=== PATIENT | male | born 1960 | race Caucasian/White ===

== ENCOUNTER 2017-04-17 12:01 | Inpatient (IN) | payer BC ==
[2017-04-17] MEDS ORDERED: RX INFO: IV CONTRAST WAS GIVEN 1 EACH MISC MISCELLANE PRN (12:26)
--- NOTE | 2017-04-17 12:30 | ED ---
General Adult HPI - General Chief complaint: Chest Pain Stated complaint: Chest Pain Time Seen by Provider: 04/17/17 12:14 Source: patient, RN notes reviewed, old records reviewed Mode of arrival: ambulatory Limitations: no limitations - History of Present Illness Initial comments: This is a 56-year-old male to the ER for evaluation. This patient presents for evaluation regards to shortness of breath chest pain left-sided chest pain heaviness radiating down left arm. Patient has no medical history and does not see Dr. has no surgical history, patient states he does have a history of smoking. No known family history. Patient states he was chopping some wood today about an hour and a half to 2 hours ago and became severely short of breath severe pain diaphoresis pain in his anterior chest rating to his left arm. Mild nausea no vomiting. Patient has no prior history of similar pain that is been this bad, patient has had pain before will doing physical activity just is anterior chest never rating on his arm - Related Data Previous Rx's Medication Instructions Recorded Aspirin 81 mg PO DAILY #100 chew 04/19/17 Atorvastatin [Lipitor] 80 mg PO DAILY #30 tab 04/19/17 Clopidogrel [Plavix] 75 mg PO DAILY #100 tab 04/19/17 Losartan [Cozaar] 50 mg PO DAILY 30 Days #30 tab 04/19/17 Metoprolol Tartrate [Lopressor] 50 mg PO Q24H #60 tab 04/19/17 Nitroglycerin Sl Tabs [Nitrostat] 0.4 mg SUBLINGUAL Q5M PRN #20 tab 04/19/17 Allergies Allergy/AdvReac Type Severity Reaction Status Date / Time No Known Allergies Allergy Verified 04/17/17 12:44 Review of Systems ROS Statement: Those systems with pertinent positive or pertinent negative responses have been documented in the HPI. ROS Other: All systems not noted in ROS Statement are negative. Past Medical History Past Medical History: No Reported History History of Any Multi-Drug Resistant Organisms: None Reported Additional Past Surgical History / Comment(s): RIGHT LEG SURGERY , Past Anesthesia/Blood Transfusion Reactions: No Reported Reaction Past Psychological History: No Psychological Hx Reported Smoking Status: Former smoker Past Alcohol Use History: Occasional Past Drug Use History: None Reported - Past Family History Mother Family Medical History: No Reported History General Exam Limitations: no limitations Course Vital Signs 04/17/17 04/17/17 04/17/17 12:02 12:15 14:20 Temperature 97.9 F Pulse Rate 113 H 117 H 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 ] Respiratory 20 18 Rate Blood Pressure 165/102 O2 Sat by Pulse 98 95 Oximetry 04/17/17 04/17/17 04/17/17 14:23 14:28 14:36 Temperature Pulse Rate 106 H 102 H Pulse Rate [ Derivatives Trader ] Respiratory 16 16 Rate Blood Pressure 169/98 160/90 155/90 O2 Sat by Pulse 96 97 Oximetry 04/17/17 04/17/17 04/17/17 14:40 14:46 14:50 Temperature Pulse Rate 100 97 Pulse Rate [ Derivatives Trader ] Respiratory 16 16 Rate Blood Pressure 153/85 146/92 138/95 O2 Sat by Pulse 96 97 Oximetry 04/17/17 04/17/17 14:59 16:11 Temperature 98.8 F 98.6 F Pulse Rate 100 100 Pulse Rate [ Derivatives Trader ] Respiratory 16 16 Rate Blood Pressure 140/94 123/90 O2 Sat by Pulse 97 96 Oximetry EKG Findings - EKG Comments: EKG Findings:: EKG shows sinus tachycardia rate 1:15, NV 154, QRS 98, QTC 484. EKG shows normal sinus rhythm rate of 100, NV 150, QRS 02, QTc 451 Medical Decision Making - Medical Decision Making 36 male the ER for severe chest pain severe chest pain and back running down her arm. Patient is CT chest with is negative. Patient will be admitted for cardiac observation and treatment, anticoagulation - Lab Data Result diagrams: 04/19/17 05:50 04/19/17 05:50 Lab Results 04/17/17 04/17/17 04/17/17 Range/Units 12:50 12:50 12:50 WBC 11.3 H (3.8-10.6) k/uL RBC 5.27 (4.30-5.90) m/uL Hgb 16.2 (13.0-17.5) gm/dL Hct 49.6 (39.0-53.0) % MCV 94.0 (80.0-100.0) fL MCH 30.7 (25.0-35.0) pg MCHC 32.6 (31.0-37.0) g/dL RDW 12.6 (11.5-15.5) % Plt Count 257 (150-450) k/uL Neutrophils % 69 % Lymphocytes % 18 % Monocytes % 8 % Eosinophils % 2 % Basophils % 1 % Neutrophils # 7.7 (1.3-7.7) k/uL Lymphocytes # 2.1 (1.0-4.8) k/uL Monocytes # 0.9 (0-1.0) k/uL Eosinophils # 0.2 (0-0.7) k/uL Basophils # 0.1 (0-0.2) k/uL PT (9.0-12.0) sec INR (<1.2) APTT (22.0-30.0) sec D-Dimer (<0.60) mg/L FEU Sodium 144 (137-145) mmol/L Potassium 4.2 (3.5-5.1) mmol/L Chloride 103 (98-107) mmol/L Carbon Dioxide 26 (22-30) mmol/L Anion Gap 15 mmol/L BUN 11 (9-20) mg/dL Creatinine 0.95 (0.66-1.25) mg/dL Est GFR (MDRD) Af Amer >60 (>60 ml/min/1.73 sqM) Est GFR (MDRD) Non-Af >60 (>60 ml/min/1.73 sqM) Glucose 118 H (74-99) mg/dL Calcium 9.9 (8.4-10.2) mg/dL Magnesium 1.6 (1.6-2.3) mg/dL Total Bilirubin 0.5 (0.2-1.3) mg/dL AST 24 (17-59) U/L ALT 37 (21-72) U/L Alkaline Phosphatase 82 (38-126) U/L Total Creatine Kinase 66 (55-170) U/L CK-MB (CK-2) 1.6 (0.0-2.4) ng/mL CK-MB (CK-2) Rel Index 2.4 Troponin I 0.090 H* (0.000-0.034) ng/mL Total Protein 7.4 (6.3-8.2) g/dL Albumin 4.4 (3.5-5.0) g/dL Lipase 46 (23-300) U/L 04/17/17 Range/Units 12:50 WBC (3.8-10.6) k/uL RBC (4.30-5.90) m/uL Hgb (13.0-17.5) gm/dL Hct (39.0-53.0) % MCV (80.0-100.0) fL MCH (25.0-35.0) pg MCHC (31.0-37.0) g/dL RDW (11.5-15.5) % Plt Count (150-450) k/uL Neutrophils % % Lymphocytes % % Monocytes % % Eosinophils % % Basophils % % Neutrophils # (1.3-7.7) k/uL Lymphocytes # (1.0-4.8) k/uL Monocytes # (0-1.0) k/uL Eosinophils # (0-0.7) k/uL Basophils # (0-0.2) k/uL PT 9.7 (9.0-12.0) sec INR 1.0 (<1.2) APTT 24.9 (22.0-30.0) sec D-Dimer 0.36 (<0.60) mg/L FEU Sodium (137-145) mmol/L Potassium (3.5-5.1) mmol/L Chloride (98-107) mmol/L Carbon Dioxide (22-30) mmol/L Anion Gap mmol/L BUN (9-20) mg/dL Creatinine (0.66-1.25) mg/dL Est GFR (MDRD) Af Amer (>60 ml/min/1.73 sqM) Est GFR (MDRD) Non-Af (>60 ml/min/1.73 sqM) Glucose (74-99) mg/dL Calcium (8.4-10.2) mg/dL Magnesium (1.6-2.3) mg/dL Total Bilirubin (0.2-1.3) mg/dL AST (17-59) U/L ALT (21-72) U/L Alkaline Phosphatase (38-126) U/L Total Creatine Kinase (55-170) U/L CK-MB (CK-2) (0.0-2.4) ng/mL CK-MB (CK-2) Rel Index Troponin I (0.000-0.034) ng/mL Total Protein (6.3-8.2) g/dL Albumin (3.5-5.0) g/dL Lipase (23-300) U/L - Radiology Data Radiology results: report reviewed (CTA chest negative for acute disease), image reviewed Critical Care Time Critical Care Time: Yes Total Critical Care Time: 31 Disposition Clinical Impression: Chest pain Disposition: ADMITTED IP TO THIS HOSP Condition: Undetermined
[2017-04-17 12:58] LABS: Basophils # (A) 0.1 k/uL (0-0.2); Basophils % (A) 1 %; Eosinophils # (A) 0.2 k/uL (0-0.7); Eosinophils % (A) 2 %; HCT 49.6 % (39.0-53.0); HGB 16.2 gm/dL (13.0-17.5); Lymphocytes # (A) 2.1 k/uL (1.0-4.8); Lymphocytes % (A) 18 %; MCH 30.7 pg (25.0-35.0); MCHC 32.6 g/dL (31.0-37.0); Mean Platelet Volume 8.3; Monocytes # (A) 0.9 k/uL (0-1.0); Monocytes % (A) 8 %; Neutrophils # (A) 7.7 k/uL (1.3-7.7); Neutrophils % (A) 69 %; Platelet Count 257 k/uL (150-450); RBC 5.27 m/uL (4.30-5.90); RDW 12.6 % (11.5-15.5); WBC 11.3 k/uL (3.8-10.6)
[2017-04-17 13:06] LABS: D-Dimer 0.36 mg/L FEU (<0.60)
[2017-04-17 13:10] LABS: Partial Thromboplastin Time 24.9 sec (22.0-30.0); Prothrombin Time 9.7 sec (9.0-12.0)
[2017-04-17 13:13] LABS: ALT 37 U/L (21-72); AST 24 U/L (17-59); Albumin 4.4 g/dL (3.5-5.0); Alkaline Phosphatase 82 U/L (38-126); Anion Gap 15 mmol/L; Blood Urea Nitrogen 11 mg/dL (9-20); Calcium 9.9 mg/dL (8.4-10.2); Carbon Dioxide 26 mmol/L (22-30); Chloride 103 mmol/L (98-107); Glucose 118 mg/dL (74-99); Lipase 46 U/L (23-300); Magnesium 1.6 mg/dL (1.6-2.3); Potassium 4.2 mmol/L (3.5-5.1); Sodium 144 mmol/L (137-145); Total Bilirubin 0.5 mg/dL (0.2-1.3); Total Protein 7.4 g/dL (6.3-8.2)
[2017-04-17] MEDS ORDERED: NITROGLYCERIN SL TABS 0.4 MG TAB SUBLINGUAL PRN (13:29)
[2017-04-17] MEDS ORDERED: MORPHINE SULFATE 4 MG/ML SYRINGE IV PRN (13:29)
[2017-04-17] MEDS ORDERED: ASPIRIN 81 MG PO STA (13:29)
[2017-04-17] MEDS ORDERED: HEPARIN SODIUM,PORCINE 5,000 UNIT/ML 1 ML VIAL IV PRN (13:29)
[2017-04-17] MEDS ORDERED: HEPARIN SODIUM,PORCINE 5,000 UNIT/ML 1 ML VIAL IV ONE (13:29)
[2017-04-17] MEDS ORDERED: HEPARIN SOD,PORK IN 0.45% NACL 25,000 UNIT in 0.45% NACL 1 500ML.BAG IV SCH (13:30)
[2017-04-17 13:40] LABS: Creatine Kinase MB 1.6 ng/mL (0.0-2.4)
[2017-04-17 13:48] LABS: Troponin I 0.09 ng/mL (0.000-0.034)
--- NOTE | 2017-04-17 13:52 | CT ---
EXAMINATION TYPE: CT angio chest DATE OF EXAM: 04/17/2017 1:19 PM COMPARISON: NONE HISTORY: Lt upper arm pain, Lt upper chest pain CT DLP: 575 mGycm Automated exposure control for dose reduction was used. CONTRAST: CTA scan of the thorax is performed with IV Contrast, patient injected with 100 mL of Omnipaque 350, pulmonary embolism protocol. . FINDINGS: There is a spiculated 2.1 x 1.9 cm opacity in the left lingula. Lungs otherwise clear. There is no significant axillary adenopathy. There is some shotty lymphadenopathy in the aortopulmona ry window and right hilum. There are no pathologically enlarged lymph nodes. There is no evidence of pulmonary embolus. The root of the aorta is dilated measuring 4.4 cm. The proximal arch is aneurysmal measuring 3.9 cm. The proximal descending aorta and the remainder of the visualized aorta is normal in caliber. There is no pleural or pericardial fluid. The heart is not enlarged. Visualized portions of the upper abdomen are unremarkable. There is minor hypertrophic spondylosis within the spine. IMPRESSION: 1. THIS EXAMINATION IS NEGATIVE FOR PULMONARY EMBOLUS. 2. NONSPECIFIC ADENOPATHY. 3. ASCENDING THORACIC AORTIC ANEURYSM. 4. SPICULATED DENSITY IN THE LEFT LINGULA MAY REFLECT AIRSPACE DISEASE. SHORT-TERM FOLLOW-UP WOULD BE RECOMMENDED TO EXCLUDE NEOPLASM. 5. MINIMAL DEGENERATIVE CHANGE WITHIN THE SPINE.
[2017-04-17] MEDS ORDERED: LABETALOL 5 MG/ML VIAL MDV IVP STA (13:59)
[2017-04-17] MEDS: METOPROLOL TARTRATE 5 MG/5 ML VIAL IVP SCH ×4 (14:19→14:46)
[2017-04-17] MEDS: SODIUM CHLORIDE 0.9% 1,000 ML IV SCH (14:37)
[2017-04-17 19:19] LABS: Creatine Kinase MB 25.9 ng/mL (0.0-2.4); Troponin I 10.2 ng/mL (0.000-0.034)
[2017-04-17] MEDS: METOPROLOL TARTRATE 25 MG TAB PO SCH (19:56)
[2017-04-18 01:13] LABS: Troponin I 9.46 ng/mL (0.000-0.034)
[2017-04-18 07:19] LABS: Mean Platelet Volume 7.9; Platelet Count 217 k/uL (150-450)
[2017-04-18 07:45] LABS: Cholesterol 244 mg/dL (<200); HDL Cholesterol 34 mg/dL (40-60); LDL Cholesterol,Calculated 178 mg/dL (0-99); Triglycerides 158 mg/dL (<150)
[2017-04-18] MEDS: SODIUM CHLORIDE 0.9% 1,000 ML IV SCH ×4 (07:49→20:30)
[2017-04-18] MEDS: METOPROLOL TARTRATE 25 MG TAB PO SCH ×2 (08:31→20:26)
[2017-04-18] MEDS: ATORVASTATIN 80 MG TAB PO SCH (08:31)
[2017-04-18] MEDS ORDERED: diphenhydrAMINE 50 MG/ML 1 ML VIAL ONE (08:37)
[2017-04-18] MEDS ORDERED: LIDOCAINE 2% INJ 20 MG/ML (20 ML MDV) ONE (08:37)
[2017-04-18] MEDS ORDERED: MIDAZOLAM 2 MG/2 ML VIAL ONE (08:37)
[2017-04-18] MEDS ORDERED: ALPRAZolam 0.25 MG TAB PO PRN (08:41)
[2017-04-18] MEDS ORDERED: ASPIRIN 325 MG TAB PO SCH (09:00)
[2017-04-18] MEDS ORDERED: IV FLUID CONTINUATION 100 ML IV ONE (09:08)
[2017-04-18] MEDS ORDERED: LIDOCAINE 2% INJ 20 MG/ML SQ ONE ×2 (09:14→09:15)
[2017-04-18] MEDS ORDERED: diphenhydrAMINE 50 MG/ML 1 ML VIAL IVP ONE (09:14)
[2017-04-18] MEDS ORDERED: MIDAZOLAM 2 MG/2 ML VIAL IVP ONE (09:14)
[2017-04-18] MEDS ORDERED: BIVALIRUDIN 250 MG in SODIUM CHLORIDE 0.9% 50 ML IV ONE (09:27)
[2017-04-18] MEDS ORDERED: BIVALIRUDIN BOLUS 250 MG/50 ML IV ONE (09:27)
[2017-04-18] MEDS ORDERED: PRASUGREL 10 MG TAB ONE (09:34)
[2017-04-18] MEDS ORDERED: niCARdipine 25 MG/10 ML VIAL ONE (09:35)
[2017-04-18] MEDS ORDERED: NITROGLYCERIN 1000MCG/10ML SYRINGE INTRACORON ONE (09:37)
[2017-04-18] MEDS ORDERED: niCARdipine Syringe (1,000 mcg/10 mL) INTRACORON ONE (09:37)
[2017-04-18] MEDS ORDERED: PRASUGREL 10 MG TAB PO ONE (09:39)
[2017-04-18] MEDS ORDERED: IOHEXOL 350 MG/ML (PER ML) 100ML BTL INJ ONE (09:42)
[2017-04-18] MEDS ORDERED: HYDROmorphone 2 MG/ML 1 ML SYRINGE ONE (09:43)
[2017-04-18] MEDS ORDERED: HYDROmorphone 2 MG/ML 1 ML SYRINGE IV ONE (09:44)
[2017-04-18] MEDS ORDERED: ZOLPIDEM 5 MG TAB PO PRN (09:56)
[2017-04-18] MEDS ORDERED: RX INFO: IV CONTRAST WAS GIVEN 1 EACH MISC MISCELLANE PRN (09:56)
[2017-04-18] MEDS ORDERED: MAG HYDROX/AL HYDROX/SIMETH 30 ML CUP PO PRN (09:56)
[2017-04-18] MEDS ORDERED: ATROPINE SULFATE 0.1 MG/ML 10ML SYRINGE IV PRN (09:56)
[2017-04-18] MEDS ORDERED: NITROGLYCERIN SL TABS 0.4 MG TAB SUBLINGUAL PRN (09:56)
--- NOTE | 2017-04-18 10:45 | ECHOF ---
Referral Reason:cp MEASUREMENTS -------- HEIGHT: 188.0 cm WEIGHT: 97.5 kg BP: RVIDd: 2.9 cm (< 3.3) IVSd: 1.3 cm (0.6 - 1.1) LVIDd: 4.9 cm (3.9 - 5.3) LVPWd: 1.2 cm (0.6 - 1.1) IVSs: 1.4 cm LVIDs: 3.4 cm LVPWs: 1.3 cm LAESV Index (A-L): 25.28 ml/m Ao Diam: 4.2 cm (2.0 - 3.7) AV Cusp: 2.8 cm (1.5 - 2.6) LA Diam: 3.2 cm (2.7 - 3.8) MV EXCURSION: 16.312 mm (> 18.000) MV EF SLOPE: 90 mm/s (70 - 150) EPSS: 0.6 cm MV E Chadwick: 0.54 m/s MV DecT: 236 ms MV A Chadwick: 0.69 m/s MV E/A Ratio: 0.79 RAP: 5.00 mmHg RVSP: 24.39 mmHg FINDINGS -------- Sinus rhythm. This was a technically good study. The left ventricular size is normal. There is mild concentric left ventricular hypertrophy. Overa ll left ventricular systolic function is moderate-severely impaired with, an EF between 30 - 35 %. Anterseptal Hypokinesis Lateral hypokinesis Inferior Hypokinesis Septal Hypokinesis [place] Hypo kinesis. The right ventricle is normal in size. Normal LA size by volume 22+/-6 ml/m2. The right atrial size is normal. The aortic valve is trileaflet, and appears structurally normal. No aortic stenosis or regurgitation. Mild mitral regurgitation is present. Mild tricuspid regurgitation present. There is no evidence of pulmonary hypertension. The right v entricular systolic pressure, as measured by Doppler, is 24.39mmHg. There is no pulmonic regurgitation present. Aortic Root is mildly dilated measures 4.2cm. There is no pericardial effusion. CONCLUSIONS -------- 1. The left ventricular size is normal. 2. There is mild concentric left ventricular hypertrophy. 3. Overall left ventricular systolic function is moderate-severely impaired with, an EF between 30 - 35 %. 4. Anterseptal Hypokinesis 5. Lateral hypokinesis 6. Inferior Hypokinesis 7. Septal Hypokinesis 8. [place] Hypokinesis. 9. Normal LA size by volume 22+/-6 ml/m2. 10. The aortic valve is trileaflet, and appears structurally normal. No aortic stenosis or regurgitat ion. 11. Mild mitral regurgitation is present. 12. Mild tricuspid regurgitation present. 13. There is no evidence of pulmonary hypertension. 14. The right ventricular systolic pressure, as measured by Doppler, is 24.39mmHg. 15. There is no pulmonic regurgitation present. 16. Aortic Root is mildly dilated measures 4.2cm. 17. There is no pericardial effusion. DOZER OPERATOR: Patricia Clemens RDCS
--- NOTE | 2017-04-18 10:50 | CC ---
CARDIAC CATHETERIZATION REPORT DATE OF SERVICE: 04/18/2017. PROCEDURE: 1. Left heart catheterization and coronary angiography. 2. PTCA and stenting of proximal LAD with a drug-eluting stent. Moderate conscious sedation time 40 minutes with a combination of Versed and Dilaudid. CLINICAL INFORMATION: Mr. Shahab Chairez is a 56-year-old gentleman who is a smoker and was trying to quit smoking 2 weeks ago. He does not have any other known risk factors, but probably has hyperlipidemia as well, untreated. He came into the emergency room yesterday after lifting some firewood after he cut some firewood. With this heavy work, he developed chest pressure suggestive, suggestive of angina. Pain was relieved with nitroglycerin. He was placed on a heparin drip and had serial troponins. Troponin elevation suggests a non-ST elevation [place] with anterior T-wave changes. He was advised coronary angiography. Risks, benefits, options, rationale were carefully explained to the patient. There was no other family members available. He understood all details and wished to proceed with the procedure. PROCEDURE NOTE: Under local anesthesia and strict aseptic precautions, a 6-[place] introducer was placed in the right femoral artery. Using standard Saqib catheters, I performed coronary angiography and a pigtail catheter was used to check LV pressures. LV gram was not performed. I then proceeded to perform PCI of LAD. A standard left Saqib type-guide catheter was used to cannulate the left coronary artery. A BMW wire was used to cross the lesion. Without predilatation, a 15 mm long 3.5 caliber Xience stent was deployed at 12 atmospheres. Patient did not have chest pain but had more prominent precordial T- wave inversions. Excellent angiographic result was achieved. He received Angiomax bolus and infusion as per protocol. He also received 60 mg of Effient. After the procedure was completed, he had a Perclose device to use to secure hemostasis and he was sent to the room in a stable condition. Results were discussed and films and pictures were reviewed with the patient. There were no family members available. CARDIAC CATHETERIZATION FINDINGS: The left ventricle end-diastolic pressure was 16 mmHg and there was no gradient across the aortic valve. CORONARY ANGIOGRAPHY FINDINGS: 1. RIGHT CORONARY ARTERY: Dominant vessel distally bifurcates into predominantly PDA. Has minor irregularities, no significant disease. This appears to be a codominant vessel. 2. LEFT MAIN CORONARY ARTERY: This is a short patent vessel, free of significant disease that trifurcates into LAD, circumflex and a small ramus intermedius. Left main is free of significant disease. 3. LEFT ANTERIOR DESCENDING CORONARY ARTERY: This is a good caliber vessel, very proximally after the origin of a very small septal and diagonal branch. There is an eccentric area of haziness and stenosis of 70%-80% with thrombus. This appears to be the culprit lesion. After this, the caliber of the vessel improves. Right after the area of thrombus and stenosis, a good-sized diagonal branch runs laterally supplying a sizable amount of myocardium, has only minor irregularities. The LAD after the above-mentioned stenosis improves in caliber, runs all the way to the apex. curves over the apex to supply the inferoapical portion of left ventricle. 4. RAMUS INTERMEDIUS: This is a single vessel that runs laterally, has about 40% ostial disease, has no significant disease. Distally, has minor irregularities. It is a small caliber, small distribution vessel. 5. LEFT POSTERIOR CIRCUMFLEX CORONARY ARTERY: Technically, a codominant vessel, gives off a small obtuse marginal and distally continues as a PLV branch. There are minor irregularities but the distal branches have diffuse disease. No significant disease in the codominant circumflex system. 6. PCI FINDINGS: Patient had a 70%-80% proximal/mid LAD lesion with thrombus. After stenting with a drug-eluting stent and giving some nicardipine and nitroglycerin, the flow was excellent. Excellent angiographic result was achieved without any complications. The flow in the diagonal branch was also excellent. Results were discussed with the patient. He had a Perclose device to secure hemostasis and was sent to the room in a stable condition. MMODL / IJN: [id number] /
--- NOTE | 2017-04-18 10:56 | CONS ---
CONSULTATION This is a 56-year-old gentleman who does not take any medications. He has a history of smoking which he is trying to quit. He has no family history of CAD, cholesterol status is unknown. He was working yesterday, cutting some firewood and lifting the wood. He developed pressure in the chest, radiation to upper extremities, very uncomfortable feeling, came into the emergency room, had nonspecific ST-T changes. Pain was relieved with nitroglycerin and controlling his blood pressure and heart rate. He developed a troponin elevation overnight. This morning is comfortable, resting denies chest pain. He has mild achy feeling, but none like yesterday when he was lifting heavy objects. He does not have that intense discomfort. He is comfortable at the time of my evaluation. PAST MEDICAL HISTORY: Remarkable for some surgery on his hand for injury and also on his leg. He has no hypertension, diabetes, myocardial infarction or CVA. He smokes at least about half to 1 pack a day and is trying to quit. MEDICATIONS: None. ALLERGIES: None. REVIEW OF SYSTEMS: Unremarkable, other than above-mentioned facts. While shoveling snow, he experienced some exertional chest discomfort a week or so ago. PHYSICAL EXAMINATION: Blood pressure is 136/80, pulse rate is about 86 per minute. HEENT unremarkable, fundus was fundus was not examined by me. Neck is supple. There is no JVD. There is evidence of a left carotid bruit. Heart exam reveals S1, S2 heard normally without a rub, murmur or gallop. There are no significant murmurs. Lungs revealed decent air entry. Abdomen is soft, nontender. Lower extremities reveal palpable pulses. No edema. Central nervous system is normal. EKG revealed sinus mechanism with a precordial T-wave inversion suggestive of a non-ST elevation [place] with a troponin elevation. Possibility of a lesion in the LAD is suspected. IMPRESSION: 1. Acute anterior non-ST elevation myocardial infarction with resolution of chest pain. There is elevation of troponin and EKG changes suggestive of a LAD distribution ischemia. 2. Smoking. 3. Probable hypercholesterolemia based on labs. RECOMMENDATION: I am recommending beta blockers. Continue IV heparin and also add a statin agent. I discussed with the patient risks, benefits, options related to coronary angiography and intervention. He understands all details and wished to proceed with the procedure which will be performed this morning. MMODL / IJN: [id number] /
[2017-04-18 12:15] LABS: Glucose,Whole Blood 99 mg/dL (75-99)
[2017-04-18] MEDS: LOSARTAN 50 MG TAB PO SCH (12:27)
--- NOTE | 2017-04-18 14:44 | HP ---
HISTORY AND PHYSICAL DATE OF ADMISSION: 04/17/17. CHIEF COMPLAINT: Chest pain. HISTORY OF PRESENT ILLNESS: This is the first known admission for this 56-year-old white male. He was out chopping wood with his son when he started to feel hot and has an aching in the left arm. He then developed chest pain which he described as being very intense. He is a little short of breath and became diaphoretic. He was not nauseated. He came to the emergency room. He was found to have elevated troponin, was diagnosed as a non-STEMI. He has been healthy otherwise as far as he knows. Does not go to any doctor. REVIEW OF SYSTEMS: He has had no headaches, neurologic problems, difficulty with vision and hearing, cough, hemoptysis, murmurs, rheumatic fever, hypertension, palpitations, orthopnea, PND, syncope, abdominal pain, food intolerance, indigestion, nausea, vomiting, diarrhea, melena, cirrhosis, hematuria, frequency, urgency, arthralgias, diabetes, etc. Past medical history, family history, personal and social histories reveal that surgically he has had a repair of a fracture of the right hand and of the right lower leg. He is not on any medicine. He is not allergic to any. Does not know anything about blood pressure, lipids, etc. He has a negative family history, but he smokes a pack of cigarettes a day. 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 PHYSICAL EXAMINATION: Blood pressure is 138/86 with a pulse of 83, respirations of 22. He is afebrile. GENERAL: He appeared to be well developed, well nourished, no acute distress. Skin color is normal. Skin is warm, dry. Lymph nodes not enlarged. Head, ears, eyes, nose, mouth, and throat were normal and neck veins were not distended. Thyroid is not enlarged. Chest is clear. The cardiac exam is normal. The abdomen is soft and nontender. Extremities are normal. IMPRESSION: 1. Acute myocardial infarction. 2. Nicotine abuse. PLAN: 1. Bed rest. 2. IV fluids. 3. Workup for PA. 4. Cardiology consult. MMODL / IJN: [id number] /
--- NOTE | 2017-04-18 14:59 | PN ---
PROGRESS NOTE DATE OF SERVICE: 04/18/17 CHIEF COMPLAINTS: Chest pain. HISTORY OF PRESENT ILLNESS: This gentleman is doing well. He is going for the cardiac cath today. PHYSICAL EXAM: CHEST: Clear. Cardiac exam is normal. Abdomen is soft, nontender and he is neurological intact. IMPRESSION: 1. Acute myocardial infarction. 2. Nicotine abuse. PLAN: Await results of cardiac cath. MMODL / IJN: [id number] /
[2017-04-18] MEDS ORDERED: MAGNESIUM SULFATE-D5W PMX 1 GM in DEXTROSE/WATER 1 100ML.BAG IVPB ONE (20:00)
[2017-04-19 06:16] LABS: Basophils % (A) 0 %; Eosinophils # (A) 0.1 k/uL (0-0.7); Eosinophils % (A) 2 %; HCT 47.4 % (39.0-53.0); HGB 14.7 gm/dL (13.0-17.5); Lymphocytes # (A) 1.6 k/uL (1.0-4.8); Lymphocytes % (A) 18 %; MCH 30.1 pg (25.0-35.0); MCHC 31.1 g/dL (31.0-37.0); MCV 96.9 fL (80.0-100.0); Mean Platelet Volume 7.9; Monocytes # (A) 0.9 k/uL (0-1.0); Monocytes % (A) 10 %; Neutrophils # (A) 5.7 k/uL (1.3-7.7); Neutrophils % (A) 67 %; Platelet Count 197 k/uL (150-450); RBC 4.89 m/uL (4.30-5.90); RDW 12.6 % (11.5-15.5); WBC 8.6 k/uL (3.8-10.6)
[2017-04-19 06:37] LABS: Anion Gap 10 mmol/L; Blood Urea Nitrogen 13 mg/dL (9-20); Calcium 9.1 mg/dL (8.4-10.2); Carbon Dioxide 27 mmol/L (22-30); Chloride 105 mmol/L (98-107); Glucose 108 mg/dL (74-99); Potassium 4.3 mmol/L (3.5-5.1); Sodium 142 mmol/L (137-145)
[2017-04-19] MEDS ORDERED: ASPIRIN 81 MG PO SCH (09:00)
[2017-04-19] MEDS ORDERED: CLOPIDOGREL 75 MG TAB PO SCH (09:00)
[2017-04-19] MEDS ORDERED: MAGNESIUM OXIDE 400 MG TAB PO SCH (09:00)
[2017-04-19 09:54] VITALS: TEMP 97.6
[2017-04-19] MEDS: ATORVASTATIN 80 MG TAB PO SCH (09:56)
--- NOTE | 2017-04-19 09:56 | US ---
EXAMINATION TYPE: US carotid duplex BILAT DATE OF EXAM: 04/19/2017 COMPARISON: NONE CLINICAL HISTORY: rule out stenosis. Left arm pain and numbness EXAM MEASUREMENTS: RIGHT: Peak Systolic Velocity (PSV) cm/sec ----- Right CCA: 86.4 ----- Right ICA: 67.0 ----- Right ECA: 79.5 ICA/CCA ratio: 0.8 RIGHT: End Diastole cm/sec ----- Right CCA: 23.7 ----- Right ICA: 26.1 ----- Right ECA: 19.5 LEFT: Peak Systolic Velocity (PSV) cm/sec ----- Left CCA: 66.0 ----- Left ICA: 78.8 ----- Left ECA: 140.6 ICA/CCA ratio: 1.2 LEFT: End Diastole cm/sec ----- Left CCA: 24.1 ----- Left ICA: 78.8 ----- Left ECA: 19.0 VERTEBRALS (direction of flow): Right Vertebral: Antegrade Left Vertebral: Antegrade Rhythm: Normal No significant velocity elevations, mild atherosclerotic changes. Grayscale, color Doppler, spectral Doppler imaging performed of the carotid arteries, mild atheromato us changes present in the carotid bulbs IMPRESSION: No hemodynamic significant stenosis of the proximal internal carotid arteries bilaterall y by Doppler criteria, an indirect measurement of carotid stenosis Criteria for Assigning % of Stenosis / Diameter reduction (Estimation based on the indirect measurements of the internal carotid artery velocities (ICA PSV). 1. Normal (no stenosis)=ICA PSV < 125 cm/s: ratio < 2.0: ICA EDV<40 cm/s. 2. Less than 50% stenosis=ICA PSV < 125 cm/s: ratio < 2.0: ICA EDV<40 cm/s. 3. 50 to 69% stenosis=ICA PSV of 125 to 230 cm/s: ration 2.0 ? 4.0: ICA EDV 40-100 cm/s. 4. Greater than 70% stenosis to near occlusion= ICA PSV > 230 cm/s: ratio > 4.0: ICA EDV > 100 cm/s. 5. Near occlusion= ICA PSV velocities may be low or undetectable: variable ratio and ICA EDV. 6. Total occlusion=unable to detect flow.
[2017-04-19] MEDS: LOSARTAN 50 MG TAB PO SCH (09:57)
--- NOTE | 2017-04-19 10:25 | ECHOF ---
Referral Reason:Ant NSTEMI, do Echo on Apr 19 MEASUREMENTS -------- HEIGHT: 182.9 cm WEIGHT: 97.5 kg BP: 125/74 MV E Chadwick: 0.34 m/s MV DecT: 248 ms MV A Chadwick: 0.67 m/s MV E/A Ratio: 0.50 FINDINGS -------- Sinus rhythm. Pt had complete echo 04/18/2017: Limited Study for LV function. Overall left ventricular systolic function is mild-moderately impaired with, an EF between 40 - 45 %. Apical anterior LV wall motion is hypokinetic. Apical septum LV wall motion is hypokinetic. [place] Hypokinesis. CONCLUSIONS -------- 1. Pt had complete echo 04/18/2017: Limited Study for LV function. 2. Overall left ventricular systolic function is mild-moderately impaired with, an EF between 40 - 45 %. 3. Apical anterior LV wall motion is hypokinetic. 4. Apical septum LV wall motion is hypokinetic. 5. [place] Hypokinesis. INDUSTRIAL GAS SERVICE HELPER: Patricia Clemens RDCS
[2017-04-19 10:29] VITALS: BMI 29.8
--- NOTE | 2017-04-19 11:57 | PN ---
PROGRESS NOTE Mr. Chairez is a 56-year-old gentleman who underwent stenting of his LAD that was performed on Tuesday. He had a lot of ventricular ectopy yesterday, but after giving magnesium his ectopy has resolved. He is doing well at this time. Denies chest pain or shortness of breath. His echo from today shows some modest improvement in LV function. Vital signs are stable. S1, S2 heard normally. Lungs are clear. Abdomen and lower extremity exam unchanged. Right groin is clean and dry. Plan is to discharge the patient today on his current medical regimen and I will see him in the office in 1 week. Importance of smoking cessation and risk factor modification issues were discussed. Discharge instructions regarding activity, diet and medications were also given. MMODL / IJN: [id number] /
[2017-04-19] MEDS ORDERED: METOPROLOL TARTRATE 50 MG TAB PO SCH (12:12)
[2017-04-19 12:35] VITALS: BP 121/68; PULSE 89; RESP 14
[2017-04-19] MEDS ORDERED: METOPROLOL TARTRATE 25 MG TAB PO SCH (18:00)
--- NOTE | 2017-04-19 21:48 | DS ---
DISCHARGE SUMMARY CHIEF COMPLAINT: Chest pain. HISTORY OF PRESENT ILLNESS AND PHYSICAL EXAMINATION: Details of this man's history and physical can be found in the initial workup. LABORATORY STUDIES: While he was in the hospital he had laboratory studies, details of which can be found in the laboratory section of his chart. COURSE IN THE HOSPITAL: After admission he was placed in bedrest and started on intravenous fluids. Cardiac enzymes were elevated. He was seen by Cardiology and taken to the laboratory director, where he was found to have a narrowing of the proximal LAD which was successfully stented. Postoperatively he was doing well and he had no problems except for occasional PVCs. He was doing well and it was felt that he could be discharged on 04/19. He will go home on light activity about the house and will follow up with Cardiology and our office in a few days. FINAL DIAGNOSES: 1. Acute lqe-RJ-hulxrhd-elevation myocardial infarction. 2. Nicotine abuse. OPERATIONS: Cardiac catheterization with stenting of the LAD. CONSULTATION: Cardiology. He is improved. MMODL / IJN: [id number] /
[2017-04-20] MEDS ORDERED: METOPROLOL TARTRATE 50 MG TAB PO SCH (08:00)
== END 2017-04-19 14:48 | disposition home or self-care (01) | DRG 247 ==
LOC: EC 12:01 → 6SEL 13:29
PROVIDERS: ADMIT Family Medicine; ATTEND Family Medicine
PROC: 027034Z Dilation of Coronary Artery, One Artery with Drug-eluting Intraluminal Device, Percutaneous Approach (ICD-10-PCS; principal; 2017-04-17)
PROC: 4A023N7 Measurement of Cardiac Sampling and Pressure, Left Heart, Percutaneous Approach (ICD-10-PCS; 2017-04-17)
PROC: B2111ZZ Fluoroscopy of Multiple Coronary Arteries using Low Osmolar Contrast (ICD-10-PCS; 2017-04-17)
DX: I21.4 Non-ST elevation (NSTEMI) myocardial infarction (principal); E78.00 Pure hypercholesterolemia, unspecified; Z87.891 Personal history of nicotine dependence
CPT/HCPCS: 36415; 71275; 80048; 80053; 80061; 82550; 82553; 83690; 83735; 84484; 85025; 85049; 85379; 85610; 85730; 93005; 93306; 93308; 93458; 93880; 96365; 96375; 96376; 99285

== ENCOUNTER 2017-05-29 04:49 | Observation (INO) | payer BC ==
[2017-05-29] MEDS ORDERED: ASPIRIN 81 MG PO STA (05:07)
--- NOTE | 2017-05-29 05:09 | ED ---
Chest Pain HPI - General Chief Complaint: Chest Pain Stated Complaint: Chest Pain Time Seen by Provider: 05/29/17 05:07 Source: patient Mode of arrival: ambulatory Limitations: no limitations - History of Present Illness Initial Comments: This patient is a 57-year-old man who presents to be evaluated for chest pain. He states pains are all across his chest, and it is tight sensation. The pains are intermittent lasting 5-10 seconds and then resolving. He has not had radiation of the pain. The pains began approximately 24 hours ago. He states that he had just returned from a vacation in [place]. He also has some shortness of breath when the pains come on. MD Complaint: chest pain Onset/Timin -: hour(s) Onset: during rest Pain Location: left chest, right chest Pain Radiation: none Severity: moderate Quality: tightness Consistency: intermittent Improves With: nothing Worsens With: nothing Context: recent travel [place] Symptoms: dyspnea Treatments Prior to Arrival: none - Related Data Home Medications Medication Instructions Recorded Confirmed Metoprolol Tartrate [Lopressor] 50 mg PO DAILY 05/29/17 05/29/17 Rosuvastatin Calcium [Crestor] 5 mg PO HS 05/29/17 05/29/17 Previous Rx's Medication Instructions Recorded Aspirin 81 mg PO DAILY #100 chew 04/19/17 Clopidogrel [Plavix] 75 mg PO DAILY #100 tab 04/19/17 Losartan [Cozaar] 50 mg PO DAILY 30 Days #30 tab 04/19/17 Nitroglycerin Sl Tabs [Nitrostat] 0.4 mg SUBLINGUAL Q5M PRN #20 tab 04/19/17 Allergies Allergy/AdvReac Type Severity Reaction Status Date / Time No Known Allergies Allergy Verified 05/29/17 07:35 Review of Systems ROS Statement: Those systems with pertinent positive or pertinent negative responses have been documented in the HPI. ROS Other: All systems not noted in ROS Statement are negative. Constitutional: Denies: fever, chills Respiratory: Reports: dyspnea. Denies: cough, hemoptysis Cardiovascular: Reports: chest pain. Denies: palpitations, edema, syncope Gastrointestinal: Denies: abdominal pain, nausea, vomiting Genitourinary: Denies: dysuria, hematuria Musculoskeletal: Denies: back pain Skin: Denies: rash Neurological: Denies: headache, weakness, numbness EKG Findings - EKG Results: EKG: interpreted by KAYLEE, sinus rhythm EKG shows: tachycardia (Rate approximately 118 bpm) - Blocks, [place], Hypertrophy, ST Abn: QRS axis and voltage: right axis deviation (+90 to +180) Repolarization changes or abnormalities: ST or T wave suggestive of ischemia ( Anterolateral T inversions, leads V2 to V6) Past Medical History Past Medical History: No Reported History, Myocardial Infarction ([place]) History of Any Multi-Drug Resistant Organisms: None Reported Past Surgical History: Heart Catheterization With Stent Additional Past Surgical History / Comment(s): RIGHT LEG SURGERY , Past Anesthesia/Blood Transfusion Reactions: No Reported Reaction Past Psychological History: No Psychological Hx Reported Smoking Status: Former smoker Past Alcohol Use History: Occasional Past Drug Use History: None Reported - Past Family History Mother Family Medical History: No Reported History General Exam Limitations: no limitations General appearance: alert, in no apparent distress Head exam: Present: atraumatic, normocephalic Eye exam: Present: normal appearance. Absent: scleral icterus, conjunctival injection ENT exam: Present: normal oropharynx Neck exam: Present: normal inspection Respiratory exam: Present: wheezes. Absent: respiratory distress, rales, rhonchi, stridor, chest wall tenderness, accessory muscle use, decreased breath sounds, prolonged expiratory Cardiovascular Exam: Present: normal rhythm, tachycardia (Rate approximately 116 bpm at my exam), normal heart sounds. Absent: systolic murmur, diastolic murmur, rubs, gallop GI/Abdominal exam: Present: soft. Absent: distended, tenderness, guarding, rebound, mass Extremities exam: Present: normal inspection, normal capillary refill. Absent: pedal edema, calf tenderness Back exam: Present: normal inspection. Absent: CVA tenderness (R), CVA tenderness (L) Neurological exam: Present: alert Skin exam: Present: warm, dry, intact, normal color. Absent: rash Course Vital Signs 05/29/17 05/29/17 04:54 07:13 Temperature 98.8 F Pulse Rate 116 H 101 H Respiratory 20 17 Rate Blood Pressure 166/98 124/78 O2 Sat by Pulse 96 95 Oximetry Disposition Clinical Impression: Chest pain, Acute coronary syndrome Disposition: ADMITTED IP TO THIS [facility] Condition: Serious Referrals: Nonstaff,Physician [REFERRING] - 1-2 days
[2017-05-29] MEDS ORDERED: METOPROLOL TARTRATE 25 MG TAB PO STA (05:15)
[2017-05-29] MEDS ORDERED: LORazepam 2 MG/ML INJ IV STA (05:15)
[2017-05-29 05:27] LABS: Basophils % (A) 0 %; Eosinophils # (A) 0.1 k/uL (0-0.7); Eosinophils % (A) 1 %; HCT 46.4 % (39.0-53.0); HGB 15.5 gm/dL (13.0-17.5); Lymphocytes % (A) 8 %; MCH 30.2 pg (25.0-35.0); MCHC 33.3 g/dL (31.0-37.0); Monocytes # (A) 0.9 k/uL (0-1.0); Monocytes % (A) 7 %; Neutrophils # (A) 10.8 k/uL (1.3-7.7); Neutrophils % (A) 83 %; Platelet Count 263 k/uL (150-450); RBC 5.12 m/uL (4.30-5.90); RDW 12.7 % (11.5-15.5); WBC 13.1 k/uL (3.8-10.6)
[2017-05-29 05:30] LABS: MCV 90.7 fL (80.0-100.0)
[2017-05-29 05:37] LABS: ALT 27 U/L (21-72); AST 21 U/L (17-59); Albumin 4.2 g/dL (3.5-5.0); Alkaline Phosphatase 87 U/L (38-126); Amylase 37 U/L (30-110); Anion Gap 14 mmol/L; Blood Urea Nitrogen 13 mg/dL (9-20); Calcium 9.6 mg/dL (8.4-10.2); Carbon Dioxide 25 mmol/L (22-30); Chloride 104 mmol/L (98-107); Glucose 124 mg/dL (74-99); Lipase 52 U/L (23-300); Magnesium 1.8 mg/dL (1.6-2.3); Potassium 4.2 mmol/L (3.5-5.1); Sodium 143 mmol/L (137-145); Total Bilirubin 0.4 mg/dL (0.2-1.3); Total Protein 7.1 g/dL (6.3-8.2)
[2017-05-29 05:40] LABS: D-Dimer 0.84 mg/L FEU (<0.60); Partial Thromboplastin Time 25.2 sec (22.0-30.0); Prothrombin Time 9.6 sec (9.0-12.0)
--- NOTE | 2017-05-29 06:37 | XR ---
EXAM: XR Chest, 1 View CLINICAL HISTORY: ITS.REASON XR Reason: chest pain TECHNIQUE: Frontal view of the chest. COMPARISON: CT chest dated 04/17/2017. FINDINGS: Lungs: Unremarkable. The lungs are clear. Pleural space: Unremarkable. No pneumothorax. Heart: Unremarkable. No cardiomegaly. Mediastinum: Unremarkable. Bones/joints: Unremarkable. IMPRESSION: Normal chest x-ray.
[2017-05-29] MEDS ORDERED: RX INFO: IV CONTRAST WAS GIVEN 1 EACH MISC MISCELLANE PRN (06:58)
--- NOTE | 2017-05-29 08:01 | CT ---
EXAMINATION TYPE: CT chest angio for PE DATE OF EXAM: 05/29/2017 COMPARISON: NONE HISTORY: Pain CT DLP: 378.6 mGycm Automated exposure control for dose reduction was used. CONTRAST: CT Chest for pulmonary embolism performed with with IV Contrast, patient injected with 73 mL of Isovu e 370. FINDINGS: There is some atelectatic change at the right lung base. Lungs otherwise clear. There is shotty axillary, mediastinal and hilar adenopathy. There are no pathologically enlarged lymp h nodes. There is no evidence of pulmonary embolus. The aortic root is prominent measuring 4 cm. The proximal arch measures 2.6 cm. The remainder the aorta is normal in caliber. There is no pleural or pericardia l fluid. The heart is not enlarged. There is a small hiatal hernia. Visualized portions of the upper abdomen are unremarkable. There is mild hypertrophic spondylosis within the spine. IMPRESSION: 1. This examination is negative for pulmonary embolus. 2. Mild aneurysmal dilatation of the proximal descending thoracic aorta. 3. Small hiatal hernia. 4. Degenerative change of the spine.
[2017-05-29] MEDS ORDERED: NITROGLYCERIN SL TABS 0.4 MG TAB SUBLINGUAL PRN (08:38)
[2017-05-29] MEDS ORDERED: HEPARIN SODIUM,PORCINE 5,000 UNIT/ML 1 ML VIAL IV ONE (08:38)
[2017-05-29] MEDS ORDERED: HEPARIN SOD,PORK IN 0.45% NACL 25,000 UNIT in 0.45% NACL 1 500ML.BAG IV SCH (08:45)
[2017-05-29 11:55] LABS: Creatine Kinase 56 U/L (55-170)
[2017-05-29 12:09] LABS: Creatine Kinase MB 1.1 ng/mL (0.0-2.4); Troponin I <0.012 ng/mL (0.000-0.034)
[2017-05-29] MEDS ORDERED: ONDANSETRON 4 MG/2 ML VIAL IVP PRN (12:48)
[2017-05-29] MEDS ORDERED: ACETAMINOPHEN TAB 325 MG TAB PO PRN (12:48)
--- NOTE | 2017-05-29 13:57 | P.HPIM ---
History of Present Illness H&P Date: 05/29/17 Chief Complaint: Chest pain This is a 57-year-old gentleman with past medical history noted below significant for coronary artery disease with recent stent placement to the LAD in March of this year presented to the emergency room with chest tightness and discomfort across his chest. Patient said that his symptoms are intermittent lasting 5-10 second each time. He described it as burning sensation 7 out of 10 in severity at worst. He said that he just returned from vacation why. Patient was concerned and presented to the emergency room. In the emergency room, 12-lead EKG showed no acute ischemic changes. Initial troponin was negative. Patient was admitted to f telemetry floor or cardiology evaluation. Review of Systems Review of system: 14 points review of systems were obtained and were negative except to what were mentioned in the HPI. Past Medical History Past Medical History: No Reported History, Myocardial Infarction ([place]) Last Myocardial Infarction Date:: 04/02/2017 History of Any Multi-Drug Resistant Organisms: None Reported Past Surgical History: Heart Catheterization With Stent Additional Past Surgical History / Comment(s): RIGHT LEG SURGERY , Past Anesthesia/Blood Transfusion Reactions: No Reported Reaction Date of Last Stent Placement:: 04/02/2017 Past Psychological History: No Psychological Hx Reported Smoking Status: Former smoker Past Alcohol Use History: Occasional Additional Past Alcohol Use History / Comment(s): STARTED SMOKING AT AGE 21 QUIT 2010 SMOKED 3/4PPD Past Drug Use History: None Reported - Past Family History Mother Family Medical History: No Reported History Medications and Allergies Home Medications Medication Instructions Recorded Confirmed Type Aspirin 81 mg PO DAILY #100 chew 04/19/17 05/29/17 Rx Clopidogrel [Plavix] 75 mg PO DAILY #100 tab 04/19/17 05/29/17 Rx Losartan [Cozaar] 50 mg PO DAILY 30 Days #30 tab 04/19/17 05/29/17 Rx Nitroglycerin Sl Tabs [Nitrostat] 0.4 mg SUBLINGUAL Q5M PRN #20 tab 04/19/1703/17 Rx Metoprolol Tartrate [Lopressor] 50 mg PO DAILY 05/29/17 05/29/17 History Rosuvastatin Calcium [Crestor] 5 mg PO HS 05/29/17 05/29/17 History Allergies Allergy/AdvReac Type Severity Reaction Status Date / Time No Known Allergies Allergy Verified 05/29/17 07:35 Physical Exam Vitals: Vital Signs Temp Pulse Pulse Resp BP BP Pulse Ox 05/29/17 11:04 97.8 F 89 16 114/71 97 05/29/17 09:31 97.4 F L 96 17 123/72 97 05/29/17 07:13 101 H 17 124/78 95 05/29/17 04:54 98.8 F 116 H 20 166/98 96 Intake and Output 05/28/17 05/29/17 05/29/17 22:59 06:59 14:59 Other: Weight 97.522 kg General: The patient is awake and alert, in no distress Eye: there is normal conjunctiva bilaterally. Neck: The neck is supple, there is no JVD. Cardiovascular: Normal S1-S2, no S3-S4, no murmurs. Respiratory: Lungs clear to auscultation bilaterally Gastrointestinal: Abdomen is soft, nontender Musculoskeletal: There is no pedal edema. Neurological:. Speech is normal. Skin: Skin is warm and dry Results CBC & Chem 7: 05/29/17 05:00 05/29/17 05:00 Labs: Abnormal Lab Results - Last 24 Hours (Table) 05/29/17 05/29/17 05/29/17 Range/Units 05:00 05:00 05:00 WBC 13.1 H (3.8-10.6) k/uL Neutrophils # 10.8 H (1.3-7.7) k/uL D-Dimer 0.84 H (<0.60) mg/L FEU Glucose 124 H (74-99) mg/dL Thrombosis Risk Factor Assmnt - Choose All That Apply Each Factor Represents 1 point: Age 41-60 years Thrombosis Risk Factor Assessment Total Risk Factor Score: 1 Thrombosis Risk Factor Assessment Level: Low Risk Assessment and Plan Assessment: 1. Chest pain, seems to be atypical in nature. 12-lead EKG showed no acute ischemic changes. Serial troponin were negative 2 sets. Patient had an elevated d-dimer but a CT angiogram showed no evidence of PE. Patient was started on IV heparin. We'll continue medical management. Awaiting cardiology evaluation. Continue telemetry monitoring. 2. Coronary artery disease with recent stent placement to the LAD in March 2017 3. Essential hypertension, blood pressure well-controlled 4. Hyperlipidemia
[2017-05-29] MEDS: CLOPIDOGREL 75 MG TAB PO SCH (14:38)
[2017-05-29] MEDS: LOSARTAN 50 MG TAB PO SCH (14:38)
[2017-05-29 16:29] LABS: Creatine Kinase 47 U/L (55-170)
[2017-05-29 16:43] LABS: Troponin I <0.012 ng/mL (0.000-0.034)
[2017-05-29] MEDS: FAMOTIDINE 20 MG/2 ML VIAL IV SCH (16:51)
[2017-05-29] MEDS: diphenhydrAMINE 50 MG/ML 1 ML VIAL IVP SCH ×2 (16:51→23:36)
[2017-05-29] MEDS ORDERED: ATORVASTATIN 10 MG TAB PO SCH (21:00)
[2017-05-29] MEDS ORDERED: HEPARIN SODIUM,PORCINE 5,000 UNIT/ML 1 ML VIAL SQ SCH (21:00)
[2017-05-30 01:15] VITALS: RESP 16
[2017-05-30 06:42] LABS: Basophils % (A) 0 %; Eosinophils % (A) 0 %; HCT 47.6 % (39.0-53.0); Lymphocytes # (A) 1.1 k/uL (1.0-4.8); Lymphocytes % (A) 8 %; MCH 30.6 pg (25.0-35.0); MCHC 33.6 g/dL (31.0-37.0); MCV 91.1 fL (80.0-100.0); Mean Platelet Volume 7.6; Monocytes # (A) 0.5 k/uL (0-1.0); Monocytes % (A) 4 %; Neutrophils # (A) 11.2 k/uL (1.3-7.7); Neutrophils % (A) 86 %; Platelet Count 278 k/uL (150-450); RBC 5.23 m/uL (4.30-5.90); RDW 12.5 % (11.5-15.5)
[2017-05-30 06:59] LABS: Anion Gap 13 mmol/L; Blood Urea Nitrogen 13 mg/dL (9-20); Calcium 9.3 mg/dL (8.4-10.2); Carbon Dioxide 25 mmol/L (22-30); Chloride 102 mmol/L (98-107); Cholesterol 157 mg/dL (<200); Glucose 117 mg/dL (74-99); HDL Cholesterol 38 mg/dL (40-60); LDL Cholesterol,Calculated 98 mg/dL (0-99); Potassium 4.3 mmol/L (3.5-5.1); Sodium 140 mmol/L (137-145); Triglycerides 104 mg/dL (<150)
[2017-05-30] MEDS: FAMOTIDINE 20 MG/2 ML VIAL IV SCH (08:01)
[2017-05-30] MEDS: diphenhydrAMINE 50 MG/ML 1 ML VIAL IVP SCH (08:01)
--- NOTE | 2017-05-30 08:10 | P.CRDCN ---
History of Present Illness Consult date: 05/30/17 Consult reason: chest pain Chief complaint: Chest pain History of present illness: This is a pleasant 57-year-old gentleman with history of hyperlipidemia, nicotine dependence, coronary artery disease, most recently he was in the hospital with a non-STEMI in March of this year at which time he underwent angioplasty and stenting of the LAD by Dr. Jennifer Dowling. Patient has just recently returned home from a vacation in [place], he states he's been feeling well overall, yesterday morning patient developed a chest discomfort across the chest, with intermittent midsternal burning in the chest. He states he was also mildly short of breath. He came to the emergency room for this reason. He states that shortly after arrival to the emergency room he became extremely itchy, developed a rash as well as hives, and significant swelling in his bilateral hands. He had been initiated on IV heparin which was discontinued. His EKG on arrival here showed a sinus tachycardia with T-wave inversion in the anterior lateral leads, improved from his prior EKG in March. White blood cell count 13.0, hemoglobin 16, platelet count 278. Sodium 140, potassium 4.3, BUN 13, creatinine 0.8. D-dimer 0.8, CT of the chest was performed which was negative for pulmonary embolism. Cholesterol 157 , LDL 90, HDL 38, triglycerides 104. At the time of my examination this morning , he is currently chest pain-free, he continues to have significant swelling in his bilateral hands with evidence of rash and hives. Past Medical History Past Medical History: No Reported History, Myocardial Infarction ([place]) Last Myocardial Infarction Date:: 04/02/2017 History of Any Multi-Drug Resistant Organisms: None Reported Past Surgical History: Heart Catheterization With Stent Additional Past Surgical History / Comment(s): RIGHT LEG SURGERY , Past Anesthesia/Blood Transfusion Reactions: No Reported Reaction Date of Last Stent Placement:: 04/02/2017 Past Psychological History: No Psychological Hx Reported Smoking Status: Former smoker Past Alcohol Use History: Occasional Additional Past Alcohol Use History / Comment(s): STARTED SMOKING AT AGE 21 QUIT 2010 SMOKED 3/4PPD Past Drug Use History: None Reported - Past Family History Mother Family Medical History: No Reported History Medications and Allergies Home Medications Medication Instructions Recorded Confirmed Type Aspirin 81 mg PO DAILY #100 chew 04/19/17 05/29/17 Rx Clopidogrel [Plavix] 75 mg PO DAILY #100 tab 04/19/17 05/29/17 Rx Losartan [Cozaar] 50 mg PO DAILY 30 Days #30 tab 04/19/17 05/29/17 Rx Nitroglycerin Sl Tabs [Nitrostat] 0.4 mg SUBLINGUAL Q5M PRN #20 tab 04/19/1703/17 Rx Metoprolol Tartrate [Lopressor] 50 mg PO DAILY 05/29/17 05/29/17 History Rosuvastatin Calcium [Crestor] 5 mg PO HS 05/29/17 05/29/17 History Allergies Allergy/AdvReac Type Severity Reaction Status Date / Time No Known Allergies Allergy Verified 05/29/17 07:35 Physical Exam Vitals: Vital Signs Temp Pulse Pulse Resp BP BP Pulse Ox 05/30/17 04:00 97.2 F L 108 H 16 120/70 95 05/30/17 00:00 118 H 16 130/79 95 05/29/17 20:07 99.1 F 117 H 18 123/68 95 05/29/17 16:00 97.7 F 104 H 16 124/68 94 L 05/29/17 11:04 97.8 F 89 16 114/71 97 05/29/17 09:31 97.4 F L 96 17 123/72 97 Intake and Output 05/29/17 05/30/17 05/30/17 22:59 06:59 14:59 Intake Total 240 Balance 240 Intake: Oral 240 Other: Voiding Method Toilet # Voids 3 Weight 93.6 kg PHYSICAL EXAMINATION: HEENT: Head is atraumatic, normocephalic. Pupils equal, round. Neck is supple. There is no elevated jugular venous pressure. HEART EXAMINATION: Heart S1, S2 normal. No murmur or gallop heard. CHEST EXAMINATION: Lungs are clear to auscultation and precussion. No chest wall tenderness is noted on palpation or with deep breathing. ABDOMEN: Soft, nontender. Bowel sounds are heard. No organomegaly noted. EXTREMITIES: 2+ peripheral pulses, significant swelling in bilateral arms and hands, with evidence of rash and hives enzymes and arms bilaterally. . NEUROLOGIC patient is awake, alert and oriented -3. . Results 05/30/17 05:52 05/30/17 05:52 Cardiac Enzymes 05/29/17 05/29/17 Range/Units 11:23 15:59 CK-MB (CK-2) 1.1 1.0 (0.0-2.4) ng/mL Troponin I <0.012 <0.012 (0.000-0.034) ng/mL Coagulation 05/29/17 Range/Units 15:59 APTT 28.5 (22.0-30.0) sec Lipids 05/30/17 Range/Units 05:52 Triglycerides 104 (<150) mg/dL Cholesterol 157 (<200) mg/dL HDL Cholesterol 38 L (40-60) mg/dL CBC 05/30/17 Range/Units 05:52 WBC 13.0 H (3.8-10.6) k/uL RBC 5.23 (4.30-5.90) m/uL Hgb 16.0 (13.0-17.5) gm/dL Hct 47.6 (39.0-53.0) % Plt Count 278 (150-450) k/uL Comprehensive Metabolic Panel 05/30/17 Range/Units 05:52 Sodium 140 (137-145) mmol/L Potassium 4.3 (3.5-5.1) mmol/L Chloride 102 (98-107) mmol/L Carbon Dioxide 25 (22-30) mmol/L BUN 13 (9-20) mg/dL Creatinine 0.88 (0.66-1.25) mg/dL Glucose 117 H (74-99) mg/dL Calcium 9.3 (8.4-10.2) mg/dL Current Medications Generic Name Dose Route Start Last Admin Trade Name Freq PRN Reason Stop Dose Admin Acetaminophen 650 mg 05/29/17 12:48 Tylenol Tab PO Q6HR PRN Fever and/ or Mild Pain Aspirin 81 mg 05/30/17 09:00 Aspirin PO DAILY [facility] Atorvastatin Calcium 10 mg 05/29/17 21:00 05/29/17 20:14 Lipitor PO Not Given HS [facility] Clopidogrel Bisulfate 75 mg 05/29/17 13:00 05/29/17 14:38 Plavix PO 75 mg DAILY JACINTA Administration Diphenhydramine HCl 25 mg 05/29/17 16:30 05/29/17 23:36 Benadryl IVP 25 mg Q8HR JACINTA Administration Famotidine 20 mg 05/29/17 21:00 05/29/17 16:51 Pepcid IV 20 mg Q12HR JACINTA Administration Losartan Potassium 50 mg 05/29/17 13:00 05/29/17 14:38 Cozaar PO 50 mg DAILY JACINTA Administration Miscellaneous Information 1 each 05/29/17 06:58 05/29/17 07:00 Rx Info: Iv Contrast Was Given MISCELLANE 05/31/17 06:58 1 each DAILY PRN Administration Per Protocol Nitroglycerin 0.4 mg 05/29/17 08:38 Nitrostat SUBLINGUAL Q5M PRN Chest Pain Ondansetron HCl 4 mg 05/29/17 12:48 Zofran IVP Q6HR PRN Nausea And Vomiting Intake and Output 05/29/17 05/30/17 05/30/17 22:59 06:59 14:59 Intake Total 240 Balance 240 Intake: Oral 240 Other: Voiding Method Toilet # Voids 3 Weight 93.6 kg 05/30/17 05:52 05/30/17 05:52 EKG Interpretations (text) EKG shows a sinus tachycardia with T-wave inversion in the anterior lateral leads, improved from his recent EKG in March Assessment and Plan Plan: Assessment and plan #1 chest discomfort in the form of chest tightness and burning with associated shortness of breath. Troponins negative 3. EKG shows sinus tachycardia with anterior lateral T-wave inversion, improved from EKG performed in March. No new changes noted. #2 history of non-Q-wave myocardial infarction with LAD stenting in March of this year #3 nicotine dependence #4 hyperlipidemia #5 bilateral hand and arm swelling with evidence of rash and hives suggesting ALLERGIC reaction. IV heparin was discontinued. Plan IV heparin has been discontinued. We will obtain an echocardiogram with Doppler study. Patient has also been advised to undergo stress Cardiolite study today. Further recommendations will be based on these findings patient's clinical course. DNP note has been reviewed, I agree with a documented findings and plan of care. Patient was seen and examined.
[2017-05-30 08:14] VITALS: PULSE 116; TEMP 97.7
[2017-05-30] MEDS ORDERED: ASPIRIN 81 MG PO SCH (09:00)
[2017-05-30] MEDS ORDERED: ASPIRIN 325 MG TAB PO SCH (09:00)
[2017-05-30] MEDS ORDERED: METOPROLOL TARTRATE 50 MG TAB PO SCH (11:15)
--- NOTE | 2017-05-30 11:15 | P.PN ---
Subjective Progress Note Date: 05/30/17 This is a 57-year-old gentleman with past medical history noted below significant for coronary artery disease with recent stent placement to the LAD in March of this year presented to the emergency room with chest tightness and discomfort across his chest. Patient said that his symptoms are intermittent lasting 5-10 second each time. He described it as burning sensation 7 out of 10 in severity at worst. He said that he just returned from vacation why. Patient was concerned and presented to the emergency room. In the emergency room, 12-lead EKG showed no acute ischemic changes. Initial troponin was negative. Patient was admitted to telemetry floor or cardiology evaluation. 05/30/2017 patient's chest pain resolved. Troponins are negative 3 sets. Patient scheduled for stress test today. Over the night patient developed significant swelling in his hands and rash along the arms and behind the knees. The rash is HE. He did receive a dose of IV Benadryl. Reports that made him go to sleep but really has not improved his symptoms. He's recently traveled to [place]. He purchased new clothes for the vacation that were not washed. However he has been wearing this close for the past 9 days with no problems. Denies any tongue swelling or shortness of breath. Denies any more chest pain. Denies any sick contacts. Denies any diarrhea or burning with urination. Patient is also been tachycardic. He did require dose of IV metoprolol in the emergency room. Further evaluation of home medications show that he does take metoprolol 50 mg daily. We will restart this medication. Patient reports no new medication and no recent illness Objective - Vital Signs Vital signs: Vital Signs Temp 97.7 F 05/30/17 08:08 Pulse 116 H 05/30/17 08:08 Resp 16 05/30/17 08:08 BP 132/83 05/30/17 08:08 Pulse Ox 100 05/30/17 08:08 Intake & Output 05/29/17 05/30/17 05/30/17 18:59 06:59 18:59 Intake Total 480 360 Balance 480 360 Weight 93.6 kg Intake: Oral 480 360 Other: Voiding Method Toilet Toilet # Voids 1 3 - Exam Head normocephalic Neck supple Lungs clear to auscultation bilaterally no wheezing or crackles Heart regular rate and rhythm S1-S2, no rub or gallop Abdomen is soft nontender nondistended positive bowel sounds no hepatosplenomegaly Extremities no edema Neuro alert and orientated to 3 Skin: Patient has a macular rash noted along the forearms of both arms. His palms have red blotches. The rash itself is red around the edges with a clear center. And significant swelling noted in the hands. There is a bruise along the right wrist from where the name and rubbed into the wrist. Patient has significant rash and swelling behind the knees. There is evidence of excoriation either going to the medial aspect of the knee. The rash is raised - Labs CBC & Chem 7: 05/30/17 05:52 05/30/17 05:52 Labs: Abnormal Lab Results - Last 24 Hours (Table) 05/29/17 05/30/17 05/30/17 Range/Units 15:59 05:52 05:52 WBC 13.0 H (3.8-10.6) k/uL Neutrophils # 11.2 H (1.3-7.7) k/uL Glucose 117 H (74-99) mg/dL Total Creatine Kinase 47 L (55-170) U/L HDL Cholesterol 38 L (40-60) mg/dL Assessment and Plan Assessment: 1. Chest pain, seems to be atypical in nature. 12-lead EKG showed no acute ischemic changes. Serial troponin were negative 3 sets. Patient had an elevated d-dimer but a CT angiogram showed no evidence of PE. Continue telemetry monitoring. Patient is scheduled for stress test today. IV heparin discontinued. Echo. 2. Coronary artery disease with recent stent placement to the LAD in March 2017 3. Essential hypertension, blood pressure well-controlled 4. Hyperlipidemia 5. Bilateral hand, arm and knee rash with significant swelling in the hands and arms. Only new medication was IV heparin which has been discontinued. Patient is currently on IV Benadryl 25 mg IV every 8 hours. Exact etiology unclear. Consult infectious disease. Also, patient did have leukocytosis and sinus tachycardia. We'll resume his metoprolol GI prophylaxis Pepcid I performed an examination of the patient and discussed their management with the physician Business Investor. I have reviewed the Physician Business Investor's notes and agree with the documented findings and plan of care
[2017-05-30] MEDS: LOSARTAN 50 MG TAB PO SCH (11:52)
[2017-05-30] MEDS: CLOPIDOGREL 75 MG TAB PO SCH (11:52)
--- NOTE | 2017-05-30 12:07 | ECHOF ---
Referral Reason:chest pain MEASUREMENTS -------- HEIGHT: 180.3 cm WEIGHT: 93.4 kg BP: IVSd: 1.4 cm (0.6 - 1.1) LVIDd: 3.4 cm (3.9 - 5.3) LVPWd: 1.6 cm (0.6 - 1.1) IVSs: 1.9 cm LVIDs: 2.4 cm LVPWs: 1.7 cm Ao Diam: 3.8 cm (2.0 - 3.7) AV Cusp: 1.8 cm (1.5 - 2.6) LA Diam: 2.4 cm (2.7 - 3.8) MV E Chadwick: 0.64 m/s MV DecT: 97 ms MV A Chadwick: 0.84 m/s MV E/A Ratio: 0.76 RAP: 5.00 mmHg RVSP: 16.07 mmHg FINDINGS -------- Resting tachycardia (HR>100bpm). This was a technically good study. The left ventricular size is normal. There is moderate concentric left ventricular hypertrophy. O verall left ventricular systolic function is low-normal with, an EF between 50 - 55 %. Basal anteri or LV wall motion is hypokinetic. Mid anterior LV wall motion is hypokinetic. The right ventricle is normal in size and function. The left atrium is normal in size. The right atrium is normal in size. Aortic valve is trileaflet and is mildly thickened. The mitral valve leaflets are mildly thickened. Mild mitral annular calcification present. There is trace mitral regurgitation. Trace tricuspid regurgitation present. The right ventricular systolic pressure, as measured by Dopp ler, is 16.07mmHg. Pulmonic valve appears structurally normal. The aortic root is mildy dilated. Normal inferior vena cava with normal inspiratory collapse consistent with estimated right atrial pre ssure of 5 mmHg. The pericardium is normal. CONCLUSIONS -------- 1. Resting tachycardia (HR>100bpm). 2. This was a technically good study. 3. The left ventricular size is normal. 4. There is moderate concentric left ventricular hypertrophy. 5. Overall left ventricular systolic function is low-normal with, an EF between 50 - 55 %. 6. Basal anterior LV wall motion is hypokinetic. 7. Mid anterior LV wall motion is hypokinetic. 8. The right ventricle is normal in size and function. 9. The left atrium is normal in size. 10. The right atrium is normal in size. 11. Aortic valve is trileaflet and is mildly thickened. 12. The mitral valve leaflets are mildly thickened. 13. Mild mitral annular calcification present. 14. There is trace mitral regurgitation. 15. Trace tricuspid regurgitation present. 16. The right ventricular systolic pressure, as measured by Doppler, is 16.07mmHg. 17. Pulmonic valve appears structurally normal. 18. The aortic root is mildy dilated. 19. Normal inferior vena cava with normal inspiratory collapse consistent with estimated right atrial pressure of 5 mmHg. 20. The pericardium is normal. MANAGER PROGRAM MANAGEMENT: Aylin Sutton RDCS
--- NOTE | 2017-05-30 12:34 | ECHOS ---
STRESS ECHOCARDIOGRAM DATE OF SERVICE: 05/30/2017 INDICATIONS: Chest pain. MEDICATIONS: BASELINE HEART RATE: 113 BASELINE BLOOD PRESSURE: 118/78 MAXIMUM HEART RATE: 151 MAXIMUM BLOOD PRESSURE: 187/62 85% MPHR: 139 100% MPHR: 163 METS: 7.1 MAXIMUM STAGE REACHED: II TOTAL EXERCISE TIME: 6 minutes CLINICAL INFORMATION: History of AR, status post stenting. Complaining of chest pain. Baseline heart rate 113 beats per minute. Baseline blood pressure 118/78 mmHg. Baseline 12-lead ECG shows sinus rhythm with 0.[address] depression with T-wave inversions inferolaterally. The patient exercised on a Kvng protocol for 6 minutes achieving a peak heart rate of 151 beats per minute. Normal blood pressure response to exercise. There was a [address] depression noted with normalization of T-waves at peak exercise. No arrhythmias noted and the T-wave inversions returned to the baseline at recovery. Baseline 2-D echo images showed overall normal LV size and systolic function with mild anterolateral hypokinesis. At peak exercise, there was augmentation of the anterolateral segment. No new wall motion abnormalities noted. Improvement in overall LV contractility was noted. At recovery, there was no new wall motion abnormalities noted. IMPRESSION: Average exercise capacity. No definite ECG evidence for ischemia. No exercise induced ischemia. MMODL / IJN: [id number] /
[2017-05-30] MEDS ORDERED: methylPREDNISolone SOD SUCCI 40 MG/ML 1 ML VIAL IV STA (12:47)
--- NOTE | 2017-05-30 15:25 | P.CONS ---
History of Present Illness - Reason for Consult Consult date: 05/30/17 Rash - History of Present Illness This is a 57-year-old male patient who was recently hospitalized and be wary for non-ST elevated myocardial infarctions underwent a stent in LAD. Patient was in [place] for 9 days and came back on Tuesday. He states he had sunburn which was gradually increasing over the time he was there and he used lotion on a sunburn areas. He also was swimming in the ocean and hiking. He developed itching starting on Tuesday which seemed to progressively worse until he had hives on his arms and swollen hands. He states he had a little bit of vomiting with acid reflux and has some sore throat but denies any throat swelling. He denies any new soaps or detergents. Patient was placed on the selective care unit where he underwent evaluation by cardiology including a stress test which came back negative and patient was prepared for discharge home. Patient has been afebrile with no elevated white count. Review of Systems All systems: negative Constitutional: Denies chills, Denies fever Eyes: denies blurred vision, denies pain Ears, nose, mouth and throat: Denies headache, Denies sore throat Cardiovascular: Reports chest pain, Denies shortness of breath Respiratory: Denies cough Gastrointestinal: Denies abdominal pain, Denies diarrhea, Denies nausea, Denies vomiting Musculoskeletal: Denies myalgias Integumentary: Reports color changes, Reports pruritus, Reports rash Neurological: Denies numbness, Denies weakness Psychiatric: Denies anxiety, Denies depression Endocrine: Denies fatigue, Denies weight change Past Medical History Past Medical History: No Reported History, Myocardial Infarction ([place]) Last Myocardial Infarction Date:: 04/02/2017 History of Any Multi-Drug Resistant Organisms: None Reported Past Surgical History: Heart Catheterization With Stent Additional Past Surgical History / Comment(s): RIGHT LEG ORIF, Past Anesthesia/Blood Transfusion Reactions: No Reported Reaction Date of Last Stent Placement:: 04/02/2017 Past Psychological History: No Psychological Hx Reported Smoking Status: Former smoker Past Alcohol Use History: Occasional Additional Past Alcohol Use History / Comment(s): STARTED SMOKING AT AGE 21 QUIT 2011 SMOKED 3/4PPD. Patient denies any marijuana, street drug or alcohol use. 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 Past Drug Use History: None Reported - Past Family History Mother Family Medical History: No Reported History Medications and Allergies Home Medications Medication Instructions Recorded Confirmed Type Aspirin 81 mg PO DAILY #100 chew 04/19/17 05/29/17 Rx Clopidogrel [Plavix] 75 mg PO DAILY #100 tab 04/19/17 05/29/17 Rx Losartan [Cozaar] 50 mg PO DAILY 30 Days #30 tab 04/19/17 05/29/17 Rx Nitroglycerin Sl Tabs [Nitrostat] 0.4 mg SUBLINGUAL Q5M PRN #20 tab 04/19/1703/17 Rx Metoprolol Tartrate [Lopressor] 50 mg PO DAILY 05/29/17 05/29/17 History Rosuvastatin Calcium [Crestor] 5 mg PO HS 05/29/17 05/29/17 History Allergies Allergy/AdvReac Type Severity Reaction Status Date / Time No Known Allergies Allergy Verified 05/29/17 07:35 Physical Exam Vitals: Vital Signs Temp Pulse Resp BP Pulse Ox 05/30/17 08:08 97.7 F 116 H 16 132/83 100 05/30/17 04:00 97.2 F L 108 H 16 120/70 95 05/30/17 00:00 118 H 16 130/79 95 05/29/17 20:07 99.1 F 117 H 18 123/68 95 05/29/17 16:00 97.7 F 104 H 16 124/68 94 L 05/29/17 11:04 97.8 F 89 16 114/71 97 Intake and Output 05/29/17 05/30/17 05/30/17 22:59 06:59 14:59 Intake Total 240 360 Balance 240 360 Intake: Oral 240 360 Other: Voiding Method Toilet Toilet # Voids 3 Weight 93.6 kg Gen: This is a 57-year-old male. He is sitting up in bed and appears to be in no acute distress. No respiratory distress is noted. HEENT: Head is atraumatic, normocephalic. Pupils equal, round. Sclerae is anicteric. Oral mucous membranes are moist. Oropharynx shows no signs of edema or erythema. NECK: Supple. No JVD. No lymphadenopathy. No thyromegaly. LUNGS: Clear to auscultation. No wheezes or rhonchi. No intercostal retractions. HEART: Regular rate and rhythm. No murmur. ABDOMEN: Soft. Bowel sounds are present. No masses. No tenderness. EXTREMITIES: No pedal edema. No calf tenderness. SKIN: Patient has generalized erythema to his torso and arms.-like lesions to the forearms particularly of the left with edema to the hands bilaterally and forearms. There is erythema to the bilateral medial knees. NEUROLOGICAL: Patient is awake, alert and oriented x3. Cranial nerves 2 through 12 are grossly intact. Results Results: Laboratory Results WBC 13.0 k/uL (3.8-10.6) H 05/30/17 05:52 RBC 5.23 m/uL (4.30-5.90) 05/30/17 05:52 Hgb 16.0 gm/dL (13.0-17.5) 05/30/17 05:52 Hct 47.6 % (39.0-53.0) 05/30/17 05:52 MCV 91.1 fL (80.0-100.0) 05/30/17 05:52 MCH 30.6 pg (25.0-35.0) 05/30/17 05:52 MCHC 33.6 g/dL (31.0-37.0) 05/30/17 05:52 RDW 12.5 % (11.5-15.5) 05/30/17 05:52 Plt Count 278 k/uL (150-450) 05/30/17 05:52 Neutrophils % 86 % 05/30/17 05:52 Lymphocytes % 8 % 05/30/17 05:52 Monocytes % 4 % 05/30/17 05:52 Eosinophils % 0 % 05/30/17 05:52 Basophils % 0 % 05/30/17 05:52 Neutrophils # 11.2 k/uL (1.3-7.7) H 05/30/17 05:52 Lymphocytes # 1.1 k/uL (1.0-4.8) 05/30/17 05:52 Monocytes # 0.5 k/uL (0-1.0) 05/30/17 05:52 Eosinophils # 0.0 k/uL (0-0.7) 05/30/17 05:52 Basophils # 0.0 k/uL (0-0.2) 05/30/17 05:52 PT 9.6 sec (9.0-12.0) 05/29/17 05:00 INR 1.0 (<1.2) 05/29/17 05:00 APTT 28.5 sec (22.0-30.0) 05/29/17 15:59 D-Dimer 0.84 mg/L FEU (<0.60) H 05/29/17 05:00 Sodium 140 mmol/L (137-145) 05/30/17 05:52 Potassium 4.3 mmol/L (3.5-5.1) 05/30/17 05:52 Chloride 102 mmol/L (98-107) 05/30/17 05:52 Carbon Dioxide 25 mmol/L (22-30) 05/30/17 05:52 Anion Gap 13 mmol/L 05/30/17 05:52 BUN 13 mg/dL (9-20) 05/30/17 05:52 Creatinine 0.88 mg/dL (0.66-1.25) 05/30/17 05:52 Est GFR (CKD-EPI)AfAm >90 (>60 ml/min/1.73 sqM) 05/30/17 05:52 Est GFR (CKD-EPI)NonAf >90 (>60 ml/min/1.73 sqM) 05/30/17 05:52 Glucose 117 mg/dL (74-99) H 05/30/17 05:52 Calcium 9.3 mg/dL (8.4-10.2) 05/30/17 05:52 Magnesium 1.8 mg/dL (1.6-2.3) 05/29/17 05:00 Total Bilirubin 0.4 mg/dL (0.2-1.3) 05/29/17 05:00 AST 21 U/L (17-59) 05/29/17 05:00 ALT 27 U/L (21-72) 05/29/17 05:00 Alkaline Phosphatase 87 U/L (38-126) 05/29/17 05:00 Total Creatine Kinase 47 U/L (55-170) L 05/29/17 15:59 CK-MB (CK-2) 1.0 ng/mL (0.0-2.4) 05/29/17 15:59 CK-MB (CK-2) Rel Index 2.1 05/29/17 15:59 Troponin I <0.012 ng/mL (0.000-0.034) 05/29/17 15:59 Total Protein 7.1 g/dL (6.3-8.2) 05/29/17 05:00 Albumin 4.2 g/dL (3.5-5.0) 05/29/17 05:00 Triglycerides 104 mg/dL (<150) 05/30/17 05:52 Cholesterol 157 mg/dL (<200) 05/30/17 05:52 LDL Cholesterol, Calc 98 mg/dL (0-99) 05/30/17 05:52 HDL Cholesterol 38 mg/dL (40-60) L 05/30/17 05:52 Amylase 37 U/L (30-110) 05/29/17 05:00 Lipase 52 U/L (23-300) 05/29/17 05:00 CBC & Chem 7: 05/30/17 05:52 04 05:52 Labs: Abnormal Lab Results - Last 24 Hours (Table) 05/29/17 05/30/17 05/30/17 Range/Units 15:59 05:52 05:52 WBC 13.0 H (3.8-10.6) k/uL Neutrophils # 11.2 H (1.3-7.7) k/uL Glucose 117 H (74-99) mg/dL Total Creatine Kinase 47 L (55-170) U/L HDL Cholesterol 38 L (40-60) mg/dL Assessment and Plan Plan: This is a 57-year-old male patient presents to hospital with chest pain underwent stress test which was negative. Patient also started having itching on Tuesday which further developed into hives most concentrated to the arms, forearms and hands with edema to the hands. Patient will be given a dose of Solu-Medrol 40 mg IV. He has already been on Benadryl and Pepcid. Continue supportive care. Further recommendations as patient progresses. The above dictated assessment and findings were discussed with Dr. Hickey. The impression and plan of care have been directed as dictated. Bridget Tavares nurse practitioner acting as scribe for Dr. Hickey.
[2017-05-30 15:41] VITALS: BP 113/67
--- NOTE | 2017-05-30 15:48 | P.DS ---
Providers Date of admission: 05/29/17 08:38 Expected date of discharge: 05/30/17 Attending physician: Lissette Newman Consults: 05/29/17 08:38 Consult Physician Urgent Consulting Provider: Christiano Beckford Consult Reason/Comments: Acute coronary syndrome Do you want consulting provider notified?: Yes 05/30/17 09:27 Consult Physician Routine Consulting Provider: Jasiel Hickey Consult Reason/Comments: rash and swelling of hands and legs Do you want consulting provider notified?: Yes Primary care physician: Radha White Hospital Course: Discharge diagnosis 1. Chest pain, seems to be atypical in nature. 12-lead EKG showed no acute ischemic changes. Serial troponin were negative 3 sets. Patient had an elevated d-dimer but a CT angiogram showed no evidence of PE. Continue telemetry monitoring. Stress echo negative for any exercise induced ischemia. Echo shows EF of 50-55%. Cardiology cleared patient for discharge 2. History of MD and Coronary artery disease with recent stent placement to the LAD in March 2017 3. Essential hypertension, blood pressure well-controlled 4. Hyperlipidemia 5. Drug-induced rash from Crestor. Rash noted on hands upper extremities and knees. See by infectious disease they're recommending Medrol Dosepak. Patient did receive Benadryl IV Solu-Medrol and Pepcid during his hospital. Infectious these has cleared patient for discharge Hospital course This is a 57-year-old gentleman with past medical history noted below significant for coronary artery disease with recent stent placement to the LAD in March of this year presented to the emergency room with chest tightness and discomfort across his chest. Patient said that his symptoms are intermittent lasting 5-10 second each time. He described it as burning sensation 7 out of 10 in severity at worst. He said that he just returned from vacation why. Patient was concerned and presented to the emergency room. In the emergency room, 12-lead EKG showed no acute ischemic changes. Initial troponin was negative. Patient was admitted to f telemetry floor or cardiology evaluation. 05/30/2017 patient's chest pain resolved. Troponins are negative 3 sets. Patient scheduled for stress test today. Over the night patient developed significant swelling in his hands and rash along the arms and behind the knees. The rash is HE. He did receive a dose of IV Benadryl. Reports that made him go to sleep but really has not improved his symptoms. He's recently traveled to [place]. He purchased new clothes for the vacation that were not washed. However he has been wearing this close for the past 9 days with no problems. Denies any tongue swelling or shortness of breath. Denies any more chest pain. Denies any sick contacts. Denies any diarrhea or burning with urination. Patient is also been tachycardic. He did require dose of IV metoprolol in the emergency room. Further evaluation of home medications show that he does take metoprolol 50 mg daily. We will restart this medication. Patient reports no new medication and no recent illness Patient underwent his stress echo which was negative for any exercise-induced ischemia. Cardiology has cleared patient for discharge. He has had no further episodes of chest pain. He did develop a rash on his hands and arms and knees which is likely drug-induced related to his Crestor per infectious. Crestor will be discontinued. Patient seen by infectious disease and they've cleared him for discharge. The recommending Medrol Dosepak at time of discharge. Patient is stable for discharge. He has been cleared by consulting physicians. He'll follow-up with cardiology in [address] White in 1 week I performed an examination of the patient and discussed their management with the physician Food Management Aide. I have reviewed the Physician Food Management Aide's notes and agree with the documented findings and plan of care Patient Condition at Discharge: Stable Plan - Discharge Summary New Discharge Prescriptions: New methylPREDNISolone Dose Pack [Medrol Dose Pack] 4 mg PO DIRECTED #21 package Continue Aspirin 81 mg PO DAILY #100 chew Clopidogrel [Plavix] 75 mg PO DAILY #100 tab Losartan [Cozaar] 50 mg PO DAILY 30 Days #30 tab Nitroglycerin Sl Tabs [Nitrostat] 0.4 mg SUBLINGUAL Q5M PRN #20 tab PRN Reason: Chest Pain Metoprolol Tartrate [Lopressor] 50 mg PO DAILY Discontinued Rosuvastatin Calcium [Crestor] 5 mg PO HS Discharge Medication List Aspirin 81 mg PO DAILY #100 chew 04/19/17 [Rx] Clopidogrel [Plavix] 75 mg PO DAILY #100 tab 04/19/17 [Rx] Losartan [Cozaar] 50 mg PO DAILY 30 Days #30 tab 04/19/17 [Rx] Nitroglycerin Sl Tabs [Nitrostat] 0.4 mg SUBLINGUAL Q5M PRN #20 tab 04/19/17 [Rx ] Metoprolol Tartrate [Lopressor] 50 mg PO DAILY 05/29/17 [History] methylPREDNISolone Dose Pack [Medrol Dose Pack] 4 mg PO DIRECTED #21 package 05/30/17 [Rx] Follow up Appointment(s)/Referral(s): Bud Dowling MD [STAFF PHYSICIAN] - 1 Week (Office will call with appointment time) Jasiel Hickey MD [STAFF PHYSICIAN] - As Needed (call as needed) Radha White DO [Primary Care Provider] - 06/06/17 1:00 pm (Tuesday [place] Office) Activity/Diet/Wound Care/Special Instructions: Diet: cardiac Activity: as tolerated Discharge Disposition: HOME SELF-CARE
[2017-05-30] MEDS ORDERED: FAMOTIDINE 20 MG TAB PO SCH (21:00)
--- NOTE | 2017-05-30 21:14 | P.CON ---
Consult Note - . Consult date: 05/30/17 Assessment/Plan:: This is a 57-year-old male patient who was recently hospitalized and be wary for non-ST elevated myocardial infarctions underwent a stent in LAD. Patient was in [place] for 9 days and came back on Tuesday. He states he had sunburn which was gradually increasing over the time he was there and he used lotion on a sunburn areas. He also was swimming in the ocean and hiking. He developed itching starting on Tuesday which seemed to progressively worse until he had hives on his arms and swollen hands. He states he had a little bit of vomiting with acid reflux and has some sore throat but denies any throat swelling. He denies any new soaps or detergents. Patient was placed on the selective care unit where he underwent evaluation by cardiology including a stress test which came back negative and patient was prepared for discharge home. Patient has been afebrile with no elevated white count. Please see the consult note as dictated by nurse practitioner Mrs. Bridget Tavares. The patient is undergone his stress test. It is noted to be negative. He'll be discharged home from cardiology. He does have evidence of some mild erythema to the bilateral hands with some swelling. He brings out his bag of medications and 2 are new since his recent cardiac hospitalization. He is on Crestor and Plavix because of the stent. The patient had significant sun exposure while he was in [place]. This could be part of the difficulties that he is having at this time. Also concerned to difficult the new medication. Since Plavix cannot be discontinued we discontinue Crestor for now. We'll give him a Medrol Dosepak and follow up with his data management analyst. Continue with some Benadryl for some itching. If the Crestor is a thinning agent he should start to improve quite rapidly. If it was a delayed reaction from diagnostic dye from his recent cardiac procedure and should also respond well to steroid therapy. The patient is insistent is discharged home and is being arranged with the primary care service. Medrol Dosepak is sent to his pharmacy. I agree with evaluation, assessment and plan is dictated by nurse practitioner Mrs. Bridget Tavares.
== END 2017-05-30 16:00 | disposition home or self-care (01) ==
LOC: EC 04:49 → 6SEL 08:38
PROVIDERS: ADMIT Internal Medicine; ATTEND Internal Medicine
DX: R07.89 Other chest pain (principal); R00.0 Tachycardia, unspecified; R79.89 Other specified abnormal findings of blood chemistry; L27.0 Generalized skin eruption due to drugs and medicaments taken internally; L50.0 Allergic urticaria; T46.6X5A Adverse effect of antihyperlipidemic and antiarteriosclerotic drugs, initial encounter; I25.10 Atherosclerotic heart disease of native coronary artery without angina pectoris; I10 Essential (primary) hypertension; E78.5 Hyperlipidemia, unspecified; K21.9 Gastro-esophageal reflux disease without esophagitis; J02.9 Acute pharyngitis, unspecified; Z95.5 Presence of coronary angioplasty implant and graft; I25.2 Old myocardial infarction; Z79.02 Long term (current) use of antithrombotics/antiplatelets; Z79.82 Long term (current) use of aspirin; Z79.899 Other long term (current) drug therapy; Z87.891 Personal history of nicotine dependence
CPT/HCPCS: 99285 ×2; 96365 ×2; 96375 ×4; 96376 ×4; 96366; 36415; 93005; 93017; 93306; 93350; 85379; 80061; 80053; 80048; 82150; 82550; 82553; 83690; 83735; 84484; 85025 ×2; 85610; 85730; 71045; 71275; G0378 ×2; J2060; J1200 ×2; J1644 ×2; J2920; Q9967

== ENCOUNTER 2019-02-20 01:48 | Inpatient (IN) | payer BC ==
--- NOTE | 2019-02-20 02:09 | ED ---
Abdominal Pain HPI - General Chief Complaint: Abdominal Pain Stated Complaint: abd pain Time Seen by Provider: 02/20/19 01:58 Source: patient Mode of arrival: ambulatory - History of Present Illness Initial Comments: 58-year-old male presenting today for chief complaint of sharp stabbing lower abdominal pain. Patient states it is stabbing lower abdominal pain he states has been ongoing for the past 2 days. Patient states he has not had vomiting nausea or diarrhea. Denies any fevers. Patient denies any known history of diverticulitis. Patient denies history of kidney stones or aneurysm. Patient states the pain radiates towards his back. Patient has a chest pain shortness of breath denies any pain in the extremities. Patient denies any other associated complaints upon arrival patient appears uncomfortable. - Related Data Home Medications Medication Instructions Recorded Confirmed Metoprolol Tartrate [Lopressor] 50 mg PO DAILY 05/29/17 05/29/17 Previous Rx's Medication Instructions Recorded Aspirin 81 mg PO DAILY #100 chew 04/19/17 Clopidogrel [Plavix] 75 mg PO DAILY #100 tab 04/19/17 Losartan [Cozaar] 50 mg PO DAILY 30 Days #30 tab 04/19/17 Nitroglycerin Sl Tabs [Nitrostat] 0.4 mg SUBLINGUAL Q5M PRN #20 tab 04/19/17 methylPREDNISolone Dose Pack 4 mg PO DIRECTED #21 package 05/30/17 [Medrol Dose Pack] Allergies Allergy/AdvReac Type Severity Reaction Status Date / Time No Known Allergies Allergy Verified 05/29/17 07:35 Review of Systems ROS Statement: Those systems with pertinent positive or pertinent negative responses have been documented in the HPI. ROS Other: All systems not noted in ROS Statement are negative. Past Medical History Past Medical History: No Reported History, Myocardial Infarction ([place]) Last Myocardial Infarction Date:: 04/02/2017 History of Any Multi-Drug Resistant Organisms: None Reported Past Surgical History: Heart Catheterization With Stent Additional Past Surgical History / Comment(s): RIGHT LEG ORIF, Past Anesthesia/Blood Transfusion Reactions: No Reported Reaction Date of Last Stent Placement:: 04/02/2017 Past Psychological History: No Psychological Hx Reported Smoking Status: Former smoker Past Alcohol Use History: Occasional Past Drug Use History: None Reported - Past Family History Mother Family Medical History: No Reported History General Exam - General Exam Comments Initial Comments: General: The patient is awake and alert Eye: +3 mm pupils are equal, round and reactive to light, extra-ocular movements are intact. No nystagmus. There is normal conjunctiva bilaterally. No signs of icterus. Ears, nose, mouth and throat: There are moist mucous membranes and no oral lesions. Neck: The neck is supple, there is no tenderness or JVD. Cardiovascular: There is a regular rate and rhythm. No murmur, rub or gallop is appreciated. Respiratory: Lungs are clear to auscultation, respirations are non-labored, breath sounds are equal. No wheezes, stridor, rales, or rhonchi. Gastrointestinal: Soft, non-distended, diffuse tenderness to palpation of the lower abdomen bilaterally the remaining abdomen is nontender and without masses or organomegaly noted. There is no rebound or guarding present. No CVA tenderness. Musculoskeletal: Normal ROM, no tenderness. Strength 5/5. Sensation intact. Radial pulses equal bilaterally 2+. Neurological: A&O x 3. CN II-XII intact grossly, There are no obvious motor or sensory deficits. Coordination appears grossly intact. Speech is normal. Skin: Skin is warm and dry and no rashes or lesions are noted. Psychiatric: Cooperative, appropriate mood & affect, normal judgment. Course Vital Signs 02/20/19 02/20/19 01:53 04:03 Temperature 97.8 F Pulse Rate 98 87 Respiratory 18 16 Rate Blood Pressure 176/93 163/100 O2 Sat by Pulse 96 Oximetry Medical Decision Making - Medical Decision Making 58-year-old male presenting today for chief complaint of lower abdominal pain. CT revealed findings consistent with diverticulosis as well as a mechanical small bowel obstruction of the distal aspect. Patient is placed on Zosyn nothing by mouth this evening a consultation who recommended medicine admission with GI consultation. Patient agreeable to admission patient given Dilaudid for pain management and emergency department. Patient transferred to the floor in stable condition appearing well case was discussed with the provider who spoke with admitting physicians. He was agreeable care plan as well as admission. - Lab Data Result diagrams: 02/20/19 02:30 02/20/19 02:30 Lab Results 02/20/19 02/20/19 02/20/19 Range/Units 02:15 02:30 02:30 WBC 13.6 H (3.8-10.6) k/uL RBC 5.11 (4.30-5.90) m/uL Hgb 15.8 (13.0-17.5) gm/dL Hct 47.0 (39.0-53.0) % MCV 91.9 (80.0-100.0) fL MCH 30.9 (25.0-35.0) pg MCHC 33.6 (31.0-37.0) g/dL RDW 12.1 (11.5-15.5) % Plt Count 249 (150-450) k/uL Neutrophils % 84 % Lymphocytes % 7 % Monocytes % 7 % Eosinophils % 1 % Basophils % 0 % Neutrophils # 11.4 H (1.3-7.7) k/uL Lymphocytes # 1.0 (1.0-4.8) k/uL Monocytes # 0.9 (0-1.0) k/uL Eosinophils # 0.1 (0-0.7) k/uL Basophils # 0.0 (0-0.2) k/uL Sodium 137 (137-145) mmol/L Potassium 4.1 (3.5-5.1) mmol/L Chloride 103 (98-107) mmol/L Carbon Dioxide 26 (22-30) mmol/L Anion Gap 8 mmol/L BUN 11 (9-20) mg/dL Creatinine 0.75 (0.66-1.25) mg/dL Est GFR (CKD-EPI)AfAm >90 (>60 ml/min/1.73 sqM) Est GFR (CKD-EPI)NonAf >90 (>60 ml/min/1.73 sqM) Glucose 156 H (74-99) mg/dL Plasma Lactic Acid Andrea (0.7-2.0) mmol/L Calcium 9.4 (8.4-10.2) mg/dL Total Bilirubin 0.7 (0.2-1.3) mg/dL AST 21 (17-59) U/L ALT 18 (4-49) U/L Alkaline Phosphatase 95 (38-126) U/L Total Protein 7.2 (6.3-8.2) g/dL Albumin 4.3 (3.5-5.0) g/dL Lipase 22 L (23-300) U/L Urine Color Yellow Urine Appearance Clear (Clear) Urine pH 6.5 (5.0-8.0) Ur Specific [place] 1.017 (1.001-1.035) Urine Protein Negative (Negative) Urine Glucose (UA) Negative (Negative) Urine Ketones 1+ H (Negative) Urine Blood Negative (Negative) Urine Nitrite Negative (Negative) Urine Bilirubin Negative (Negative) Urine Urobilinogen <2.0 (<2.0) mg/dL Ur Leukocyte Esterase Negative (Negative) 02/20/19 Range/Units 02:30 WBC (3.8-10.6) k/uL RBC (4.30-5.90) m/uL Hgb (13.0-17.5) gm/dL Hct (39.0-53.0) % MCV (80.0-100.0) fL MCH (25.0-35.0) pg MCHC (31.0-37.0) g/dL RDW (11.5-15.5) % Plt Count (150-450) k/uL Neutrophils % % Lymphocytes % % Monocytes % % Eosinophils % % Basophils % % Neutrophils # (1.3-7.7) k/uL Lymphocytes # (1.0-4.8) k/uL Monocytes # (0-1.0) k/uL Eosinophils # (0-0.7) k/uL Basophils # (0-0.2) k/uL Sodium (137-145) mmol/L Potassium (3.5-5.1) mmol/L Chloride (98-107) mmol/L Carbon Dioxide (22-30) mmol/L Anion Gap mmol/L BUN (9-20) mg/dL Creatinine (0.66-1.25) mg/dL Est GFR (CKD-EPI)AfAm (>60 ml/min/1.73 sqM) Est GFR (CKD-EPI)NonAf (>60 ml/min/1.73 sqM) Glucose (74-99) mg/dL Plasma Lactic Acid Andrea 1.0 (0.7-2.0) mmol/L Calcium (8.4-10.2) mg/dL Total Bilirubin (0.2-1.3) mg/dL AST (17-59) U/L ALT (4-49) U/L Alkaline Phosphatase (38-126) U/L Total Protein (6.3-8.2) g/dL Albumin (3.5-5.0) g/dL Lipase (23-300) U/L Urine Color Urine Appearance (Clear) Urine pH (5.0-8.0) Ur Specific [place] (1.001-1.035) Urine Protein (Negative) Urine Glucose (UA) (Negative) Urine Ketones (Negative) Urine Blood (Negative) Urine Nitrite (Negative) Urine Bilirubin (Negative) Urine Urobilinogen (<2.0) mg/dL Ur Leukocyte Esterase (Negative) Disposition Clinical Impression: SBO (small bowel obstruction), Abdominal pain Disposition: ADMITTED IP TO THIS [facility] Condition: Good Is patient prescribed a controlled substance at d/c from ED?: No Time of Disposition: 03:10 Decision to Admit Reason: Admit from EC Decision Date: 02/20/19 Decision Time: 03:10
[2019-02-20] MEDS ORDERED: HYDROmorphone 0.5 MG/0.5 ML SYRINGE IVP STA (02:12)
[2019-02-20 02:22] LABS: Appearance,Urine Clear (Clear); Bilirubin,Urine Negative (Negative); Blood,Urine Negative (Negative); Color,Urine Yellow; Glucose,Urine (UA) Negative (Negative); Ketones,Urine 1+ (Negative); Leukocyte Esterase,Urine Negative (Negative); Nitrite,Urine Negative (Negative); PH, Urine 6.5 (5.0-8.0); Protein,Urine Negative (Negative); Specific Gravity,Urine 1.017 (1.001-1.035); Urobilinogen,Urine <2.0 mg/dL (<2.0)
[2019-02-20 02:43] LABS: Basophils % (A) 0 %; Eosinophils # (A) 0.1 k/uL (0-0.7); Eosinophils % (A) 1 %; HGB 15.8 gm/dL (13.0-17.5); Lymphocytes % (A) 7 %; MCH 30.9 pg (25.0-35.0); MCHC 33.6 g/dL (31.0-37.0); MCV 91.9 fL (80.0-100.0); Mean Platelet Volume 8.5; Monocytes # (A) 0.9 k/uL (0-1.0); Monocytes % (A) 7 %; Neutrophils # (A) 11.4 k/uL (1.3-7.7); Neutrophils % (A) 84 %; Platelet Count 249 k/uL (150-450); RBC 5.11 m/uL (4.30-5.90); RDW 12.1 % (11.5-15.5); WBC 13.6 k/uL (3.8-10.6)
[2019-02-20 02:51] LABS: ALT 18 U/L (4-49); AST 21 U/L (17-59); African American GFR (CKD) >90 (>60 ml/min/1.73 sqM); Albumin 4.3 g/dL (3.5-5.0); Alkaline Phosphatase 95 U/L (38-126); Anion Gap 8 mmol/L; Blood Urea Nitrogen 11 mg/dL (9-20); Calcium 9.4 mg/dL (8.4-10.2); Carbon Dioxide 26 mmol/L (22-30); Chloride 103 mmol/L (98-107); Glucose 156 mg/dL (74-99); Non-African American GFR(CKD) >90 (>60 ml/min/1.73 sqM); Potassium 4.1 mmol/L (3.5-5.1); Sodium 137 mmol/L (137-145); Total Bilirubin 0.7 mg/dL (0.2-1.3); Total Protein 7.2 g/dL (6.3-8.2)
--- NOTE | 2019-02-20 03:03 | CT ---
EXAMINATION TYPE: CT abdomen pelvis w con DATE OF EXAM: 02/20/2019 COMPARISON: None HISTORY: Mid to lower abd pain, back pain CT DLP: 1078.90 mGycm Automated exposure control for dose reduction was used. CONTRAST: Performed with IV Contrast, patient injected with 100 mL of Isovue 300. Lung bases are clear. There is no pleural effusion. Heart size is normal. Liver spleen stomach pancreas gallbladder appear normal. Bile ducts are not dilated. There is no adrenal mass. Kidneys show satisfactory contrast opacification. There is no hydronephrosi s. There are small left renal cortical cysts. There is no retroperitoneal adenopathy. Abdominal aorta is atheromatous. Bladder distends smoothly. There is no inguinal hernia. There is no free fluid in t he pelvis. There is no mesenteric edema. There is numerous diverticula in the sigmoid colon. There is no free air. There is mildly dilated terminal ileum with fecal material. Cecum is not distended. There is mild wal l thickening of the terminal ileum. There is mild fat stranding at the terminal ileum. Appendix appea rs normal. Terminal ileum measures up to 3.3 cm. There are some spondylotic changes in the lumbar spi ne. There is no compression fracture. Bony pelvis is intact. IMPRESSION: Moderate sigmoid diverticulosis without sign of diverticulitis. There is some wall thickening at the terminal ileum at the ileocecal valve. There is mildly dilated d istal ileum with fecal material. There is evidence for partial mechanical small bowel distal obstruct ion. There is mild terminal ileum surrounding fat stranding. Appearance of the distal ileum and cecum could relate to localized Crohn's disease.
[2019-02-20] MEDS ORDERED: SODIUM CHLORIDE 0.9% 1,000 ML IV ONE (03:06)
[2019-02-20] MEDS ORDERED: PIPERACILLIN-TAZOBACTAM 3.375 GM in SODIUM CHLORIDE 0.9% 100 ML IVPB STA (03:06)
[2019-02-20] MEDS ORDERED: NALOXONE 0.4 MG/ML 1 ML VIAL IV PRN (03:10)
[2019-02-20] MEDS: HYDROmorphone 0.5 MG/0.5 ML SYRINGE IVP PRN ×3 (03:50→16:08)
[2019-02-20] MEDS: SODIUM CHLORIDE 0.9% 1,000 ML IV SCH ×3 (04:34→21:31)
[2019-02-20] MEDS: LEVOFLOXACIN 500MG-D5W PMX 500 MG in DEXTROSE/WATER 1 100ML.BAG IVPB SCH (10:57)
[2019-02-20] MEDS: CLOPIDOGREL 75 MG TAB PO SCH (10:57)
--- NOTE | 2019-02-20 11:38 | P.GSHP ---
History of Present Illness H&P Date: 02/20/19 Chief Complaint: abdominal pain CHIEF COMPLAINT: Abdominal pain HISTORY OF PRESENT ILLNESS: 58-year-old male who presents to emergency room with a chief complaint of abdominal pain. Patient reports he's been having generalized abdominal pain for the last 2-3 days. He denies nausea or vomiting. Denies diarrhea or constipation. Denies fever or chills. Denies previous history of GI conditions such as diverticulitis or Crohn's disease. PAST MEDICAL HISTORY: See list. PAST SURGICAL HISTORY: See list. SOCIAL HISTORY: No illicit drug use. REVIEW OF SYSTEMS: CONSTITUTIONAL: Denies fever or chills. HEENT: Denies blurred vision, vision changes, or eye pain. Denies hemoptysis CARDIOVASCULAR: Denies chest pain or pressure. RESPIRATORY: No shortness of breath. GASTROINTESTINAL: Refer to HPI for pertinent findings HEMATOLOGIC: Denies bleeding disorders. GENITOURINARY: Denies any blood in urine. SKIN: Denies pruitis. Denies rash. PHYSICAL EXAM: VITAL SIGNS: Reviewed. GENERAL: Well-developed in no acute distress. HEENT: No sclera icterus. Extraocular movements grossly intact. Moist buccal mucosa. Head is atraumatic, normocephalic. ABDOMEN: Soft. Nondistended. Mild tenderness upon palpation. No peritoneal signs. NEUROLOGIC: Alert and oriented. Cranial nerves II through XII grossly intact. LABORATORY DATA: WBC 13.6. Hemoglobin 15.8. Platelet count 249. IMAGING: CT abdomen and pelvis: Moderate sigmoid diverticulosis without signs of diverticulitis. There is some wall thickening of the terminal ileum at the ile ocecal valve. Mildly dilated distal ileum with fecal material. Evidence for mechanical small bowel obstruction. Mild terminal ileum surrounding fat stranding. Appearance of the distal ileum and cecum could relate to localized Crohn's disease. ASSESSMENT: 1. Abdominal pain 2. Small bowel obstruction, suspect secondary to Crohn's disease 3. Moderate sigmoid diverticulosis without signs of acute diverticulitis PLAN: -Continue NPO -Continue IV fluids -Continue antibiotics. Monitor WBC -GI on consult for suspected Crohns disease -No surgical intervention recommended at this time Nurse practitioner note has been reviewed by physician. Signing provider agrees with the documented findings, assessment, and plan of care. Past Medical History Past Medical History: No Reported History, Myocardial Infarction ([place]) Last Myocardial Infarction Date:: 04/02/2017 History of Any Multi-Drug Resistant Organisms: None Reported Past Surgical History: Heart Catheterization With Stent Additional Past Surgical History / Comment(s): RIGHT LEG ORIF, Past Anesthesia/Blood Transfusion Reactions: No Reported Reaction Date of Last Stent Placement:: 04/02/2017 Past Psychological History: No Psychological Hx Reported Smoking Status: Former smoker Past Alcohol Use History: Occasional Past Drug Use History: None Reported - Past Family History Mother Family Medical History: No Reported History Medications and Allergies Home Medications Medication Instructions Recorded Confirmed Type Aspirin 81 mg PO DAILY #100 chew 04/19/17 02/20/19 Rx Clopidogrel [Plavix] 75 mg PO DAILY #100 tab 04/19/17 02/20/19 Rx Nitroglycerin Sl Tabs [Nitrostat] 0.4 mg SUBLINGUAL Q5M PRN #20 tab 04/19/17 02/20/19 Rx Allergies Allergy/AdvReac Type Severity Reaction Status Date / Time No Known Allergies Allergy Verified 02/20/19 08:25 Surgical - Exam Vital Signs Temp Pulse Resp BP Pulse Ox 97.8 F 98 18 176/93 96 02/20/19 01:53 02/20/19 01:53 02/20/19 01:53 02/20/19 01:53 02/20/19 01:53 Results - Labs 02/20/19 02:30 02/20/19 02:30 Abnormal Lab Results - Last 24 Hours (Table) 02/20/19 02/20/19 02/20/19 Range/Units 02:15 02:30 02:30 WBC 13.6 H (3.8-10.6) k/uL Neutrophils # 11.4 H (1.3-7.7) k/uL Glucose 156 H (74-99) mg/dL Lipase 22 L (23-300) U/L Urine Ketones 1+ H (Negative) Diabetes panel 02/20/19 Range/Units 02:30 Sodium 137 (137-145) mmol/L Potassium 4.1 (3.5-5.1) mmol/L Chloride 103 (98-107) mmol/L Carbon Dioxide 26 (22-30) mmol/L BUN 11 (9-20) mg/dL Creatinine 0.75 (0.66-1.25) mg/dL Glucose 156 H (74-99) mg/dL Calcium 9.4 (8.4-10.2) mg/dL AST 21 (17-59) U/L ALT 18 (4-49) U/L Alkaline Phosphatase 95 (38-126) U/L Total Protein 7.2 (6.3-8.2) g/dL Albumin 4.3 (3.5-5.0) g/dL Calcium panel 02/20/19 Range/Units 02:30 Calcium 9.4 (8.4-10.2) mg/dL Albumin 4.3 (3.5-5.0) g/dL Pituitary panel 02/20/19 Range/Units 02:30 Sodium 137 (137-145) mmol/L Potassium 4.1 (3.5-5.1) mmol/L Chloride 103 (98-107) mmol/L Carbon Dioxide 26 (22-30) mmol/L BUN 11 (9-20) mg/dL Creatinine 0.75 (0.66-1.25) mg/dL Glucose 156 H (74-99) mg/dL Calcium 9.4 (8.4-10.2) mg/dL Adrenal panel 02/20/19 Range/Units 02:30 Sodium 137 (137-145) mmol/L Potassium 4.1 (3.5-5.1) mmol/L Chloride 103 (98-107) mmol/L Carbon Dioxide 26 (22-30) mmol/L BUN 11 (9-20) mg/dL Creatinine 0.75 (0.66-1.25) mg/dL Glucose 156 H (74-99) mg/dL Calcium 9.4 (8.4-10.2) mg/dL Total Bilirubin 0.7 (0.2-1.3) mg/dL AST 21 (17-59) U/L ALT 18 (4-49) U/L Alkaline Phosphatase 95 (38-126) U/L Total Protein 7.2 (6.3-8.2) g/dL Albumin 4.3 (3.5-5.0) g/dL
--- NOTE | 2019-02-20 11:43 | CONS ---
CONSULTATION DATE OF SERVICE: 02/20/2019 REASON FOR CONSULTATION: Abdominal pain. HISTORY OF PRESENT ILLNESS: The patient is a 58-year-old pleasant white male who came into the emergency room complaining of severe lower abdominal pain that started 2 days ago. Initially, the pain was mostly in the lower abdominal area with cramping associated with no nausea or vomiting. No significant change in his bowel habits. The pain continued to progressively get worse and hence came into the emergency room and subsequently was admitted to the hospital. He did have a CT of the abdomen and pelvis done in the emergency room that showed thickening of the terminal ileum as well as moderate sigmoid diverticulosis with no signs of diverticulitis. Also there was some mild dilated distal ileum with fecal material noted. Possibility of partial small-bowel obstruction was suggested by the radiologist. The patient this morning continues to have abdominal pain. He never had these symptoms in the past. Has normal bowel movements. No history of inflammatory bowel disease. No recent weight loss. No fever, chills, night sweats. PAST MEDICAL HISTORY: Significant for hypertension, coronary artery disease, status post IA. MEDICATIONS AT HOME: Nitrostat, Plavix, aspirin. ALLERGIES: No known drug allergies. SOCIAL HISTORY: No smoking. No alcohol use. FAMILY HISTORY: Unremarkable. REVIEW OF SYSTEMS: CARDIOPULMONARY: No chest pain, shortness of breath. GENITOURINARY: No dysuria or hematuria. MUSCULOSKELETAL: Unremarkable. SKIN: Unremarkable. ENDOCRINE: Unremarkable. PSYCHIATRIC: Unremarkable. ENT/VISION: Unremarkable. CONSTITUTIONAL: No recent weight loss. No fever, chills, night sweats. PAST SURGICAL HISTORY: Right leg ORIF. PHYSICAL EXAMINATION: On physical examination, he appears comfortable. No apparent distress. Vital signs are stable. Blood pressure is 181/91, pulse rate 87, temperature 98.7. HEENT examination unremarkable. Conjunctivae pink. Sclerae anicteric. Oral cavity no lesions. NECK: No JVD or lymph node enlargement. CHEST: Clear to auscultation. HEART: Regular rate and rhythm. ABDOMEN: Soft. Bowel sounds are positive. Mild tenderness in the right lower quadrant area as well as in the suprapubic area, but no rebound or rigidity. EXTREMITIES: No pedal edema. SKIN: No rashes. NEUROLOGIC: Alert and oriented x3. No focal deficits. LABS: Labs done today WBC 13.6, hemoglobin 15.8, platelets are normal. Basic metabolic panel is within normal limits. CT of the abdomen showed thickening of the terminal ileum with slightly dilated small bowel loops suspicious for partial small bowel obstruction and sigmoid diverticulosis. IMPRESSION: This is a patient who presents to the hospital with acute onset of lower abdominal pain that started 2 days ago. The pain continued to progressively get worse, but no significant nausea, vomiting, or change in bowel habits. CAT scan of abdomen showed thickening of the terminal ileum with slightly dilated small bowel loops suspicious for partial small bowel obstruction. There was also some thickening of the terminal ileum noted. With this acuity of the symptoms likely we are dealing with inflammatory bowel disease, possibly he has mild enteritis causing the clinical symptoms. No history of prior abdominal surgery . RECOMMENDATIONS: 1. We will start him on empiric antibiotics with Levaquin and Flagyl. 2. Start him on a clear liquid diet. 3. Await surgical consultation. 4. If his symptoms do not improve, we will consider colonoscopy with terminal ileum intubation in the next 2 to 3 days or on an outpatient basis based on his clinical course. The plan was discussed with the patient and he is agreeable to it. Thank you for this consultation. [email or web address] / WARNER: [id number] /
[2019-02-20] MEDS: metroNIDAZOLE-NS PMX 500 MG in SALINE 1 100ML.BAG IVPB SCH ×3 (12:30→23:15)
[2019-02-20] MEDS: HEPARIN SODIUM,PORCINE 5,000 UNIT/ML 1 ML VIAL SQ SCH ×2 (16:07→23:14)
[2019-02-21] MEDS: SODIUM CHLORIDE 0.9% 1,000 ML IV SCH ×3 (04:37→22:22)
[2019-02-21 07:26] LABS: Basophils # (A) 0.1 k/uL (0-0.2); Basophils % (A) 1 %; Eosinophils # (A) 0.1 k/uL (0-0.7); Eosinophils % (A) 1 %; HCT 46.3 % (39.0-53.0); HGB 14.5 gm/dL (13.0-17.5); Lymphocytes # (A) 1.4 k/uL (1.0-4.8); Lymphocytes % (A) 12 %; MCH 29.5 pg (25.0-35.0); MCHC 31.3 g/dL (31.0-37.0); Mean Platelet Volume 8.5; Monocytes # (A) 0.9 k/uL (0-1.0); Monocytes % (A) 8 %; Neutrophils # (A) 8.3 k/uL (1.3-7.7); Neutrophils % (A) 76 %; Platelet Count 218 k/uL (150-450); RBC 4.92 m/uL (4.30-5.90); RDW 12.1 % (11.5-15.5)
--- NOTE | 2019-02-21 09:55 | P.PN ---
Subjective Progress Note Date: 02/21/19 CHIEF COMPLAINT: Abdominal pain HISTORY OF PRESENT ILLNESS: Patient examined at the bedside this morning with Dr. Clark. Patient denies abdominal pain. He is passing flatus. No bowel movement. Patient is tolerating clear liquid diet. Denies nausea or vomiting. W BC 11.0 today. Vital signs are stable. He is afebrile. PHYSICAL EXAM: VITAL SIGNS: Reviewed. GENERAL: Well-developed in no acute distress. HEENT: No sclera icterus. Extraocular movements grossly intact. Moist buccal mucosa. Head is atraumatic, normocephalic. ABDOMEN: Soft. Nondistended. Nontender. No peritoneal signs. NEUROLOGIC: Alert and oriented. Cranial nerves II through XII grossly intact. ASSESSMENT: 1. Abdominal pain 2. Small bowel obstruction, possibly due to nonspecific enterocolitis 3. Moderate sigmoid diverticulosis without signs of acute diverticulitis PLAN: -Diet advance to regular diet per GI service -Continue IV fluids -Continue antibiotics. Monitor WBC -GI on consult -No surgical intervention recommended at this time Nurse practitioner note has been reviewed by physician. Signing provider agrees with the documented findings, assessment, and plan of care. Objective - Vital Signs Vital signs: Vital Signs Temp 97.9 F 02/21/19 04:54 Pulse 93 02/21/19 04:54 Resp 18 02/21/19 04:54 BP 144/85 02/21/19 04:54 Pulse Ox 92 L 02/21/19 04:54 Intake & Output 02/20/19 02/21/19 02/21/19 18:59 06:59 18:59 Intake Total 1500 1680 Balance 1500 1680 Intake: Intake, IV Titration 1300 820 Amount Sodium Chloride 0.9% 1, 1200 720 000 ml @ 120 mls/hr IV . Q8H20M JACINTA Rx#:[id number] metroNIDAZOLE-NS PMX 500 100 100 mg In Saline 1 100ml.bag @ 100 mls/hr IVPB Q8HR JACINTA Rx#:[id number] Oral 200 860 Other: # Voids 2 - Labs CBC & Chem 7: 02/21/19 06:23 02/20/19 02:30 Labs: Abnormal Lab Results - Last 24 Hours (Table) 02/21/19 Range/Units 06:23 WBC 11.0 H (3.8-10.6) k/uL Neutrophils # 8.3 H (1.3-7.7) k/uL
[2019-02-21] MEDS: metroNIDAZOLE-NS PMX 500 MG in SALINE 1 100ML.BAG IVPB SCH ×3 (09:59→23:52)
[2019-02-21] MEDS: CLOPIDOGREL 75 MG TAB PO SCH (10:00)
[2019-02-21] MEDS: PANTOPRAZOLE 40 MG/10 ML VIAL IVP SCH (10:00)
[2019-02-21] MEDS: HEPARIN SODIUM,PORCINE 5,000 UNIT/ML 1 ML VIAL SQ SCH ×3 (10:01→23:52)
[2019-02-21] MEDS: LEVOFLOXACIN 500MG-D5W PMX 500 MG in DEXTROSE/WATER 1 100ML.BAG IVPB SCH (10:48)
--- NOTE | 2019-02-21 13:29 | P.CONS ---
History of Present Illness - Reason for Consult Consult date: 02/20/19 abdominal pain Requesting physician: Brett Clark - Chief Complaint abdominal pain - History of Present Illness Shahab Chairez is a 58 yo M with PMH of ID who presented to the ED with a 3 day history of sharp lower abdominal pain. He denies any prior history of abdominal surgery or inflammatory bowel disease. He states that he had felt mildly nauseated for a few days and then two days ago ate at a buffet. Since that time he has experienced cramping lower abdominal pain, denies vomiting. He states his pain worsened to the point he wasn't able to sleep so he came in to the ED. On presentation his vitals were stable, WBC 13k, CT showed thickening of the ileum without evidence of diverticulitis. He denies hematochezia or melena or any previous history of similar complaints. Review of Systems All systems: negative Constitutional: Denies chills, Denies fever Eyes: denies blurred vision, denies pain Ears, nose, mouth and throat: Denies headache, Denies sore throat Cardiovascular: Denies chest pain, Denies shortness of breath Respiratory: Denies cough Gastrointestinal: Reports as per HPI, Reports abdominal pain, Reports loss of appetite, Reports nausea, Denies diarrhea, Denies hematochezia, Denies vomiting Musculoskeletal: Denies myalgias Integumentary: Denies pruritus, Denies rash Neurological: Denies numbness, Denies weakness Psychiatric: Denies anxiety, Denies depression Endocrine: Denies fatigue, Denies weight change Past Medical History Past Medical History: No Reported History, Myocardial Infarction (ID) Last Myocardial Infarction Date:: 04/02/2017 History of Any Multi-Drug Resistant Organisms: None Reported Past Surgical History: Heart Catheterization With Stent Additional Past Surgical History / Comment(s): RIGHT LEG ORIF, Past Anesthesia/Blood Transfusion Reactions: No Reported Reaction Date of Last Stent Placement:: 04/02/2017 Past Psychological History: No Psychological Hx Reported Smoking Status: Former smoker Past Alcohol Use History: Occasional Past Drug Use History: None Reported - Past Family History Mother Family Medical History: No Reported History Medications and Allergies Home Medications Medication Instructions Recorded Confirmed Type Aspirin 81 mg PO DAILY #100 chew 04/19/17 02/20/19 Rx Clopidogrel [Plavix] 75 mg PO DAILY #100 tab 04/19/17 02/20/19 Rx Nitroglycerin Sl Tabs [Nitrostat] 0.4 mg SUBLINGUAL Q5M PRN #20 tab 04/19/17 02/20/19 Rx Allergies Allergy/AdvReac Type Severity Reaction Status Date / Time No Known Allergies Allergy Verified 02/20/19 08:25 Physical Exam Vitals: Vital Signs Temp Pulse Resp BP BP Pulse Ox 02/20/19 05:15 98.7 F 16 181/91 93 L 02/20/19 04:03 87 16 163/100 02/20/19 01:53 97.8 F 98 18 176/93 96 Intake and Output 02/19/19 02/20/19 02/20/19 22:59 06:59 14:59 Intake Total 1239 Balance 1239 Intake: Intake, IV Titration 1239 Amount Sodium Chloride 0.9% 1, 240 000 ml @ 120 mls/hr IV . Q8H20M JACINTA Rx#:[id number] Sodium Chloride 0.9% 1, 999 000 ml @ 999 mls/hr IV . Q1H1M ONE Rx#:[id number] Other: # Voids 2 Weight 90.718 kg General: well nourished, well developed, NAD. Vitals reviewed Eyes: PERRL, EOMI, conjunctiva normal HENT: normocephalic, mucus membranes moist Neck: supple, no JVD Lungs: normal respiratory effort, no wheezes or rales CV: Regular rate and rhythm, no murmur. Peripheral pulses 2+ Abdomen: soft, nondistended. Tenderness lower quadrants. No organomegaly Lymph: no cervical or axillary LAD Skin: warm and dry. Neuro: A&Ox3, normal mood and affect Results CBC & Chem 7: 02/21/19 06:23 02/20/19 02:30 Labs: Abnormal Lab Results - Last 24 Hours (Table) 02/20/19 02/20/19 02/20/19 Range/Units 02:15 02:30 02:30 WBC 13.6 H (3.8-10.6) k/uL Neutrophils # 11.4 H (1.3-7.7) k/uL Glucose 156 H (74-99) mg/dL Lipase 22 L (23-300) U/L Urine Ketones 1+ H (Negative) Assessment and Plan (1) Abdominal pain Current Visit: Yes Status: Acute Code(s): R10.9 - UNSPECIFIED ABDOMINAL PAIN SNOMED Code(s): 44847930 (2) Regional ileitis of small intestine Current Visit: Yes Status: Acute Code(s): K50.00 - CROHN'S DISEASE OF SMALL INTESTINE WITHOUT COMPLICATIONS SNOMED Code(s): 68154719 Plan: 1. Abdominal pain. Ileitis. Suspect this represents gastroenteritis vs diverticulitis. Low suspicion of Crohns. Gastroenterology consulted for further recs. Continue IV abx. Clear liquid diet. 2. Hx ID. Continue plavix.
--- NOTE | 2019-02-21 13:32 | P.PN ---
Subjective Progress Note Date: 02/21/19 He tolerated clear liquid diet well and pain is improving. Denies nausea. WBC decreased today. He has not had a BM. Objective - Vital Signs Vital signs: Vital Signs Temp 98.4 F 02/21/19 11:07 Pulse 80 02/21/19 11:07 Resp 18 02/21/19 11:07 BP 108/75 02/21/19 11:07 Pulse Ox 95 02/21/19 11:07 Intake & Output 02/20/19 02/21/19 02/21/19 18:59 06:59 18:59 Intake Total 1500 1680 Balance 1500 1680 Intake: Intake, IV Titration 1300 820 Amount Sodium Chloride 0.9% 1, 1200 720 000 ml @ 120 mls/hr IV . Q8H20M JACINTA Rx#:[id number] metroNIDAZOLE-NS PMX 500 100 100 mg In Saline 1 100ml.bag @ 100 mls/hr IVPB Q8HR JACINTA Rx#:[id number] Oral 200 860 Other: # Voids 2 - Exam Gen: well developed, well nourished, NAD HEENT: mmm CV: RRR, no murmur Lungs: clear ivette Abd: soft, minimal tenderness lower quadrants - Labs CBC & Chem 7: 02/21/19 06:23 02/20/19 02:30 Labs: Abnormal Lab Results - Last 24 Hours (Table) 02/21/19 Range/Units 06:23 WBC 11.0 H (3.8-10.6) k/uL Neutrophils # 8.3 H (1.3-7.7) k/uL Assessment and Plan (1) Abdominal pain Current Visit: Yes Status: Acute Code(s): R10.9 - UNSPECIFIED ABDOMINAL PAIN SNOMED Code(s): 57950515 (2) Regional ileitis of small intestine Current Visit: Yes Status: Acute Code(s): K50.00 - CROHN'S DISEASE OF SMALL INTESTINE WITHOUT COMPLICATIONS SNOMED Code(s): 90705273 (3) SBO (small bowel obstruction) Current Visit: Yes Status: Acute Code(s): K56.609 - UNSP INTESTNL OBST, UNSP TO PARTIAL VERSUS COMPLETE OBST SNOMED Code(s): 676901985 Plan: 1. Abdominal pain. Ileitis. Suspect SBO secondary to gastroenteritis. Advance diet today per GI and continue abx 2. Hx MA. Continue plavix.
--- NOTE | 2019-02-21 13:54 | PN ---
PROGRESS NOTE DATE OF DICTATION: February 21, 2019 Patient is a 58-year-old pleasant white male admitted to the hospital with acute abdominal pain of [address] scan showed thickening of the terminal ileum. The patient was started on empiric antibiotics with Levaquin and Flagyl and this morning he states that the abdominal pain has completely resolved. He was on a clear liquid diet yesterday requesting to advance diet today. He reports no fever, chills, night sweats. Never had these symptoms in the past. PHYSICAL EXAMINATION: Appears comfortable. No apparent distress. Vital signs stable. Blood pressure 144/85, pulse rate 96, temperature 97. HEENT examination unremarkable. Conjunctivae pink. Sclerae anicteric. Oral cavity no lesions. NECK: No JVD or lymph node enlargement. CHEST: Clear to auscultation. HEART: Regular rate and rhythm. ABDOMEN: Soft. Nontender. Bowel sounds are positive. EXTREMITIES: No pedal edema. SKIN no rashes. NEUROLOGIC: Alert and oriented x3. No focal deficits. LABS: WBC 11, hemoglobin 14.5, platelets normal. Basic metabolic panel is within normal limits. IMPRESSION: Acute onset of lower abdominal pain of [address] scan showed thickening of the terminal ileum suggestive of acute enteritis most likely infectious in etiology. Doubt inflammatory bowel disease. Presently on broad-spectrum antibiotics. Symptoms have significantly improved and abdominal pain has resolved. RECOMMENDATIONS: 1. Advance diet as tolerated. 2. Continue with empiric antibiotics. 3. He can be discharged home today with an outpatient followup in 2 weeks. Based on his symptoms, we will consider an outpatient colonoscopy with terminal ileal intubation. 4. The plan was discussed with the patient as well as with Dr. Clark. Thank you for this consultation. MMODL / IJN: [id number] /
[2019-02-22] MEDS: SODIUM CHLORIDE 0.9% 1,000 ML IV SCH (05:57)
[2019-02-22 07:57] LABS: Basophils % (A) 0 %; Eosinophils # (A) 0.2 k/uL (0-0.7); Eosinophils % (A) 2 %; HGB 14.7 gm/dL (13.0-17.5); Lymphocytes # (A) 1.5 k/uL (1.0-4.8); Lymphocytes % (A) 18 %; MCH 31.6 pg (25.0-35.0); MCHC 33.5 g/dL (31.0-37.0); MCV 94.4 fL (80.0-100.0); Mean Platelet Volume 8.5; Monocytes # (A) 0.6 k/uL (0-1.0); Monocytes % (A) 7 %; Neutrophils # (A) 5.8 k/uL (1.3-7.7); Neutrophils % (A) 71 %; Platelet Count 228 k/uL (150-450); RBC 4.66 m/uL (4.30-5.90); RDW 11.9 % (11.5-15.5); WBC 8.3 k/uL (3.8-10.6)
[2019-02-22] MEDS: metroNIDAZOLE-NS PMX 500 MG in SALINE 1 100ML.BAG IVPB SCH (08:25)
[2019-02-22] MEDS: CLOPIDOGREL 75 MG TAB PO SCH (09:32)
[2019-02-22] MEDS: HEPARIN SODIUM,PORCINE 5,000 UNIT/ML 1 ML VIAL SQ SCH (09:32)
[2019-02-22] MEDS: PANTOPRAZOLE 40 MG/10 ML VIAL IVP SCH (09:33)
[2019-02-22] MEDS: LEVOFLOXACIN 500MG-D5W PMX 500 MG in DEXTROSE/WATER 1 100ML.BAG IVPB SCH (09:33)
--- NOTE | 2019-02-22 09:53 | P.DS ---
Providers Date of admission: 02/20/19 03:24 Expected date of discharge: 02/22/19 Attending physician: Brett Clark Consults: 02/20/19 03:17 Consult Physician Routine Consulting Provider: Yesy Beckford Consult Reason/Comments: SBO Do you want consulting provider notified?: Yes, Notify in am 02/20/19 09:55 Consult Physician Routine Consulting Provider: Rikki Alexander Consult Reason/Comments: medical management Do you want consulting provider notified?: Yes Primary care physician: Radha White [facility] Course: 58-year-old male who presents to emergency room with a chief complaint of abdominal pain. Patient reports he's been having generalized abdominal pain for the last 2-3 days. He denies nausea or vomiting. Denies diarrhea or constipation. Denies fever or chills. Denies previous history of GI conditions such as diverticulitis or Crohn's disease. CT abdomen and pelvis completed on admission revealed Moderate sigmoid diverticulosis without signs of diverticulitis. There is some wall thickening of the terminal ileum at the ileocecal valve. Mildly dilated distal ileum with fecal material. Evidence for mechanical small bowel obstruction. Mild terminal ileum surrounding fat stranding. Appearance of the distal ileum and cecum could relate to localized Crohn's disease. Patient was admitted to the hospital. He was evaluated by GI service who does not suspect patient to have Crohn's disease. Patient IV antibiotics.His abdominal pain has improved.He is tolerating diet without nausea or vomiting. He is stable for discharge home today on oral antibiotics. He is to follow up outpatient. He will require outpatient colonoscopy. Please see EMR for further hospital course details. DC DX: 1. Abdominal pain 2. Small bowel obstruction, possibly due to nonspecific enterocolitis 3. Moderate sigmoid diverticulosis without signs of acute diverticulitis Nurse practitioner note has been reviewed by physician. Signing provider agrees with the documented findings, assessment, and plan of care. Patient Condition at Discharge: Stable Plan - Discharge Summary Discharge Rx Participant: Yes New Discharge Prescriptions: New metroNIDAZOLE [Flagyl] 500 mg PO TID #21 tab Levofloxacin [Levaquin] 500 mg PO DAILY #7 tab No Action Aspirin 81 mg PO DAILY #100 chew Clopidogrel [Plavix] 75 mg PO DAILY #100 tab Nitroglycerin Sl Tabs [Nitrostat] 0.4 mg SUBLINGUAL Q5M PRN #20 tab PRN Reason: Chest Pain Discharge Medication List Aspirin 81 mg PO DAILY #100 chew 04/19/17 [Rx] Clopidogrel [Plavix] 75 mg PO DAILY #100 tab 04/19/17 [Rx] Nitroglycerin Sl Tabs [Nitrostat] 0.4 mg SUBLINGUAL Q5M PRN #20 tab 04/19/17 [Rx] Levofloxacin [Levaquin] 500 mg PO DAILY #7 tab 02/22/19 [Rx] metroNIDAZOLE [Flagyl] 500 mg PO TID #21 tab 02/22/19 [Rx] Follow up Appointment(s)/Referral(s): Yesy Beckford MD [STAFF PHYSICIAN] - 2 Weeks Radha White DO [Primary Care Provider] - 1-2 days Brett Clark MD [STAFF PHYSICIAN] - 1 Week
[2019-02-22 11:22] VITALS: BP 133/81; PULSE 83; RESP 16; TEMP 97.9
--- NOTE | 2019-02-22 12:01 | PN ---
PROGRESS NOTE DATE OF SERVICE: 02/22/2019 Patient is a 58-year-old pleasant white male admitted to the hospital with severe abdominal pain associated with some irregular bowel movements of 2 days duration. CAT scan showed terminal ileal thickening. He was treated with antibiotics for possible nonspecific gastroenteritis and his symptoms are significantly improved. This morning, the abdominal pain has completely resolved. No nausea, vomiting. On a regular diet tolerating well. PHYSICAL EXAMINATION: On physical examination, appears comfortable, no apparent distress. Vital signs are stable. Blood pressure 137/85, pulse 72, temperature 97.8 . HEENT examination unremarkable. Conjunctivae pink. Sclerae anicteric. Oral cavity no lesions. NECK: No JVD or lymph node enlargement. CHEST: Clear to auscultation. HEART: Regular rate and rhythm. ABDOMEN: Soft. Bowel sounds are positive. No organomegaly. EXTREMITIES: No pedal edema. SKIN: No rashes. NEUROLOGIC: Alert and oriented x3. No focal deficits. LABS: Labs from today, CBC is within normal limits. IMPRESSION: Acute onset of lower abdominal pain with CAT scan showing thickening of the terminal ileum suspicious for nonspecific enteritis on broad-spectrum antibiotics. Symptoms are significantly improved. In fact, no further abdominal pain. Doubt inflammatory bowel disease, most likely infectious enteritis. RECOMMENDATIONS: 1. Regular diet. 2. Discharge home today. 3. Follow up in the office in 2 weeks from now and based on his symptoms, we will consider an outpatient colonoscopy with terminal ileal evaluation. Thank you for this consultation. MMODL / IJN: [id number] /
--- NOTE | 2019-03-08 12:13 | CDI ---
Documentation Clarification Form Date: 02/26/2019 03:03:00 PM From: Bria Gardner Phone: If you have a question about this query, please contact Lissett Winters, Manager Floral at [phone] between 8am and 5pm. Admit Date: 02/20/2019 03:24:00 AM Patient Name: Shahab Chairez Visit Number: [id number] Discharge Date: 02/22/2019 11:59:00 AM ATTENTION: The Clinical Documentation Specialists (CDI) and [facility] Coding Staff appreciate your assistance in clarifying documentation. Please respond to the clarification below the line at the bottom and electronically sign. The CDI & [facility] Coding staff will review the response and follow-up if needed. Please note: Queries are made part of the Legal Health Record. If you have any questions, please contact the author of this message via ITS. Dr. Brett Clark Conflicting documentation has been found in the medical record: DCS documents appearance of distal ileum and cecum could related to localized crohn's disease. [employer] Intern[employer] documents regional ileitis, which codes to crohn's. DCS also documents non-specific enterocolitis which would not be crohn's. Please clarify if patient had non specific enterocolitis or did patient have regional ileitis. History/Risk Factors: bowel obstruction. dilated terminal ileum Clinical Indicators: abdominal pain Treatment: Levaquin and Flagyl In your opinion, what is the most clinically appropriate diagnosis for this patient? Regional ileitis non-specific enterocolitis Other explanation of clinical findings Unable to determine (no explanation for clinical findings) MTDD
--- NOTE | 2019-03-19 13:13 | CDI ---
Documentation Clarification Form Date: 02/26/2019 03:03:00 PM From: Bria Gardner Phone: If you have a question about this query, please contact Lissett Winters, Chief Nursing Officer at [phone] between 8am and 5pm. Admit Date: 02/20/2019 03:24:00 AM Patient Name: Shahab Chairez Visit Number: [id number] Discharge Date: 02/22/2019 11:59:00 AM ATTENTION: The Clinical Documentation Specialists (CDI) and [facility] Coding Staff appreciate your assistance in clarifying documentation. Please respond to the clarification below the line at the bottom and electronically sign. The CDI & [facility] Coding staff will review the response and follow-up if needed. Please note: Queries are made part of the Legal Health Record. If you have any questions, please contact the author of this message via ITS. Dr. Brett Clark Conflicting documentation has been found in the medical record: DCS documents appearance of distal ileum and cecum could related to localized crohn's disease. Car Sales Associate documents regional ileitis, which codes to crohn's. DCS also documentes non-specific enterocolitis which would not be crohn's. Please clarify if patient had non specific enterocolitis or did patient have regional ileitis. History/Risk Factors: bowel obstruction. dilated terminal ileum Clinical Indicators: abdominal pain Treatment: Levaquin and Flagyl In your opinion, what is the most clinically appropriate diagnosis for this patient? Regional ileitis non-specific enterocolitis Other explanation of clinical findings Unable to determine (no explanation for clinical findings) Nonspecific enterocolitis MTDD
== END 2019-02-22 11:59 | disposition home or self-care (01) | DRG 390 ==
LOC: EC 01:48 → 5NMEDONC 03:24
PROVIDERS: ADMIT Surgery; ATTEND Surgery
DX: K56.699 Other intestinal obstruction unspecified as to partial versus complete obstruction (principal); K52.89 Other specified noninfective gastroenteritis and colitis; I10 Essential (primary) hypertension; K57.30 Diverticulosis of large intestine without perforation or abscess without bleeding; Z79.02 Long term (current) use of antithrombotics/antiplatelets; Z79.82 Long term (current) use of aspirin; Z87.891 Personal history of nicotine dependence; I25.10 Atherosclerotic heart disease of native coronary artery without angina pectoris; I25.2 Old myocardial infarction; Z95.5 Presence of coronary angioplasty implant and graft
CPT/HCPCS: 36415; 74177; 80053; 81003; 83605; 83690; 85025; 96374; 96376; 99285

== ENCOUNTER 2019-03-20 07:14 | Day surgery (SDC) | payer BC ==
[2019-03-16 11:23] VITALS: BMI 27.8
[~2019-03-20 07:14] MED LIST: DEXAMETHASONE SOD PHOSPHATE 10 MG/ML 1 ML VIAL IV ONE; HEPARIN SODIUM,PORCINE 5,000 UNIT/ML 1 ML VIAL SQ ONE; LACTATED RINGERS 1,000 ML IV SCH; LIDOCAINE 1% 20 ML VIAL (10MG/ML) FOR IV START INTRADERMA PRN; MIDAZOLAM 2 MG/2 ML VIAL IV PRN; ONDANSETRON 4 MG/2 ML VIAL IVP ONE; SCOPOLAMINE 1.5MG/72HR PATCH TRANSDERM ONE
--- NOTE | 2019-03-20 08:42 | P.GSHP ---
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 Patient complaints of pain at his umbilicus. Past Medical History Past Medical History: Myocardial Infarction (IN) Additional Past Medical History / Comment(s): INPT 02/20/19-02/22/19 FOR SBO Last Myocardial Infarction Date:: 04/02/2017 History of Any Multi-Drug Resistant Organisms: None Reported Past Surgical History: Heart Catheterization With Stent, Orthopedic Surgery Additional Past Surgical History / Comment(s): RIGHT LEG ORIF,. COLONOSCOPY Past Anesthesia/Blood Transfusion Reactions: No Reported Reaction Date of Last Stent Placement:: 04/02/2017 Smoking Status: Former smoker - Past Family History Mother Family Medical History: No Reported History Medications and Allergies Home Medications Medication Instructions Recorded Confirmed Type Aspirin 81 mg PO DAILY #100 chew 04/19/17 03/20/19 Rx Clopidogrel [Plavix] 75 mg PO DAILY #100 tab 04/19/17 03/20/19 Rx Allergies Allergy/AdvReac Type Severity Reaction Status Date / Time No Known Allergies Allergy Verified 03/20/19 07:29 Surgical - Exam Vital Signs Temp Pulse Resp BP Pulse Ox 97.3 F L 88 16 134/86 99 03/20/19 07:45 03/20/19 07:45 03/20/19 07:45 03/20/19 07:45 03/20/19 07:45 - General well developed, well nourished, no distress - Eyes PERRL - ENT normal pinna - Neck no masses - Respiratory normal expansion - Cardiovascular Rhythm: regular - Abdomen Abdomen: soft, non tender Hernia: umbilical (3 cm) Assessment and Plan Assessment: Local hernia. We'll perform laparoscopic robotic-assisted repair.
[2019-03-20] MEDS ORDERED: MIDAZOLAM 2 MG/2 ML VIAL ONE (09:04)
[2019-03-20] MEDS ORDERED: NEOSTIGMINE 1 MG/ML 10 ML VIAL ONE (09:04)
[2019-03-20] MEDS ORDERED: LIDOCAINE 1% INJ 10MG/ML (20 ML MDV) ONE (09:04)
[2019-03-20] MEDS ORDERED: PROPOFOL 10 MG/ML 20 ML VIAL IV ONE (09:04)
[2019-03-20] MEDS ORDERED: GLYCOPYRROLATE 0.2 MG/ML 2 ML VIAL ONE (09:04)
[2019-03-20] MEDS ORDERED: ROPIVACAINE 5 MG/ML 30 ML VIAL ONE (09:04)
[2019-03-20] MEDS ORDERED: KETAMINE 10 MG/ML 20 ML VIAL ONE (09:04)
[2019-03-20] MEDS ORDERED: KETOROLAC 30 MG/ML 1 ML VIAL ONE (09:04)
[2019-03-20] MEDS ORDERED: ROCURONIUM BROMIDE 10 MG/ML 10 ML VIAL IV ONE (09:04)
[2019-03-20] MEDS ORDERED: DEXAMETHASONE SOD PHOSPHATE 4 MG/ML 1 ML VIAL ONE (09:04)
[2019-03-20] MEDS ORDERED: PHENYLEPHRINE-0.9% NACL SYG 1 MG/10 ML SYRINGE ONE (09:04)
[2019-03-20] MEDS ORDERED: SUCCINYLCHOLINE CHLORIDE 100 MG/5 ML SYR IV ONE (09:04)
[2019-03-20] MEDS ORDERED: BUPIVACAINE (PF) 0.25% 30 ML VIAL SQ ONE ×2 (09:27→09:31)
[2019-03-20] MEDS ORDERED: LACTATED RINGERS 1,000 ML IV ONE (09:51)
[2019-03-20 10:21] VITALS: TEMP 97.4
--- NOTE | 2019-03-20 10:22 | P.OP ---
Date of Procedure: 03/20/19 Preoperative Diagnosis: Incarcerated umbilical hernia Postoperative Diagnosis: Incarcerated umbilical hernia Procedure(s) Performed: Laparoscopic robotic system repair of incarcerated umbilical hernia Partial omentectomy Anesthesia: FANG Surgeon: Brett Clark Pathology: other (Omentum) Condition: stable Disposition: PACU Description of Procedure: The patient was placed on the operating table in the supine position. He received general anesthesia. His abdomen was prepped and draped usual fashion. Using a 5 mm optical trocar under direct visualization the peritoneal cavity was entered in the left upper quadrant. The abdomen was then insufflated. The laparoscope was placed back into the perineal cavity. Next a 8 mm robotic trocar was placed in the left lower quadrant and a 12 mm robotic trocar was placed in the left lateral position. The original 5 mm trocar was exchanged for a 8 mm robotic trocar. The patient's placed in the left side up position. And the patient was undocked the robot. The umbilical hernia was visualized. Using hook cautery the peritoneum over the umbilical hernia was excised. The incarcerated omentum fat was dissected free the hook cautery and sent to pathology. The fascial opening was repaired using 0V LOC suture. Next a piece of 11 cm round ventral light ST mesh was placed into the. Cavity and secured with 2 OV lock suture. The patient was undocked the robot. The needles were retrieved. The fascia of the 12 mm trocar site was closed with 0 Ethibond suture. Skin was closed interrupted 3-0 Monocryl suture. Dermabond dressings was applied. Patient top procedure well and was sent to recovery room stable condition.
[2019-03-20] MEDS: HYDROmorphone 0.5 MG/0.5 ML SYRINGE IVP PRN ×2 (10:55→11:04)
[2019-03-20] MEDS ORDERED: HYDROcodone/APAP 5-325MG 1 EACH TAB PO ONE (11:25)
[2019-03-20 13:00] VITALS: PULSE 78
[2019-03-20 13:01] VITALS: BP 161/91; RESP 18
--- NOTE | 2019-03-20 14:01 | P.ANPRN ---
Procedure Note - Anesthesia - Nerve Block Performed Bilateral Rectus Abdominis Single Time Out Performed: Yes Date of Procedure: 03/20/19 Procedure Start Time: : Procedure Stop Time: 08:09 Location of Patient: PreOp Indication: Acute Post-Operative Pain, Requested by Surgeon Sedation Type: Sedate with meaningful contact maintained Preparation: Sterile Prep Position: Supine Needle Types: Pajunk Needle Gauge: 21 Ultrasound used to visualize needle placement: Yes Ultrasound used to observe medication spread: Yes Blood Aspirated: No Pain Paresthesia on Injection Noted: No Resistance on Injection: Normal Image Stored and Saved: Yes Events: Uneventful and Well Tolerated (ropi .5% 20cc plus dexametasone 4 mg on each side)
== END 2019-03-20 12:46 | disposition home or self-care (01) ==
LOC: OR 07:14
PROVIDERS: ATTEND Surgery
DX: K42.0 Umbilical hernia with obstruction, without gangrene (principal); I25.2 Old myocardial infarction; I25.10 Atherosclerotic heart disease of native coronary artery without angina pectoris; Z95.5 Presence of coronary angioplasty implant and graft; Z79.02 Long term (current) use of antithrombotics/antiplatelets; Z79.82 Long term (current) use of aspirin; Z87.891 Personal history of nicotine dependence; Z98.890 Other specified postprocedural states
CPT/HCPCS: 49653; S2900; 64488; 88305; 93005

== ENCOUNTER 2019-07-23 05:17 | Inpatient (IN) | payer BC ==
[2019-07-23] MEDS ORDERED: PANTOPRAZOLE 40 MG/10 ML VIAL IVP STA (05:46)
[2019-07-23] MEDS ORDERED: SODIUM CHLORIDE 0.9% 1,000 ML IV STA (05:47)
[2019-07-23 05:54] LABS: Basophils # (A) 0.1 k/uL (0-0.2); Basophils % (A) 1 %; Eosinophils # (A) 0.2 k/uL (0-0.7); Eosinophils % (A) 1 %; HCT 41.5 % (39.0-53.0); Hypochromasia Slight; Lymphocytes # (A) 1.6 k/uL (1.0-4.8); Lymphocytes % (A) 13 %; MCH 29.9 pg (25.0-35.0); MCHC 31.3 g/dL (31.0-37.0); MCV 95.6 fL (80.0-100.0); Mean Platelet Volume 8.5; Monocytes # (A) 0.8 k/uL (0-1.0); Monocytes % (A) 7 %; Neutrophils # (A) 9.4 k/uL (1.3-7.7); Neutrophils % (A) 76 %; Platelet Count 326 k/uL (150-450); RBC 4.34 m/uL (4.30-5.90); RDW 13.4 % (11.5-15.5); WBC 12.4 k/uL (3.8-10.6)
--- NOTE | 2019-07-23 05:56 | ED ---
GI Bleed HPI - General Chief complaint: GI Bleed Stated complaint: Blood in stool Time Seen by Provider: 07/23/19 05:54 Source: patient, family, RN notes reviewed, old records reviewed Mode of arrival: wheelchair Limitations: no limitations - History of Present Illness Initial comments: This is a 59-year-old male DF for evaluation patient Dese for evaluation of blood in his stool bright red blood in stool. Patient is on Plavix underlying heart condition. Patient very feels very weak and lightheaded feels he could pass out, did have a significant bowel movement here in the ER significant amount of bright red blood and no stool noted in this bowel movement. Symptoms 4 hours MD complaint: blood on toilet paper, blood streaked stool -: hour(s) Severity scale (1-10): 4 Quality: painless Consistency: constant Improves with: none Worsens with: bowel movement Context: history of GI bleed Associated Symptoms: nausea Treatments Prior to Arrival: none - Related Data Home Medications Medication Instructions Recorded Confirmed Ascorbic Acid [Vitamin C] 1,000 mg PO DAILY 07/23/19 07/23/19 Atorvastatin Calcium [Lipitor] 10 mg PO DAILY 07/23/19 07/23/19 Levothyroxine Sodium [Synthroid] 25 mcg PO DAILY 07/23/19 07/23/19 Previous Rx's Medication Instructions Recorded Aspirin 81 mg PO DAILY #100 chew 04/19/17 Clopidogrel [Plavix] 75 mg PO DAILY #100 tab 04/19/17 Hydrocodone/Acetaminophen [[place] 1 tab PO Q6HR PRN #10 tab 07/27/19 5-325] Allergies Allergy/AdvReac Type Severity Reaction Status Date / Time No Known Allergies Allergy Verified 07/23/19 13:39 Review of Systems ROS Statement: Those systems with pertinent positive or pertinent negative responses have been documented in the HPI. ROS Other: All systems not noted in ROS Statement are negative. Past Medical History Past Medical History: Myocardial Infarction ([place]) Additional Past Medical History / Comment(s): INPT 02/20/19-02/22/19 FOR SBO Last Myocardial Infarction Date:: 04/02/2017 History of Any Multi-Drug Resistant Organisms: None Reported Past Surgical History: Heart Catheterization With Stent, Orthopedic Surgery Additional Past Surgical History / Comment(s): RIGHT LEG ORIF,. COLONOSCOPY Past Anesthesia/Blood Transfusion Reactions: No Reported Reaction Date of Last Stent Placement:: 04/02/2017 Past Psychological History: No Psychological Hx Reported Smoking Status: Current some day smoker Past Alcohol Use History: Occasional Past Drug Use History: None Reported - Past Family History Mother Family Medical History: No Reported History General Exam Limitations: no limitations General appearance: alert, in no apparent distress, anxious Head exam: Present: atraumatic, normocephalic, normal inspection Eye exam: Present: normal appearance, PERRL, EOMI. Absent: scleral icterus, conjunctival injection, periorbital swelling ENT exam: Present: normal exam, mucous membranes moist Neck exam: Present: normal inspection. Absent: tenderness, meningismus, lymphadenopathy Respiratory exam: Present: normal lung sounds bilaterally. Absent: respiratory distress, wheezes, rales, rhonchi, stridor Cardiovascular Exam: Present: normal rhythm, tachycardia, normal heart sounds. Absent: systolic murmur, diastolic murmur, rubs, gallop, clicks GI/Abdominal exam: Present: soft, normal bowel sounds. Absent: distended, tenderness, guarding, rebound, rigid Extremities exam: Present: normal inspection, full ROM, normal capillary refill. Absent: tenderness, pedal edema, joint swelling, calf tenderness Back exam: Present: normal inspection Neurological exam: Present: alert, oriented X3, CN II-XII intact Psychiatric exam: Present: normal affect, normal mood Skin exam: Present: warm, dry, intact, normal color. Absent: rash Course Vital Signs 07/23/19 07/23/19 07/23/19 05:22 05:37 05:51 Temperature 98.2 F Pulse Rate 104 H 98 89 Respiratory 18 16 18 Rate Blood Pressure 85/61 76/61 O2 Sat by Pulse 97 97 Oximetry 07/23/19 07/23/19 07/23/19 06:00 06:25 06:30 Temperature Pulse Rate 93 96 92 Respiratory 16 18 18 Rate Blood Pressure 76/61 97/67 97/67 O2 Sat by Pulse 99 98 99 Oximetry 07/23/19 07/23/19 07/23/19 06:40 06:50 07:00 Temperature 98.1 F 98.3 F Pulse Rate 93 89 93 Respiratory 18 16 18 Rate Blood Pressure 112/71 118/73 118/73 O2 Sat by Pulse 99 98 98 Oximetry 07/23/19 07/23/19 07/23/19 07:20 07:30 08:00 Temperature 98.4 F Pulse Rate 97 99 97 Respiratory 18 20 20 Rate Blood Pressure 98/73 98/73 99/76 O2 Sat by Pulse 99 98 98 Oximetry 07/23/19 07/23/19 07/23/19 08:20 08:30 09:00 Temperature 98.4 F Pulse Rate 93 99 98 Respiratory 16 16 16 Rate Blood Pressure 111/67 109/74 118/80 O2 Sat by Pulse 94 L 97 99 Oximetry 07/23/19 07/23/19 07/23/19 09:30 10:00 10:30 Temperature Pulse Rate 97 96 97 Respiratory 18 18 20 Rate Blood Pressure 98/71 101/78 111/78 O2 Sat by Pulse 98 99 95 Oximetry 07/23/19 07/23/19 11:00 11:30 Temperature Pulse Rate 98 98 Respiratory 18 18 Rate Blood Pressure 123/77 123/77 O2 Sat by Pulse 99 99 Oximetry - Reevaluation(s) Reevaluation #1: 07/23/19 06:18 Medical records reviewed Reevaluation #2: 07/23/19 06:18 Patient significant bright red blood here in the emergency room Reevaluation #3: 07/23/19 06:18 Patient did feel syncopal here in the emergency Decision made to transfuse patient based on symptoms and believed to be pending anemia - Consultations Consultation #1: Spoke with neonatal icu coordinator okay for admission Spoke with ICU will be agreeable for patient admission spoke w GI aware of patient Medical Decision Making - Medical Decision Making 59 male with significant GI bleed patient having significant amount of BRBPR blood rectally here in the emergency department very lightheaded and syncopal, patient is on Plavix. Will admit patient for monitoring of bleeding patient given transfusion due to symptoms - Lab Data Result diagrams: 08/03/19 06:02 08/03/19 06:02 Lab Results 07/23/19 07/23/19 07/23/19 Range/Units 05:38 05:38 05:38 WBC 12.4 H (3.8-10.6) k/uL RBC 4.34 (4.30-5.90) m/uL Hgb 13.0 (13.0-17.5) gm/dL Hct 41.5 (39.0-53.0) % MCV 95.6 (80.0-100.0) fL MCH 29.9 (25.0-35.0) pg MCHC 31.3 (31.0-37.0) g/dL RDW 13.4 (11.5-15.5) % Plt Count 326 (150-450) k/uL Neutrophils % 76 % Lymphocytes % 13 % Monocytes % 7 % Eosinophils % 1 % Basophils % 1 % Neutrophils # 9.4 H (1.3-7.7) k/uL Lymphocytes # 1.6 (1.0-4.8) k/uL Monocytes # 0.8 (0-1.0) k/uL Eosinophils # 0.2 (0-0.7) k/uL Basophils # 0.1 (0-0.2) k/uL Hypochromasia Slight PT (9.0-12.0) sec INR (<1.2) APTT 22.7 (22.0-30.0) sec Sodium 140 (137-145) mmol/L Potassium 4.6 (3.5-5.1) mmol/L Chloride 107 (98-107) mmol/L Carbon Dioxide 28 (22-30) mmol/L Anion Gap 5 mmol/L BUN 23 H (9-20) mg/dL Creatinine 0.96 (0.66-1.25) mg/dL Est GFR (CKD-EPI)AfAm >90 (>60 ml/min/1.73 sqM) Est GFR (CKD-EPI)NonAf 87 (>60 ml/min/1.73 sqM) Glucose 161 H (74-99) mg/dL Calcium 9.0 (8.4-10.2) mg/dL Phosphorus (2.5-4.5) mg/dL Magnesium (1.6-2.3) mg/dL Total Bilirubin 0.2 (0.2-1.3) mg/dL AST 18 (17-59) U/L ALT 16 (4-49) U/L Alkaline Phosphatase 78 (38-126) U/L Troponin I (0.000-0.034) ng/mL Total Protein 6.4 (6.3-8.2) g/dL Albumin 3.7 (3.5-5.0) g/dL Blood Type Blood Type Confirm Blood Type Recheck Bld Type Recheck Status Antibody Screen Crossmatch Spec Expiration Date 07/23/19 07/23/19 07/23/19 Range/Units 05:38 05:38 05:38 WBC (3.8-10.6) k/uL RBC (4.30-5.90) m/uL Hgb (13.0-17.5) gm/dL Hct (39.0-53.0) % MCV (80.0-100.0) fL MCH (25.0-35.0) pg MCHC (31.0-37.0) g/dL RDW (11.5-15.5) % Plt Count (150-450) k/uL Neutrophils % % Lymphocytes % % Monocytes % % Eosinophils % % Basophils % % Neutrophils # (1.3-7.7) k/uL Lymphocytes # (1.0-4.8) k/uL Monocytes # (0-1.0) k/uL Eosinophils # (0-0.7) k/uL Basophils # (0-0.2) k/uL Hypochromasia PT 9.9 (9.0-12.0) sec INR 0.9 (<1.2) APTT (22.0-30.0) sec Sodium (137-145) mmol/L Potassium (3.5-5.1) mmol/L Chloride (98-107) mmol/L Carbon Dioxide (22-30) mmol/L Anion Gap mmol/L BUN (9-20) mg/dL Creatinine (0.66-1.25) mg/dL Est GFR (CKD-EPI)AfAm (>60 ml/min/1.73 sqM) Est GFR (CKD-EPI)NonAf (>60 ml/min/1.73 sqM) Glucose (74-99) mg/dL Calcium (8.4-10.2) mg/dL Phosphorus (2.5-4.5) mg/dL Magnesium (1.6-2.3) mg/dL Total Bilirubin (0.2-1.3) mg/dL AST (17-59) U/L ALT (4-49) U/L Alkaline Phosphatase (38-126) U/L Troponin I <0.012 (0.000-0.034) ng/mL Total Protein (6.3-8.2) g/dL Albumin (3.5-5.0) g/dL Blood Type A Negative Blood Type Confirm Blood Type Recheck No Previous Record Bld Type Recheck Status CABO Indicated Antibody Screen NEGATIVE Crossmatch See Detail Spec Expiration Date 07/26/2019233707/23/19 07/23/19 Range/Units 05:38 05:52 WBC (3.8-10.6) k/uL RBC (4.30-5.90) m/uL Hgb (13.0-17.5) gm/dL Hct (39.0-53.0) % MCV (80.0-100.0) fL MCH (25.0-35.0) pg MCHC (31.0-37.0) g/dL RDW (11.5-15.5) % Plt Count (150-450) k/uL Neutrophils % % Lymphocytes % % Monocytes % % Eosinophils % % Basophils % % Neutrophils # (1.3-7.7) k/uL Lymphocytes # (1.0-4.8) k/uL Monocytes # (0-1.0) k/uL Eosinophils # (0-0.7) k/uL Basophils # (0-0.2) k/uL Hypochromasia PT (9.0-12.0) sec INR (<1.2) APTT (22.0-30.0) sec Sodium (137-145) mmol/L Potassium (3.5-5.1) mmol/L Chloride (98-107) mmol/L Carbon Dioxide (22-30) mmol/L Anion Gap mmol/L BUN (9-20) mg/dL Creatinine (0.66-1.25) mg/dL Est GFR (CKD-EPI)AfAm (>60 ml/min/1.73 sqM) Est GFR (CKD-EPI)NonAf (>60 ml/min/1.73 sqM) Glucose (74-99) mg/dL Calcium (8.4-10.2) mg/dL Phosphorus 4.4 (2.5-4.5) mg/dL Magnesium 2.0 (1.6-2.3) mg/dL Total Bilirubin (0.2-1.3) mg/dL AST (17-59) U/L ALT (4-49) U/L Alkaline Phosphatase (38-126) U/L Troponin I (0.000-0.034) ng/mL Total Protein (6.3-8.2) g/dL Albumin (3.5-5.0) g/dL Blood Type Blood Type Confirm A Negative Blood Type Recheck Bld Type Recheck Status Antibody Screen Crossmatch Spec Expiration Date - EKG Data -: EKG Interpreted by Me (EKG shows sinus rhythm of 98, NC 136 QRS 106 QTc 450) Critical Care Time Critical Care Time: Yes Total Critical Care Time: 31 Disposition Clinical Impression: Acute GI bleeding, Hypotension Disposition: ADMITTED IP TO THIS HOSP Condition: Serious Is patient prescribed a controlled substance at d/c from ED?: No
[2019-07-23 05:59] LABS: ALT 16 U/L (4-49); AST 18 U/L (17-59); African American GFR (CKD) >90 (>60 ml/min/1.73 sqM); Albumin 3.7 g/dL (3.5-5.0); Alkaline Phosphatase 78 U/L (38-126); Anion Gap 5 mmol/L; Blood Urea Nitrogen 23 mg/dL (9-20); Carbon Dioxide 28 mmol/L (22-30); Chloride 107 mmol/L (98-107); Glucose 161 mg/dL (74-99); Non-African American GFR(CKD) 87 (>60 ml/min/1.73 sqM); Potassium 4.6 mmol/L (3.5-5.1); Sodium 140 mmol/L (137-145); Total Bilirubin 0.2 mg/dL (0.2-1.3); Total Protein 6.4 g/dL (6.3-8.2)
[2019-07-23 06:05] LABS: INR 0.9 (<1.2); Prothrombin Time 9.9 sec (9.0-12.0)
[2019-07-23] MEDS ORDERED: TRANEXAMIC ACID 1,000 MG in SODIUM CHLORIDE 0.9% 100 ML IV STA (06:07)
[2019-07-23] MEDS ORDERED: DESMOPRESSIN ACETATE 1 MCG in SODIUM CHLORIDE 0.9% 50 ML IVPB ONE (06:10)
[2019-07-23 06:14] LABS: Phosphorus 4.4 mg/dL (2.5-4.5)
[2019-07-23] MEDS ORDERED: DESMOPRESSIN ACETATE 30 MCG in SODIUM CHLORIDE 0.9% 50 ML IVPB ONE (06:30)
[2019-07-23] MEDS: SODIUM CHLORIDE 0.9% 1,000 ML IV SCH ×3 (06:33→19:49)
[2019-07-23 10:07] LABS: HCT 35.9 % (39.0-53.0); HGB 11.5 gm/dL (13.0-17.5); MCH 29.8 pg (25.0-35.0); MCV 93.1 fL (80.0-100.0); Mean Platelet Volume 8.5; Platelet Count 269 k/uL (150-450); RBC 3.86 m/uL (4.30-5.90); RDW 14.5 % (11.5-15.5)
[2019-07-23 11:55] LABS: Glucose,Whole Blood 112 mg/dL (75-99)
--- NOTE | 2019-07-23 12:15 | CONS ---
CONSULTATION DATE OF SERVICE: July 23, 2019. REQUESTING PHYSICIAN: Dr. Radha White REASON FOR CONSULTATION: Acute GI bleed. HISTORY OF PRESENT ILLNESS: The patient is a 59-year-old pleasant white male came in the emergency room early this morning with acute GI bleed. The patient states that last night he had about 3 episodes of bright red blood per rectum and became somewhat lightheaded, came to the emergency room and subsequently was noted to be extremely hypertensive. He was given 1 unit of fluid and his blood pressure improved. He was also given 1 unit of PRBC transfusion. The patient states that his symptoms started late last night, early this morning. He had 3 episodes at home, which were all bright red blood per rectum. He had some cramping lower abdominal discomfort. Reports no nausea, vomiting. Never had these symptoms in the past. No fever, chills, or night sweats. No prior history of peptic ulcer disease or recent NSAID use. He had a colonoscopy done about 3 years ago and according to him it was within normal limits. Never had an upper endoscopy in the past. He is on aspirin and Plavix for coronary artery disease and had a stent placement about 5 years ago. In the ER, he received one unit of PRBC transfusion and repeat CBC was 11.3 g/dL. Since being in the ER, he had 2 episodes of moderate amount of bright red blood per rectum. PAST MEDICAL HISTORY: Significant for coronary artery disease status post LA 3 years ago. PAST SURGICAL HISTORY: Cardiac catheterization with stent placement, colonoscopy 3 years ago. MEDICATIONS: At home include aspirin, Plavix, Colace, and [place]. ALLERGIES: None. SOCIAL HISTORY: Chronic smoker. No alcohol. FAMILY HISTORY: Unremarkable. REVIEW OF SYSTEMS: CARDIOPULMONARY: No chest pain or shortness of breath. GENITOURINARY: No dysuria or hematuria. MUSCULOSKELETAL unremarkable. SKIN unremarkable. ENDOCRINE unremarkable. PSYCHIATRIC unremarkable. NEUROLOGY unremarkable. ENT/vision unremarkable. CONSTITUTIONAL: No recent weight loss. No fever, chills, night sweats. PHYSICAL EXAMINATION: Blood pressure was 98/73, pulse rate 97, temperature 98.4. HEENT examination unremarkable. Conjunctivae pink. Sclerae anicteric. Oral cavity no lesions. NECK: No JVD or lymph node enlargement. CHEST: Clear to auscultation. HEART: Regular rate and rhythm. ABDOMEN: Soft. Bowel sounds are positive. No organomegaly. Minimal tenderness in the left lower quadrant area. EXTREMITIES: No pedal edema. SKIN no rashes. NEUROLOGIC: Alert and oriented x3. No focal deficits. LABS: WBC 12.4, hemoglobin 13, platelets normal. Basic metabolic panel is within normal limits. BUN is 23, creatinine 0.93, PTT/INR is within normal limits. Repeat hemoglobin after one unit of blood transfusion was 11.5 g/dL. IMPRESSION: 1. Acute gastrointestinal bleed. The patient started having bright red blood per rectum late last night/early this morning and had about 3 episodes at home and 2 episodes in the ER with moderate amount of blood. He was initially hypertensive and subsequently was resuscitated with fluids and one unit of PRBC transfusion. Repeat CBC is 11.5 g/dL. The patient on aspirin and Plavix for underlying coronary artery disease and stent placement 3 years ago. Most likely dealing with an acute lower GI bleed possibly diverticular in nature, but the possibility of upper GI source of bleeding cannot be entirely excluded. 2. History of coronary artery disease, status post angioplasty with stent placement 3 years ago on aspirin and Plavix currently on hold. RECOMMENDATIONS: 1. Hold aspirin and Plavix. 2. Agree with one unit of PRBC transfusion and we will follow CBC every 6 hours and transfuse as needed. 3. Continue with IV fluids. 4. Protonix 40 mg q.12 hours. 5. We will plan on an upper endoscopy as well as colonoscopy tomorrow. I discussed with the patient risks, benefits and complications and he is agreeable to it. However, if he continues to have worsening bleeding, we will plan on endoscopy intervention today. Thank you for this consultation. We will follow with you closely. [email or web address] / IJN: [id number] /
[2019-07-23 14:40] LABS: Basophils # (A) 0.1 k/uL (0-0.2); Basophils % (A) 1 %; Eosinophils # (A) 0.1 k/uL (0-0.7); Eosinophils % (A) 1 %; HCT 33.9 % (39.0-53.0); Hypochromasia Slight; Lymphocytes # (A) 1.6 k/uL (1.0-4.8); Lymphocytes % (A) 17 %; MCH 30.9 pg (25.0-35.0); MCHC 32.6 g/dL (31.0-37.0); MCV 94.8 fL (80.0-100.0); Mean Platelet Volume 8.2; Monocytes # (A) 0.7 k/uL (0-1.0); Monocytes % (A) 8 %; Neutrophils # (A) 7.1 k/uL (1.3-7.7); Neutrophils % (A) 73 %; Platelet Count 266 k/uL (150-450); RBC 3.57 m/uL (4.30-5.90); RDW 14.7 % (11.5-15.5); WBC 9.7 k/uL (3.8-10.6)
--- NOTE | 2019-07-23 15:05 | P.CNPUL ---
History of Present Illness Consult date: 07/23/19 Requesting physician: Bernabe Perales Reason for consult: other (Critical care management) Chief complaint: Bright red blood per rectum History of present illness: This is a very pleasant 59-year-old gentleman who follows with Dr. White as his primary care provider. He has a history of coronary artery disease with previous stent placement, hyperlipidemia, hypothyroidism. He has a history of incarcerated umbilical hernia status post repair in February 2019. Earlier this morning the patient noted blood on the toilet paper and blood streaked stools 2. He presented here to the emergency room for the same. He had 3 more bright red bowel movements. He did have a drop in hemoglobin from 13.0-11.5. He was admitted to the intensive care unit for the same. He is seen today in consultation. Currently sitting up in bed. Awake and alert in no acute distress. Maintaining O2 saturations in the high 90s on 2 L/m per nasal cannula. His been afebrile. Hemodynamically stable. Denies any dizziness or lightheadedness. No chest pain. White count 9.7. Current hemoglobin 11.0. Platelets 266. Sodium 140. Potassium 4.6. Creatinine 0.96. Troponin negative 1. INR 0.9. He did receive desmopressin times one. He is currently on Protonix 40 mg IV every 12 hours. 0.9 normal saline at 100. He received 1 L fluid bolus. GI consult pending. Review of Systems REVIEW OF SYSTEMS: CONSTITUTIONAL: Denies any recent significant weight loss or weight gain. EYES: Denies change in vision. EARS, NOSE, MOUTH, THROAT: Denies headaches, denies sore throat. CARDIOVASCULAR: Denies chest pain, palpitations or syncopal episodes. RESPIRATORY: Denies shortness of breath, cough, congestion or hemoptysis. GASTROINTESTINAL: Right red blood per rectum GENITOURINARY: Denies hematuria, denies infections. MUSKULOSKELETAL: Denies pain, denies swelling. INTEGUMENTARY: Denies rash, denies eczema. NEUROLOGICAL: Denies recent memory loss, no recent seizure activity. PSYCHIATRIC: Denies anxiety, denies depression. HEMATOLOGIC/LYMPHATIC: Denies anemia, denies enlarged lymph nodes. Past Medical History Past Medical History: Myocardial Infarction ([place]) Additional Past Medical History / Comment(s): INPT 02/20/19-02/22/19 FOR SBO Last Myocardial Infarction Date:: 04/02/2017 History of Any Multi-Drug Resistant Organisms: None Reported Past Surgical History: Heart Catheterization With Stent, Orthopedic Surgery Additional Past Surgical History / Comment(s): RIGHT LEG ORIF,. COLONOSCOPY Past Anesthesia/Blood Transfusion Reactions: No Reported Reaction Date of Last Stent Placement:: 04/02/2017 Past Psychological History: No Psychological Hx Reported Smoking Status: Current some day smoker Past Alcohol Use History: Occasional Past Drug Use History: None Reported - Past Family History Mother Family Medical History: No Reported History Medications and Allergies Home Medications Medication Instructions Recorded Confirmed Type Aspirin 81 mg PO DAILY #100 chew 04/19/17 07/23/19 Rx Clopidogrel [Plavix] 75 mg PO DAILY #100 tab 04/19/17 07/23/19 Rx Ascorbic Acid [Vitamin C] 1,000 mg PO DAILY 07/23/19 07/23/19 History Atorvastatin Calcium [Lipitor] 10 mg PO DAILY 07/23/19 07/23/19 History Levothyroxine Sodium [Synthroid] 25 mcg PO DAILY 07/23/19 07/23/19 History Allergies Allergy/AdvReac Type Severity Reaction Status Date / Time No Known Allergies Allergy Verified 07/23/19 13:39 Physical Exam Vitals: Vital Signs Temp Pulse Resp BP Pulse Ox 07/23/19 11:30 98 18 123/77 99 07/23/19 11:00 98 18 123/77 99 07/23/19 10:30 97 20 111/78 95 07/23/19 10:00 96 18 101/78 99 07/23/19 09:30 97 18 98/71 98 07/23/19 09:00 98 16 118/80 99 07/23/19 08:30 99 16 109/74 97 07/23/19 08:20 98 F 96 18 118/80 99 07/23/19 08:00 97 20 99/76 98 07/23/19 07:30 99 20 98/73 98 07/23/19 07:20 98.4 F 97 18 98/73 99 07/23/19 07:00 93 18 118/73 98 07/23/19 06:50 98.3 F 89 16 118/73 98 07/23/19 06:40 98.1 F 93 18 112/71 99 07/23/19 06:30 92 18 97/67 99 07/23/19 06:25 96 18 97/67 98 07/23/19 06:00 93 16 76/61 99 07/23/19 05:51 89 18 76/61 97 07/23/19 05:37 98 16 07/23/19 05:22 98.2 F 104 H 18 85/61 97 Intake and Output 07/22/19 07/23/19 07/23/19 22:59 06:59 14:59 Intake Total 0 410 Balance 0 410 Intake: IV 100 Sodium Chloride 0.9% 1, 100 000 ml @ 100 mls/hr IV . Q10H JACINTA Rx#:[id number] Blood Product 0 310 Rc As-1 Unit 0 310 [id number] Other: # Voids 0 Weight 92.986 kg GENERAL EXAM: Alert, active, pleasant 59-year-old gentleman, on 2 L nasal cannula, comfortable in no apparent distress. HEAD: Normocephalic. EYES: Normal reaction of pupils, equal size. NOSE: Clear with pink turbinates. THROAT: No erythema or exudates. NECK: No masses, no JVD. CHEST: No chest wall deformity. LUNGS: Equal air entry with no crackles, wheeze, rhonchi or dullness. CVS: S1 and S2 normal with no audible murmur, regular rhythm. ABDOMEN: No hepatosplenomegaly, normal bowel sounds, no guarding or rigidity. SPINE: No scoliosis or deformity SKIN: No rashes CENTRAL NERVOUS SYSTEM: No focal deficits, tone is normal in all 4 extremities. EXTREMITIES: There is no peripheral edema. No clubbing, no cyanosis. Peripheral pulses are intact. Results - Laboratory Findings CBC and BMP: 07/23/19 14:05 07/23/19 05:38 PT/INR, D-dimer PT 9.9 sec (9.0-12.0) 07/23/19 05:38 INR 0.9 (<1.2) 07/23/19 05:38 Abnormal lab findings: Abnormal Labs 07/23/19 07/23/19 07/23/19 05:38 05:38 05:38 WBC 12.4 H RBC Hgb Hct Neutrophils # 9.4 H BUN 23 H Glucose 161 H POC Glucose (mg/dL) Crossmatch See Detail 07/23/19 07/23/19 07/23/19 09:59 11:54 14:05 WBC RBC 3.86 L 3.57 L Hgb 11.5 L 11.0 L Hct 35.9 L 33.9 L Neutrophils # BUN Glucose POC Glucose (mg/dL) 112 H Crossmatch Assessment and Plan Assessment: 1 Acute gastrointestinal bleeding with bright red blood per rectum with drop in hemoglobin from 13.0 to 11.0 2 History of nonspecific enteritis in 2018, last colonoscopy in 2015 for screening, found to have rectal polyp and mild diverticular changes 3 Recent incarcerated umbilical hernia status post repair in February 2019 4 Chronic and ongoing tobacco dependence 5 Coronary artery disease with previous stent placement and currently on aspirin and Plavix 6 Hyperlipidemia 7 Hypothyroidism Plan: The patient was seen and evaluated by Dr. Giles Currently stable from the critical care standpoint Continue to monitor hemoglobin GI consult pending Continue 0.9 normal saline at 100 ML's per hour Continue Protonix We will continue to follow and make further recommendations based on his clinical status I, the cosigning physician, performed a history & physical examination of the patient. Lungs sounds are clear. Maintaining good O2 saturations in the 90s on 2 L/m per nasal cannula. I discussed the assessment and plan of care with my nurse practitioner, Leticia Grimes. I attest to the above note as dictated by her. Time with Patient: Greater than 30
[2019-07-23] MEDS ORDERED: PEG 3350-NA SULF,BICARB,CL/KCL 4,000 ML BOTTLE PO ONE (18:00)
[2019-07-23 18:55] LABS: Basophils # (A) 0.1 k/uL (0-0.2); Basophils % (A) 1 %; Eosinophils # (A) 0.1 k/uL (0-0.7); Eosinophils % (A) 2 %; HCT 32.5 % (39.0-53.0); HGB 10.4 gm/dL (13.0-17.5); Hypochromasia Slight; Lymphocytes # (A) 2.1 k/uL (1.0-4.8); Lymphocytes % (A) 24 %; MCH 30.5 pg (25.0-35.0); MCV 95.3 fL (80.0-100.0); Mean Platelet Volume 8.2; Monocytes # (A) 0.6 k/uL (0-1.0); Monocytes % (A) 8 %; Neutrophils # (A) 5.4 k/uL (1.3-7.7); Neutrophils % (A) 63 %; Platelet Count 253 k/uL (150-450); RBC 3.41 m/uL (4.30-5.90); RDW 14.7 % (11.5-15.5); WBC 8.5 k/uL (3.8-10.6)
[2019-07-23] MEDS: PANTOPRAZOLE 40 MG/10 ML VIAL IV SCH (19:50)
[2019-07-24 01:03] LABS: Basophils # (A) 0.1 k/uL (0-0.2); Basophils % (A) 1 %; Eosinophils # (A) 0.2 k/uL (0-0.7); Eosinophils % (A) 2 %; HCT 28.7 % (39.0-53.0); Hypochromasia Slight; Lymphocytes # (A) 2.2 k/uL (1.0-4.8); Lymphocytes % (A) 23 %; MCH 29.5 pg (25.0-35.0); MCHC 31.5 g/dL (31.0-37.0); MCV 93.7 fL (80.0-100.0); Mean Platelet Volume 8.3; Monocytes # (A) 0.7 k/uL (0-1.0); Monocytes % (A) 8 %; Neutrophils # (A) 6.1 k/uL (1.3-7.7); Neutrophils % (A) 64 %; Platelet Count 213 k/uL (150-450); RBC 3.06 m/uL (4.30-5.90); RDW 14.6 % (11.5-15.5); WBC 9.6 k/uL (3.8-10.6)
[2019-07-24 05:57] LABS: Basophils % (A) 1 %; Eosinophils # (A) 0.2 k/uL (0-0.7); Eosinophils % (A) 3 %; HCT 26.9 % (39.0-53.0); HGB 8.8 gm/dL (13.0-17.5); Hypochromasia Slight; Lymphocytes # (A) 1.8 k/uL (1.0-4.8); Lymphocytes % (A) 22 %; MCH 30.9 pg (25.0-35.0); MCHC 32.7 g/dL (31.0-37.0); MCV 94.5 fL (80.0-100.0); Mean Platelet Volume 9.9; Monocytes # (A) 0.6 k/uL (0-1.0); Monocytes % (A) 7 %; Neutrophils # (A) 5.1 k/uL (1.3-7.7); Neutrophils % (A) 65 %; Platelet Count 196 k/uL (150-450); RBC 2.84 m/uL (4.30-5.90); RDW 14.4 % (11.5-15.5)
[2019-07-24 06:15] LABS: African American GFR (CKD) >90 (>60 ml/min/1.73 sqM); Anion Gap 3 mmol/L; Blood Urea Nitrogen 17 mg/dL (9-20); Calcium 7.5 mg/dL (8.4-10.2); Carbon Dioxide 27 mmol/L (22-30); Chloride 107 mmol/L (98-107); Glucose 93 mg/dL (74-99); Non-African American GFR(CKD) >90 (>60 ml/min/1.73 sqM); Potassium 3.9 mmol/L (3.5-5.1); Sodium 137 mmol/L (137-145)
[2019-07-24] MEDS ORDERED: Potassium Replacement Protocol 1 EACH MISC MISCELLANE PRN (06:19)
[2019-07-24] MEDS: POTASSIUM CHLORIDE 10 MEQ in WATER FOR INJECTION 1 100ML.BAG IVPB SCH ×2 (06:45→08:54)
[2019-07-24] MEDS: SODIUM CHLORIDE 0.9% 1,000 ML IV SCH ×2 (06:48→18:04)
--- NOTE | 2019-07-24 07:41 | P.PN ---
Subjective Progress Note Date: 07/24/19 Principal diagnosis: GI Bleed This is a very pleasant 59-year-old gentleman who follows with Dr. White as his primary care provider. He has a history of coronary artery disease with previous stent placement, hyperlipidemia, hypothyroidism. He has a history of incarcerated umbilical hernia status post repair in February 2019. Earlier this morning the patient noted blood on the toilet paper and blood streaked stools 2. He presented here to the emergency room for the same. He had 3 more bright red bowel movements. He did have a drop in hemoglobin from 13.0-11.5. He was admitted to the intensive care unit for the same. He is seen today in consultation. Currently sitting up in bed. Awake and alert in no acute distress. Maintaining O2 saturations in the high 90s on 2 L/m per nasal cannula. His been afebrile. Hemodynamically stable. Denies any dizziness or lightheadedness. No chest pain. White count 9.7. Current hemoglobin 11.0. Platelets 266. Sodium 140. Potassium 4.6. Creatinine 0.96. Troponin negative 1. INR 0.9. He did receive desmopressin times one. He is currently on Protonix 40 mg IV every 12 hours. 0.9 normal saline at 100. He received 1 L fluid bolus. GI consult pending. The patient is seen today in 07/24/1999 follow-up in intensive care unit. He remains awake and alert in no acute distress. He is maintaining O2 saturations in the 90s on 2 L/m per nasal cannula. Continues on 0.9 normal saline at 100 ML's per hour. He is status post 1 unit of packed red blood cells. His hemoglobin has gone from 13 down to 9.0. The plan is for EGD/colonoscopy this morning. There was some blood noted during his bowel prep. White count 8.0. Hemoglobin currently 8.8. Sodium 137. Potassium 3.9. Creatinine 0.68. He remains on Protonix IV 40 mg twice daily Objective - Vital Signs Vital signs: Vital Signs Temp 97.8 F 07/24/19 04:00 Pulse 74 07/24/19 07:00 Resp 14 07/24/19 07:00 BP 108/76 07/24/19 07:00 Pulse Ox 96 07/24/19 07:00 Intake & Output 07/23/19 07/24/1907/23/20 18:59 06:59 18:59 Intake Total 910 1320 100 Output Total 0 0 Balance 910 1320 100 Weight 92.986 kg 93.3 kg Intake: IV 600 1200 100 Sodium Chloride 0.9% 1, 600 1200 100 000 ml @ 100 mls/hr IV . Q10H JACINTA Rx#:[id number] Oral 120 Blood Product 310 Rc As-1 Unit 310 [id number] Output: Urine 0 0 Other: # Voids 0 1 # Bowel Movements 1 1 - Exam GENERAL EXAM: Alert, pleasant 59-year-old gentleman, on 2 L nasal cannula comfortable in no apparent distress. HEAD: Normocephalic. EYES: Normal reaction of pupils, equal size. NOSE: Clear with pink turbinates. THROAT: No erythema or exudates. NECK: No masses, no JVD. CHEST: No chest wall deformity. LUNGS: Equal air entry with faint end expiratory wheeze. CVS: S1 and S2 normal with no audible murmur, regular rhythm. ABDOMEN: No hepatosplenomegaly, normal bowel sounds, no guarding or rigidity. SPINE: No scoliosis or deformity SKIN: No rashes CENTRAL NERVOUS SYSTEM: No focal deficits, tone is normal in all 4 extremities. EXTREMITIES: There is no peripheral edema. No clubbing, no cyanosis. Peripheral pulses are intact. - Labs CBC & Chem 7: 07/24/19 05:45 07/24/19 05:45 Labs: Abnormal Lab Results - Last 24 Hours (Table) 07/23/19 07/23/19 07/23/19 Range/Units 05:38 09:59 11:54 RBC 3.86 L (4.30-5.90) m/uL Hgb 11.5 L (13.0-17.5) gm/dL Hct 35.9 L (39.0-53.0) % POC Glucose (mg/dL) 112 H (75-99) mg/dL Calcium (8.4-10.2) mg/dL Crossmatch See Detail 07/23/19 07/23/19 07/24/19 Range/Units 14:05 17:54 00:37 RBC 3.57 L 3.41 L 3.06 L (4.30-5.90) m/uL Hgb 11.0 L 10.4 L 9.0 L (13.0-17.5) gm/dL Hct 33.9 L 32.5 L 28.7 L (39.0-53.0) % POC Glucose (mg/dL) (75-99) mg/dL Calcium (8.4-10.2) mg/dL Crossmatch 07/24/19 07/24/19 Range/Units 05:45 05:45 RBC 2.84 L (4.30-5.90) m/uL Hgb 8.8 L (13.0-17.5) gm/dL Hct 26.9 L (39.0-53.0) % POC Glucose (mg/dL) (75-99) mg/dL Calcium 7.5 L (8.4-10.2) mg/dL Crossmatch Assessment and Plan Assessment: 1 Acute gastrointestinal bleeding with bright red blood per rectum with drop in hemoglobin from 13.0 to 9.0. He is status post 1 unit of packed red blood cells so far this admission. His current hemoglobin is 8.8. There was some blood noted during his bowel prep. He is going for an EGD/colonoscopy today 2 History of nonspecific enteritis in 2019, last colonoscopy in 2015 for screening, found to have rectal polyp and mild diverticular changes 3 Recent incarcerated umbilical hernia status post repair in February 2019 4 Chronic and ongoing tobacco dependence 5 Coronary artery disease with previous stent placement and currently on aspirin and Plavix 6 Hyperlipidemia 7 Hypothyroidism Plan: The patient was seen and evaluated by Dr. Smith He did receive 1 unit of packed red blood cells this admission. Current hemoglobin 8.8 The plan is for EGD/colonoscopy today Continue to monitor hemoglobin Continue 0.9 normal saline at 100 ML's per hour Continue Protonix Upon discharge he would benefit from a pulmonary workup including full PFTs for suspected COPD He is educated regarding the importance of complete smoking cessation We will continue to follow and make further recommendations based on his clinical status I, the cosigning physician, performed a history & physical examination of the patient. Lungs sounds are clear. Maintaining good O2 saturations in the 90s on 2 L/m per nasal cannula. I discussed the assessment and plan of care with my nurse practitioner, Leticia Grimes. I attest to the above note as dictated by her.
[2019-07-24] MEDS: PANTOPRAZOLE 40 MG/10 ML VIAL IV SCH ×2 (08:54→21:06)
[2019-07-24] MEDS ORDERED: PROPOFOL 10 MG/ML 20 ML VIAL IV ONE (10:28)
[2019-07-24] MEDS ORDERED: LIDOCAINE 1% INJ 10MG/ML (20 ML MDV) ONE (10:28)
[2019-07-24] MEDS ORDERED: ePHEDrine SULFATE/0.9% NACL/PF 50 MG/5 ML SYRINGE IV ONE (10:28)
[2019-07-24] MEDS ORDERED: MIDAZOLAM 2 MG/2 ML VIAL ONE (10:28)
[2019-07-24] MEDS ORDERED: SODIUM CHLORIDE 0.9% 500 ML 500 ML IV ONE ×2 (10:31)
[2019-07-24] MEDS ORDERED: EPINEPHrine 10 ML SYRINGE (0.1 MG/ML) MISCELLANE ONE (10:57)
--- NOTE | 2019-07-24 11:23 | P.PCN ---
Date of Procedure: 07/24/19 Procedure(s) Performed: Brief history: Patient is a pleasant 59-year-old white male admitted to hospital with acute GI bleed. He had multiple episodes of bright red blood per rectum that started yesterday morning and came into the emergency room and subsequently was very hypotensive. His initial hemoglobin was 12.3 g/dL. He received total of 3 units of PRBC transition because of severe hypertension and today hemoglobin is 8.8 g/dL. He scheduled scheduled for an upper endoscopy as well as colonoscopy as a part of evaluation of evaluation of acute GI bleed. Procedure performed: Esophagogastroduodenoscopy with biopsy Colonoscopy with biopsy, injection epinephrine, Endo Clip placement Preoperative diagnosis: Acute GI bleed Anesthesia: MAC Procedure: After informed consent was obtained from the patient was brought into the endoscopy unit and IV sedation was administered by anesthesia under continuous monitoring. Initially upper endoscopy was done. The Olympus GF 160 video endoscope was inserted inserted into the mouth and esophagus intubated without any difficulty and was gradually advanced into the stomach and duodenum and carefully examined. The bulb and second part of the duodenum appeared normal. The scope was then withdrawn into the stomach adequately insufflated with air a nd upon careful examination there was no active bleeding identified. In the antrum had scattered erosive gastritis and biopsies were done from this area. The body, cardia and fundus appeared normal. The scope was then withdrawn into the esophagus. The GE junction was located at 40 cm to the incisors. It appeared regular with no erythema erosions or ulcerations. Rest of the esophagus appeared normal. Patient tolerated the procedure well. At this time the patient continued to remain sedation. Initial digital rectal examination was normal. Olympus CF 160 video colonoscope was then inserted into the rectum and gradually advanced to the cecum without any difficulty. Careful examination was performed as the scope was gradually being withdrawn. there was fresh blood noted throughout the entire colon. Thorough irrigation was performed. Multiple clots were removed. On the ileocecal valve there was a 3 cm deep ulceration identified with an adherent clot and active bleeding. Using suction I removed the clot. One in 10,000 epinephrine was injected in the base of the ulcer and hemostasis was achieved. At this time 2 endoclips were placed on the base of the ulcer and no further bleeding was identified. The margin of the ulcer had friable mucosa and biopsies were done from this area. The cecum, ascending colon, transverse colon, descending colon, sigmoid colon and rectum appeared normal. there were large clots noted throughout the entire colon which was suctioned and probably related. Retroflexion was performed in the rectum and no lesions were noted. Patient tolerated the procedure well. Impression: 1. Upper endoscopy revealed mild gastritis 2. Colonoscopy revealed a deep 3 cm ulceration on the ileocecal valve with active bleeding and adherent clot. Status post injection epinephrine followed by Endo Clip placement and biopsies done from the margin of the ulcer Recommendations: Findings of this examination were discussed with the patient . was consulted during the procedure to discuss need for surgical intervention. Since adequate hemostasis was achieved with endoscopic intervention, at this time we will observe him closely. Obtain CT of the abdomen and pelvis. Monitor CBC every 6 hours. Await biopsy results.
[2019-07-24 11:58] LABS: Basophils % (A) 0 %; Eosinophils # (A) 0.2 k/uL (0-0.7); Eosinophils % (A) 2 %; HCT 26.5 % (39.0-53.0); HGB 8.4 gm/dL (13.0-17.5); Hypochromasia Slight; Lymphocytes # (A) 1.8 k/uL (1.0-4.8); Lymphocytes % (A) 24 %; MCH 29.7 pg (25.0-35.0); MCHC 31.5 g/dL (31.0-37.0); MCV 94.4 fL (80.0-100.0); Monocytes # (A) 0.6 k/uL (0-1.0); Monocytes % (A) 8 %; Neutrophils # (A) 4.8 k/uL (1.3-7.7); Neutrophils % (A) 64 %; Platelet Count 217 k/uL (150-450); RBC 2.81 m/uL (4.30-5.90); RDW 14.4 % (11.5-15.5); WBC 7.6 k/uL (3.8-10.6)
[2019-07-24] MEDS: IOPAMIDOL CONTRAST (ORAL USE) VIAL PO PRN ×2 (12:32→13:39)
[2019-07-24] MEDS ORDERED: HYDROmorphone 0.5 MG/0.5 ML SYRINGE IVP STA (13:30)
--- NOTE | 2019-07-24 13:34 | P.GSCN ---
History of Present Illness Consult date: 07/24/19 Reason for Consult: Cecal mass, GI bleed History of present illness: CHIEF COMPLAINT: Cecal mass, GI bleed HISTORY OF PRESENT ILLNESS: 59-year-old male who underwent EGD and colonoscopy today with Dr. Beckford revealing mild gastritis and a deep 3 cm ulceration on the ileocecal valve with active bleeding and adherent clot. General surgery was consulted for further evaluation. PAST MEDICAL HISTORY: See list. PAST SURGICAL HISTORY: See list. SOCIAL HISTORY: No illicit drug use. REVIEW OF SYSTEMS: CONSTITUTIONAL: Denies fever or chills. HEENT: Denies blurred vision, vision changes, or eye pain. Denies hemoptysis CARDIOVASCULAR: Denies chest pain or pressure. RESPIRATORY: No shortness of breath. GASTROINTESTINAL: Refer to HPI for pertinent findings HEMATOLOGIC: Denies bleeding disorders. GENITOURINARY: Denies any blood in urine. SKIN: Denies pruitis. Denies rash. PHYSICAL EXAM: VITAL SIGNS: Reviewed. GENERAL: Well-developed in no acute distress. HEENT: No sclera icterus. Extraocular movements grossly intact. Moist buccal mucosa. Head is atraumatic, normocephalic. ABDOMEN: Soft. Nondistended. Nontender. NEUROLOGIC: Alert and oriented. Cranial nerves II through XII grossly intact. LABORATORY DATA: WAC 7.6. Hemoglobin 8.4. Platelet count 217. ASSESSMENT: 1. GI bleed 2. 3cm ulceration on the ileocecal valve PLAN: -Clear liquid diet today. Nothing by mouth at midnight -Patient to undergo right colectomy tomorrow with Dr. Clark Nurse practitioner note has been reviewed by physician. Signing provider agrees with the documented findings, assessment, and plan of care. Past Medical History Past Medical History: Myocardial Infarction ([place]) Additional Past Medical History / Comment(s): INPT 02/20/19-02/22/19 FOR SBO Last Myocardial Infarction Date:: 04/02/2017 History of Any Multi-Drug Resistant Organisms: None Reported Past Surgical History: Heart Catheterization With Stent, Orthopedic Surgery Additional Past Surgical History / Comment(s): RIGHT LEG ORIF,. COLONOSCOPY Past Anesthesia/Blood Transfusion Reactions: No Reported Reaction Date of Last Stent Placement:: 04/02/2017 Past Psychological History: No Psychological Hx Reported Smoking Status: Current some day smoker Past Alcohol Use History: Occasional Past Drug Use History: None Reported - Past Family History Mother Family Medical History: No Reported History Medications and Allergies Home Medications Medication Instructions Recorded Confirmed Type Aspirin 81 mg PO DAILY #100 chew 04/19/17 07/23/19 Rx Clopidogrel [Plavix] 75 mg PO DAILY #100 tab 04/19/17 07/23/19 Rx Ascorbic Acid [Vitamin C] 1,000 mg PO DAILY 07/23/19 07/23/19 History Atorvastatin Calcium [Lipitor] 10 mg PO DAILY 07/23/19 07/23/19 History Levothyroxine Sodium [Synthroid] 25 mcg PO DAILY 07/23/19 07/23/19 History Allergies Allergy/AdvReac Type Severity Reaction Status Date / Time No Known Allergies Allergy Verified 07/23/19 13:39 Surgical - Exam Vital Signs Temp Pulse Resp BP Pulse Ox 98.2 F 104 H 18 85/61 97 07/23/19 05:22 07/23/19 05:22 07/23/19 05:22 07/23/19 05:22 07/23/19 05:22 Results - Labs 07/24/19 11:35 07/24/19 11:35 Abnormal Lab Results - Last 24 Hours (Table) 07/23/19 07/23/19 07/24/19 Range/Units 14:05 17:54 00:37 RBC 3.57 L 3.41 L 3.06 L (4.30-5.90) m/uL Hgb 11.0 L 10.4 L 9.0 L (13.0-17.5) gm/dL Hct 33.9 L 32.5 L 28.7 L (39.0-53.0) % Calcium (8.4-10.2) mg/dL 07/24/19 07/24/19 07/24/19 Range/Units 05:45 05:45 11:35 RBC 2.84 L 2.81 L (4.30-5.90) m/uL Hgb 8.8 L 8.4 L (13.0-17.5) gm/dL Hct 26.9 L 26.5 L (39.0-53.0) % Calcium 7.5 L (8.4-10.2) mg/dL Diabetes panel 07/24/19 07/24/19 Range/Units 05:45 11:35 Sodium 137 (137-145) mmol/L Potassium 3.9 4.0 (3.5-5.1) mmol/L Chloride 107 (98-107) mmol/L Carbon Dioxide 27 (22-30) mmol/L BUN 17 (9-20) mg/dL Creatinine 0.68 (0.66-1.25) mg/dL Glucose 93 (74-99) mg/dL Calcium 7.5 L (8.4-10.2) mg/dL Calcium panel 07/24/19 Range/Units 05:45 Calcium 7.5 L (8.4-10.2) mg/dL Pituitary panel 07/24/19 07/24/19 Range/Units 05:45 11:35 Sodium 137 (137-145) mmol/L Potassium 3.9 4.0 (3.5-5.1) mmol/L Chloride 107 (98-107) mmol/L Carbon Dioxide 27 (22-30) mmol/L BUN 17 (9-20) mg/dL Creatinine 0.68 (0.66-1.25) mg/dL Glucose 93 (74-99) mg/dL Calcium 7.5 L (8.4-10.2) mg/dL Adrenal panel 07/24/19 07/24/19 Range/Units 05:45 11:35 Sodium 137 (137-145) mmol/L Potassium 3.9 4.0 (3.5-5.1) mmol/L Chloride 107 (98-107) mmol/L Carbon Dioxide 27 (22-30) mmol/L BUN 17 (9-20) mg/dL Creatinine 0.68 (0.66-1.25) mg/dL Glucose 93 (74-99) mg/dL Calcium 7.5 L (8.4-10.2) mg/dL
[2019-07-24] MEDS ORDERED: HYDROmorphone 1 MG/ML 1 ML SYRINGE IVP STA (15:15)
[2019-07-24] MEDS: ACETAMINOPHEN TAB 500 MG TAB PO PRN (15:33)
--- NOTE | 2019-07-24 15:44 | CT ---
EXAMINATION TYPE: CT abdomen pelvis w con DATE OF EXAM: 07/24/2019 COMPARISON: 02/20/2019 HISTORY: abdominal pain CT DLP: 1288 mGycm Automated exposure control for dose reduction was used. TECHNIQUE: Helical acquisition of images was performed from the lung bases through the pelvis. CONTRAST: Performed with Oral Contrast and with IV Contrast, patient injected with 100 mL of Isovue 370. FINDINGS: LUNG BASES: Peripheral reticular opacities in the left lung appearing as pleural parenchymal scarring . LIVER/GB: No significant abnormality is appreciated. PANCREAS: No significant abnormality is seen. SPLEEN: No significant abnormality is seen. ADRENALS: No significant abnormality is seen. KIDNEYS: Newly fluid attenuated 1.1 cm left upper pole renal lesion likely represents a cyst with sig nal enhancement. Too small to accurately characterize smaller left lower pole hypoattenuated renal le jimmy on image 42. No hydronephrosis of either kidney. Kidneys enhance symmetrically and delayed imagi ng FREE AIR: No free air is visualized. ADENOPATHY: Prominent lymph nodes around the cecum and terminal ileum. OSSEOUS STRUCTURES: Mild multilevel degenerative change of the spine. BOWEL: There is gaseous distention of the large bowel measuring up to 5.8 cm. Sigmoid colon demonstr ates diffuse mild colonic wall thickening without significant pericolonic fat stranding. No dilated s mall bowel seen. Inflammatory fat stranding of the cecum and surrounding terminal ileum with a small amount of free fl uid is seen. Prominent lymph nodes are present adjacent to the cecum. Eccentric wall thickening of th e cecum is also noted. This measures up to 9 mm. Surgical clips are seen near the ileocecal valve. OTHER: There is diffuse omental caking seen ventral to the redundant transverse colon and small bowel such as on axial image 51 and 52. Extensive mixed atherosclerosis of the abdominal aorta and its bra nches. 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 Sigmoid colonic wall thickening is seen within the proximal gaseous dilatation of the remainder the colon. Sigmoid colonic neoplasm or cecal colonic neoplasm are primary consideration at this time. Small amount of fluid seen surrounding the cecum and prominent inflammatory fat stranding of the ter teo ileum in this patient with ulceration of the ileocecal valve. Active hemorrhage should be consi dered.
[2019-07-24] MEDS: ONDANSETRON 4 MG/2 ML VIAL IVP PRN (15:50)
[2019-07-24] MEDS ORDERED: SODIUM CHLORIDE 0.9% 1,000 ML IV ONE (15:56)
[2019-07-24] MEDS: HYDROmorphone 1 MG/ML 1 ML SYRINGE IVP PRN ×2 (18:03→23:00)
[2019-07-24 19:35] LABS: Basophils % (A) 0 %; Eosinophils # (A) 0.1 k/uL (0-0.7); Eosinophils % (A) 1 %; HCT 25.5 % (39.0-53.0); HGB 7.9 gm/dL (13.0-17.5); Hypochromasia Slight; Lymphocytes # (A) 1.4 k/uL (1.0-4.8); Lymphocytes % (A) 13 %; MCH 29.4 pg (25.0-35.0); MCHC 31.1 g/dL (31.0-37.0); MCV 94.5 fL (80.0-100.0); Mean Platelet Volume 8.2; Monocytes # (A) 0.7 k/uL (0-1.0); Monocytes % (A) 6 %; Neutrophils # (A) 8.2 k/uL (1.3-7.7); Neutrophils % (A) 77 %; Platelet Count 229 k/uL (150-450); RDW 14.3 % (11.5-15.5); WBC 10.5 k/uL (3.8-10.6)
--- NOTE | 2019-07-24 21:04 | P.HPIM ---
History of Present Illness H&P Date: 07/24/19 Chief Complaint: GI bleed Shahab Chairez is a 59 yo M with PMH of CAD, HLD, incarcerated umbilical hernia with recent repair February 2019 who presented to the ED after noticing rectal bleeding. He states that the day of admission he noted blood on the toilet paper and blood streaked stools 2. He presented to the ED and had 3 more bright red bowel movements. He was initially hypotensive and tachycardic and hemoglobin did drop from 13 to 11 over the course of approx 6 hours. He denies any recent steroid or NSAID use, denies frequent alcohol use and denies previous history of GI bleed. INR 0.9, COVID negative, remainder of bloodwork unremarkable. Today, he is s/p 1 U PRBC and his hemoglobin has continued to drop throughout the day. He went for EGD and colonoscopy with GI today which showed a 3 cm deep ulceration at the ileocecal valve. Review of Systems All systems: negative Constitutional: Reports malaise, Reports weakness, Denies chills, Denies fever Eyes: denies blurred vision, denies pain Ears, nose, mouth and throat: Denies headache, Denies sore throat Cardiovascular: Denies chest pain, Denies shortness of breath Respiratory: Denies cough Gastrointestinal: Reports abdominal pain, Reports hematochezia, Reports melena, Denies diarrhea, Denies nausea, Denies vomiting Musculoskeletal: Denies myalgias Integumentary: Denies pruritus, Denies rash Neurological: Denies numbness, Denies weakness Psychiatric: Denies anxiety, Denies depression Endocrine: Denies fatigue, Denies weight change Past Medical History Past Medical History: Myocardial Infarction ([place]) Additional Past Medical History / Comment(s): INPT 02/20/19-02/22/19 FOR SBO Last Myocardial Infarction Date:: 04/02/2017 History of Any Multi-Drug Resistant Organisms: None Reported Past Surgical History: Heart Catheterization With Stent, Orthopedic Surgery Additional Past Surgical History / Comment(s): RIGHT LEG ORIF,. COLONOSCOPY Past Anesthesia/Blood Transfusion Reactions: No Reported Reaction Date of Last Stent Placement:: 04/02/2017 Past Psychological History: No Psychological Hx Reported Smoking Status: Current some day smoker Past Alcohol Use History: Occasional Past Drug Use History: None Reported - Past Family History Mother Family Medical History: No Reported History Medications and Allergies Home Medications Medication Instructions Recorded Confirmed Type Aspirin 81 mg PO DAILY #100 chew 04/19/17 07/23/19 Rx Clopidogrel [Plavix] 75 mg PO DAILY #100 tab 04/19/17 07/23/19 Rx Ascorbic Acid [Vitamin C] 1,000 mg PO DAILY 07/23/19 07/23/19 History Atorvastatin Calcium [Lipitor] 10 mg PO DAILY 07/23/19 07/23/19 History Levothyroxine Sodium [Synthroid] 25 mcg PO DAILY 07/23/19 07/23/19 History Allergies Allergy/AdvReac Type Severity Reaction Status Date / Time No Known Allergies Allergy Verified 07/23/19 13:39 Physical Exam Vitals: Vital Signs Temp Pulse Resp BP Pulse Ox 07/24/19 19:00 101 H 11 L 158/87 97 07/24/19 18:00 103 H 24 134/89 90 L 07/24/19 17:00 104 H 93 H 131/93 92 L 07/24/19 16:00 98.7 F 106 H 20 173/98 94 L 07/24/19 15:00 88 29 H 149/82 93 L 07/24/19 14:00 80 8 L 123/81 98 07/24/19 13:00 85 16 145/117 96 07/24/19 12:00 98.4 F 73 16 157/98 96 07/24/19 10:00 79 16 115/75 97 07/24/19 09:00 86 16 116/71 96 07/24/19 08:00 98.4 F 75 18 108/76 97 07/24/19 07:00 74 14 108/76 96 07/24/19 06:00 71 18 111/57 95 07/24/19 05:00 81 16 109/71 96 07/24/19 04:00 97.8 F 77 16 109/73 96 07/24/19 03:00 98 15 121/70 97 07/24/19 02:00 85 14 93/65 94 L 07/24/19 01:00 80 16 114/67 96 07/24/19 00:00 98 F 84 19 107/72 96 07/23/19 23:00 87 12 132/68 96 07/23/19 22:00 99 20 113/64 86 L 07/23/19 21:00 95 12 109/97 99 Intake and Output 05/26/20 05/26/20 05/26/20 06:59 14:59 22:59 Intake Total 800 1300 500 Output Total 0 0 0 Balance 800 1300 500 Intake: IV 800 1300 500 Potassium Chloride 10 meq 100 In Water For Injection 1 100ml.bag @ 100 mls/hr IVPB Q1H [facility]TA Rx#: [id number] Sodium Chloride 0.9% 1, 800 700 500 000 ml @ 100 mls/hr IV . Q10H [facility]TA Rx#:[id number] Output: Urine 0 0 0 Other: Voiding Method Toilet Toilet # Voids 1 1 1 # Bowel Movements 1 1 1 Weight 93.3 kg General: well nourished, well developed, NAD. Vitals reviewed Eyes: PERRL, EOMI, conjunctiva normal HENT: normocephalic, mucus membranes moist Neck: supple, no JVD Lungs: normal respiratory effort, no wheezes or rales CV: Regular rate and rhythm, no murmur. Peripheral pulses 2+ Abdomen: Generalized tenderness, hyperactive bowel sounds Lymph: no cervical or axillary LAD Skin: warm and dry. Neuro: A&Ox3, normal mood and affect Results CBC & Chem 7: 07/24/19 18:22 07/24/19 11:35 Labs: Abnormal Lab Results - Last 24 Hours (Table) 07/24/19 07/24/19 07/24/19 Range/Units 00:37 05:45 05:45 RBC 3.06 L 2.84 L (4.30-5.90) m/uL Hgb 9.0 L 8.8 L (13.0-17.5) gm/dL Hct 28.7 L 26.9 L (39.0-53.0) % Neutrophils # (1.3-7.7) k/uL Calcium 7.5 L (8.4-10.2) mg/dL Carcinoembryonic Ag (0.0-4.9) ng/mL 07/24/19 07/24/19 07/24/19 Range/Units 11:35 11:35 18:22 RBC 2.81 L 2.70 L (4.30-5.90) m/uL Hgb 8.4 L 7.9 L (13.0-17.5) gm/dL Hct 26.5 L 25.5 L (39.0-53.0) % Neutrophils # 8.2 H (1.3-7.7) k/uL Calcium (8.4-10.2) mg/dL Carcinoembryonic Ag 24.4 H (0.0-4.9) ng/mL Thrombosis Risk Factor Assmnt - Choose All That Apply Any of the Below Risk Factors Present?: Yes Each Factor Represents 1 point: Age 41-60 years, Medical pt on bed rest Other Risk Factors: No Other congenital or acquired thrombophilia - If yes, enter type in comment: No Thrombosis Risk Factor Assessment Total Risk Factor Score: 2 Thrombosis Risk Factor Assessment Level: Low Risk Assessment and Plan (1) Acute blood loss anemia Current Visit: Yes Status: Acute Code(s): D62 - ACUTE POSTHEMORRHAGIC ANEMIA SNOMED Code(s): 547812605 (2) Hemorrhage of cecum Current Visit: Yes Status: Acute Code(s): K92.2 - GASTROINTESTINAL HEMORRHAGE, UNSPECIFIED SNOMED Code(s): 510805338 (3) Acute GI bleeding Current Visit: Yes Status: Acute Code(s): K92.2 - GASTROINTESTINAL HEMORRHAGE, UNSPECIFIED SNOMED Code(s): 89537451 (4) Hypotension Current Visit: Yes Status: Acute Code(s): I95.9 - HYPOTENSION, UNSPECIFIED SNOMED Code(s): 40483837 (5) Carcinomatosis Current Visit: Yes Status: Acute Code(s): C80.0 - DISSEMINATED MALIGNANT NEOPLASM, UNSPECIFIED SNOMED Code(s): 910112553 Plan: 1. GI bleed. GI consulted and colonoscopy completed which revealed cecal ulceration. CT abdomen pelvis showing carcinomatosis and suspected cecal mass. Surgery consult, plan for R hemicolectomy. Continue IV protonix 2. Acute blood loss anemia. Transfuse to maintain Hgb above 8.0. Trend hemoglobin 3. HLD 4. Hypothyroidism
[2019-07-25 00:23] LABS: Basophils % (A) 0 %; Eosinophils # (A) 0.1 k/uL (0-0.7); Eosinophils % (A) 1 %; HGB 7.9 gm/dL (13.0-17.5); Hypochromasia Slight; Lymphocytes # (A) 0.9 k/uL (1.0-4.8); Lymphocytes % (A) 7 %; MCH 29.8 pg (25.0-35.0); MCHC 31.8 g/dL (31.0-37.0); MCV 93.8 fL (80.0-100.0); Mean Platelet Volume 8.2; Monocytes # (A) 0.7 k/uL (0-1.0); Monocytes % (A) 6 %; Neutrophils % (A) 84 %; Platelet Count 219 k/uL (150-450); RBC 2.67 m/uL (4.30-5.90); RDW 14.2 % (11.5-15.5); WBC 11.8 k/uL (3.8-10.6)
[2019-07-25] MEDS: SODIUM CHLORIDE 0.9% 1,000 ML IV SCH ×3 (01:25→17:11)
[2019-07-25 05:53] LABS: African American GFR (CKD) >90 (>60 ml/min/1.73 sqM); Anion Gap 3 mmol/L; Blood Urea Nitrogen 7 mg/dL (9-20); Carbon Dioxide 28 mmol/L (22-30); Chloride 104 mmol/L (98-107); Glucose 104 mg/dL (74-99); Non-African American GFR(CKD) >90 (>60 ml/min/1.73 sqM); Sodium 135 mmol/L (137-145)
[2019-07-25 07:45] LABS: Basophils % (A) 0 %; Eosinophils % (A) 0 %; HCT 25.6 % (39.0-53.0); HGB 8.1 gm/dL (13.0-17.5); Hypochromasia Slight; Lymphocytes # (A) 1.1 k/uL (1.0-4.8); Lymphocytes % (A) 9 %; MCH 30.1 pg (25.0-35.0); MCHC 31.9 g/dL (31.0-37.0); MCV 94.4 fL (80.0-100.0); Mean Platelet Volume 8.8; Monocytes # (A) 0.8 k/uL (0-1.0); Monocytes % (A) 7 %; Neutrophils # (A) 9.4 k/uL (1.3-7.7); Neutrophils % (A) 81 %; Platelet Count 223 k/uL (150-450); RBC 2.71 m/uL (4.30-5.90); RDW 14.3 % (11.5-15.5); WBC 11.5 k/uL (3.8-10.6)
[2019-07-25] MEDS: PANTOPRAZOLE 40 MG/10 ML VIAL IV SCH ×2 (08:18→20:08)
--- NOTE | 2019-07-25 10:46 | P.PN ---
Subjective Progress Note Date: 07/25/19 Principal diagnosis: acute GI bleeding This is a very pleasant 59-year-old gentleman who follows with Dr. White as his primary care provider. He has a history of coronary artery disease with previous stent placement, hyperlipidemia, hypothyroidism. He has a history of incarcerated umbilical hernia status post repair in February 2019. Earlier this morning the patient noted blood on the toilet paper and blood streaked stools 2. He presented here to the emergency room for the same. He had 3 more bright red bowel movements. He did have a drop in hemoglobin from 13.0-11.5. He was admitted to the intensive care unit for the same. He is seen today in consultation. Currently sitting up in bed. Awake and alert in no acute distress. Maintaining O2 saturations in the high 90s on 2 L/m per nasal cannula. His been afebrile. Hemodynamically stable. Denies any dizziness or lightheadedness. No chest pain. White count 9.7. Current hemoglobin 11.0. Platelets 266. Sodium 140. Potassium 4.6. Creatinine 0.96. Troponin negative 1. INR 0.9. He did receive desmopressin times one. He is currently on Protonix 40 mg IV every 12 hours. 0.9 normal saline at 100. He received 1 L fluid bolus. GI consult pending. The patient is seen today in 07/24/1999 follow-up in intensive care unit. He remains awake and alert in no acute distress. He is maintaining O2 saturations in the 90s on 2 L/m per nasal cannula. Continues on 0.9 normal saline at 100 ML's per hour. He is status post 1 unit of packed red blood cells. His hemoglobin has gone from 13 down to 9.0. The plan is for EGD/colonoscopy this morning. There was some blood noted during his bowel prep. White count 8.0. Hemoglobin currently 8.8. Sodium 137. Potassium 3.9. Creatinine 0.68. He r emains on Protonix IV 40 mg twice daily On 07/25/2019 patient seen in follow-up in intensive care unit. He is awake and alert, oriented 3, appears to be in no acute distress. Patient underwent EGD and colonoscopy yesterday on 07/24/2019. Upper endoscopy revealed mild gastritis, and colonoscopy revealed a deep 3 cm ulceration in the ileocecal valve with active bleeding and adherent clot. Status post injection of epinephrine followed by Endo Clip placement and biopsies were taken from the ma rgin of the ulcer. No surgery has been consulted to discuss the need for surgical intervention. 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 Sigmoid colonic neoplasm or cecal colonic neoplasm a primary consideration at this time, small amount of fluid seen surrounding the cecum and prominent inflammatory fat stranding off the terminal ileum with suspicion of active hemorrhage.today's labs showed hemoglobin of 8.1, he received 1 unit of packed red blood cells on 07/23/2019. Remains hemodynamically stable. vital tachycardic, in sinus mechanism with a rate of 101 BPM, IV fluids 0.9 normal saline at a rate of 100 ML per hour, patient is on 2 L of oxygen with a pulse ox of 100%. Denies any chest pain, denies any shortness of breath. Patient is scheduled for right hemicolectomy by Dr. Clark today. His been nothing by mouth since midnight Objective - Vital Signs Vital signs: Vital Signs Temp 98.2 F 07/25/19 08:00 Pulse 87 07/25/19 10:00 Resp 69 H 07/25/19 10:00 BP 128/80 07/25/19 10:00 Pulse Ox 96 07/25/19 10:00 Intake & Output 07/24/19 07/25/19 07/25/19 18:59 06:59 18:59 Intake Total 1700 1550 400 Output Total 0 360 Balance 1700 1190 400 Weight 95.2 kg Intake: IV 1700 1200 400 Potassium Chloride 10 meq 100 In Water For Injection 1 100ml.bag @ 100 mls/hr IVPB Q1H JACINTA Rx#: [id number] Sodium Chloride 0.9% 1, 1100 1200 400 000 ml @ 100 mls/hr IV . Q10H JACINTA Rx#:[id number] Oral 350 Output: Urine 0 360 Other: Voiding Method Toilet Toilet Toilet # Voids 1 1 1 # Bowel Movements 1 1 1 - Exam GENERAL EXAM: Alert, very pleasant, 59-year-old white male, on 2 L of oxygen with pulse ox of 98-100% comfortable in no apparent distress. HEAD: Normocephalic/atraumatic. EYES: Normal reaction of pupils, equal size. Conjunctiva pink, sclera white. NOSE: Clear with pink turbinates. THROAT: No erythema or exudates. NECK: No masses, no JVD, no thyroid enlargement, no adenopathy. CHEST: No chest wall deformity. Symmetrical expansion. LUNGS: Equal air entry with no crackles, wheeze, rhonchi or dullness. CVS: Regular rate and rhythm, normal S1 and S2, no gallops, no murmurs, no rubs ABDOMEN: Soft, nontender. No hepatosplenomegaly, normal bowel sounds, no guarding or rigidity. EXTREMITIES: No clubbing, no edema, no cyanosis, 2+ pulses and upper and lower extremities. MUSCULOSKELETAL: Muscle strength and tone normal. SPINE: No scoliosis or deformity SKIN: No rashes CENTRAL NERVOUS SYSTEM: Alert and oriented -3. No focal deficits, tone is normal in all 4 extremities. PSYCHIATRIC: Alert and oriented -3. Appropriate affect. Intact judgment and insight. - Labs CBC & Chem 7: 07/25/19 04:13 07/25/19 04:13 Labs: Abnormal Lab Results - Last 24 Hours (Table) 07/23/19 07/24/19 07/24/19 Range/Units 05:38 11:35 11:35 WBC (3.8-10.6) k/uL RBC 2.81 L (4.30-5.90) m/uL Hgb 8.4 L (13.0-17.5) gm/dL Hct 26.5 L (39.0-53.0) % Neutrophils # (1.3-7.7) k/uL Lymphocytes # (1.0-4.8) k/uL Sodium (137-145) mmol/L BUN (9-20) mg/dL Glucose (74-99) mg/dL Calcium (8.4-10.2) mg/dL Carcinoembryonic Ag 24.4 H (0.0-4.9) ng/mL Crossmatch See Detail 07/24/19 07/25/19 07/25/19 Range/Units 18:22 00:03 04:13 WBC 11.8 H (3.8-10.6) k/uL RBC 2.70 L 2.67 L (4.30-5.90) m/uL Hgb 7.9 L 7.9 L (13.0-17.5) gm/dL Hct 25.5 L 25.0 L (39.0-53.0) % Neutrophils # 8.2 H 10.0 H (1.3-7.7) k/uL Lymphocytes # 0.9 L (1.0-4.8) k/uL Sodium 135 L (137-145) mmol/L BUN 7 L (9-20) mg/dL Glucose 104 H (74-99) mg/dL Calcium 8.0 L (8.4-10.2) mg/dL Carcinoembryonic Ag (0.0-4.9) ng/mL Crossmatch 07/25/19 Range/Units 04:13 WBC 11.5 H (3.8-10.6) k/uL RBC 2.71 L (4.30-5.90) m/uL Hgb 8.1 L (13.0-17.5) gm/dL Hct 25.6 L (39.0-53.0) % Neutrophils # 9.4 H (1.3-7.7) k/uL Lymphocytes # (1.0-4.8) k/uL Sodium (137-145) mmol/L BUN (9-20) mg/dL Glucose (74-99) mg/dL Calcium (8.4-10.2) mg/dL Carcinoembryonic Ag (0.0-4.9) ng/mL Crossmatch Assessment and Plan Plan: Assessment: 1 Acute gastrointestinal bleeding with bright red blood per rectum with drop in hemoglobin from 13.0 to 9.0. He is status post 1 unit of packed red blood cells so far this admission. His current hemoglobin is 8.8. There was some blood noted during his bowel prep. He is going for an EGD/colonoscopy today 2 colonic mass, and CT of the abdomen and pelvis showed sigmoid colonic neoplasm or cecal colonic neoplasm, patient is scheduled for right hemicolectomy today on 07/25/2019 3 History of nonspecific enteritis in 2018, last colonoscopy in 2016 for screening, found to have rectal polyp and mild diverticular changes 4 Recent incarcerated umbilical hernia status post repair in February 2019 5 Chronic and ongoing tobacco dependence 6 Coronary artery disease with previous stent placement and currently on aspirin and Plavix 7 Hyperlipidemia 8 Hypothyroidism Plan: Continue current medical treatment, continue close hemodynamic monitoring, PPI therapy, IV fluids. EGD, colonoscopy results have been noted, results of the abdomen and pelvis have been noted, patient is scheduled for right hemicolectomy today by Dr. Clark. Will return to the intensive care unit following his surgery. we'll see the patient in the postoperative. I performed a history & physical examination of the patient and discussed their management with my nurse practitioner, Angeles Luna. I reviewed the nurse practitioner's note and agree with the documented findings and plan of care. Lung sounds are positive for clear breath sounds. The findings and the impression was discussed with the patient. I attest to the documentation by the nurse practitioner. Time with Patient: Less than 30
[2019-07-25 12:03] LABS: Glucose,Whole Blood 98 mg/dL (75-99)
[2019-07-25] MEDS ORDERED: ceFAZolin 1,000 MG VIAL ONE (13:40)
[2019-07-25] MEDS ORDERED: LIDOCAINE 1% INJ 10MG/ML (20 ML MDV) ONE (13:40)
[2019-07-25] MEDS ORDERED: fentaNYL (PF) 50 MCG/ML 2 ML AMP ONE (13:40)
[2019-07-25] MEDS ORDERED: NEOSTIGMINE 1 MG/ML 10 ML VIAL ONE (13:40)
[2019-07-25] MEDS ORDERED: HYDROmorphone (PF) 1 MG/ML ONE (13:40)
[2019-07-25] MEDS ORDERED: GLYCOPYRROLATE 0.2 MG/ML 2 ML VIAL ONE (13:40)
[2019-07-25] MEDS ORDERED: ROCURONIUM BROMIDE 10 MG/ML 5 ML VIAL IV ONE (13:40)
[2019-07-25] MEDS ORDERED: KETAMINE 10 MG/ML 20 ML VIAL ONE (13:40)
[2019-07-25] MEDS ORDERED: MIDAZOLAM 2 MG/2 ML VIAL ONE (13:40)
[2019-07-25] MEDS ORDERED: PHENYLEPHRINE-0.9% NACL SYG 1 MG/10 ML SYRINGE ONE (13:40)
[2019-07-25] MEDS ORDERED: PROPOFOL 10 MG/ML 20 ML VIAL IV ONE (13:40)
[2019-07-25] MEDS ORDERED: SUCCINYLCHOLINE CHLORIDE 100 MG/5 ML SYR IV ONE (13:40)
[2019-07-25] MEDS ORDERED: SODIUM CHLORIDE 0.9% 1,000 ML IV ONE (14:19)
[2019-07-25] MEDS ORDERED: BENZOCAINE/MENTHOL LOZENG 1 EACH LOZENGE MUCOUS MEM PRN (15:01)
[2019-07-25] MEDS ORDERED: METOCLOPRAMIDE 5 MG/ML 2 ML VIAL IVP PRN (15:01)
[2019-07-25] MEDS ORDERED: HYDROmorphone 1 MG/ML 1 ML SYRINGE IVP ONE (15:15)
[2019-07-25] MEDS: HYDROmorphone 1 MG/ML 1 ML SYRINGE IVP ONE ×4 (15:17→16:04)
[2019-07-25] MEDS ORDERED: diphenhydrAMINE 50 MG/ML 1 ML VIAL IVP ONE (15:21)
--- NOTE | 2019-07-25 15:30 | P.OP ---
Date of Procedure: 07/25/19 Preoperative Diagnosis: Right colon cancer Postoperative Diagnosis: Right colon cancer with metastatic spread, mesenteric and omental involvement Procedure(s) Performed: Right colectomy Partial omentectomy Anesthesia: FANG Surgeon: Brett Clark Estimated Blood Loss (ml): 50 Pathology: other (Right colon, omentum) Condition: stable Disposition: PACU Description of Procedure: The patient's placed on the operating table in supine position. He received general anesthesia. His abdomen was prepped and draped usual fashion. The abdomen was entered through midline incision. The omentum was adhered to the anterior abdominal wall. This was lysed using sharp dissection. There appeared to be evidence of omental involvement of a cancer. A partial omentectomy performed. Using the Enseal device omentum was divided This point the cecum was examined. There. A mass in the cecum. The right colon was mobilized by dividing the white line of Toldt's. The liver was palpated and there appeared to be no evidence of liver metastases. However in the small bowel mesentery the appeared to be significant lymphadenopathy. At this point the terminal ileum was transected and then the proximal transverse colon was transected with a GI stapler. The mesentery the bowel was divided using the Enseal device. The specimens of pathology. The anastomosis created using a [id number] functional end-to-end staple anastomosis between the terminal ileum and proximal transverse colon. The STEVIE and TA stapler use. 3-0 GI silk suture was used as a crotch stitch. This point the abdomen was irrigated there is no bleeding seen. The fascia was closed with looped #1 PDS suture. Skin was closed with adryan. Patient top she will was sent to recovery room stable condition.
[2019-07-25] MEDS ORDERED: LABETALOL SYRINGE 5 MG/ML IVP ONE (15:52)
[2019-07-25 16:24] LABS: Basophils % (A) 0 %; Eosinophils # (A) 0.1 k/uL (0-0.7); Eosinophils % (A) 1 %; HCT 26.3 % (39.0-53.0); HGB 8.6 gm/dL (13.0-17.5); Hypochromasia Slight; Lymphocytes # (A) 1.1 k/uL (1.0-4.8); Lymphocytes % (A) 8 %; MCH 31.3 pg (25.0-35.0); MCHC 32.6 g/dL (31.0-37.0); MCV 95.9 fL (80.0-100.0); Mean Platelet Volume 8.1; Monocytes # (A) 1.1 k/uL (0-1.0); Monocytes % (A) 7 %; Neutrophils # (A) 12.4 k/uL (1.3-7.7); Neutrophils % (A) 83 %; Platelet Count 290 k/uL (150-450); RBC 2.74 m/uL (4.30-5.90); WBC 14.9 k/uL (3.8-10.6)
[2019-07-25 16:37] LABS: African American GFR (CKD) >90 (>60 ml/min/1.73 sqM); Anion Gap 6 mmol/L; Blood Urea Nitrogen 6 mg/dL (9-20); Calcium 7.9 mg/dL (8.4-10.2); Carbon Dioxide 26 mmol/L (22-30); Chloride 106 mmol/L (98-107); Glucose 131 mg/dL (74-99); Non-African American GFR(CKD) >90 (>60 ml/min/1.73 sqM); Potassium 4.1 mmol/L (3.5-5.1); Sodium 138 mmol/L (137-145)
--- NOTE | 2019-07-25 16:38 | P.PN ---
Subjective Progress Note Date: 07/25/19 Shahab Chairez is a 59 yo M with PMH of CAD, HLD, incarcerated umbilical hernia with recent repair February 2019 who presented to the ED after noticing rectal bleeding. He states that the day of admission he noted blood on the toilet paper and blood streaked stools 2. He presented to the ED and had 3 more bright red bowel movements. He was initially hypotensive and tachycardic and hemoglobin did drop from 13 to 11 over the course of approx 6 hours. He denies any recent steroid or NSAID use, denies frequent alcohol use and denies previous history of GI bleed. INR 0.9, COVID negative, remainder of bloodwork unremarkable. Today, he is s/p 1 U PRBC and his hemoglobin has continued to drop throughout the day. He went for EGD and colonoscopy with GI today which showed a 3 cm deep ulceration at the ileocecal valve. 07/25/2019 yesterday underwent EGD and colonoscopy reporting mild gastritis, deep 3 cm ulceration on the ileocecal valve with active bleeding and adherent clot, status post epinephrine injection followed by Endo Clip placement with biopsies. 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 Sigmoid colonic neoplasm or cecal colonic neoplasm or primary consideration at this time. Evaluated by surgery and patient is scheduled for right hemicolectomy today. Hemoglobin 8.1. Vital signs stable, maintaining O2 sats in the high 90s on 2 L nasal cannula. Objective - Vital Signs Vital signs: Vital Signs Temp 98.0 F 07/25/19 15:05 Pulse 92 07/25/19 16:01 Resp 16 07/25/19 16:01 BP 172/79 07/25/19 16:01 Pulse Ox 93 L 07/25/19 16:01 Intake & Output 07/24/19 07/25/19 07/25/19 18:59 06:59 18:59 Intake Total 1700 1550 1600 Output Total 0 360 650 Balance 1700 1190 950 Weight 95.2 kg Intake: IV 1700 1200 1600 Potassium Chloride 10 meq 100 In Water For Injection 1 100ml.bag @ 100 mls/hr IVPB Q1H [facility] Rx#: [id number] Sodium Chloride 0.9% 1, 1100 1200 700 000 ml @ 100 mls/hr IV . Q10H [facility]TA Rx#:[id number] Oral 350 Output: Urine 0 360 550 Estimated Blood Loss 100 Other: Voiding Method Toilet Toilet Toilet # Voids 1 1 1 # Bowel Movements 1 1 1 - Exam General: well nourished, well developed, NAD. Vitals reviewed Eyes: PERRL, EOMI, conjunctiva normal HENT: normocephalic, mucus membranes moist Neck: supple, no JVD Lungs: normal respiratory effort, no wheezes or rales CV: Regular rate and rhythm, no murmur. Peripheral pulses 2+ Abdomen: Generalized tenderness, hyperactive bowel sounds Lymph: no cervical or axillary LAD Skin: warm and dry. Neuro: A&Ox3, normal mood and affect - Labs CBC & Chem 7: 07/25/19 15:56 07/25/19 04:13 Labs: Abnormal Lab Results - Last 24 Hours (Table) 07/23/19 07/24/19 07/24/19 Range/Units 05:38 11:35 18:22 WBC (3.8-10.6) k/uL RBC 2.70 L (4.30-5.90) m/uL Hgb 7.9 L (13.0-17.5) gm/dL Hct 25.5 L (39.0-53.0) % Neutrophils # 8.2 H (1.3-7.7) k/uL Lymphocytes # (1.0-4.8) k/uL Monocytes # (0-1.0) k/uL Sodium (137-145) mmol/L BUN (9-20) mg/dL Glucose (74-99) mg/dL Calcium (8.4-10.2) mg/dL Carcinoembryonic Ag 24.4 H (0.0-4.9) ng/mL Crossmatch See Detail 07/25/19 07/25/19 07/25/19 Range/Units 00:03 04:13 04:13 WBC 11.8 H 11.5 H (3.8-10.6) k/uL RBC 2.67 L 2.71 L (4.30-5.90) m/uL Hgb 7.9 L 8.1 L (13.0-17.5) gm/dL Hct 25.0 L 25.6 L (39.0-53.0) % Neutrophils # 10.0 H 9.4 H (1.3-7.7) k/uL Lymphocytes # 0.9 L (1.0-4.8) k/uL Monocytes # (0-1.0) k/uL Sodium 135 L (137-145) mmol/L BUN 7 L (9-20) mg/dL Glucose 104 H (74-99) mg/dL Calcium 8.0 L (8.4-10.2) mg/dL Carcinoembryonic Ag (0.0-4.9) ng/mL Crossmatch 07/25/19 Range/Units 15:56 WBC 14.9 H (3.8-10.6) k/uL RBC 2.74 L (4.30-5.90) m/uL Hgb 8.6 L (13.0-17.5) gm/dL Hct 26.3 L (39.0-53.0) % Neutrophils # 12.4 H (1.3-7.7) k/uL Lymphocytes # (1.0-4.8) k/uL Monocytes # 1.1 H (0-1.0) k/uL Sodium (137-145) mmol/L BUN (9-20) mg/dL Glucose (74-99) mg/dL Calcium (8.4-10.2) mg/dL Carcinoembryonic Ag (0.0-4.9) ng/mL Crossmatch Assessment and Plan Assessment: (1) Acute blood loss anemia Current Visit: Yes Status: Acute Code(s): D62 - ACUTE POSTHEMORRHAGIC ANEMIA SNOMED Code(s): 229666224 (2) Hemorrhage of cecum Current Visit: Yes Status: Acute Code(s): K92.2 - GASTROINTESTINAL HEMORRHAGE, UNSPECIFIED SNOMED Code(s): 330664587 (3) Acute GI bleeding, status post colonoscopy reporting cecal ulceration Current Visit: Yes Status: Acute Code(s): K92.2 - GASTROINTESTINAL HEMORRHAGE, UNSPECIFIED SNOMED Code(s): 49820696 (4) Hypotension Current Visit: Yes Status: Acute Code(s): I95.9 - HYPOTENSION, UNSPECIFIED SNOMED Code(s): 73286692 (5) Carcinomatosis with suspected cecal mass per CT of abdomen and pelvis Current Visit: Yes Status: Acute Code(s): C80.0 - DISSEMINATED MALIGNANT NEOPLASM, UNSPECIFIED SNOMED Code(s): 725768613 Plan: Continue on current medication regime , PPI, monitoring and symptomatic treatment. Scheduled for debulking/right hemicolectomy today. Maintain IV fluid hydration. Pain management as per surgery. Aggressive pulmonary toileting. Prognosis guarded given multiple complex medical issues. The impression and plan of care has been dictated as directed. : I performed a history and examination of this patient, discussed the same with the dictator. I agree with the dictator's note ,documented as a scribe. Any additional findings or plans will be noted.
[2019-07-25 18:12] LABS: Glucose,Whole Blood 139 mg/dL (75-99)
[2019-07-25] MEDS: FAMOTIDINE 20 MG/2 ML VIAL IV SCH (20:08)
[2019-07-25] MEDS: HYDROmorphone 1 MG/ML 1 ML SYRINGE IVP PRN (20:09)
--- NOTE | 2019-07-26 00:34 | PN ---
PROGRESS NOTE DATE OF DICTATION: 07/25/2019 Patient is a 59-year-old pleasant white male admitted to hospital with acute GI bleed. He underwent an upper endoscopy as well as colonoscopy yesterday. Upper endoscopy was normal, however, colonoscopy revealed deep 3 cm ulceration on the ileocecal valve with active bleeding, status post injection epinephrine followed by Endoclip placement and biopsies. In the meantime, he was scheduled for a CT of the abdomen and pelvis done that showed inflammatory fat stranding of the cecum with surrounding terminal ileum, small amount of free fluid is seen, prominent lymph nodes adjacent to the cecum with eccentric wall thickening of the cecum measuring 9 mm. Also there were surgical clips noted on the ileocecal valve. Also thickening of the sigmoid colon identified. Possibility of mucinous carcinoma was suggested by the radiologist. In the meantime, the patient continues to have some bleeding. He had about 2 bowel movements yesterday and one bowel movement with small clots this morning. He denies any abdominal pain. No nausea, vomiting. PHYSICAL EXAMINATION: On physical examination, appears comfortable, no apparent distress. Vital signs are stable. Blood pressure is 127/82, pulse rate 105, and afebrile. HEENT: Examination unremarkable. Conjunctivae pink. Sclerae anicteric. Oral cavity, no lesions. NECK: No JVD or lymph node enlargement. CHEST: Clear to auscultation. HEART: Regular rate and rhythm. ABDOMEN: Soft. Bowel sounds are positive. No organomegaly. EXTREMITIES: No pedal edema. NEUROLOGIC: Alert and oriented x3. No focal deficits. LABS: Labs done this morning: WBC 11.8, hemoglobin 7.9, platelets normal. Basic metabolic panel is within normal limits. IMPRESSION: 1. Acute lower gastrointestinal bleed, status post colonoscopy yesterday that revealed a 3 cm raised ulcerated area with active bleeding on the ileocecal valve, status post injection epinephrine with Endoclip placement and biopsy and good hemostasis achieved. Subsequent CT of the abdomen showed cecal thickening with infiltration and enlargement of local lymph nodes suspicious for neoplasm. The patient is scheduled for right hemicolectomy by Dr. Clark today. 2. Coronary artery disease on aspirin and Plavix, which is currently on hold. RECOMMENDATION: Monitor CBC daily. Transfuse if the hemoglobin is 7 g/dL. We will await surgical intervention. In the meantime, continue with symptomatic and supportive care. We will follow with you closely. Thank you for this consultation. MMODL / IJN: [id number] /
[2019-07-26] MEDS: HYDROmorphone 1 MG/ML 1 ML SYRINGE IVP PRN ×5 (01:06→23:19)
[2019-07-26] MEDS: SODIUM CHLORIDE 0.9% 1,000 ML IV SCH ×4 (02:03→21:00)
[2019-07-26 06:13] LABS: Basophils % (A) 0 %; Eosinophils % (A) 0 %; HCT 27.2 % (39.0-53.0); HGB 8.9 gm/dL (13.0-17.5); Hypochromasia Slight; Lymphocytes # (A) 0.9 k/uL (1.0-4.8); Lymphocytes % (A) 6 %; MCHC 32.9 g/dL (31.0-37.0); MCV 94.3 fL (80.0-100.0); Mean Platelet Volume 8.7; Monocytes # (A) 1.5 k/uL (0-1.0); Monocytes % (A) 10 %; Neutrophils # (A) 12.2 k/uL (1.3-7.7); Neutrophils % (A) 82 %; Platelet Count 299 k/uL (150-450); RBC 2.88 m/uL (4.30-5.90); RDW 14.4 % (11.5-15.5); WBC 14.9 k/uL (3.8-10.6)
[2019-07-26 06:30] LABS: African American GFR (CKD) >90 (>60 ml/min/1.73 sqM); Anion Gap 7 mmol/L; Blood Urea Nitrogen 12 mg/dL (9-20); Carbon Dioxide 26 mmol/L (22-30); Chloride 105 mmol/L (98-107); Glucose 142 mg/dL (74-99); Non-African American GFR(CKD) >90 (>60 ml/min/1.73 sqM); Potassium 4.3 mmol/L (3.5-5.1); Sodium 138 mmol/L (137-145)
[2019-07-26] MEDS: ACETAMINOPHEN TAB 500 MG TAB PO PRN ×3 (07:44→19:54)
[2019-07-26] MEDS: PANTOPRAZOLE 40 MG/10 ML VIAL IV SCH ×2 (07:45→20:06)
[2019-07-26] MEDS: FAMOTIDINE 20 MG/2 ML VIAL IV SCH ×2 (07:45→20:06)
[2019-07-26] MEDS: ALVIMOPAN 12 MG CAPSULE PO SCH ×2 (07:45→20:06)
--- NOTE | 2019-07-26 10:15 | P.PN ---
Subjective Progress Note Date: 07/26/19 Principal diagnosis: acute GI bleeding This is a very pleasant 59-year-old gentleman who follows with Dr. White as his primary care provider. He has a history of coronary artery disease with previous stent placement, hyperlipidemia, hypothyroidism. He has a history of incarcerated umbilical hernia status post repair in February 2019. Earlier this morning the patient noted blood on the toilet paper and blood streaked stools 2. He presented here to the emergency room for the same. He had 3 more bright red bowel movements. He did have a drop in hemoglobin from 13.0-11.5. He was admitted to the intensive care unit for the same. He is seen today in consultation. Currently sitting up in bed. Awake and alert in no acute distress. Maintaining O2 saturations in the high 90s on 2 L/m per nasal cannula. His been afebrile. Hemodynamically stable. Denies any dizziness or lightheadedness. No chest pain. White count 9.7. Current hemoglobin 11.0. Platelets 266. Sodium 140. Potassium 4.6. Creatinine 0.96. Troponin negative 1. INR 0.9. He did receive desmopressin times one. He is currently on Protonix 40 mg IV every 12 hours. 0.9 normal saline at 100. He received 1 L fluid bolus. GI consult pending. The patient is seen today in 07/24/1999 follow-up in intensive care unit. He remains awake and alert in no acute distress. He is maintaining O2 saturations in the 90s on 2 L/m per nasal cannula. Continues on 0.9 normal saline at 100 ML's per hour. He is status post 1 unit of packed red blood cells. His hemoglobin has gone from 13 down to 9.0. The plan is for EGD/colonoscopy this morning. There was some blood noted during his bowel prep. White count 8.0. Hemoglobin currently 8.8. Sodium 137. Potassium 3.9. Creatinine 0.68. He r emains on Protonix IV 40 mg twice daily On 07/25/2019 patient seen in follow-up in intensive care unit. He is awake and alert, oriented 3, appears to be in no acute distress. Patient underwent EGD and colonoscopy yesterday on 07/24/2019. Upper endoscopy revealed mild gastritis, and colonoscopy revealed a deep 3 cm ulceration in the ileocecal valve with active bleeding and adherent clot. Status post injection of epinephrine followed by Endo Clip placement and biopsies were taken from the ma rgin of the ulcer. No surgery has been consulted to discuss the need for surgical intervention. 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 Sigmoid colonic neoplasm or cecal colonic neoplasm a primary consideration at this time, small amount of fluid seen surrounding the cecum and prominent inflammatory fat stranding off the terminal ileum with suspicion of active hemorrhage.today's labs showed hemoglobin of 8.1, he received 1 unit of packed red blood cells on 07/23/2019. Remains hemodynamically stable. vital tachycardic, in sinus mechanism with a rate of 101 BPM, IV fluids 0.9 normal saline at a rate of 100 ML per hour, patient is on 2 L of oxygen with a pulse ox of 100%. Denies any chest pain, denies any shortness of breath. Patient is scheduled for right hemicolectomy by Dr. Clark today. His been nothing by mouth since midnight On 07/26/2019 patient seen in follow-up in the intensive care unit. he is awake and alert, in no acute distress, sitting up in the recliner, having mild incisional discomfort from his mid abdominal surgical incision, today is po stoperative day 1, status post right colectomy, and partial omentectomy and end to end staple anastomosis between the terminal ileum and proximal transverse colon. is currently on 2 L of oxygen, his pulse ox is 93%, hemodynamically patient is stable, afebrile, he is on a clear liquid diet, no nausea or vomiting. 0.9 normal saline infusing at her -100 ML per hour. Lung sounds are clear, his incentive spirometer effort is 500-750 ML. Sinus mechanism on a monitor of the tachycardia, with a rate of 111-118 BPM. no acute events overnight. Objective - Vital Signs Vital signs: Vital Signs Temp 98.3 F 07/26/19 04:00 Pulse 111 H 07/26/19 07:00 Resp 18 07/26/19 07:00 BP 137/87 07/26/19 07:00 Pulse Ox 93 L 07/26/19 07:00 Intake & Output 07/25/19 07/26/1907/25/20 18:59 06:59 18:59 Intake Total 1800 1200 100 Output Total 740 530 40 Balance 1060 670 60 Weight 91.6 kg Intake: IV 1800 1200 100 Sodium Chloride 0.9% 1, 900 1200 100 000 ml @ 100 mls/hr IV . Q10H [facility] Rx#:[id number] Output: Urine 640 530 40 Estimated Blood Loss 100 Other: Voiding Method Indwelling Catheter Indwelling Catheter # Voids 1 # Bowel Movements 1 - Exam GENERAL EXAM: Alert, very pleasant, 59-year-old white male, on 2 L of oxygen with pulse ox of 93% comfortable in no apparent distress. HEAD: Normocephalic/atraumatic. EYES: Normal reaction of pupils, equal size. Conjunctiva pink, sclera white. NOSE: Clear with pink turbinates. THROAT: No erythema or exudates. NECK: No masses, no JVD, no thyroid enlargement, no adenopathy. CHEST: No chest wall deformity. Symmetrical expansion. LUNGS: Equal air entry with no crackles, wheeze, rhonchi or dullness. CVS: Regular rate and rhythm, normal S1 and S2, no gallops, no murmurs, no rubs ABDOMEN: Soft, nontender. No hepatosplenomegaly, normal bowel sounds, no gua rding or rigidity. EXTREMITIES: No clubbing, no edema, no cyanosis, 2+ pulses and upper and lower extremities. MUSCULOSKELETAL: Muscle strength and tone normal. SPINE: No scoliosis or deformity SKIN: No rashes CENTRAL NERVOUS SYSTEM: Alert and oriented -3. No focal deficits, tone is normal in all 4 extremities. PSYCHIATRIC: Alert and oriented -3. Appropriate affect. Intact judgment and insight. - Labs CBC & Chem 7: 07/26/19 05:46 07/26/19 05:46 Labs: Abnormal Lab Results - Last 24 Hours (Table) 07/25/19 07/25/19 07/25/19 Range/Units 15:56 15:56 18:11 WBC 14.9 H (3.8-10.6) k/uL RBC 2.74 L (4.30-5.90) m/uL Hgb 8.6 L (13.0-17.5) gm/dL Hct 26.3 L (39.0-53.0) % Neutrophils # 12.4 H (1.3-7.7) k/uL Lymphocytes # (1.0-4.8) k/uL Monocytes # 1.1 H (0-1.0) k/uL BUN 6 L (9-20) mg/dL Glucose 131 H (74-99) mg/dL POC Glucose (mg/dL) 139 H (75-99) mg/dL Calcium 7.9 L (8.4-10.2) mg/dL 07/26/19 07/26/19 Range/Units 05:46 05:46 WBC 14.9 H (3.8-10.6) k/uL RBC 2.88 L (4.30-5.90) m/uL Hgb 8.9 L (13.0-17.5) gm/dL Hct 27.2 L (39.0-53.0) % Neutrophils # 12.2 H (1.3-7.7) k/uL Lymphocytes # 0.9 L (1.0-4.8) k/uL Monocytes # 1.5 H (0-1.0) k/uL BUN (9-20) mg/dL Glucose 142 H (74-99) mg/dL POC Glucose (mg/dL) (75-99) mg/dL Calcium 8.0 L (8.4-10.2) mg/dL Assessment and Plan Plan: Assessment: 1 Acute gastrointestinal bleeding with bright red blood per rectum with drop in hemoglobin from 13.0 to 9.0. He is status post 1 unit of packed red blood cells so far this admission. His current hemoglobin is 8.8. There was some blood noted during his bowel prep. EGD and colonoscopy completed on 07/24/2019 showing sigmoid colonic mass, and patient underwent right hemicolectomy and partial omentectomy on 07/25/2019 2 colonic mass, and CT of the abdomen and pelvis showed sigmoid colonic neoplasm or cecal colonic neoplasm, status post right hemicolectomy and partial omentectomy on 07/25/2019, postoperative day one 3 History of nonspecific enteritis in 2019, last colonoscopy in 2016 for screening, found to have rectal polyp and mild diverticular changes 4 Recent incarcerated umbilical hernia status post repair in February 2019 5 Chronic and ongoing tobacco dependence 6 Coronary artery disease with previous stent placement and currently on aspirin and Plavix 7 Hyperlipidemia 8 Hypothyroidism Plan: Continue encouraging deep breathing and coughing, maintain pain control, he is doing quite well on postoperative day 1, maintaining stable oxygenation, no rhonchi no wheezing, service of breath, hemoglobin is stable, 8.9 and today's labs. Patient is tolerating clear liquid diet. No active critical care issues at this time, patient could be considered for transfer out to the floor if cleared by surgery. I performed a history & physical examination of the patient and discussed their management with my nurse practitioner, Angeles Luna. I reviewed the nurse practitioner's note and agree with the documented findings and plan of care. Lung sounds are positive for clear breath sounds. The findings and the impression was discussed with the patient. I attest to the documentation by the nurse practitioner. Time with Patient: Less than 30
[2019-07-26] MEDS ORDERED: LACTATED RINGERS 1,000 ML IV ONE (11:30)
--- NOTE | 2019-07-26 12:11 | P.PN ---
Subjective Progress Note Date: 07/26/19 CHIEF COMPLAINT: Cecal mass, GI bleed HISTORY OF PRESENT ILLNESS: Patient is status post right colectomy with Dr. Clark. Postop day #1. Patient examined at the bedside. He states his pain is tolerable. He is tolerating clear liquid diet. Denies nausea or vomiting. Denies passing flatus. Heart rate 110-120s. PHYSICAL EXAM: VITAL SIGNS: Reviewed. GENERAL: Well-developed in no acute distress. HEENT: No sclera icterus. Extraocular movements grossly intact. Moist buccal mucosa. Head is atraumatic, normocephalic. ABDOMEN: Soft. Nondistended. Appropriate surgical tenderness. Dressing clean and intact. NEUROLOGIC: Alert and oriented. Cranial nerves II through XII grossly intact. ASSESSMENT: 1. GI bleed 2. 3cm ulceration on the ileocecal valve 3. Right colon cancer with metastatic spread, mesenteric and omental involvement PLAN: -Continue clear liquid diet. Await bowel function -Continue IV fluids at 125cc/hr. -1L LR fluid bolus -Pain control -Incentive spirometer -Activity as tolerated -Await pathology report Nurse practitioner note has been reviewed by physician. Signing provider agrees with the documented findings, assessment, and plan of care. Objective - Vital Signs Vital signs: Vital Signs Temp 98.8 F 07/26/19 08:00 Pulse 128 H 07/26/19 11:00 Resp 22 07/26/19 11:00 BP 122/72 07/26/19 10:30 Pulse Ox 89 L 07/26/19 11:00 Intake & Output 07/25/19 07/26/19 07/26/19 18:59 06:59 18:59 Intake Total 1800 1200 400 Output Total 740 530 100 Balance 1060 670 300 Weight 91.6 kg Intake: IV 1800 1200 400 Sodium Chloride 0.9% 1, 900 1200 400 000 ml @ 100 mls/hr IV . Q10H [facility] Rx#:[id number] Output: Urine 640 530 100 Estimated Blood Loss 100 Other: Voiding Method Indwelling Catheter Indwelling Catheter Indwelling Catheter # Voids 1 # Bowel Movements 1 - Labs CBC & Chem 7: 07/26/19 05:46 07/26/19 05:46 Labs: Abnormal Lab Results - Last 24 Hours (Table) 07/25/19 07/25/19 07/25/19 Range/Units 15:56 15:56 18:11 WBC 14.9 H (3.8-10.6) k/uL RBC 2.74 L (4.30-5.90) m/uL Hgb 8.6 L (13.0-17.5) gm/dL Hct 26.3 L (39.0-53.0) % Neutrophils # 12.4 H (1.3-7.7) k/uL Lymphocytes # (1.0-4.8) k/uL Monocytes # 1.1 H (0-1.0) k/uL BUN 6 L (9-20) mg/dL Glucose 131 H (74-99) mg/dL POC Glucose (mg/dL) 139 H (75-99) mg/dL Calcium 7.9 L (8.4-10.2) mg/dL 07/26/19 07/26/19 Range/Units 05:46 05:46 WBC 14.9 H (3.8-10.6) k/uL RBC 2.88 L (4.30-5.90) m/uL Hgb 8.9 L (13.0-17.5) gm/dL Hct 27.2 L (39.0-53.0) % Neutrophils # 12.2 H (1.3-7.7) k/uL Lymphocytes # 0.9 L (1.0-4.8) k/uL Monocytes # 1.5 H (0-1.0) k/uL BUN (9-20) mg/dL Glucose 142 H (74-99) mg/dL POC Glucose (mg/dL) (75-99) mg/dL Calcium 8.0 L (8.4-10.2) mg/dL
--- NOTE | 2019-07-26 13:39 | P.PN ---
Subjective Progress Note Date: 07/26/19 Shahab Chairez is a 59 yo M with PMH of CAD, HLD, incarcerated umbilical hernia with recent repair February 2019 who presented to the ED after noticing rectal bleeding. He states that the day of admission he noted blood on the toilet paper and blood streaked stools 2. He presented to the ED and had 3 more bright red bowel movements. He was initially hypotensive and tachycardic and hemoglobin did drop from 13 to 11 over the course of approx 6 hours. He denies any recent steroid or NSAID use, denies frequent alcohol use and denies previous history of GI bleed. INR 0.9, COVID negative, remainder of bloodwork unremarkable. Today, he is s/p 1 U PRBC and his hemoglobin has continued to drop throughout the day. He went for EGD and colonoscopy with GI today which showed a 3 cm deep ulceration at the ileocecal valve. 07/25/2019 yesterday underwent EGD and colonoscopy reporting mild gastritis, deep 3 cm ulceration on the ileocecal valve with active bleeding and adherent clot, status post epinephrine injection followed by Endo Clip placement with biopsies. 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 Sigmoid colonic neoplasm or cecal colonic neoplasm or primary consideration at this time. Evaluated by surgery and patient is scheduled for right hemicolectomy today. Hemoglobin 8.1. Vital signs stable, maintaining O2 sats in the high 90s on 2 L nasal cannula. 07/26/2019 status post right colectomy, partial omentectomy secondary to right colon CA with metastatic spread, mesenteric and omental involvement, postop day #1. Hemoglobin stable, 8.9. Sitting up in chair, complains of abdominal pain, Dilaudid frequency recently increased. Maintained on IV fluid hydration. Mildly Tachycardic. Tolerating clear liquids with no nausea or vomiting. Incentive spirometer up to 1500. Objective - Vital Signs Vital signs: Vital Signs Temp 98.8 F 07/26/19 08:00 Pulse 128 H 07/26/19 11:00 Resp 22 07/26/19 11:00 BP 122/72 07/26/19 10:30 Pulse Ox 89 L 07/26/19 11:00 Intake & Output 07/25/19 07/26/19 07/26/19 18:59 06:59 18:59 Intake Total 1800 1200 400 Output Total 740 530 100 Balance 1060 670 300 Weight 91.6 kg Intake: IV 1800 1200 400 Sodium Chloride 0.9% 1, 900 1200 400 000 ml @ 100 mls/hr IV . Q10H [facility] Rx#:[id number] Output: Urine 640 530 100 Estimated Blood Loss 100 Other: Voiding Method Indwelling Catheter Indwelling Catheter Indwelling Catheter # Voids 1 # Bowel Movements 1 - Exam General: Sitting up in chair, no acute distress NAD. Vitals reviewed Eyes: PERRL, EOMI, conjunctiva normal HENT: normocephalic, mucus membranes moist Neck: supple, no JVD Lungs: normal respiratory effort, fine basilar crackles, no wheezes CV: Regular rate and rhythm, no murmur. Peripheral pulses 2+ Abdomen: Status post surgery, binder present ,no bowel sounds Skin: warm and dry. Neuro: A&Ox3, normal mood and affect - Labs CBC & Chem 7: 07/26/19 05:46 07/26/19 05:46 Labs: Abnormal Lab Results - Last 24 Hours (Table) 07/25/19 07/25/19 07/25/19 Range/Units 15:56 15:56 18:11 WBC 14.9 H (3.8-10.6) k/uL RBC 2.74 L (4.30-5.90) m/uL Hgb 8.6 L (13.0-17.5) gm/dL Hct 26.3 L (39.0-53.0) % Neutrophils # 12.4 H (1.3-7.7) k/uL Lymphocytes # (1.0-4.8) k/uL Monocytes # 1.1 H (0-1.0) k/uL BUN 6 L (9-20) mg/dL Glucose 131 H (74-99) mg/dL POC Glucose (mg/dL) 139 H (75-99) mg/dL Calcium 7.9 L (8.4-10.2) mg/dL 07/26/19 07/26/19 Range/Units 05:46 05:46 WBC 14.9 H (3.8-10.6) k/uL RBC 2.88 L (4.30-5.90) m/uL Hgb 8.9 L (13.0-17.5) gm/dL Hct 27.2 L (39.0-53.0) % Neutrophils # 12.2 H (1.3-7.7) k/uL Lymphocytes # 0.9 L (1.0-4.8) k/uL Monocytes # 1.5 H (0-1.0) k/uL BUN (9-20) mg/dL Glucose 142 H (74-99) mg/dL POC Glucose (mg/dL) (75-99) mg/dL Calcium 8.0 L (8.4-10.2) mg/dL Assessment and Plan Assessment: (1) Acute blood loss anemia Current Visit: Yes Status: Acute Code(s): D62 - ACUTE POSTHEMORRHAGIC ANEMIA SNOMED Code(s): 548119400 (2) Hemorrhage of cecum Current Visit: Yes Status: Acute Code(s): K92.2 - GASTROINTESTINAL HEMORRHAGE, UNSPECIFIED SNOMED Code(s): 691210969 (3) Acute GI bleeding, status post colonoscopy reporting cecal ulceration Current Visit: Yes Status: Acute Code(s): K92.2 - GASTROINTESTINAL HEMORRHAGE, UNSPECIFIED SNOMED Code(s): 63656327 (4) Hypotension Current Visit: Yes Status: Acute Code(s): I95.9 - HYPOTENSION, UNSPECIFIED SNOMED Code(s): 88585185 (5) Carcinomatosis with suspected cecal mass per CT of abdomen and pelvis, status post right colectomy, partial omentectomy. Current Visit: Yes Status: Acute Code(s): C80.0 - DISSEMINATED MALIGNANT NEOPLASM, UNSPECIFIED SNOMED Code(s): 432753492 Plan: Continue on current medication regime , PPI, monitoring and symptomatic treatment. Pain management as per surgery. Aggressive pulmonary toileting with incentive spirometer reinforced. Maintain IV fluid hydration. Increase ambulation as tolerated. Cleared for transfer out of ICU to [facility] [place]. pending surgery's clearance. Prognosis guarded given multiple complex medical issues. The impression and plan of care has been dictated as directed. : I performed a history and examination of this patient, discussed the same with the dictator. I agree with the dictator's note ,documented as a scribe. Any additional findings or plans will be noted.
--- NOTE | 2019-07-26 17:22 | PN ---
PROGRESS NOTE DATE OF SERVICE: 07/26/2019 Patient is a 59-year-old pleasant white male who was admitted to the hospital with severe acute lower GI bleed. Colonoscopy done 2 days ago showed a large ileocecal valve ulcer and biopsies revealed adenocarcinoma. He underwent right hemicolectomy yesterday by Dr. Clark. He is doing well. He is up in the chair on liquid diet, tolerating well. He had small amount of old blood with clots this morning. PHYSICAL EXAMINATION: Appears comfortable, in no apparent distress. VITAL SIGNS: Stable. Blood pressure 143/84, pulse rate 112, temperature 98. HEENT: Examination unremarkable. Conjunctivae are pink. Sclerae nonicteric. Oral cavity no lesions. NECK: No JVD or lymph node enlargement. CHEST: Clear to auscultation. HEART: Regular rate and rhythm. ABDOMEN: Slightly tender in the right lower quadrant area at the site of surgery. EXTREMITIES: No pedal edema. SKIN: No rashes. NEUROLOGIC: Alert and oriented x3. No focal deficits. LABS: WBC 14.9, hemoglobin 8.9, platelets normal. Basic metabolic panel is within normal limits. IMPRESSION: 1. Colon cancer involving the ileoceal valve with acute GI bleed, status post right hemicolectomy yesterday. The patient on postoperative day #1, doing well. 2. Acute lower gastrointestinal bleed secondary to active bleeding from the ileocecal valve ulcer. Status post one unit of blood transfusion. Currently, hemoglobin 8.9 g/dL and stable. 3. History of coronary artery disease on aspirin and Plavix, currently on hold. RECOMMENDATION: 1. Continue with a clear liquid diet. 2. Management as per the ICU team and surgical team. 3. Will sign off at this time. Please call us if needed. Thank you for this consultation. MMODL / IJN: [id number] /
[2019-07-27 05:42] LABS: Basophils % (A) 0 %; Eosinophils % (A) 0 %; HCT 22.3 % (39.0-53.0); Hypochromasia Slight; Lymphocytes # (A) 0.7 k/uL (1.0-4.8); Lymphocytes % (A) 5 %; MCH 29.8 pg (25.0-35.0); MCHC 31.7 g/dL (31.0-37.0); Mean Platelet Volume 8.7; Monocytes # (A) 1.1 k/uL (0-1.0); Monocytes % (A) 8 %; Neutrophils # (A) 11.5 k/uL (1.3-7.7); Neutrophils % (A) 84 %; Platelet Count 246 k/uL (150-450); RBC 2.38 m/uL (4.30-5.90); RDW 14.6 % (11.5-15.5); WBC 13.6 k/uL (3.8-10.6)
[2019-07-27 05:58] LABS: HGB 7.1 gm/dL (13.0-17.5)
[2019-07-27 06:03] LABS: African American GFR (CKD) >90 (>60 ml/min/1.73 sqM); Anion Gap 3 mmol/L; Blood Urea Nitrogen 11 mg/dL (9-20); Calcium 7.9 mg/dL (8.4-10.2); Carbon Dioxide 29 mmol/L (22-30); Chloride 101 mmol/L (98-107); Glucose 110 mg/dL (74-99); Non-African American GFR(CKD) >90 (>60 ml/min/1.73 sqM); Potassium 3.6 mmol/L (3.5-5.1); Sodium 133 mmol/L (137-145)
[2019-07-27] MEDS: POTASSIUM CHLORIDE 10 MEQ in WATER FOR INJECTION 1 100ML.BAG IVPB SCH ×2 (06:38→07:49)
[2019-07-27] MEDS: SODIUM CHLORIDE 0.9% 1,000 ML IV SCH ×3 (06:39→20:43)
[2019-07-27] MEDS: ALVIMOPAN 12 MG CAPSULE PO SCH ×2 (07:48→20:35)
[2019-07-27] MEDS: PANTOPRAZOLE 40 MG/10 ML VIAL IV SCH ×2 (07:48→20:35)
[2019-07-27] MEDS: ONDANSETRON 4 MG/2 ML VIAL IVP PRN (07:48)
[2019-07-27] MEDS: FAMOTIDINE 20 MG/2 ML VIAL IV SCH ×2 (07:48→20:35)
[2019-07-27] MEDS: HYDROmorphone 1 MG/ML 1 ML SYRINGE IVP PRN ×6 (07:49→23:56)
[2019-07-27] MEDS: ACETAMINOPHEN TAB 500 MG TAB PO PRN ×2 (07:51→20:43)
--- NOTE | 2019-07-27 11:08 | PN ---
PROGRESS NOTE PULMONARY/CRITICAL CARE PROGRESS NOTE: DATE OF SERVICE: 07/27/2019 This is a patient who was again seen on July 26. He is postop day #2, status post colectomy with partial omentectomy. He was thought to have significant cancer within the bowel as well as peritoneal carcinomatosis. Pathology is currently pending. The surgery was done on 07/24. Currently, he is on 2 L nasal cannula and saline at 125 mL an hour. Getting about a 1000 on his incentive spirometer. In addition, he has a history of hypothyroidism, hyperlipidemia, CAD with previous stent placement, chronic ongoing tobacco use and history of recent incarcerated umbilical hernia, status post repair in February 2019. Current vital signs are reviewed. Temperature is 98.1, heart rate 111, respiratory rate 16, blood pressure 133/70 mean 91, 2 L saturation 95%. He appears in no acute distress. HEENT: Examination is grossly unremarkable. Nasal O2 noted. NECK: Supple, full range of motion. No adenopathy. Neck veins are flat. CARDIOVASCULAR: Examination reveals mild tachycardia. Heart rate about 105. It is regular. He appears to have sinus tachycardia. S1, S2 normal. LUNGS: Reveal clear breath sounds. A few scattered mild rhonchi only noted on forced maneuver. No crackles or wheezes. ABDOMEN: Mildly distended. No bowel sounds are noted. His belly is wrapped with a binder. EXTREMITIES: Intact. No cyanosis, clubbing, or edema. SKIN: Without rash. NEUROLOGIC: Examination is brief but nonfocal. White count 13.6, hemoglobin 7.1, hematocrit 22.3, platelet count normal at 246,000. Sodium 133, potassium 3.6, chloride 101, CO2 is 29, anion gap is 3. BUN and creatinine were 11 and 0.74. Microbiology is negative or pending. No recent chest x-ray to report. Medications are reviewed. He is currently on Tylenol, Cepacol lozenges, famotidine, Dilaudid, Reglan, Zofran, Protonix, potassium protocol, and saline at 125 mL an hour. ASSESSMENT: 1. Postoperative day #2 status post exploratory laparotomy with right hemicolectomy and partial omentectomy on July 24. 2. Colonic mass with possible peritoneal metastasis, but pathology is currently pending. Very suspicious for malignancy. 3. Acute gastrointestinal bleed with bright red bleeding per rectum and a drop in hemoglobin of 4 g, status post transfusion of 1 unit of PRBCs. 4. History of nonspecific enteritis in 2019. 5. Recent incarcerated umbilical hernia, status post repair, February 2019. 6. Chronic and ongoing tobacco dependence, rule out chronic obstructive pulmonary disease. 7. Coronary artery disease, with previous stent placement. 8. Hyperlipidemia. 9. Hypothyroidism. PLAN: The patient is encouraged to continue using hourly incentive spirometry. We also recommend him doing deep breathing, coughing and clearing of secretions. He seems to be doing relatively well otherwise. Will continue to follow. Hemoglobin 7.1. No need for transfusion at this time. He denies any chest pain or chest pressure. No shortness of breath. Pathology is not pending. The patient had biopsies of his ileocecal valve ulcers which show infiltrating, moderately differentiated adenocarcinoma consistent with colon cancer. This will be passed along to the patient and the patient's family. Additional recommendations and suggestions are forthcoming. The pathology from the colon resection done on July 24 is still pending. MMODL / IJN: [id number] / RENU
--- NOTE | 2019-07-27 12:51 | P.PN ---
Subjective Progress Note Date: 07/27/19 Shahab Chairez is a 59 yo M with PMH of CAD, HLD, incarcerated umbilical hernia with recent repair February 2019 who presented to the ED after noticing rectal bleeding. He states that the day of admission he noted blood on the toilet paper and blood streaked stools 2. He presented to the ED and had 3 more bright red bowel movements. He was initially hypotensive and tachycardic and hemoglobin did drop from 13 to 11 over the course of approx 6 hours. He denies any recent steroid or NSAID use, denies frequent alcohol use and denies previous history of GI bleed. INR 0.9, COVID negative, remainder of bloodwork unremarkable. Today, he is s/p 1 U PRBC and his hemoglobin has continued to drop throughout the day. He went for EGD and colonoscopy with GI today which showed a 3 cm deep ulceration at the ileocecal valve. 07/25/2019 yesterday underwent EGD and colonoscopy reporting mild gastritis, deep 3 cm ulceration on the ileocecal valve with active bleeding and adherent clot, status post epinephrine injection followed by Endo Clip placement with biopsies. 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 Sigmoid colonic neoplasm or cecal colonic neoplasm or primary consideration at this time. Evaluated by surgery and patient is scheduled for right hemicolectomy today. Hemoglobin 8.1. Vital signs stable, maintaining O2 sats in the high 90s on 2 L nasal cannula. 07/26/2019 status post right colectomy, partial omentectomy secondary to right colon CA with metastatic spread, mesenteric and omental involvement, postop day #1. Hemoglobin stable, 8.9. Sitting up in chair, complains of abdominal pain, Dilaudid frequency recently increased. Maintained on IV fluid hydration. Mildly Tachycardic. Tolerating clear liquids with no nausea or vomiting. Incentive spirometer up to 1500. 07/27/19 ileocecal valve ulcer biopsies pathology reporting infiltrating, mo derately differentiated adenocarcinoma consistent with colon CA. colon resection pathology pending .postop day #2, complaining of uncontrolled pain, current pain management not lasting. Tachycardic, maintained on IV fluid hydration. No flatus, no bowel movement. Reports productive cough of mucousy phlegm. Incentive spirometer decreased to 1000. Maintaining O2 sats in the low 90s on 2 L nasal cannula O2 Afebrile, WBC trending down ,13.6, hemoglobin decreased to 7.1, platelets 246,CO2 29. Tolerating clear liquid diet with no nausea or vomiting. Blood sugars controlled. Objective - Vital Signs Vital signs: Vital Signs Temp 98 F 07/27/19 12:00 Pulse 116 H 07/27/19 12:00 Resp 21 07/27/19 12:00 BP 121/78 07/27/19 12:00 Pulse Ox 93 L 07/27/19 12:00 Intake & Output 07/26/19 07/27/19 07/27/19 18:59 06:59 18:59 Intake Total 2150 1500 1250 Output Total 300 700 Balance 8333 809 7721 Weight 98.2 kg 98.2 kg Intake: IV 2150 1500 850 Lactated Ringers 1,000 ml 1000 @ 999 mls/hr IV .Q1H1M [facility] Rx#:[id number] Potassium Chloride 10 meq 100 In Water For Injection 1 100ml.bag @ 100 mls/hr IVPB Q1H [facility] Rx#: [id number] Sodium Chloride 0.9% 1, 400 000 ml @ 100 mls/hr IV . Q10H [facility] Rx#:[id number] Sodium Chloride 0.9% 1, 750 1500 750 000 ml @ 125 mls/hr IV . Q8H [facility] Rx#:[id number] Oral 400 Output: Urine 300 700 Other: Voiding Method Indwelling Catheter Toilet Toilet # Voids 1 - Exam General: Sitting up in chair, no acute distress NAD. Vitals reviewed Eyes: PERRL, EOMI, conjunctiva normal. HENT: normocephalic, mucus membranes moist Neck: supple, no JVD Lungs: normal respiratory effort, essentially clear with occasional scattered rhonchi CV: Regular rate and rhythm, no murmur. Tachycardic ,Peripheral pulses 2+ Abdomen: Status post surgery, soft, distended, binder present ,no bowel sounds Skin: warm and dry. Neuro: A&Ox3, normal mood and affect - Labs CBC & Chem 7: 07/27/19 05:12 07/27/19 05:12 Labs: Abnormal Lab Results - Last 24 Hours (Table) 07/27/19 07/27/19 Range/Units 05:12 05:12 WBC 13.6 H (3.8-10.6) k/uL RBC 2.38 L (4.30-5.90) m/uL Hgb 7.1 L D (13.0-17.5) gm/dL Hct 22.3 L (39.0-53.0) % Neutrophils # 11.5 H (1.3-7.7) k/uL Lymphocytes # 0.7 L (1.0-4.8) k/uL Monocytes # 1.1 H (0-1.0) k/uL Sodium 133 L (137-145) mmol/L Glucose 110 H (74-99) mg/dL Calcium 7.9 L (8.4-10.2) mg/dL Assessment and Plan Assessment: (1) Acute blood loss anemia Current Visit: Yes Status: Acute Code(s): D62 - ACUTE POSTHEMORRHAGIC ANEMIA SNOMED Code(s): 002168152 (2) Hemorrhage of cecum Current Visit: Yes Status: Acute Code(s): K92.2 - GASTROINTESTINAL HEMORRHAGE, UNSPECIFIED SNOMED Code(s): 183707811 (3) Acute GI bleeding, status post colonoscopy reporting cecal ulceration Current Visit: Yes Status: Acute Code(s): K92.2 - GASTROINTESTINAL HEMORRHAGE, UNSPECIFIED SNOMED Code(s): 39781976 (4) Hypotension Current Visit: Yes Status: Acute Code(s): I95.9 - HYPOTENSION, UNSPECIFIED SNOMED Code(s): 30052019 (5) Carcinomatosis with suspected cecal mass per CT of abdomen and pelvis, status post right colectomy, partial omentectomy.ileocecal valve ulcer biopsies pathology reporting infiltrating, moderately differentiated adenocarcinoma consistent with colon CA. Current Visit: Yes Status: Acute Code(s): C80.0 - DISSEMINATED MALIGNANT N EOPLASM, UNSPECIFIED SNOMED Code(s): 227868472 Plan: Continue on current medication regime , PPI, monitoring and symptomatic treatment. Colon resection pathology pending. F/U Chest x-ray ordered for a.m.- Pain management, Percocet added to med regimen. Aggressive pulmonary toileting with incentive spirometer reinforced. Hemoglobin down to 7.1, no transfusion at this time ,close monitoring of hemoglobin/coags, electrolytes, renal function with repeat labs ordered for a.m. Maintain IV fluid hydration. Increase ambulation as tolerated. Prognosis guarded given multiple complex medical issues. The impression and plan of care has been dictated as directed. : I performed a history and examination of this patient, discussed the same with the dictator. I agree with the dictator's note ,documented as a scribe. Any additional findings or plans will be noted.
--- NOTE | 2019-07-27 13:50 | P.PN ---
Subjective Progress Note Date: 07/27/19 CHIEF COMPLAINT: Cecal mass, GI bleed HISTORY OF PRESENT ILLNESS: Patient is status post right colectomy with Dr. Clark. Postop day #2. Patient examined at the bedside. He states his pain is tolerable. He is tolerating clear liquid diet. Denies nausea or vomiting. Patient denies passing flatus. Heart rate 110s. PHYSICAL EXAM: VITAL SIGNS: Reviewed. GENERAL: Well-developed in no acute distress. HEENT: No sclera icterus. Extraocular movements grossly intact. Moist buccal mucosa. Head is atraumatic, normocephalic. ABDOMEN: Soft. Nondistended. Appropriate surgical tenderness. NEUROLOGIC: Alert and oriented. Cranial nerves II through XII grossly intact. ASSESSMENT: 1. GI bleed 2. 3cm ulceration on the ileocecal valve 3. Right colon cancer with metastatic spread, mesenteric and omental invo lvement PLAN: -Continue clear liquid diet. Await bowel function -Pain control -Incentive spirometer -Activity as tolerated -Await pathology report -Change abdominal dressing -Continue to monitor the patient in the ICU for today. Possible transfer to general surgical floor tomorrow Nurse practitioner note has been reviewed by physician. Signing provider agrees with the documented findings, assessment, and plan of care. Objective - Vital Signs Vital signs: Vital Signs Temp 98 F 07/27/19 12:00 Pulse 116 H 07/27/19 12:00 Resp 21 07/27/19 12:00 BP 121/78 07/27/19 12:00 Pulse Ox 93 L 07/27/19 12:00 Intake & Output 07/26/19 07/27/19 07/27/19 18:59 06:59 18:59 Intake Total 2150 1500 1250 Output Total 300 700 Balance 8661 633 9131 Weight 98.2 kg 98.2 kg Intake: IV 2150 1500 850 Lactated Ringers 1,000 ml 1000 @ 999 mls/hr IV .Q1H1M [facility] Rx#:[id number] Potassium Chloride 10 meq 100 In Water For Injection 1 100ml.bag @ 100 mls/hr IVPB Q1H [facility] Rx#: [id number] Sodium Chloride 0.9% 1, 400 000 ml @ 100 mls/hr IV . Q10H [facility] Rx#:[id number] Sodium Chloride 0.9% 1, 750 1500 750 000 ml @ 125 mls/hr IV . Q8H [facility] Rx#:[id number] Oral 400 Output: Urine 300 700 Other: Voiding Method Indwelling Catheter Toilet Toilet # Voids 1 - Labs CBC & Chem 7: 07/27/19 05:12 07/27/19 05:12 Labs: Abnormal Lab Results - Last 24 Hours (Table) 07/27/19 07/27/19 Range/Units 05:12 05:12 WBC 13.6 H (3.8-10.6) k/uL RBC 2.38 L (4.30-5.90) m/uL Hgb 7.1 L D (13.0-17.5) gm/dL Hct 22.3 L (39.0-53.0) % Neutrophils # 11.5 H (1.3-7.7) k/uL Lymphocytes # 0.7 L (1.0-4.8) k/uL Monocytes # 1.1 H (0-1.0) k/uL Sodium 133 L (137-145) mmol/L Glucose 110 H (74-99) mg/dL Calcium 7.9 L (8.4-10.2) mg/dL
[2019-07-28] MEDS: HYDROmorphone 1 MG/ML 1 ML SYRINGE IVP PRN (05:28)
[2019-07-28] MEDS: SODIUM CHLORIDE 0.9% 1,000 ML IV SCH ×3 (05:29→23:42)
[2019-07-28 05:40] LABS: Basophils % (A) 0 %; Eosinophils % (A) 0 %; HCT 23.4 % (39.0-53.0); HGB 7.4 gm/dL (13.0-17.5); Hypochromasia Slight; Lymphocytes # (A) 0.6 k/uL (1.0-4.8); Lymphocytes % (A) 3 %; MCH 30.1 pg (25.0-35.0); MCHC 31.4 g/dL (31.0-37.0); MCV 95.8 fL (80.0-100.0); Mean Platelet Volume 8.5; Monocytes # (A) 1.1 k/uL (0-1.0); Monocytes % (A) 7 %; Neutrophils # (A) 14.2 k/uL (1.3-7.7); Neutrophils % (A) 88 %; Platelet Count 343 k/uL (150-450); RBC 2.44 m/uL (4.30-5.90); RDW 14.2 % (11.5-15.5); WBC 16.1 k/uL (3.8-10.6)
[2019-07-28 06:24] LABS: African American GFR (CKD) >90 (>60 ml/min/1.73 sqM); Anion Gap 8 mmol/L; Blood Urea Nitrogen 12 mg/dL (9-20); Calcium 7.9 mg/dL (8.4-10.2); Carbon Dioxide 25 mmol/L (22-30); Chloride 103 mmol/L (98-107); Glucose 146 mg/dL (74-99); Non-African American GFR(CKD) >90 (>60 ml/min/1.73 sqM); Potassium 3.5 mmol/L (3.5-5.1); Sodium 136 mmol/L (137-145)
--- NOTE | 2019-07-28 06:29 | XR ---
EXAMINATION TYPE: XR chest 2V DATE OF EXAM: 07/28/2019 COMPARISON: Chest x-ray and CTA chest May 29, 2017. HISTORY: Cough. TECHNIQUE: Frontal and lateral views of the chest are obtained. FINDINGS: Background mild underlying emphysematous change with bibasilar linear scarring and/or atel ectasis. Redemonstration of slightly elevated left hemidiaphragm. Suspicious new patchy right lower l obe opacity confirmed on 2 views. New small to tiny bilateral pleural effusions. Osseous structures a re somewhat demineralized. Overlying EKG leads redemonstrated. Cardiac silhouette size is stable and upper limits of normal. IMPRESSION: Mild underlying emphysematous change with new suspicious patchy right lower lobe acute infiltrate and new small to tiny bilateral pleural effusions.
[2019-07-28] MEDS: POTASSIUM CHLORIDE ER 20 MEQ TAB.ER PO SCH ×4 (06:58→23:42)
[2019-07-28] MEDS: ALVIMOPAN 12 MG CAPSULE PO SCH ×2 (08:16→22:53)
[2019-07-28] MEDS: PANTOPRAZOLE 40 MG/10 ML VIAL IV SCH ×2 (08:16→22:54)
[2019-07-28] MEDS: FAMOTIDINE 20 MG/2 ML VIAL IV SCH ×2 (08:18→22:53)
[2019-07-28] MEDS: ACETAMINOPHEN TAB 500 MG TAB PO PRN (08:20)
--- NOTE | 2019-07-28 10:37 | P.PN ---
Subjective Progress Note Date: 07/28/19 Principal diagnosis: Right colon tumor Patient sitting up in a chair. Remains in the ICU. Patient started having fevers overnight. T-max 102. Heart rate increased in the 120s. White blood cell count 16.1. Actually denies any significant abdominal discomfort. Doing fairly well with his incentive spirometer. Blood cultures were obtained. Lactic acid was also obtained which was normal. Chest x-ray showed possible new right lower lobe infiltrate. Hemoglobin 7.4 stable from yesterday. No flatus or bowel movement. Objective - Vital Signs Vital signs: Vital Signs Temp 101 F H 07/28/19 10:00 Pulse 116 H 07/28/19 10:00 Resp 21 07/28/19 10:00 BP 114/65 07/28/19 10:00 Pulse Ox 94 L 07/28/19 10:00 Intake & Output 07/27/19 07/28/19 07/28/19 18:59 06:59 18:59 Intake Total 2450 1500 980 Output Total 0 Balance 2450 1500 980 Weight 98.2 kg 97.9 kg Intake: IV 1600 1500 500 Potassium Chloride 10 meq 100 In Water For Injection 1 100ml.bag @ 100 mls/hr IVPB Q1H [facility] Rx#: [id number] Sodium Chloride 0.9% 1, 1500 1500 500 000 ml @ 125 mls/hr IV . Q8H [facility] Rx#:[id number] Oral 650 480 Tube Feeding 200 Output: Urine 0 Other: Voiding Method Toilet Toilet # Voids 1 2 - Exam Abdomen: Soft, mild distention, mild tenderness along incision, incision clean and dry - Labs CBC & Chem 7: 07/28/19 05:11 07/28/19 05:11 Labs: Abnormal Lab Results - Last 24 Hours (Table) 07/28/19 07/28/19 Range/Units 05:11 05:11 WBC 16.1 H (3.8-10.6) k/uL RBC 2.44 L (4.30-5.90) m/uL Hgb 7.4 L (13.0-17.5) gm/dL Hct 23.4 L (39.0-53.0) % Neutrophils # 14.2 H (1.3-7.7) k/uL Lymphocytes # 0.6 L (1.0-4.8) k/uL Monocytes # 1.1 H (0-1.0) k/uL Sodium 136 L (137-145) mmol/L Glucose 146 H (74-99) mg/dL Calcium 7.9 L (8.4-10.2) mg/dL Assessment and Plan (1) Carcinomatosis Narrative/Plan: 59-year-old male post right colectomy for tumor that was actively bleeding. New-onset fevers overnight. Possible pulmonary source. Will add Rocephin and Flagyl. Keep on clears only for now. Repeat chest x-ray tomorrow. Continue IC observation. Current Visit: Yes Status: Acute Code(s): C80.0 - DISSEMINATED MALIGNANT NEOPLASM, UNSPECIFIED SNOMED Code(s): 115305061
[2019-07-28] MEDS ORDERED: metroNIDAZOLE-NS PMX 500 MG in SALINE 1 100ML.BAG IVPB SCH (10:45)
[2019-07-28] MEDS: PIPERACILLIN-TAZOBACTAM 3.375 GM in SODIUM CHLORIDE 0.9% 100 ML IVPB SCH ×2 (11:38→17:18)
[2019-07-28] MEDS: oxyCODONE-APAP 5-325MG 1 EACH TAB PO PRN (11:39)
--- NOTE | 2019-07-28 14:28 | PN ---
PROGRESS NOTE PULMONARY/CRITICAL CARE PROGRESS NOTE: DATE OF SERVICE: 07/28/2019 This is a patient who is again seen on July 27. He is postop day #3, status post colectomy with partial omentectomy. The patient does have a history of what appears to be bowel cancer with peritoneal carcinomatosis. Previous biopsies of the ileocecal valve revealed evidence of infiltrating moderately differentiated adenocarcinoma consistent with colon cancer. Currently, the patient is resting relatively comfortably. He is on 2 L nasal cannula. He is getting saline IV at 125 mL an hour. The patient did develop a slight temperature elevation. We added some Zosyn empirically. Other than that, he is doing reasonably well. The resected segment of the colon is positive for moderately differentiated grade 2 adenocarcinoma with mucinous features. PHYSICAL EXAMINATION: VITAL SIGNS: Current vital signs include a temperature 98.8, previous T-max was 101, heart rate 100, respiratory rate 20, blood pressure 105/63, mean 77, 2 L saturation 96%. Appears in no acute distress. HEENT: Examination is grossly unremarkable. Nasal O2 noted. NECK: Supple full range of motion. No adenopathy. Neck veins are flat. CARDIOVASCULAR: Examination reveals mild tachycardia. Heart rate 100. S1, S2 normal. No S3, S4, or murmur. LUNGS: Reveal a few scattered rhonchi. No wheezes or crackles. ABDOMEN: Soft. No bowel sounds. EXTREMITIES are intact. No cyanosis, clubbing, or edema. SKIN: Without rash. NEUROLOGIC: Examination is brief but nonfocal. LABS: Reviewed. White count 16.1 up from 13.6, hemoglobin 7.4, hematocrit 23.4, platelet count is normal. Sodium 136, potassium 3.5, chloride 103, CO2 is 25, anion gap is 8, BUN and creatinine were 12 and 0.72. Calcium 7.9. The patient was re-cultured because of his temperature elevation. Microbiology is currently all negative. A chest x-ray was done today. It does show some emphysematous changes with suspicious patchy right lower lobe infiltrate. CURRENT MEDICATIONS: Reviewed. The patient is on Tylenol, Entereg, famotidine, Dilaudid, Reglan, Flagyl, Zofran, oxycodone, Protonix, Zosyn, and potassium replacement. ASSESSMENT: 1. Postoperative day #3, status post exploratory laparotomy with right hemicolectomy and partial omentectomy on July 24 for mucinous adenocarcinoma. Pathology was positive. 2. Colonic mass with peritoneal metastasis, consistent with the diagnosis of mucinous adenocarcinoma. 3. Acute gastrointestinal bleed with bright red bleeding per rectum and a drop in hemoglobin of 4 g, status post 1 unit of PRBCs. 4. History of nonspecific enteritis, 2018. 5. Recent incarcerated umbilical hernia, status post repair, February 2019. 6. Chronic and ongoing tobacco dependence, rule out chronic obstructive pulmonary disease. 7. New onset fever, with patchy infiltrate right lower lobe, rule out nosocomial pneumonia. 8. Coronary artery disease with previous stent placement. 9. Hyperlipidemia. 10.Hypothyroidism. PLAN: Because of the patient's fever, we added Zosyn empirically. He is also on Flagyl after surgery. His chest x-ray does show a patchy infiltrate right lower lobe. I told the nurses to treat his temperature elevation with alternating Tylenol and Motrin. Additional recommendations and suggestions are forthcoming. We again, encourage deep breathing, coughing, clearing of secretions and also hourly use of the incentive spirometer. SANGEETA / MARIO ALBERTON: [id number] /
--- NOTE | 2019-07-28 14:50 | P.PN ---
Subjective 59 yo M with PMH of CAD, HLD, incarcerated umbilical hernia with recent repair February 2019 who presented to the ED after noticing rectal bleeding. He states that the day of admission he noted blood on the toilet paper and blood streaked stools 2. He presented to the ED and had 3 more bright red bowel movements. He was initially hypotensive and tachycardic and hemoglobin did drop from 13 to 11 over the course of approx 6 hours. He denies any recent steroid or NSAID use, denies frequent alcohol use and denies previous history of GI bleed. INR 0.9, COVID negative, remainder of bloodwork unremarkable. Today, he is s/p 1 U PRBC and his hemoglobin has continued to drop throughout the day. He went for EGD and colonoscopy with GI today which showed a 3 cm deep ulceration at the ileocecal valve. 07/25/2019 yesterday underwent EGD and colonoscopy reporting mild gastritis, deep 3 cm ulceration on the ileocecal valve with active bleeding and adherent clot, status post epinephrine injection followed by Endo Clip placement with biopsies. 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 Sigmoid colonic neoplasm or cecal colonic neoplasm or primary consideration at this time. Evaluated by surgery and patient is scheduled for right hemicolectomy today. Hemoglobin 8.1. Vital signs stable, maintaining O2 sats in the high 90s on 2 L nasal cannula. 07/26/2019 status post right colectomy, partial omentectomy secondary to right colon CA with metastatic spread, mesenteric and omental involvement, postop day #1. Hemoglobin stable, 8.9. Sitting up in chair, complains of abdominal pain, Dilaudid frequency recently increased. Maintained on IV fluid hydration. Mildly Tachycardic. Tolerating clear liquids with no nausea or vomiting. Incentive spirometer up to 1500. 07/27/19 ileocecal valve ulcer biopsies pathology reporting infiltrating, moderately differentiated adenocarcinoma consistent with colon CA. colon resection pathology pending .postop day #2, complaining of uncontrolled pain, current pain management not lasting. Tachycardic, maintained on IV fluid hydration. No flatus, no bowel movement. Reports productive cough of mucousy phlegm. Incentive spirometer decreased to 1000. Maintaining O2 sats in the low 90s on 2 L nasal cannula O2 Afebrile, WBC trending down ,13.6, hemoglobin d ecreased to 7.1, platelets 246,CO2 29. Tolerating clear liquid diet with no nausea or vomiting. Blood sugars controlled. 07/28/2019 Patient denied any abdominal pain still having the episodes with minimal blood in the stools mostly like spotting in the stools. Patient had a low-grade fever chest x-ray that was done today showing infiltrate patchy in the right lower lobes and patient was started on Zosyn which is appropriate since patient is on Zosyn metronidazole is being discontinued at this time. Patient has small tiny pleural effusions bilaterally patient started wheezing today patient was started on inhalational treatments and inhaled steroids. Constitutional: Denied any fatigue denied any fever. Cardio vascular: denied any chest pain, palpitations Gastrointestinal denied any nausea vomiting Pulmonary: Denied any shortness of breath cough Neurologic denied any new focal deficits All inpatient medications were reviewed and appropriate changes in these medications as dictated in the interval history and assessment and plan. Objective - Vital Signs Vital signs: Vital Signs Temp 98.8 F 07/28/19 12:00 Pulse 100 07/28/19 12:00 Resp 20 07/28/19 12:00 BP 105/63 07/28/19 12:00 Pulse Ox 96 07/28/19 12:00 Intake & Output 07/27/19 07/28/19 07/28/19 18:59 06:59 18:59 Intake Total 2450 1500 1470 Output Total 250 Balance 2450 1500 1220 Weight 98.2 kg 97.9 kg Intake: IV 1600 1500 750 Piperacillin-Tazobactam 3 25 .375 gm In Sodium Chloride 0.9% 100 ml @ 25 mls/hr IVPB Q8HR [facility] Rx# :[id number] Potassium Chloride 10 meq 100 In Water For Injection 1 100ml.bag @ 100 mls/hr IVPB Q1H [facility] Rx#: [id number] Sodium Chloride 0.9% 1, 1500 1500 625 000 ml @ 125 mls/hr IV . Q8H [facility] Rx#:[id number] metroNIDAZOLE-NS PMX 500 100 mg In Saline 1 100ml.bag @ 100 mls/hr IVPB Q8HR [facility] Rx#:[id number] Oral 650 720 Tube Feeding 200 Output: Urine 250 Other: Voiding Method Toilet Toilet # Voids 1 2 - Exam PHYSICAL EXAMINATION: GENERAL: The patient is alert and oriented x3, not in any acute distress. Well developed, well nourished. HEENT: Pupils are round and equally reacting to light. EOMI. No scleral icterus. No conjunctival pallor. Normocephalic, atraumatic. No pharyngeal erythema. No thyromegaly. CARDIOVASCULAR: S1 and S2 present. No murmurs, rubs, or gallops. PULMONARY:expiratory wheezing on exam ABDOMEN: Soft, nontender, nondistended, normoactive bowel sounds. No palpable organomegaly. MUSCULOSKELETAL: No joint swelling or deformity. EXTREMITIES: No cyanosis, clubbing, or pedal edema. NEUROLOGICAL: Gross neurological examination did not reveal any focal deficits. SKIN: No rashes. - Labs CBC & Chem 7: 07/28/19 05:11 07/28/19 12:18 Labs: Abnormal Lab Results - Last 24 Hours (Table) 07/28/19 07/28/19 Range/Units 05:11 05:11 WBC 16.1 H (3.8-10.6) k/uL RBC 2.44 L (4.30-5.90) m/uL Hgb 7.4 L (13.0-17.5) gm/dL Hct 23.4 L (39.0-53.0) % Neutrophils # 14.2 H (1.3-7.7) k/uL Lymphocytes # 0.6 L (1.0-4.8) k/uL Monocytes # 1.1 H (0-1.0) k/uL Sodium 136 L (137-145) mmol/L Glucose 146 H (74-99) mg/dL Calcium 7.9 L (8.4-10.2) mg/dL Assessment and Plan Plan: -lower GI bleed acute blood loss anemia: Probably secondary to mass in the colon patient is status post laparotomy postoperative day 3 right hemicolectomy partial omentectomy and mucinous adenocarcinoma as for the pathology in the past -Colonic mass with peritoneal metastasis -Possible pneumonia postoperative versus aspiration pneumonia: Patient was started on Zosyn -COPD with acute exacerbation patient will be started on inhaled steroids inhalational treatments will reassess tomorrow -Continue nicotine use: Counseling was provided -Sepsis and new onset fever secondary to pneumonia as mentioned above, blood cu ltures will be obtained -Coronary artery disease -Hyperlipidemia -Hypothyroidism
[2019-07-28] MEDS: IPRATROPIUM-ALBUTEROL 3 ML NEB INHALATION SCH ×3 (16:30→23:09)
[2019-07-28] MEDS: BUDESONIDE 0.5 MG/2 ML NEBU INHALATION SCH (20:16)
[2019-07-29] MEDS: PIPERACILLIN-TAZOBACTAM 3.375 GM in SODIUM CHLORIDE 0.9% 100 ML IVPB SCH ×4 (00:35→23:44)
[2019-07-29] MEDS: IPRATROPIUM-ALBUTEROL 3 ML NEB INHALATION SCH ×5 (02:54→20:28)
[2019-07-29] MEDS: SODIUM CHLORIDE 0.9% 1,000 ML IV SCH ×3 (04:41→20:09)
[2019-07-29 05:31] LABS: African American GFR (CKD) >90 (>60 ml/min/1.73 sqM); Anion Gap 6 mmol/L; Blood Urea Nitrogen 13 mg/dL (9-20); Calcium 7.7 mg/dL (8.4-10.2); Carbon Dioxide 25 mmol/L (22-30); Chloride 104 mmol/L (98-107); Glucose 125 mg/dL (74-99); Non-African American GFR(CKD) >90 (>60 ml/min/1.73 sqM); Potassium 3.6 mmol/L (3.5-5.1); Sodium 135 mmol/L (137-145)
[2019-07-29] MEDS ORDERED: Potassium Replacement Protocol 1 EACH MISC MISCELLANE PRN (06:16)
[2019-07-29 06:39] LABS: Hypochromasia Moderate; MCH 29.3 pg (25.0-35.0); MCHC 30.8 g/dL (31.0-37.0); MCV 95.1 fL (80.0-100.0); Mean Platelet Volume 8.3; Platelet Count 353 k/uL (150-450); RBC 2.21 m/uL (4.30-5.90); RDW 14.3 % (11.5-15.5); WBC 18.4 k/uL (3.8-10.6)
[2019-07-29 06:53] LABS: HGB 6.5 gm/dL (13.0-17.5)
[2019-07-29] MEDS ORDERED: POTASSIUM CHLORIDE ER 20 MEQ TAB.ER PO SCH (07:00)
--- NOTE | 2019-07-29 07:33 | XR ---
EXAMINATION TYPE: XR chest 1V portable DATE OF EXAM: 07/29/2019 COMPARISON: 07/28/2019 HISTORY: Follow-up for opacity. Abnormal chest x-ray. TECHNIQUE: Single frontal view of the chest is obtained. FINDINGS: Right infrahilar and right basilar patchy opacity remains. There is new minimal pulmonary vascular congestion throughout and low lung volumes. Cardiomediastinal silhouette appears slightly la rger likely related to technique changes. No acute osseous process. IMPRESSION: Stable right infrahilar opacity, atelectasis versus pneumonia. New mild pulmonary vascul ar congestion.
[2019-07-29] MEDS: ACETAMINOPHEN TAB 500 MG TAB PO PRN (08:13)
[2019-07-29] MEDS: PANTOPRAZOLE 40 MG/10 ML VIAL IV SCH ×2 (08:14→20:44)
[2019-07-29] MEDS: ALVIMOPAN 12 MG CAPSULE PO SCH ×2 (08:14→20:00)
[2019-07-29] MEDS: FAMOTIDINE 20 MG/2 ML VIAL IV SCH ×3 (08:14→20:06)
[2019-07-29] MEDS: BUDESONIDE 0.5 MG/2 ML NEBU INHALATION SCH ×2 (08:28→20:28)
[2019-07-29] MEDS ORDERED: FUROSEMIDE 10 MG/ML 4 ML VIAL IV STA (12:11)
--- NOTE | 2019-07-29 12:11 | P.PN ---
Subjective Progress Note Date: 07/29/19 Principal diagnosis: GI Bleed This is a very pleasant 59-year-old gentleman who follows with Dr. White as his primary care provider. He has a history of coronary artery disease with previous stent placement, hyperlipidemia, hypothyroidism. He has a history of incarcerated umbilical hernia status post repair in February 2019. Earlier this morning the patient noted blood on the toilet paper and blood streaked stools 2. He presented here to the emergency room for the same. He had 3 more bright red bowel movements. He did have a drop in hemoglobin from 13.0-11.5. He was admitted to the intensive care unit for the same. He is seen today in consultation. Currently sitting up in bed. Awake and alert in no acute distress. Maintaining O2 saturations in the high 90s on 2 L/m per nasal cannula. His been afebrile. Hemodynamically stable. Denies any dizziness or lightheadedness. No chest pain. White count 9.7. Current hemoglobin 11.0. Platelets 266. Sodium 140. Potassium 4.6. Creatinine 0.96. Troponin negative 1. INR 0.9. He did receive desmopressin times one. He is currently on Protonix 40 mg IV every 12 hours. 0.9 normal saline at 100. He received 1 L fluid bolus. GI consult pending. The patient is seen today 07/29/2019 in follow-up in the intensive care unit. He is currently resting fairly comfortably in bed. He is maintaining O2 sa turations in the 90s on 2 L/m per nasal cannula. He has 0.9 normal saline running at 125 ML's per hour. He is continuing on IV Protonix. Remains on bronchodilators. Antibiotics in the form of Zosyn. His hemoglobin is down to 6.5. He is receiving a unit of packed red blood cells now currently. He is somewhat weak and fatigued compared to yesterday. Blood cultures reveal no growth. White count 18.4. Sodium 135. Potassium 3.6. Creatinine 0.70. Chest x-ray reveals stable right infrahilar opacity, atelectasis. Some mild pulmonary vascular congestion. He remains on a clear liquid diet. Objective - Vital Signs Vital signs: Vital Signs Temp 98.4 F 07/29/19 10:40 Pulse 96 07/29/19 10:40 Resp 27 H 07/29/19 10:40 BP 115/74 07/29/19 10:40 Pulse Ox 95 07/29/19 10:40 Intake & Output 07/28/19 07/29/19 07/29/19 18:59 06:59 18:59 Intake Total 2460 1600 440 Output Total 500 930 230 Balance 1960 670 210 Weight 99.8 kg Intake: IV 1500 1600 200 Piperacillin-Tazobactam 3 175 125 75 .375 gm In Sodium Chloride 0.9% 100 ml @ 25 mls/hr IVPB Q8HR [facility] Rx# :[id number] Sodium Chloride 0.9% 1, 1225 1475 125 000 ml @ 125 mls/hr IV . Q8H [facility] Rx#:[id number] metroNIDAZOLE-NS PMX 500 100 mg In Saline 1 100ml.bag @ 100 mls/hr IVPB Q8HR [facility] Rx#:[id number] Oral 960 240 Blood Product 0 Rc As-3 Unit 0 [id number] Output: Urine 500 930 230 Other: Voiding Method Indwelling Catheter Indwelling Catheter # Voids 1 - Exam GENERAL EXAM: Alert, pleasant 59-year-old gentleman, on 2 L nasal cannula comfortable in no apparent distress. HEAD: Normocephalic. EYES: Normal reaction of pupils, equal size. NOSE: Clear with pink turbinates. THROAT: No erythema or exudates. NECK: No masses, no JVD. CHEST: No chest wall deformity. LUNGS: Equal air entry with faint end expiratory wheeze, crackles in the posterior bases. CVS: S1 and S2 normal with no audible murmur, regular rhythm. ABDOMEN: No hepatosplenomegaly, normal bowel sounds, no guarding or rigidity. SPINE: No scoliosis or deformity SKIN: No rashes CENTRAL NERVOUS SYSTEM: No focal deficits, tone is normal in all 4 extremities. EXTREMITIES: There is no peripheral edema. No clubbing, no cyanosis. Peripheral pulses are intact. - Labs CBC & Chem 7: 07/29/19 06:14 07/29/19 04:13 Labs: Abnormal Lab Results - Last 24 Hours (Table) 07/23/19 07/29/19 07/29/19 Range/Units 05:38 04:13 06:14 WBC 18.4 H (3.8-10.6) k/uL RBC 2.21 L (4.30-5.90) m/uL Hgb 6.5 L* (13.0-17.5) gm/dL Hct 21.0 L (39.0-53.0) % MCHC 30.8 L (31.0-37.0) g/dL Sodium 135 L (137-145) mmol/L Glucose 125 H (74-99) mg/dL Calcium 7.7 L (8.4-10.2) mg/dL Crossmatch See Detail 07/29/19 Range/Units 07:09 WBC (3.8-10.6) k/uL RBC (4.30-5.90) m/uL Hgb (13.0-17.5) gm/dL Hct (39.0-53.0) % MCHC (31.0-37.0) g/dL Sodium (137-145) mmol/L Glucose (74-99) mg/dL Calcium (8.4-10.2) mg/dL Crossmatch See Detail Microbiology - Last 24 Hours (Table) 07/28/19 09:45 Blood Culture - Preliminary Blood No Growth after 24 hours Assessment and Plan Assessment: 1 Acute gastrointestinal bleeding secondary to colonic mass. 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 This is postoperative day #4. Hemoglobin dropped today to 6.5 and he is receiving a second unit of packed red blood cells this admission. 2 History of nonspecific enteritis in 2019, last colonoscopy in 2016 for screening, found to have rectal polyp and mild diverticular changes 3 Recent incarcerated umbilical hernia status post repair in February 2019 4 Chronic and ongoing tobacco dependence 5 Coronary artery disease with previous stent placement and currently on aspirin and Plavix 6 Hyperlipidemia 7 Hypothyroidism Plan: The patient was seen and evaluated by Dr. Smith Chest x-ray and labs reviewed. We'll give Lasix 40 mg IVP 1 today Continue bronchodilators Encourage increased use the incentive spirometer He did have drop in hemoglobin to 6.5 today 1 unit of packed red blood cells have been ordered. We will continue to follow and make further recommendations based on his clinical status I, the cosigning physician, performed a history & physical examination of the patient. Lungs sounds with faint and x-ray wheeze, crackles in the posterior bases. Maintaining good O2 saturations in the 90s on 2 L/m per nasal cannula. I discussed the assessment and plan of care with my nurse practitioner, Leticia Grimes. I attest to the above note as dictated by her.
--- NOTE | 2019-07-29 12:44 | P.PN ---
Subjective 59 yo M with PMH of CAD, HLD, incarcerated umbilical hernia with recent repair February 2019 who presented to the ED after noticing rectal bleeding. He states that the day of admission he noted blood on the toilet paper and blood streaked stools 2. He presented to the ED and had 3 more bright red bowel movements. He was initially hypotensive and tachycardic and hemoglobin did drop from 13 to 11 over the course of approx 6 hours. He denies any recent steroid or NSAID use, denies frequent alcohol use and denies previous history of GI bleed. INR 0.9, COVID negative, remainder of bloodwork unremarkable. Today, he is s/p 1 U PRBC and his hemoglobin has continued to drop throughout the day. He went for EGD and colonoscopy with GI today which showed a 3 cm deep ulceration at the ileocecal valve. 07/25/2019 yesterday underwent EGD and colonoscopy reporting mild gastritis, deep 3 cm ulceration on the ileocecal valve with active bleeding and adherent clot, status post epinephrine injection followed by Endo Clip placement with biopsies. 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 Sigmoid colonic neoplasm or cecal colonic neoplasm or primary consideration at this time. Evaluated by surgery and patient is scheduled for right hemicolectomy today. Hemoglobin 8.1. Vital signs stable, maintaining O2 sats in the high 90s on 2 L nasal cannula. 07/26/2019 status post right colectomy, partial omentectomy secondary to right colon CA with metastatic spread, mesenteric and omental involvement, postop day #1. Hemoglobin stable, 8.9. Sitting up in chair, complains of abdominal pain, Dilaudid frequency recently increased. Maintained on IV fluid hydration. Mildly Tachycardic. Tolerating clear liquids with no nausea or vomiting. Incentive spirometer up to 1500. 07/27/19 ileocecal valve ulcer biopsies pathology reporting infiltrating, moderately differentiated adenocarcinoma consistent with colon CA. colon resection pathology pending .postop day #2, complaining of uncontrolled pain, current pain management not lasting. Tachycardic, maintained on IV fluid hydration. No flatus, no bowel movement. Reports productive cough of mucousy phlegm. Incentive spirometer decreased to 1000. Maintaining O2 sats in the low 90s on 2 L nasal cannula O2 Afebrile, WBC trending down ,13.6, hemoglobin d ecreased to 7.1, platelets 246,CO2 29. Tolerating clear liquid diet with no nausea or vomiting. Blood sugars controlled. 07/28/2019 Patient denied any abdominal pain still having the episodes with minimal blood in the stools mostly like spotting in the stools. Patient had a low-grade fever chest x-ray that was done today showing infiltrate patchy in the right lower lobes and patient was started on Zosyn which is appropriate since patient is on Zosyn metronidazole is being discontinued at this time. Patient has small tiny pleural effusions bilaterally patient started wheezing today patient was started on inhalational treatments and inhaled steroids. 07/29/2019 Patient's wheezing improved her hemoglobin dropped will receive 1 unit of PRBC transfusion. On that no other significant change in his clinical status patient will remain in ICU Constitutional: Denied any fatigue denied any fever. Cardio vascular: denied any chest pain, palpitations Gastrointestinal denied any nausea vomiting Pulmonary: Denied any shortness of breath cough Neurologic denied any new focal deficits All inpatient medications were reviewed and appropriate changes in these medications as dictated in the interval history and assessment and plan. Objective - Vital Signs Vital signs: Vital Signs Temp 98.4 F 07/29/19 10:40 Pulse 96 07/29/19 10:40 Resp 27 H 07/29/19 10:40 BP 115/74 07/29/19 10:40 Pulse Ox 95 07/29/19 10:40 Intake & Output 07/28/19 07/29/19 07/29/19 18:59 06:59 18:59 Intake Total 2460 1600 440 Output Total 500 930 230 Balance 1960 670 210 Weight 99.8 kg Intake: IV 1500 1600 200 Piperacillin-Tazobactam 3 175 125 75 .375 gm In Sodium Chloride 0.9% 100 ml @ 25 mls/hr IVPB Q8HR [facility] Rx# :[id number] Sodium Chloride 0.9% 1, 1225 1475 125 000 ml @ 125 mls/hr IV . Q8H [facility] Rx#:[id number] metroNIDAZOLE-NS PMX 500 100 mg In Saline 1 100ml.bag @ 100 mls/hr IVPB Q8HR [facility] Rx#:[id number] Oral 960 240 Blood Product 0 Rc As-3 Unit 0 [id number] Output: Urine 500 930 230 Other: Voiding Method Indwelling Catheter Indwelling Catheter # Voids 1 - Exam PHYSICAL EXAMINATION: GENERAL: The patient is alert and oriented x3, not in any acute distress. Well developed, well nourished. HEENT: Pupils are round and equally reacting to light. EOMI. No scleral icterus. No conjunctival pallor. Normocephalic, atraumatic. No pharyngeal erythema. No thyromegaly. CARDIOVASCULAR: S1 and S2 present. No murmurs, rubs, or gallops. PULMONARY:expiratory wheezing on exam ABDOMEN: Soft, nontender, nondistended, normoactive bowel sounds. No palpable organomegaly. MUSCULOSKELETAL: No joint swelling or deformity. EXTREMITIES: No cyanosis, clubbing, or pedal edema. NEUROLOGICAL: Gross neurological examination did not reveal any focal deficits. SKIN: No rashes. - Labs CBC & Chem 7: 07/29/19 06:14 07/29/19 04:13 Labs: Abnormal Lab Results - Last 24 Hours (Table) 07/23/19 07/29/19 07/29/19 Range/Units 05:38 04:13 06:14 WBC 18.4 H (3.8-10.6) k/uL RBC 2.21 L (4.30-5.90) m/uL Hgb 6.5 L* (13.0-17.5) gm/dL Hct 21.0 L (39.0-53.0) % MCHC 30.8 L (31.0-37.0) g/dL Sodium 135 L (137-145) mmol/L Glucose 125 H (74-99) mg/dL Calcium 7.7 L (8.4-10.2) mg/dL Crossmatch See Detail 07/29/19 Range/Units 07:09 WBC (3.8-10.6) k/uL RBC (4.30-5.90) m/uL Hgb (13.0-17.5) gm/dL Hct (39.0-53.0) % MCHC (31.0-37.0) g/dL Sodium (137-145) mmol/L Glucose (74-99) mg/dL Calcium (8.4-10.2) mg/dL Crossmatch See Detail Microbiology - Last 24 Hours (Table) 07/28/19 09:45 Blood Culture - Preliminary Blood No Growth after 24 hours Assessment and Plan Plan: -lower GI bleed acute blood loss anemia: Probably secondary to mass in the colon patient is status post laparotomy postoperative day 3 right hemicolectomy partial omentectomy and mucinous adenocarcinoma as for the pathology in the pastPatient present hemoglobin is 6.5 . Recent transfusion continues to have fevers patient will remain on Zosyn -Colonic mass with peritoneal metastasis -Possible pneumonia postoperative versus aspiration pneumonia: Patient was started on Zosyn -COPD with acute exacerbation patient will be started on inhaled steroids inhalational treatments will reassess tomorrow -Continue nicotine use: Counseling was provided -Sepsis and new onset fever secondary to pneumonia as mentioned above, blood cultures will be obtained -Coronary artery disease -Hyperlipidemia -Hypothyroidism
[2019-07-29] MEDS: ONDANSETRON 4 MG/2 ML VIAL IVP PRN (13:31)
[2019-07-29] MEDS: oxyCODONE-APAP 5-325MG 1 EACH TAB PO PRN (13:32)
--- NOTE | 2019-07-29 13:58 | P.PN ---
Subjective Progress Note Date: 07/29/19 Principal diagnosis: Right colon tumor Patient evaluated in the ICU. Low-grade tachycardia today. T-max 100.2. White blood cell count 18, hemoglobin 6.5. One unit packed red blood cells transfused. Patient did have a bowel movement with a small amount of blood. He is asking for more to eat however is somewhat bloated. States he wants to go home. Objective - Vital Signs Vital signs: Vital Signs Temp 98.6 F 07/29/19 13:50 Pulse 106 H 07/29/19 13:50 Resp 16 07/29/19 13:50 BP 138/56 07/29/19 13:50 Pulse Ox 91 L 07/29/19 13:50 Intake & Output 07/28/19 07/29/19 07/29/19 18:59 06:59 18:59 Intake Total 2460 1600 900 Output Total 500 930 365 Balance 1960 670 535 Weight 99.8 kg Intake: IV 1500 1600 350 Piperacillin-Tazobactam 3 175 125 100 .375 gm In Sodium Chloride 0.9% 100 ml @ 25 mls/hr IVPB Q8HR [facility] Rx# :[id number] Sodium Chloride 0.9% 1, 1225 1475 250 000 ml @ 125 mls/hr IV . Q8H [facility] Rx#:[id number] metroNIDAZOLE-NS PMX 500 100 mg In Saline 1 100ml.bag @ 100 mls/hr IVPB Q8HR [facility] Rx#:[id number] Oral 960 240 Blood Product 310 Rc As-3 Unit 310 [id number] Output: Urine 500 930 365 Other: Voiding Method Indwelling Catheter Indwelling Catheter # Voids 1 - Exam Abdomen: Soft, mild distention, mild midline tenderness, incision clean and dry - Labs CBC & Chem 7: 07/29/19 06:14 07/29/19 04:13 Labs: Abnormal Lab Results - Last 24 Hours (Table) 07/23/19 07/29/19 07/29/19 Range/Units 05:38 04:13 06:14 WBC 18.4 H (3.8-10.6) k/uL RBC 2.21 L (4.30-5.90) m/uL Hgb 6.5 L* (13.0-17.5) gm/dL Hct 21.0 L (39.0-53.0) % MCHC 30.8 L (31.0-37.0) g/dL Sodium 135 L (137-145) mmol/L Glucose 125 H (74-99) mg/dL Calcium 7.7 L (8.4-10.2) mg/dL Crossmatch See Detail 07/29/19 Range/Units 07:09 WBC (3.8-10.6) k/uL RBC (4.30-5.90) m/uL Hgb (13.0-17.5) gm/dL Hct (39.0-53.0) % MCHC (31.0-37.0) g/dL Sodium (137-145) mmol/L Glucose (74-99) mg/dL Calcium (8.4-10.2) mg/dL Crossmatch See Detail Microbiology - Last 24 Hours (Table) 07/28/19 09:45 Blood Culture - Preliminary Blood No Growth after 24 hours Assessment and Plan (1) Carcinomatosis Narrative/Plan: Patient more distended than yesterday. Will make nothing by mouth at this time. If vomiting occurs will require nasogastric tube. Recheck hemoglobin after transfusion. Monitor fevers. Current Visit: Yes Status: Acute Code(s): C80.0 - DISSEMINATED MALIGNANT NE OPLASM, UNSPECIFIED SNOMED Code(s): 228800724
[2019-07-29 14:21] LABS: Basophils % (A) 0 %; Eosinophils % (A) 0 %; HCT 25.2 % (39.0-53.0); Hypochromasia Moderate; Lymphocytes # (A) 0.6 k/uL (1.0-4.8); Lymphocytes % (A) 3 %; MCH 30.2 pg (25.0-35.0); MCHC 32.4 g/dL (31.0-37.0); MCV 93.5 fL (80.0-100.0); Mean Platelet Volume 8.2; Monocytes # (A) 1.2 k/uL (0-1.0); Monocytes % (A) 6 %; Neutrophils % (A) 88 %; Platelet Count 425 k/uL (150-450); RDW 14.9 % (11.5-15.5); WBC 19.3 k/uL (3.8-10.6)
[2019-07-29 14:29] LABS: HGB 8.2 gm/dL (13.0-17.5)
[2019-07-29] MEDS: HYDROmorphone 1 MG/ML 1 ML SYRINGE IVP PRN (20:13)
[2019-07-30] MEDS: IPRATROPIUM-ALBUTEROL 3 ML NEB INHALATION SCH ×7 (00:20→23:22)
[2019-07-30] MEDS: SODIUM CHLORIDE 0.9% 1,000 ML IV SCH ×3 (02:48→20:37)
[2019-07-30 05:03] LABS: Basophils % (A) 0 %; Eosinophils % (A) 0 %; HCT 22.1 % (39.0-53.0); Hypochromasia Moderate; Lymphocytes # (A) 0.7 k/uL (1.0-4.8); Lymphocytes % (A) 4 %; MCH 29.6 pg (25.0-35.0); MCHC 31.5 g/dL (31.0-37.0); MCV 94.1 fL (80.0-100.0); Mean Platelet Volume 8.2; Monocytes # (A) 1.3 k/uL (0-1.0); Monocytes % (A) 8 %; Neutrophils # (A) 14.8 k/uL (1.3-7.7); Neutrophils % (A) 86 %; Platelet Count 406 k/uL (150-450); RBC 2.35 m/uL (4.30-5.90); RDW 14.9 % (11.5-15.5); WBC 17.3 k/uL (3.8-10.6)
[2019-07-30 05:13] LABS: African American GFR (CKD) >90 (>60 ml/min/1.73 sqM); Anion Gap 3 mmol/L; Blood Urea Nitrogen 14 mg/dL (9-20); Calcium 7.6 mg/dL (8.4-10.2); Carbon Dioxide 33 mmol/L (22-30); Chloride 101 mmol/L (98-107); Glucose 104 mg/dL (74-99); Non-African American GFR(CKD) >90 (>60 ml/min/1.73 sqM); Potassium 3.4 mmol/L (3.5-5.1); Sodium 137 mmol/L (137-145)
[2019-07-30] MEDS: POTASSIUM CHLORIDE 10 MEQ in WATER FOR INJECTION 1 100ML.BAG IVPB SCH ×4 (05:52→09:09)
[2019-07-30] MEDS: HYDROmorphone 1 MG/ML 1 ML SYRINGE IVP PRN ×4 (05:58→23:47)
--- NOTE | 2019-07-30 07:28 | XR ---
EXAMINATION TYPE: XR chest 1V portable DATE OF EXAM: 07/30/2019 COMPARISON: 531 HISTORY: Follow-up infiltrate abnormal x-ray TECHNIQUE: Single frontal view of the chest is obtained. FINDINGS: There are bilateral areas of consolidation tiny effusion which are stable. No pneumothorax . Heart size stable. Arthropathy of the shoulders. IMPRESSION: 1. Stable bilateral lower lobe infiltrate or atelectasis. Interstitium is improved with no overt fail ure.
[2019-07-30] MEDS: BUDESONIDE 0.5 MG/2 ML NEBU INHALATION SCH ×2 (08:14→20:13)
[2019-07-30] MEDS: PIPERACILLIN-TAZOBACTAM 3.375 GM in SODIUM CHLORIDE 0.9% 100 ML IVPB SCH ×3 (09:11→23:44)
[2019-07-30] MEDS: ALVIMOPAN 12 MG CAPSULE PO SCH ×2 (10:45→20:36)
[2019-07-30] MEDS: PANTOPRAZOLE 40 MG/10 ML VIAL IV SCH ×2 (11:12→20:35)
[2019-07-30] MEDS: NICOTINE 21MG/24HR PATCH TRANSDERM SCH (11:12)
--- NOTE | 2019-07-30 12:47 | P.PN ---
Subjective Progress Note Date: 07/30/19 A 59-year-old male patient known history of coronary artery disease with previous coronary stenting, hyperlipidemia and hypothyroidism and previous history of incarcerated umbilical hernia requiring surgery back in general 2020, came in for GI bleed and the patient was further found to have a colonic mass. The patient underwent resuscitation, given packed RBC and taken to the operating room where the colonic adenocarcinoma was removed and the postoperative staging was T4 N2 M1 disease consistent with metastatic disease with a omental involvement. The patient currently is postop day #5. The patient is currently on IV fluids at 125 mL of normal saline. The patient is on IV Zosyn as an empiric antibiotic coverage. Hemoglobin was as low as 6.5 from yesterday and the patient received another unit of packed RBC and hemoglobin came up to 8.2. Nevertheless, on today's evaluation, the abdominal wound is erythematous and there is obvious purulent drainage from the wound edges specially in the area around the umbilicus. There is also some erythema developing. I was able to remove the adryan and obtain cultures from the abdominal wound. The patient has an elevated white count of 17.3. Hemoglobin dropped again down to 7.0 without evidence of any GI bleed. Abdomen is slightly distended. He is passing flatus. No abdominal pain. No other complaints otherwise for now. He remains on normal saline at rate of 125 mL an hour. Objective - Vital Signs Vital signs: Vital Signs Temp 98.3 F 07/30/19 08:00 Pulse 101 H 07/30/19 11:00 Resp 28 H 07/30/19 11:00 BP 116/72 07/30/19 11:00 Pulse Ox 94 L 07/30/19 08:00 Intake & Output 07/29/19 07/30/19 07/30/19 18:59 06:59 18:59 Intake Total 1625 1575 725 Output Total 2175 655 255 Balance -550 920 470 Weight 97.4 kg 97.4 kg Intake: IV 1075 1475 725 Piperacillin-Tazobactam 3 200 100 100 .375 gm In Sodium Chloride 0.9% 100 ml @ 25 mls/hr IVPB Q8HR [facility] Rx# :[id number] Sodium Chloride 0.9% 1, 875 1375 625 000 ml @ 125 mls/hr IV . Q8H [facility] Rx#:[id number] Intake, IV Titration 100 Amount Potassium Chloride 10 meq 100 In Water For Injection 1 100ml.bag @ 100 mls/hr IVPB Q1HR [facility] Rx#: [id number] Oral 240 Blood Product 310 Rc As-3 Unit 310 [id number] Output: Urine 2175 585 255 Stool 70 Other: Voiding Method Indwelling Catheter Indwelling Catheter Indwelling Catheter # Bowel Movements 1 1 - Exam GENERAL: The patient is alert and oriented x3, not in any acute distress. Well developed, well nourished. HEENT: Pupils are round and equally reacting to light. EOMI. No scleral icterus. No conjunctival pallor. Normocephalic, atraumatic. No pharyngeal erythema. No thyromegaly. CARDIOVASCULAR: S1 and S2 present. No murmurs, rubs, or gallops. PULMONARY:expiratory wheezing on exam ABDOMEN: Soft,, slightly distended specially the area around the mid abdominal incision/wound. The adryan are in place. There is erythema and purulent drainage from the edges of the wound specially around the umbilicus and more inferiorly below the umbilicus. Adryan are still intact. Removed to adryan and there was more drainage of purulent material and the cultures were obtained. Minimal direct tenderness. No rebound tenderness. No guarding. Hypoactive bowel sounds are present. No ascites. MUSCULOSKELETAL: No joint swelling or deformity. EXTREMITIES: No cyanosis, clubbing, or pedal edema. NEUROLOGICAL: Gross neurological examination did not reveal any focal deficits. SKIN: No rashes. There is erythema around the periumbilical area where the surgical wound is present. - Labs CBC & Chem 7: 07/30/19 03:43 07/30/19 03:43 Labs: Abnormal Lab Results - Last 24 Hours (Table) 07/29/19 07/29/19 07/30/19 Range/Units 07:09 14:03 03:43 WBC 19.3 H 17.3 H (3.8-10.6) k/uL RBC 2.70 L 2.35 L (4.30-5.90) m/uL Hgb 8.2 L D 7.0 L (13.0-17.5) gm/dL Hct 25.2 L 22.1 L (39.0-53.0) % Neutrophils # 17.0 H 14.8 H (1.3-7.7) k/uL Lymphocytes # 0.6 L 0.7 L (1.0-4.8) k/uL Monocytes # 1.2 H 1.3 H (0-1.0) k/uL Potassium (3.5-5.1) mmol/L Carbon Dioxide (22-30) mmol/L Glucose (74-99) mg/dL Calcium (8.4-10.2) mg/dL Albumin (3.5-5.0) g/dL Crossmatch See Detail 07/30/19 07/30/19 Range/Units 03:43 03:43 WBC (3.8-10.6) k/uL RBC (4.30-5.90) m/uL Hgb (13.0-17.5) gm/dL Hct (39.0-53.0) % Neutrophils # (1.3-7.7) k/uL Lymphocytes # (1.0-4.8) k/uL Monocytes # (0-1.0) k/uL Potassium 3.4 L (3.5-5.1) mmol/L Carbon Dioxide 33 H (22-30) mmol/L Glucose 104 H (74-99) mg/dL Calcium 7.6 L (8.4-10.2) mg/dL Albumin 2.4 L (3.5-5.0) g/dL Crossmatch Microbiology - Last 24 Hours (Table) 07/28/19 09:45 Blood Culture - Preliminary Blood No Growth after 48 hours Assessment and Plan Plan: 1 Acute gastrointestinal bleeding secondary to colonic mass. The patient has active drainage from the surgical wound site which is quite purulent and there is some erythema along the wound edges. Consider a wound infection. This will be discussed with general surgery. 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 This is postoperative day #6, with a postoperative staging of T4 N2 M1 disease involving the omentum. 3 History of nonspecific enteritis in 2019, last colonoscopy in 2016 for s creening, found to have rectal polyp and mild diverticular changes 4 Recent incarcerated umbilical hernia status post repair in February 2019 5 Chronic smoker 6 Coronary artery disease with previous stent placement and currently on aspirin and Plavix, on hold post surgery 7 Hyperlipidemia 8 Hypothyroidism 9 blood loss anemia and the patient got transfused with a total of 2 units of packed RBC during this current admission, and hemoglobin today is at 7 10 leukocytosis secondary to above Plan Abdominal wound cultures were obtained [facility] surgery regarding the possibility of removal of further adryan and packing the wound and even the possibility of using a wound VAC Continue Zosyn and contemplated addition of vancomycin Monitor white count Keep the patient ICU for now and will coordinate CARE with general surgery. Consults hematology oncology Chest x-ray from today showing some atelectatic changes in lung bases bilaterally.
--- NOTE | 2019-07-30 13:30 | P.PN ---
Subjective Progress Note Date: 07/30/19 CHIEF COMPLAINT: Cecal mass, GI bleed HISTORY OF PRESENT ILLNESS: Patient is status post right colectomy with Dr. Clark. Patient examined at the bedside. Patient with oozing from abdominal incision earlier this morning. Dr. Clark removed some adryan and packed wound with 4x4s. Culture was sent this morning. WBC 17.3. Hemoglobin 7.0. PHYSICAL EXAM: VITAL SIGNS: Reviewed. GENERAL: Well-developed in no acute distress. HEENT: No sclera icterus. Extraocular movements grossly intact. Moist buccal mucosa. Head is atraumatic, normocephalic. ABDOMEN: Soft. Nondistended. Appropriate surgical tenderness. NEUROLOGIC: Alert and oriented. Cranial nerves II through XII grossly intact. ASSESSMENT: 1. GI bleed 2. 3cm ulceration on the ileocecal valve 3. Right colon cancer with metastatic spread, mesenteric and omental involvement PLAN: -Begin clear liquid diet -Pain control -Incentive spirometer -Activity as tolerated Nurse practitioner note has been reviewed by physician. Signing provider agrees with the documented findings, assessment, and plan of care. Objective - Vital Signs Vital signs: Vital Signs Temp 98.3 F 07/30/19 08:00 Pulse 102 H 07/30/19 10:00 Resp 26 H 07/30/19 10:00 BP 115/72 07/30/19 10:00 Pulse Ox 94 L 07/30/19 08:00 Intake & Output 07/29/19 07/30/19 07/30/19 18:59 06:59 18:59 Intake Total 1625 1575 725 Output Total 2175 655 255 Balance -550 920 470 Weight 97.4 kg Intake: IV 1075 1475 725 Piperacillin-Tazobactam 3 200 100 100 .375 gm In Sodium Chloride 0.9% 100 ml @ 25 mls/hr IVPB Q8HR [facility] Rx# :[id number] Sodium Chloride 0.9% 1, 875 1375 625 000 ml @ 125 mls/hr IV . Q8H [facility] Rx#:[id number] Intake, IV Titration 100 Amount Potassium Chloride 10 meq 100 In Water For Injection 1 100ml.bag @ 100 mls/hr IVPB Q1HR [facility] Rx#: [id number] Oral 240 Blood Product 310 Rc As-3 Unit 310 [id number] Output: Urine 2175 585 255 Stool 70 Other: Voiding Method Indwelling Catheter Indwelling Catheter Indwelling Catheter # Bowel Movements 1 1 - Labs CBC & Chem 7: 07/30/19 03:43 07/30/19 03:43 Labs: Abnormal Lab Results - Last 24 Hours (Table) 07/29/19 07/29/19 07/30/19 Range/Units 07:09 14:03 03:43 WBC 19.3 H 17.3 H (3.8-10.6) k/uL RBC 2.70 L 2.35 L (4.30-5.90) m/uL Hgb 8.2 L D 7.0 L (13.0-17.5) gm/dL Hct 25.2 L 22.1 L (39.0-53.0) % Neutrophils # 17.0 H 14.8 H (1.3-7.7) k/uL Lymphocytes # 0.6 L 0.7 L (1.0-4.8) k/uL Monocytes # 1.2 H 1.3 H (0-1.0) k/uL Potassium (3.5-5.1) mmol/L Carbon Dioxide (22-30) mmol/L Glucose (74-99) mg/dL Calcium (8.4-10.2) mg/dL Albumin (3.5-5.0) g/dL Crossmatch See Detail 07/30/19 07/30/19 Range/Units 03:43 03:43 WBC (3.8-10.6) k/uL RBC (4.30-5.90) m/uL Hgb (13.0-17.5) gm/dL Hct (39.0-53.0) % Neutrophils # (1.3-7.7) k/uL Lymphocytes # (1.0-4.8) k/uL Monocytes # (0-1.0) k/uL Potassium 3.4 L (3.5-5.1) mmol/L Carbon Dioxide 33 H (22-30) mmol/L Glucose 104 H (74-99) mg/dL Calcium 7.6 L (8.4-10.2) mg/dL Albumin 2.4 L (3.5-5.0) g/dL Crossmatch Microbiology - Last 24 Hours (Table) 07/28/19 09:45 Blood Culture - Preliminary Blood No Growth after 24 hours
[2019-07-30 13:37] LABS: HCT 24.6 % (39.0-53.0); HGB 7.4 gm/dL (13.0-17.5); Hypochromasia Moderate; MCH 28.8 pg (25.0-35.0); MCHC 30.2 g/dL (31.0-37.0); MCV 95.1 fL (80.0-100.0); Platelet Count 446 k/uL (150-450); RBC 2.59 m/uL (4.30-5.90); RDW 15.1 % (11.5-15.5); WBC 17.2 k/uL (3.8-10.6)
--- NOTE | 2019-07-30 14:42 | P.PN ---
Subjective Progress Note Date: 07/30/19 Shahab Chairez is a 59 yo M with PMH of CAD, HLD, incarcerated umbilical hernia with recent repair February 2019 who presented to the ED after noticing rectal bleeding. He states that the day of admission he noted blood on the toilet paper and blood streaked stools 2. He presented to the ED and had 3 more bright red bowel movements. He was initially hypotensive and tachycardic and hemoglobin did drop from 13 to 11 over the course of approx 6 hours. He denies any recent steroid or NSAID use, denies frequent alcohol use and denies previous history of GI bleed. INR 0.9, COVID negative, remainder of bloodwork unremarkable. Today, he is s/p 1 U PRBC and his hemoglobin has continued to drop throughout the day. He went for EGD and colonoscopy with GI today which showed a 3 cm deep ulceration at the ileocecal valve. 07/25/2019 yesterday underwent EGD and colonoscopy reporting mild gastritis, deep 3 cm ulceration on the ileocecal valve with active bleeding and adherent clot, status post epinephrine injection followed by Endo Clip placement with biopsies. 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 Sigmoid colonic neoplasm or cecal colonic neoplasm or primary consideration at this time. Evaluated by surgery and patient is scheduled for right hemicolectomy today. Hemoglobin 8.1. Vital signs stable, maintaining O2 sats in the high 90s on 2 L nasal cannula. 07/26/2019 status post right colectomy, partial omentectomy secondary to right colon CA with metastatic spread, mesenteric and omental involvement, postop day #1. Hemoglobin stable, 8.9. Sitting up in chair, complains of abdominal pain, Dilaudid frequency recently increased. Maintained on IV fluid hydration. Mildly Tachycardic. Tolerating clear liquids with no nausea or vomiting. Incentive spirometer up to 1500. 07/27/19 ileocecal valve ulcer biopsies pathology reporting infiltrating, mo derately differentiated adenocarcinoma consistent with colon CA. colon resection pathology pending .postop day #2, complaining of uncontrolled pain, current pain management not lasting. Tachycardic, maintained on IV fluid hydration. No flatus, no bowel movement. Reports productive cough of mucousy phlegm. Incentive spirometer decreased to 1000. Maintaining O2 sats in the low 90s on 2 L nasal cannula O2 Afebrile, WBC trending down ,13.6, hemoglobin decreased to 7.1, platelets 246,CO2 29. Tolerating clear liquid diet with no nausea or vomiting. Blood sugars controlled. 07/30/2019 maintained on IV fluids, Zosyn. Reporting pain better. Purulent thick brown drainage from abdominal wound, umbilical area. Couple of adryan removed, drainage cultured. T-max 100.2, WBC elevated at 17.2. Preliminary Blood cultures reporting no growth at 48 hours.Transfused yesterday for hemoglobin of 6.5, post transfusion, hemoglobin 8.2. This morning hemoglobin dropped to 7 with recheck at noon of 7.4. No bleeding reported. Potassium 3.4, creatinine stable 0.77. Abdominal pain controlled, 3 small bowel movements yesterday, passing flatus, no nausea or vomiting. Currently nothing by mouth wi th further surgery recommendations pending. Objective - Vital Signs Vital signs: Vital Signs Temp 98.7 F 07/30/19 12:00 Pulse 112 H 07/30/19 13:00 Resp 14 07/30/19 12:00 BP 130/72 07/30/19 12:00 Pulse Ox 94 L 07/30/19 12:00 Intake & Output 07/29/19 07/30/19 07/30/19 18:59 06:59 18:59 Intake Total 1625 1575 975 Output Total 2175 655 355 Balance -550 920 620 Weight 97.4 kg 97.4 kg Intake: IV 1075 1475 975 Piperacillin-Tazobactam 3 200 100 100 .375 gm In Sodium Chloride 0.9% 100 ml @ 25 mls/hr IVPB Q8HR [facility] Rx# :[id number] Sodium Chloride 0.9% 1, 875 1375 875 000 ml @ 125 mls/hr IV . Q8H [facility] Rx#:[id number] Intake, IV Titration 100 Amount Potassium Chloride 10 meq 100 In Water For Injection 1 100ml.bag @ 100 mls/hr IVPB Q1HR [facility] Rx#: [id number] Oral 240 Blood Product 310 Rc As-3 Unit 310 [id number] Output: Urine 2175 585 355 Stool 70 Other: Voiding Method Indwelling Catheter Indwelling Catheter Indwelling Catheter # Bowel Movements 1 1 - Exam General: Sitting up in chair, no acute distress NAD. Vitals reviewed Eyes: PERRL, EOMI, conjunctiva normal. HENT: normocephalic, mucus membranes moist Neck: supple, no JVD Lungs: normal respiratory effort, essentially clear with occasional scattered rhonchi CV: Regular rate and rhythm, no murmur. Tachycardic ,Peripheral pulses 2+ Abdomen: Status post surgery, soft, distended, periumbilical site ,adryan removed with erythema, purulent brn drainage , tender, otherwise adryan intact, hypoactive bowel sounds. No guarding. Skin: warm and dry. Neuro: A&Ox3, normal mood and affect - Labs CBC & Chem 7: 07/30/19 12:54 07/30/19 03:43 Labs: Abnormal Lab Results - Last 24 Hours (Table) 07/29/19 07/30/19 07/30/19 Range/Units 14:03 03:43 03:43 WBC 19.3 H 17.3 H (3.8-10.6) k/uL RBC 2.70 L 2.35 L (4.30-5.90) m/uL Hgb 8.2 L D 7.0 L (13.0-17.5) gm/dL Hct 25.2 L 22.1 L (39.0-53.0) % MCHC (31.0-37.0) g/dL Neutrophils # 17.0 H 14.8 H (1.3-7.7) k/uL Lymphocytes # 0.6 L 0.7 L (1.0-4.8) k/uL Monocytes # 1.2 H 1.3 H (0-1.0) k/uL Potassium 3.4 L (3.5-5.1) mmol/L Carbon Dioxide 33 H (22-30) mmol/L Glucose 104 H (74-99) mg/dL Calcium 7.6 L (8.4-10.2) mg/dL Albumin (3.5-5.0) g/dL 07/30/19 07/30/19 Range/Units 03:43 12:54 WBC 17.2 H (3.8-10.6) k/uL RBC 2.59 L (4.30-5.90) m/uL Hgb 7.4 L (13.0-17.5) gm/dL Hct 24.6 L (39.0-53.0) % MCHC 30.2 L (31.0-37.0) g/dL Neutrophils # (1.3-7.7) k/uL Lymphocytes # (1.0-4.8) k/uL Monocytes # (0-1.0) k/uL Potassium (3.5-5.1) mmol/L Carbon Dioxide (22-30) mmol/L Glucose (74-99) mg/dL Calcium (8.4-10.2) mg/dL Albumin 2.4 L (3.5-5.0) g/dL Microbiology - Last 24 Hours (Table) 07/28/19 09:45 Blood Culture - Preliminary Blood No Growth after 48 hours Assessment and Plan Assessment: (1) Acute blood loss anemia, status post transfusion of packed RBCs Current Visit: Yes Status: Acute Code(s): D62 - ACUTE POSTHEMORRHAGIC ANEMIA SNOMED Code(s): 263156480 (2) Hemorrhage of cecum Current Visit: Yes Status: Acute Code(s): K92.2 - GASTROINTESTINAL HEMORRHAG E, UNSPECIFIED SNOMED Code(s): 634284533 (3) Acute GI bleeding, status post colonoscopy reporting cecal ulceration Current Visit: Yes Status: Acute Code(s): K92.2 - GASTROINTESTINAL HEMORRHAGE, UNSPECIFIED SNOMED Code(s): 71205093 (4) Hypotension Current Visit: Yes Status: Acute Code(s): I95.9 - HYPOTENSION, UNSPECIFIED SNOMED Code(s): 73022104 (5) Carcinomatosis with suspected cecal mass per CT of abdomen and pelvis, status post right colectomy, partial omentectomy.ileocecal valve ulcer biopsies pathology reporting infiltrating, moderately differentiated adenocarcinoma consistent with colon CA. Current Visit: Yes Status: Acute Code(s): C80.0 - DISSEMINATED MALIGNANT NEOPLASM, UNSPECIFIED SNOMED Code(s): 910085947 (6) Possible Postsurgical wound infection, not expected, cultures obtained, results pending (7) leukocytosis secondary to the above Plan: Continue on current medication regime , PPI, monitoring and symptomatic treatment. Wound cultures obtained and pending. Further surgical recommendations pending. IV antibiotics .Pain management. Aggressive pulmonary toileting with incentive spirometer reinforced. Close monitoring of hemoglobin/coags, electrolytes, renal function with repeat labs ordered for a.m. Maintain IV fluid hydration. Oncology consulted. Prognosis guarded given multiple complex medical issues. The impression and plan of care has been dictated as directed. : I performed a history and examination of this patient, discussed the same with the dictator. I agree with the dictator's note ,documented as a scribe. Any additional findings or plans will be noted.
--- NOTE | 2019-07-30 15:57 | P.CONS ---
History of Present Illness - Reason for Consult Consult date: 07/30/19 colon adenocarcinoma Requesting physician: Gracie Beasley - Chief Complaint GI bleeding - History of Present Illness Mr. tello is a very pleasant 59-year-old male patient with him and then asked to see his he has a new diagnosis of metastatic adenocarcinoma. Patient presented to the emergency department 07/23/19 with complaints of gastrointestinal bleeding, , described as severe abdominal discomfort starting the night before, he thought it was related to "bad chicken", he woke up with severe diarrhea consisting of large clots and a lot of blood. He began feeling very dizzy and lightheaded and his family brought him to the hospital. CT of the abdomen and pelvis 07/24/19 showing prominent lymph nodes around the cecum and terminal ileum, diffuse omental caking, ulceration of the ileocecal valve. 07/[address] Beckford, endoscopy showed a 3 cm ulcer at the ileocecal valve, pathology was positive for moderately differentiated adenocarcinoma. Stomach bi opsy showed chronic gastritis. 07/25/19 patient went to surgery with Dr. Clark, right hemicolectomy with omentectomy. Final pathology tumor size 2.2 cm x 2.4 cm, macroscopic tumor perforation in the area of the ileocecal valve, grade 2, tumor extended into the visceral peritoneum all margins uninvolved, at least 2 tumor deposits in the mesentery, 8 of 10 lymph nodes involved, pathological staging pT4 N2b M1c. AFP 24.4 Patient states that his symptoms started in his early 50s, after a myocardial infarction. He noticed progressive "hardening" of his abdomen, he also was constipated most of his life and then in his 50s his stool softeners, he has had night sweats over the last several years, he denies any unusual/unintentional weight loss, nausea, vomiting, difficulty swallowing, chest pain, acute changes in breathing, bladder habits, no other bleeding to report, some mild swelling in the lower extremities, no unusual bruising. Review of Systems 14 point review of systems is negative except as stated in HPI Past Medical History Past Medical History: Cancer, Myocardial Infarction ([place]) Additional Past Medical History / Comment(s): INPT 02/20/19-02/22/19 FOR SBO Last Myocardial Infarction Date:: 04/02/2017 History of Any Multi-Drug Resistant Organisms: None Reported Past Surgical History: Heart Catheterization With Stent, Orthopedic Surgery Additional Past Surgical History / Comment(s): RIGHT LEG ORIF,. COLONOSCOPY Past Anesthesia/Blood Transfusion Reactions: No Reported Reaction Date of Last Stent Placement:: 04/02/2017 Past Psychological History: No Psychological Hx Reported Smoking Status: Current some day smoker Past Alcohol Use History: Occasional Past Drug Use History: None Reported - Past Family History Mother Family Medical History: Cancer Medications and Allergies Home Medications Medication Instructions Recorded Confirmed Type Aspirin 81 mg PO DAILY #100 chew 04/19/17 07/23/19 Rx Clopidogrel [Plavix] 75 mg PO DAILY #100 tab 04/19/17 07/23/19 Rx Ascorbic Acid [Vitamin C] 1,000 mg PO DAILY 07/23/19 07/23/19 History Atorvastatin Calcium [Lipitor] 10 mg PO DAILY 07/23/19 07/23/19 History Levothyroxine Sodium [Synthroid] 25 mcg PO DAILY 07/23/19 07/23/19 History Hydrocodone/Acetaminophen [Sherrill 1 tab PO Q6HR PRN #10 tab 07/27/19 Rx 5-325] Allergies Allergy/AdvReac Type Severity Reaction Status Date / Time No Known Allergies Allergy Verified 07/23/19 13:39 Physical Exam Vitals: Vital Signs Temp Pulse Resp BP Pulse Ox 07/30/19 13:00 112 H 07/30/19 12:00 98.7 F 126 H 14 130/72 94 L 07/30/19 11:00 101 H 28 H 116/72 07/30/19 10:00 102 H 26 H 115/72 07/30/19 09:00 105 H 26 H 114/67 07/30/19 08:00 98.3 F 106 H 8 L 123/70 94 L 07/30/19 07:00 102 H 30 H 131/74 97 07/30/19 06:00 103 H 20 106/49 96 07/30/19 05:00 101 H 26 H 116/74 99 07/30/19 04:00 98.6 F 100 26 H 121/74 97 07/30/19 03:00 98 28 H 123/76 96 07/30/19 02:00 101 H 26 H 123/76 94 L 07/30/19 01:00 102 H 26 H 111/76 96 07/30/19 00:03 105 H 32 H 94 L 07/30/19 00:00 99.0 F 107 H 22 115/69 97 07/29/19 23:00 102 H 29 H 94/49 93 L 07/29/19 22:00 102 H 24 120/73 96 07/29/19 21:00 105 H 28 H 117/70 96 07/29/19 20:00 98.9 F 105 H 30 H 85/54 94 L 07/29/19 19:00 113 H 27 H 123/75 92 L 07/29/19 18:00 105 H 29 H 112/69 95 07/29/19 17:00 98 23 108/73 98 07/29/19 16:00 100.2 F H 102 H 25 H 116/68 93 L Intake and Output 07/30/19 07/30/19 07/30/19 06:59 14:59 22:59 Intake Total 1200 975 Output Total 390 355 Balance 810 620 Intake: IV 1100 975 Piperacillin-Tazobactam 3 100 100 .375 gm In Sodium Chloride 0.9% 100 ml @ 25 mls/hr IVPB Q8HR [facility] Rx# :[id number] Sodium Chloride 0.9% 1, 1000 875 000 ml @ 125 mls/hr IV . Q8H [facility] Rx#:[id number] Intake, IV Titration 100 Amount Potassium Chloride 10 meq 100 In Water For Injection 1 100ml.bag @ 100 mls/hr IVPB Q1HR [facility] Rx#: [id number] Output: Urine 355 355 Stool 35 Other: Voiding Method Indwelling Catheter Indwelling Catheter # Bowel Movements 1 1 Weight 97.4 kg 97.4 kg - Constitutional General appearance: average body habitus, cooperative, mild distress - EENT Eyes: anicteric sclerae, EOMI ENT: hearing grossly normal, pharyngeal erythema - Neck Neck: no lymphadenopathy - Respiratory Respiratory: bilateral: rhonchi (scattered) - Cardiovascular Rhythm: regular Heart sounds: normal: S1, S2 Abnormal Heart Sounds: no systolic murmur, no diastolic murmur, no rub, no S3 Gallop, no S4 Gallop, no click, no other leg Peripheral Edema: bilateral: 1+ - Gastrointestinal firmness, not rigid, subcutaneous emphysema? General gastrointestinal: distended, normal bowel sounds - Integumentary Integumentary: pale - Neurologic Neurologic: CNII-XII intact - Musculoskeletal Musculoskeletal: strength equal bilaterally - Psychiatric concern for patient's understanding of his situation. Psychiatric: A&O x's 3, appropriate affect Results CBC & Chem 7: 07/30/19 12:54 07/30/19 03:43 Labs: Abnormal Lab Results - Last 24 Hours (Table) 07/30/19 07/30/19 07/30/19 Range/Units 03:43 03:43 03:43 WBC 17.3 H (3.8-10.6) k/uL RBC 2.35 L (4.30-5.90) m/uL Hgb 7.0 L (13.0-17.5) gm/dL Hct 22.1 L (39.0-53.0) % MCHC (31.0-37.0) g/dL Neutrophils # 14.8 H (1.3-7.7) k/uL Lymphocytes # 0.7 L (1.0-4.8) k/uL Monocytes # 1.3 H (0-1.0) k/uL Potassium 3.4 L (3.5-5.1) mmol/L Carbon Dioxide 33 H (22-30) mmol/L Glucose 104 H (74-99) mg/dL Calcium 7.6 L (8.4-10.2) mg/dL Albumin 2.4 L (3.5-5.0) g/dL 07/30/19 Range/Units 12:54 WBC 17.2 H (3.8-10.6) k/uL RBC 2.59 L (4.30-5.90) m/uL Hgb 7.4 L (13.0-17.5) gm/dL Hct 24.6 L (39.0-53.0) % MCHC 30.2 L (31.0-37.0) g/dL Neutrophils # (1.3-7.7) k/uL Lymphocytes # (1.0-4.8) k/uL Monocytes # (0-1.0) k/uL Potassium (3.5-5.1) mmol/L Carbon Dioxide (22-30) mmol/L Glucose (74-99) mg/dL Calcium (8.4-10.2) mg/dL Albumin (3.5-5.0) g/dL Microbiology - Last 24 Hours (Table) 07/28/19 09:45 Blood Culture - Preliminary Blood No Growth after [address] scan - abdomen: report reviewed CT scan - pelvis: report reviewed Assessment and Plan (1) Adenocarcinoma of colon Narrative/Plan: New diagnosis malignancy reviewed with the patient. Patient does have rather extensive disease in the abdomen and pelvis, Kvng consistent with disease that is not curable but, his disease is certainly treatable. Explained to patient that no treatment would be considered until he has healed from surgery, approximately 4-6 weeks. we reviewed the pathology report, to the best of my ability I explained it for him to understand as much as I could. I answered all of his questions to the best of my ability. He was encouraged to rehabilitate, concentrate on a protein rich diet. Smoking cessation encouraged. Encouraged use of the patch while inpatient Current Visit: Yes Status: Acute Priority: High Code(s): C18.9 - MALIGNANT NEOPLASM OF COLON, UNSPECIFIED SNOMED Code(s): 327208831 (2) Acute blood loss anemia Narrative/Plan: Anemia workup will be ordered. No transfusion is needed at this time. Current Visit: Yes Status: Acute Priority: High Code(s): D62 - ACUTE POSTHEMORRHAGIC ANEMIA SNOMED Code(s): 102766104 Time with Patient: Greater than 30 (counseling and coordinating care)
[2019-07-30 16:34] LABS: Reticulocyte % 3.2 % (0.5-2.0)
[2019-07-30] MEDS: FAMOTIDINE 20 MG/2 ML VIAL IV SCH (20:37)
[2019-07-31] MEDS: IPRATROPIUM-ALBUTEROL 3 ML NEB INHALATION SCH ×5 (02:50→20:28)
[2019-07-31] MEDS: HYDROmorphone 1 MG/ML 1 ML SYRINGE IVP PRN ×5 (03:10→22:44)
[2019-07-31 04:00] LABS: Ferritin 274.5 ng/mL (22.0-322.0)
[2019-07-31 04:10] LABS: % Iron Saturation 2.86 (15.00-50.00)
[2019-07-31 04:57] LABS: Basophils % (A) 0 %; Eosinophils # (A) 0.2 k/uL (0-0.7); Eosinophils % (A) 2 %; HCT 22.9 % (39.0-53.0); Hypochromasia Moderate; Lymphocytes # (A) 0.8 k/uL (1.0-4.8); Lymphocytes % (A) 7 %; MCH 28.9 pg (25.0-35.0); MCHC 30.6 g/dL (31.0-37.0); MCV 94.2 fL (80.0-100.0); Monocytes # (A) 1.2 k/uL (0-1.0); Monocytes % (A) 11 %; Neutrophils # (A) 8.8 k/uL (1.3-7.7); Neutrophils % (A) 76 %; Platelet Count 458 k/uL (150-450); RBC 2.43 m/uL (4.30-5.90); RDW 15.1 % (11.5-15.5); WBC 11.6 k/uL (3.8-10.6)
[2019-07-31 05:09] LABS: African American GFR (CKD) >90 (>60 ml/min/1.73 sqM); Anion Gap 3 mmol/L; Blood Urea Nitrogen 12 mg/dL (9-20); Calcium 7.8 mg/dL (8.4-10.2); Carbon Dioxide 33 mmol/L (22-30); Chloride 99 mmol/L (98-107); Glucose 109 mg/dL (74-99); Non-African American GFR(CKD) >90 (>60 ml/min/1.73 sqM); Potassium 3.3 mmol/L (3.5-5.1); Sodium 135 mmol/L (137-145)
[2019-07-31] MEDS: oxyCODONE-APAP 5-325MG 1 EACH TAB PO PRN ×2 (05:20→19:46)
[2019-07-31] MEDS: POTASSIUM CHLORIDE ER 20 MEQ TAB.ER PO SCH ×2 (05:20→06:24)
[2019-07-31] MEDS: SODIUM CHLORIDE 0.9% 1,000 ML IV SCH ×2 (05:21→18:00)
[2019-07-31] MEDS: PANTOPRAZOLE 40 MG/10 ML VIAL IV SCH ×2 (07:39→20:47)
[2019-07-31] MEDS: PIPERACILLIN-TAZOBACTAM 3.375 GM in SODIUM CHLORIDE 0.9% 100 ML IVPB SCH ×3 (07:40→23:09)
[2019-07-31] MEDS: NICOTINE 21MG/24HR PATCH TRANSDERM SCH (07:40)
[2019-07-31] MEDS: ALVIMOPAN 12 MG CAPSULE PO SCH ×2 (07:42→20:47)
[2019-07-31] MEDS: BUDESONIDE 0.5 MG/2 ML NEBU INHALATION SCH ×2 (08:53→20:28)
--- NOTE | 2019-07-31 11:54 | US ---
EXAMINATION TYPE: US venous doppler duplex LE DATE OF EXAM: 07/31/2019 11:35 AM COMPARISON: NONE CLINICAL HISTORY: Lower extremity swelling. Edema SIDE PERFORMED: Bilateral TECHNIQUE: The lower extremity deep venous system is examined utilizing real time linear array sonog william with graded compression, doppler sonography and color-flow sonography. VESSELS IMAGED: External Iliac Vein (EIV) Common Femoral Vein Deep Femoral Vein Greater Saphenous Vein * Femoral Vein Popliteal Vein Small Saphenous Vein * Proximal Calf Veins (* superficial vessels) Right Leg: Negative for DVT Left Leg: Negative for DVT IMPRESSION: 1. No diagnostic evidence of DVT
--- NOTE | 2019-07-31 13:19 | P.PN ---
Subjective Progress Note Date: 07/31/19 A 59-year-old male patient known history of coronary artery disease with previous coronary stenting, hyperlipidemia and hypothyroidism and previous history of incarcerated umbilical hernia requiring surgery back in general 2019, came in for GI bleed and the patient was further found to have a colonic mass. The patient underwent resuscitation, given packed RBC and taken to the operating room where the colonic adenocarcinoma was removed and the postoperative staging was T4 N2 M1 disease consistent with metastatic disease with a omental involvement. The patient currently is postop day #5. The patient is currently on IV fluids at 125 mL of normal saline. The patient is on IV Zosyn as an empiric antibiotic coverage. Hemoglobin was as low as 6.5 from yesterday and the patient received another unit of packed RBC and hemoglobin came up to 8.2. Nevertheless, on today's evaluation, the abdominal wound is erythematous and there is obvious purulent drainage from the wound edges specially in the area around the umbilicus. There is also some erythema developing. I was able to remove the adryan and obtain cultures from the abdominal wound. The patient has an elevated white count of 17.3. Hemoglobin dropped again down to 7.0 without evidence of any GI bleed. Abdomen is slightly distended. He is passing flatus. No abdominal pain. No other complaints otherwise for now. He remains on normal saline at rate of 125 mL an hour. On today's evaluation of 07/31/2019, the patient is feeling better. Note that he had some abdominal wound infection and the adryan were removed yesterday and the abdomen was packed. Cultures were also sent and the results are still pending for now. On today's evaluation, abdomen is still distended although less compared to yesterday and he seems to be much more comfortable. No significant tachycardia. He is on normal saline. 125 mL an hour. He then now normal sinus rhythm. At the rate of 95 present liters of oxygen by nasal cannula with a pulse of 75%. He has no fever. Minimal drainage from the abdominal wound. Erythema is also improved. No cough. No sputum production. He is passing bowel movements for now. He remains on IV Zosyn. The white cell count is improving. Renal function is stable for now. Objective - Vital Signs Vital signs: Vital Signs Temp 98.2 F 07/31/19 08:00 Pulse 88 07/31/19 11:49 Resp 28 H 07/31/19 10:00 BP 112/67 07/31/19 10:00 Pulse Ox 92 L 07/31/19 08:00 Intake & Output 07/30/19 07/31/19 07/31/19 18:59 06:59 18:59 Intake Total 1725 1350 125 Output Total 915 605 60 Balance 810 745 65 Weight 97.4 kg 98.2 kg 98.2 kg Intake: IV 1725 1350 125 Piperacillin-Tazobactam 3 100 100 .375 gm In Sodium Chloride 0.9% 100 ml @ 25 mls/hr IVPB Q8HR [facility] Rx# :[id number] Sodium Chloride 0.9% 1, 1625 1250 125 000 ml @ 125 mls/hr IV . Q8H [facility] Rx#:[id number] Output: Urine 915 605 60 Other: Voiding Method Indwelling Catheter Indwelling Catheter Indwelling Catheter # Bowel Movements 1 - Exam GENERAL: The patient is alert and oriented x3, not in any acute distress. Well developed, well nourished. HEENT: Pupils are round and equally reacting to light. EOMI. No scleral icterus. No conjunctival pallor. Normocephalic, atraumatic. No pharyngeal erythema. No thyromegaly. CARDIOVASCULAR: S1 and S2 present. No murmurs, rubs, or gallops. PULMONARY:expiratory wheezing on exam ABDOMEN: Soft,, slightly distended specially the area around the mid abdominal incision/wound. The adryan are in place. There is erythema and purulent drainage from the edges of the wound specially around the umbilicus and more inferiorly below the umbilicus. Adryan are still intact. Several adryan were removed above and below the umbilicus. A total of 5 or 6 adryan were removed. The wound was exposed and PACs. Erythema is less at the wound edges on today's evaluation. Abdomen is less distended.. Minimal direct tenderness. No rebound tenderness. No guarding. Hypoactive bowel sounds are present. No ascites. MUSCULOSKELETAL: No joint swelling or deformity. EXTREMITIES: No cyanosis, clubbing, or pedal edema. NEUROLOGICAL: Gross neurological examination did not reveal any focal deficits. SKIN: No rashes. There is erythema around the periumbilical area where the surgical wound is present. - Labs CBC & Chem 7: 07/31/19 03:55 07/31/19 03:55 Labs: Abnormal Lab Results - Last 24 Hours (Table) 07/30/19 07/30/19 07/30/19 Range/Units 03:43 12:54 12:54 WBC 17.2 H (3.8-10.6) k/uL RBC 2.59 L (4.30-5.90) m/uL Hgb 7.4 L (13.0-17.5) gm/dL Hct 24.6 L (39.0-53.0) % MCHC 30.2 L (31.0-37.0) g/dL Plt Count (150-450) k/uL Neutrophils # (1.3-7.7) k/uL Lymphocytes # (1.0-4.8) k/uL Monocytes # (0-1.0) k/uL Retic Count 3.2 H (0.5-2.0) % Sodium (137-145) mmol/L Potassium (3.5-5.1) mmol/L Carbon Dioxide (22-30) mmol/L Glucose (74-99) mg/dL Calcium (8.4-10.2) mg/dL Iron 5 L (65-175) ug/dL TIBC 175 L (228-460) ug/dL % Saturation 2.86 L (15.00-50.00) Vitamin B12 1443.0 H (200.0-944.0) pg/mL 07/31/19 07/31/19 Range/Units 03:55 03:55 WBC 11.6 H (3.8-10.6) k/uL RBC 2.43 L (4.30-5.90) m/uL Hgb 7.0 L (13.0-17.5) gm/dL Hct 22.9 L (39.0-53.0) % MCHC 30.6 L (31.0-37.0) g/dL Plt Count 458 H (150-450) k/uL Neutrophils # 8.8 H (1.3-7.7) k/uL Lymphocytes # 0.8 L (1.0-4.8) k/uL Monocytes # 1.2 H (0-1.0) k/uL Retic Count (0.5-2.0) % Sodium 135 L (137-145) mmol/L Potassium 3.3 L (3.5-5.1) mmol/L Carbon Dioxide 33 H (22-30) mmol/L Glucose 109 H (74-99) mg/dL Calcium 7.8 L (8.4-10.2) mg/dL Iron (65-175) ug/dL TIBC (228-460) ug/dL % Saturation (15.00-50.00) Vitamin B12 (200.0-944.0) pg/mL Microbiology - Last 24 Hours (Table) 07/28/19 09:45 Blood Culture - Preliminary Blood No Growth after 72 hours 07/30/19 08:50 Gram Stain - Preliminary Abdomen Wound Culture - Preliminary Gram Neg Bacilli Assessment and Plan Plan: 1 Acute gastrointestinal bleeding secondary to colonic mass. The patient has active drainage from the surgical wound site which is quite purulent and there is some erythema along the wound edges. Consider a wound infection. This will be discussed with general surgery. 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 This is postoperative day # 7, with a postoperative staging of T4 N2 M1 disease involving the omentum. The patient develope a wound infection. Adryan were removed and the exposed portion of the wound was packed. Cultures still pending for now. He is on IV Zosyn. Erythema and abdominal distention is improved compared to yesterday. White cell count is also improved and the patient is f eeling better. 3 History of nonspecific enteritis in 2019, last colonoscopy in 2016 for screening, found to have rectal polyp and mild diverticular changes 4 Recent incarcerated umbilical hernia status post repair in February 2019 5 Chronic smoker 6 Coronary artery disease with previous stent placement and currently on aspirin and Plavix, on hold post surgery 7 Hyperlipidemia 8 Hypothyroidism 9 blood loss anemia and the patient got transfused with a total of 2 units of packed RBC during this current admission, and hemoglobin today is at 7 10 leukocytosis secondary to above, improved 11 surgical wound infection Plan Awaiting the final cultures from the surgical wound which is growing gram- negative bacillus. The patient IV Zosyn. Local wound care Incentive spirometer. Cut down the IV fluids to 75 mL an hour The patient can be transferred to medical surgical floor with remote telemetry. Oncology consultation has been obtained regarding his stage IV metastatic adenocarcinoma of the colon.
--- NOTE | 2019-07-31 13:54 | P.PN ---
Subjective Progress Note Date: 07/31/19 Principal diagnosis: Colon adenocarcinoma, acute GI bleeding from the same In follow-up today patient has had a shower, he feels a little bit better, visible shortness of breath at rest today, he notes mild SOB, abdomen is bloated, tender and hard, he denies any further bleeding from the rectum, he is never had this much swelling in his lower body/scrotum/legs before and it is in general uncomfortable. Objective - Vital Signs Vital signs: Vital Signs Temp 98.2 F 07/31/19 08:00 Pulse 88 07/31/19 11:49 Resp 28 H 07/31/19 10:00 BP 112/67 07/31/19 10:00 Pulse Ox 92 L 07/31/19 08:00 Intake & Output 07/30/19 07/31/19 07/31/19 18:59 06:59 18:59 Intake Total 1725 1350 125 Output Total 915 605 60 Balance 810 745 65 Weight 97.4 kg 98.2 kg 98.2 kg Intake: IV 1725 1350 125 Piperacillin-Tazobactam 3 100 100 .375 gm In Sodium Chloride 0.9% 100 ml @ 25 mls/hr IVPB Q8HR [facility] Rx# :[id number] Sodium Chloride 0.9% 1, 1625 1250 125 000 ml @ 125 mls/hr IV . Q8H [facility] Rx#:[id number] Output: Urine 915 605 60 Other: Voiding Method Indwelling Catheter Indwelling Catheter Indwelling Catheter # Bowel Movements 1 - Constitutional General appearance: Present: average body habitus, cooperative, mild distress - EENT Eyes: Present: anicteric sclerae, EOMI ENT: Present: hearing grossly normal - Respiratory Respiratory: bilateral: CTA (improved breath sounds today) - Cardiovascular Rhythm: regular Heart sounds: normal: S1, S2 Abnormal Heart Sounds: Absent: systolic murmur, diastolic murmur, rub, S3 Gallop, S4 Gallop, click, other - Peripheral edema leg Peripheral Edema: bilateral: 3+, Other (scrotal edema) - Gastrointestinal Gastrointestinal Comment(s): firm to palpation, few high-pitched bowel sounds at 1 minute General gastrointestinal: Present: distended, tenderness - Integumentary Integumentary: Present: pale - Neurologic Neurologic: Present: CNII-XII intact - Musculoskeletal Musculoskeletal: Present: generalized weakness - Psychiatric Psychiatric: Present: A&O x's 3, appropriate affect, intact judgment & insight - Labs CBC & Chem 7: 07/31/19 03:55 07/31/19 03:55 Labs: Abnormal Lab Results - Last 24 Hours (Table) 07/30/19 07/30/19 07/31/19 Range/Units 03:43 12:54 03:55 WBC 11.6 H (3.8-10.6) k/uL RBC 2.43 L (4.30-5.90) m/uL Hgb 7.0 L (13.0-17.5) gm/dL Hct 22.9 L (39.0-53.0) % MCHC 30.6 L (31.0-37.0) g/dL Plt Count 458 H (150-450) k/uL Neutrophils # 8.8 H (1.3-7.7) k/uL Lymphocytes # 0.8 L (1.0-4.8) k/uL Monocytes # 1.2 H (0-1.0) k/uL Retic Count 3.2 H (0.5-2.0) % Sodium (137-145) mmol/L Potassium (3.5-5.1) mmol/L Carbon Dioxide (22-30) mmol/L Glucose (74-99) mg/dL Calcium (8.4-10.2) mg/dL Iron 5 L (65-175) ug/dL TIBC 175 L (228-460) ug/dL % Saturation 2.86 L (15.00-50.00) Vitamin B12 1443.0 H (200.0-944.0) pg/mL 07/31/19 Range/Units 03:55 WBC (3.8-10.6) k/uL RBC (4.30-5.90) m/uL Hgb (13.0-17.5) gm/dL Hct (39.0-53.0) % MCHC (31.0-37.0) g/dL Plt Count (150-450) k/uL Neutrophils # (1.3-7.7) k/uL Lymphocytes # (1.0-4.8) k/uL Monocytes # (0-1.0) k/uL Retic Count (0.5-2.0) % Sodium 135 L (137-145) mmol/L Potassium 3.3 L (3.5-5.1) mmol/L Carbon Dioxide 33 H (22-30) mmol/L Glucose 109 H (74-99) mg/dL Calcium 7.8 L (8.4-10.2) mg/dL Iron (65-175) ug/dL TIBC (228-460) ug/dL % Saturation (15.00-50.00) Vitamin B12 (200.0-944.0) pg/mL Microbiology - Last 24 Hours (Table) 07/28/19 09:45 Blood Culture - Preliminary Blood No Growth after 72 hours 07/30/19 08:50 Gram Stain - Preliminary Abdomen Wound Culture - Preliminary Gram Neg Bacilli Assessment and Plan (1) Adenocarcinoma of colon Narrative/Plan: New diagnosis malignancy reviewed with the patient again. When I spoken with him yesterday I told him I wanted to discuss with the physician the possibility of his situation being curable if he only has disease in the mesentery. This was confirmed with the physician that, if patient has a good response to treatment, and minimal residual disease post treatment that there is the possibility for a curative surgery. Patient will require a PET scan outpatient to confirm disease limited to mesentery with no other organ involvement. Explained that a PET scan will not be appropriate until he has had adequate healing from surgery and recovered from infection. He verbalized understanding the plan and is in agreement with the plan. He asked me to speak with his daughter Юлия and bring her up-to-date. I did the same. Explained that it still going to be several weeks before we will have a definitive plan and prognosis for her fathers newly diagnosed colon adenocarcinoma (healing from surgery, rehab, PET scan). I answered all of her questions to the best of my ability. She was satisfied with the conversation. He was encouraged to rehabilitate, concentrate on a protein rich diet-Dietitian consulted. Smoking cessation encouraged, he did agree to use the nicotine patch and is doing ok on it Current Visit: Yes Status: Acute Priority: High Code(s): C18.9 - MALIGNANT NEOPLASM OF COLON, UNSPECIFIED SNOMED Code(s): 064069323 (2) Acute blood loss anemia Narrative/Plan: Anemia workup reviewed. Most suggestive of anemia of inflammation. No parenteral iron while acutely ill. Will recheck ferritin after healing/inflammation. No transfusion is needed at this time. Current Visit: Yes Status: Acute Priority: High Code(s): D62 - ACUTE POSTHEMORRHAGIC ANEMIA SNOMED Code(s): 006662204 Time with Patient: Greater than 30
--- NOTE | 2019-07-31 14:36 | CT ---
CT CHEST FOR PULMONARY EMBOLISM. EXAMINATION TYPE: CT angio chest DATE OF EXAM: 07/31/2019 INDICATION: dyspnea upon exertion CT DLP: 456.3 mGycm, Automated exposure control for dose reduction was used. CONTRAST: Patient injected with 100 mL of Isovue 370. COMPARISON: 04/17/2017 TECHNIQUE: CT of the chest is performed on a spiral scan at 2 mm thick sections. Study is performed with intravenous contrast timed for evaluation for pulmonary embolism. This will limit additional po rtions of the evaluation. 3-D MIP images reconstructed by the technologist are reviewed on the compu ter in the coronal and sagittal planes. FINDINGS: No persistent filling defects are evident to suggest an acute pulmonary embolism. No mediastinal or hilar adenopathy enlarged by CT criteria is evident. The ascending aorta diameter at the level of the main pulmonary artery is 3.9 cm. The main pulmonary artery diameter at the bifur cation is 3.7 cm. There is a small right pleural effusion. Compressive atelectasis is at the lung bases. Limited CT section through the upper abdomen. Ascites is present adjacent to the liver and the spleen . IMPRESSIONS: 1. No acute pulmonary embolism 2. Ascites. 3. Small right pleural effusion
--- NOTE | 2019-07-31 14:47 | P.PN ---
Subjective Progress Note Date: 07/31/19 Shahab Chairez is a 59 yo M with PMH of CAD, HLD, incarcerated umbilical hernia with recent repair February 2019 who presented to the ED after noticing rectal bleeding. He states that the day of admission he noted blood on the toilet paper and blood streaked stools 2. He presented to the ED and had 3 more bright red bowel movements. He was initially hypotensive and tachycardic and hemoglobin did drop from 13 to 11 over the course of approx 6 hours. He denies any recent steroid or NSAID use, denies frequent alcohol use and denies previous history of GI bleed. INR 0.9, COVID negative, remainder of bloodwork unremarkable. Today, he is s/p 1 U PRBC and his hemoglobin has continued to drop throughout the day. He went for EGD and colonoscopy with GI today which showed a 3 cm deep ulceration at the ileocecal valve. 07/25/2019 yesterday underwent EGD and colonoscopy reporting mild gastritis, deep 3 cm ulceration on the ileocecal valve with active bleeding and adherent clot, status post epinephrine injection followed by Endo Clip placement with biopsies. 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 Sigmoid colonic neoplasm or cecal colonic neoplasm or primary consideration at this time. Evaluated by surgery and patient is scheduled for right hemicolectomy today. Hemoglobin 8.1. Vital signs stable, maintaining O2 sats in the high 90s on 2 L nasal cannula. 07/26/2019 status post right colectomy, partial omentectomy secondary to right colon CA with metastatic spread, mesenteric and omental involvement, postop day #1. Hemoglobin stable, 8.9. Sitting up in chair, complains of abdominal pain, Dilaudid frequency recently increased. Maintained on IV fluid hydration. Mildly Tachycardic. Tolerating clear liquids with no nausea or vomiting. Incentive spirometer up to 1500. 07/27/19 ileocecal valve ulcer biopsies pathology reporting infiltrating, mo derately differentiated adenocarcinoma consistent with colon CA. colon resection pathology pending .postop day #2, complaining of uncontrolled pain, current pain management not lasting. Tachycardic, maintained on IV fluid hydration. No flatus, no bowel movement. Reports productive cough of mucousy phlegm. Incentive spirometer decreased to 1000. Maintaining O2 sats in the low 90s on 2 L nasal cannula O2 Afebrile, WBC trending down ,13.6, hemoglobin decreased to 7.1, platelets 246,CO2 29. Tolerating clear liquid diet with no nausea or vomiting. Blood sugars controlled. 07/30/2019 maintained on IV fluids, Zosyn. Reporting pain better. Purulent thick brown drainage from abdominal wound, umbilical area. Couple of adryan removed, drainage cultured. T-max 100.2, WBC elevated at 17.2. Preliminary Blood cultures reporting no growth at 48 hours.Transfused yesterday for hemoglobin of 6.5, post transfusion, hemoglobin 8.2. This morning hemoglobin dropped to 7 with recheck at noon of 7.4. No bleeding reported. Potassium 3.4, creatinine stable 0.77. Abdominal pain controlled, 3 small bowel movements yesterday, passing flatus, no nausea or vomiting. Currently nothing by mouth wi th further surgery recommendations pending. 07/31/2019 evaluated by oncology with recommendations noted. Anemia workup initiated. Decreased minimal drainage from abdominal wound. Afebrile, WBC tejas nding down to 11.6. Preliminary Wound cultures growing gram-positive bacilli and gram-negative bacilli. Maintained on IV antibiotics of Zosyn, IV fluids. Loose bowel movements. Telemetry sinus rhythm. Maintaining O2 sats in the 90s on 5 L nasal cannula. Renal function stable. Objective - Vital Signs Vital signs: Vital Signs Temp 98.2 F 07/31/19 08:00 Pulse 112 H 07/31/19 10:00 Resp 28 H 07/31/19 10:00 BP 112/67 07/31/19 10:00 Pulse Ox 92 L 07/31/19 08:00 Intake & Output 07/30/19 07/31/19 07/31/19 18:59 06:59 18:59 Intake Total 1725 1350 125 Output Total 915 605 60 Balance 810 745 65 Weight 97.4 kg 98.2 kg Intake: IV 1725 1350 125 Piperacillin-Tazobactam 3 100 100 .375 gm In Sodium Chloride 0.9% 100 ml @ 25 mls/hr IVPB Q8HR [facility] Rx# :[id number] Sodium Chloride 0.9% 1, 1625 1250 125 000 ml @ 125 mls/hr IV . Q8H [facility] Rx#:[id number] Output: Urine 915 605 60 Other: Voiding Method Indwelling Catheter Indwelling Catheter Indwelling Catheter # Bowel Movements 1 - Exam General: Sitting up in chair, no acute distress NAD. Vitals reviewed Eyes: PERRL, EOMI, conjunctiva normal. HENT: normocephalic, mucus membranes moist Neck: supple, no JVD Lungs: normal respiratory effort, essentially clear with occasional scattered rhonchi CV: Regular rate and rhythm, no murmur. Peripheral pulses 2+, no edema Abdomen: Status post surgery, soft,less distended, periumbilical site of adryan removal with decreased erythema, minimal purulent brn drainage, tender, otherwis e adryan intact, hypoactive bowel sounds. No guarding. Skin: warm and dry. Neuro: A&Ox3, normal mood and affect - Labs CBC & Chem 7: 07/31/19 03:55 07/31/19 03:55 Labs: Abnormal Lab Results - Last 24 Hours (Table) 07/30/19 07/30/19 07/30/19 Range/Units 03:43 12:54 12:54 WBC 17.2 H (3.8-10.6) k/uL RBC 2.59 L (4.30-5.90) m/uL Hgb 7.4 L (13.0-17.5) gm/dL Hct 24.6 L (39.0-53.0) % MCHC 30.2 L (31.0-37.0) g/dL Plt Count (150-450) k/uL Neutrophils # (1.3-7.7) k/uL Lymphocytes # (1.0-4.8) k/uL Monocytes # (0-1.0) k/uL Retic Count 3.2 H (0.5-2.0) % Sodium (137-145) mmol/L Potassium (3.5-5.1) mmol/L Carbon Dioxide (22-30) mmol/L Glucose (74-99) mg/dL Calcium (8.4-10.2) mg/dL Iron 5 L (65-175) ug/dL TIBC 175 L (228-460) ug/dL % Saturation 2.86 L (15.00-50.00) Vitamin B12 1443.0 H (200.0-944.0) pg/mL 07/31/19 07/31/19 Range/Units 03:55 03:55 WBC 11.6 H (3.8-10.6) k/uL RBC 2.43 L (4.30-5.90) m/uL Hgb 7.0 L (13.0-17.5) gm/dL Hct 22.9 L (39.0-53.0) % MCHC 30.6 L (31.0-37.0) g/dL Plt Count 458 H (150-450) k/uL Neutrophils # 8.8 H (1.3-7.7) k/uL Lymphocytes # 0.8 L (1.0-4.8) k/uL Monocytes # 1.2 H (0-1.0) k/uL Retic Count (0.5-2.0) % Sodium 135 L (137-145) mmol/L Potassium 3.3 L (3.5-5.1) mmol/L Carbon Dioxide 33 H (22-30) mmol/L Glucose 109 H (74-99) mg/dL Calcium 7.8 L (8.4-10.2) mg/dL Iron (65-175) ug/dL TIBC (228-460) ug/dL % Saturation (15.00-50.00) Vitamin B12 (200.0-944.0) pg/mL Microbiology - Last 24 Hours (Table) 07/30/19 08:50 Gram Stain - Preliminary Abdomen Wound Culture - Preliminary Gram Neg Bacilli 07/28/19 09:45 Blood Culture - Preliminary Blood No Growth after 48 hours Assessment and Plan Assessment: (1) Acute blood loss anemia, secondary to colonic mass, status post transfusion of packed RBCs Current Visit: Yes Status: Acute Code(s): D62 - ACUTE POSTHEMORRHAGIC ANEMIA SNOMED Code(s): 786342330 (2) Hemorrhage of cecum Current Visit: Yes Status: Acute Code(s): K92.2 - GASTROINTESTINAL HEMORRHAGE, UNSPECIFIED SNOMED Code(s): 416133100 (3) Acute GI bleeding, status post colonoscopy reporting cecal ulceration Current Visit: Yes Status: Acute Code(s): K92.2 - GASTROINTESTINAL HEMORRHAGE, UNSPECIFIED SNOMED Code(s): 19884509 (4) Hypotension Current Visit: Yes Status: Acute Code(s): I95.9 - HYPOTENSION, UNSPECIFIED SNOMED Code(s): 79198836 (5) 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 Wound cultures pending. IV antibiotics .Pain management. Smoking cessation reinforced. Aggressive pulmonary toileting with incentive spirometer reinforced. Gentle IV fluid hydration. Transferring to [facility] with remote telemetry as cleared by electronic publishing specialist .Prognosis guarded given multiple complex medical issues. The impression and plan of care has been dictated as directed. : I performed a history and examination of this patient, discussed the same with the dictator. I agree with the dictator's note ,documented as a scribe. Any additional findings or plans will be noted.
[2019-08-01] MEDS: IPRATROPIUM-ALBUTEROL 3 ML NEB INHALATION SCH ×6 (00:46→20:50)
[2019-08-01] MEDS: HYDROmorphone 1 MG/ML 1 ML SYRINGE IVP PRN ×5 (04:25→17:52)
[2019-08-01 04:59] LABS: Basophils % (A) 0 %; Eosinophils # (A) 0.2 k/uL (0-0.7); Eosinophils % (A) 2 %; HCT 22.7 % (39.0-53.0); Hypochromasia Moderate; Lymphocytes # (A) 0.7 k/uL (1.0-4.8); Lymphocytes % (A) 7 %; MCH 29.9 pg (25.0-35.0); MCHC 31.1 g/dL (31.0-37.0); MCV 96.1 fL (80.0-100.0); Monocytes # (A) 1.3 k/uL (0-1.0); Monocytes % (A) 13 %; Neutrophils # (A) 7.7 k/uL (1.3-7.7); Neutrophils % (A) 75 %; Platelet Count 415 k/uL (150-450); RBC 2.36 m/uL (4.30-5.90); WBC 10.2 k/uL (3.8-10.6)
[2019-08-01 05:24] LABS: African American GFR (CKD) >90 (>60 ml/min/1.73 sqM); Anion Gap 5 mmol/L; Blood Urea Nitrogen 11 mg/dL (9-20); Calcium 7.7 mg/dL (8.4-10.2); Carbon Dioxide 32 mmol/L (22-30); Chloride 98 mmol/L (98-107); Glucose 107 mg/dL (74-99); Non-African American GFR(CKD) >90 (>60 ml/min/1.73 sqM); Potassium 3.4 mmol/L (3.5-5.1); Sodium 135 mmol/L (137-145)
[2019-08-01] MEDS ORDERED: Potassium Replacement Protocol 1 EACH MISC MISCELLANE PRN (06:31)
[2019-08-01] MEDS: oxyCODONE-APAP 5-325MG 1 EACH TAB PO PRN ×3 (07:02→18:38)
[2019-08-01] MEDS: POTASSIUM CHLORIDE ER 20 MEQ TAB.ER PO SCH ×3 (07:03→12:49)
--- NOTE | 2019-08-01 07:19 | P.PN ---
Subjective Progress Note Date: 07/31/19 CHIEF COMPLAINT: Cecal mass, GI bleed HISTORY OF PRESENT ILLNESS: Patient is status post right colectomy with Dr. Clark. Patient examined at the bedside. Patients pain is tolerable. Tolerating diet. Less drainage from abdominal incision per nursing. PHYSICAL EXAM: VITAL SIGNS: Reviewed. GENERAL: Well-developed in no acute distress. HEENT: No sclera icterus. Extraocular movements grossly intact. Moist buccal mucosa. Head is atraumatic, normocephalic. ABDOMEN: Soft. Nondistended. Appropriate surgical tenderness. NEUROLOGIC: Alert and oriented. Cranial nerves II through XII grossly intact. ASSESSMENT: 1. GI bleed 2. 3cm ulceration on the ileocecal valve 3. Right colon cancer with metastatic spread, mesenteric and omental involvement PLAN: -Continue full liquid diet -Pain control -Incentive spirometer -Activity as tolerated -Local wound care to abdominal incision Nurse practitioner note has been reviewed by physician. Signing provider agrees with the documented findings, assessment, and plan of care. Objective - Vital Signs Vital signs: Vital Signs Temp 98.8 F 08/01/19 06:57 Pulse 97 07/31/19 23:00 Resp 18 08/01/19 06:57 BP 136/80 08/01/19 06:57 Pulse Ox 92 L 08/01/19 06:57 Intake & Output 07/31/19 08/01/19 08/01/19 18:59 06:59 18:59 Intake Total 375 100 Output Total 60 675 Balance 315 -575 Weight 98.2 kg 102 kg Intake: IV 225 100 Piperacillin-Tazobactam 3 100 100 .375 gm In Sodium Chloride 0.9% 100 ml @ 25 mls/hr IVPB Q8HR [facility] Rx# :[id number] Sodium Chloride 0.9% 1, 125 000 ml @ 75 mls/hr IV . [id number] [facility] Rx#:[id number] Oral 150 Output: Urine 60 675 Other: Voiding Method Toilet Toilet # Voids 2 0 # Bowel Movements 2 - Labs CBC & Chem 7: 08/01/19 03:58 08/01/19 03:58 Labs: Abnormal Lab Results - Last 24 Hours (Table) 08/01/19 08/01/19 Range/Units 03:58 03:58 RBC 2.36 L (4.30-5.90) m/uL Hgb 7.0 L (13.0-17.5) gm/dL Hct 22.7 L (39.0-53.0) % Lymphocytes # 0.7 L (1.0-4.8) k/uL Monocytes # 1.3 H (0-1.0) k/uL Sodium 135 L (137-145) mmol/L Potassium 3.4 L (3.5-5.1) mmol/L Carbon Dioxide 32 H (22-30) mmol/L Glucose 107 H (74-99) mg/dL Calcium 7.7 L (8.4-10.2) mg/dL Microbiology - Last 24 Hours (Table) 07/28/19 09:45 Blood Culture - Preliminary Blood No Growth after 72 hours 07/30/19 08:50 Gram Stain - Preliminary Abdomen Wound Culture - Preliminary Gram Neg Bacilli
[2019-08-01] MEDS: PANTOPRAZOLE 40 MG/10 ML VIAL IV SCH ×2 (08:14→20:30)
[2019-08-01] MEDS: ALVIMOPAN 12 MG CAPSULE PO SCH ×2 (08:15→20:30)
[2019-08-01] MEDS: NICOTINE 21MG/24HR PATCH TRANSDERM SCH (08:15)
[2019-08-01] MEDS: SODIUM CHLORIDE 0.9% 1,000 ML IV SCH ×2 (08:16→23:29)
[2019-08-01] MEDS: PIPERACILLIN-TAZOBACTAM 3.375 GM in SODIUM CHLORIDE 0.9% 100 ML IVPB SCH ×2 (08:16→16:05)
[2019-08-01] MEDS: BUDESONIDE 0.5 MG/2 ML NEBU INHALATION SCH ×2 (09:55→20:50)
--- NOTE | 2019-08-01 12:03 | P.PN ---
Subjective Progress Note Date: 08/01/19 A 59-year-old male patient known history of coronary artery disease with previous coronary stenting, hyperlipidemia and hypothyroidism and previous history of incarcerated umbilical hernia requiring surgery back in 2019, came in for GI bleed and the patient was further found to have a colonic mass. The patient underwent resuscitation, given packed RBC and taken to the operating room where the colonic adenocarcinoma was removed and the postoperative staging was T4 N2 M1 disease consistent with metastatic disease with a omental involvement. The patient currently is postop day #5. The patient is currently on IV fluids at 125 mL of normal saline. The patient is on IV Zosyn as an empiric antibiotic coverage. Hemoglobin was as low as 6.5 from yesterday and the patient received another unit of packed RBC and hemoglobin came up to 8.2. Nevertheless, on today's evaluation, the abdominal wound is erythematous and there is obvious purulent drainage from the wound edges specially in the area around the umbilicus. There is also some erythema developing. I was able to remove the adryan and obtain cultures from the abdominal wound. The patient has an elevated white count of 17.3. Hemoglobin dropped again down to 7.0 without evidence of any GI bleed. Abdomen is slightly distended. He is passing flatus. No abdominal pain. No other complaints otherwise for now. He remains on normal saline at rate of 125 mL an hour. On today's evaluation of 07/31/2019, the patient is feeling better. Note that he had some abdominal wound infection and the adryan were removed yesterday and the abdomen was packed. Cultures were also sent and the results are still pending for now. On today's evaluation, abdomen is still distended although less compared to yesterday and he seems to be much more comfortable. No significant tachycardia. He is on normal saline. 125 mL an hour. He then now normal sinus rhythm. At the rate of 95 present liters of oxygen by nasal cannula with a pulse of 75%. He has no fever. Minimal drainage from the abdominal wound. Erythema is also improved. No cough. No sputum production. He is passing bowel movements for now. He remains on IV Zosyn. The white cell count is improving. Renal function is stable for now. On today's evaluation of 62,020 the patient is doing well and has no specific complaints. No fever. No chills. Abdominal wound remains unchanged and the open portions of packed and that is no active drainage. Cultures are showing gram-negative bacillus. The patient remains on IV Zosyn. The patient is still on oxygen at 2 L with a pulse is 71%. He is using incentive spirometer and he is pulling approximately 8000. Hemodynamics is stable. No major edema lower extremities. Tolerating diet. Drinking and short. No other significant events overnight. The bowel sounds are present. White cell count is not elevated. Objective - Vital Signs Vital signs: Vital Signs Temp 98.9 F 08/01/19 08:00 Pulse 92 08/01/19 10:57 Resp 26 H 08/01/19 08:00 BP 121/74 08/01/19 08:00 Pulse Ox 91 L 08/01/19 08:00 Intake & Output 07/31/19 08/01/19 08/01/19 18:59 06:59 18:59 Intake Total 375 100 Output Total 60 675 Balance 315 -575 Weight 98.2 kg 102 kg Intake: IV 225 100 Piperacillin-Tazobactam 3 100 100 .375 gm In Sodium Chloride 0.9% 100 ml @ 25 mls/hr IVPB Q8HR [facility] Rx# :[id number] Sodium Chloride 0.9% 1, 125 000 ml @ 75 mls/hr IV . [id number] [facility] Rx#:[id number] Oral 150 Output: Urine 60 675 Other: Voiding Method Toilet Toilet Toilet # Voids 2 0 # Bowel Movements 2 - Exam GENERAL: The patient is alert and oriented x3, not in any acute distress. Well developed, well nourished. HEENT: Pupils are round and equally reacting to light. EOMI. No scleral icterus. No conjunctival pallor. Normocephalic, atraumatic. No pharyngeal erythema. No thyromegaly. CARDIOVASCULAR: S1 and S2 present. No murmurs, rubs, or gallops. PULMONARY:expiratory wheezing on exam ABDOMEN: Soft,, slightly distended specially the area around the mid abdominal incision/wound. The adryan are in place. There is erythema and purulent drainage from the edges of the wound specially around the umbilicus and more inferiorly below the umbilicus. Adryan are still intact. Several adryan were removed above and below the umbilicus. A total of 5 or 6 adryan were removed. The wound was exposed and PACs. Erythema is less at the wound edges on today's evaluation. Abdomen is less distended.. Minimal direct tenderness. No rebound tenderness. No guarding. Hypoactive bowel sounds are present. No ascites. MUSCULOSKELETAL: No joint swelling or deformity. EXTREMITIES: No cyanosis, clubbing, or pedal edema. NEUROLOGICAL: Gross neurological examination did not reveal any focal deficits. SKIN: No rashes. There is erythema around the periumbilical area where the surgical wound is present. - Labs CBC & Chem 7: 08/01/19 03:58 08/01/19 03:58 Labs: Abnormal Lab Results - Last 24 Hours (Table) 08/01/19 08/01/19 Range/Units 03:58 03:58 RBC 2.36 L (4.30-5.90) m/uL Hgb 7.0 L (13.0-17.5) gm/dL Hct 22.7 L (39.0-53.0) % Lymphocytes # 0.7 L (1.0-4.8) k/uL Monocytes # 1.3 H (0-1.0) k/uL Sodium 135 L (137-145) mmol/L Potassium 3.4 L (3.5-5.1) mmol/L Carbon Dioxide 32 H (22-30) mmol/L Glucose 107 H (74-99) mg/dL Calcium 7.7 L (8.4-10.2) mg/dL Microbiology - Last 24 Hours (Table) 07/28/19 09:45 Blood Culture - Preliminary Blood No Growth after 96 hours 07/30/19 08:50 Gram Stain - Preliminary Abdomen Wound Culture - Preliminary Gram Neg Bacilli Assessment and Plan Plan: 1 Acute gastrointestinal bleeding secondary to colonic mass. The patient has active drainage from the surgical wound site which is quite purulent and there is some erythema along the wound edges. Consider a wound infection. This will be discussed with general surgery. 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 This is postoperative day # 8, with a postoperative staging of T4 N2 M1 disease involving the omentum. The patient develope a wound infection. Pawlet were removed and the exposed portion of the wound was packed. Cultures still pending for now. He is on IV Zosyn. Erythema and abdominal distention is improved compared to yesterday. White cell count is also improved and the patient is feeling better. 3 History of nonspecific enteritis in 2018, last colonoscopy in 2016 for screening, found to have rectal polyp and mild diverticular changes 4 Recent incarcerated umbilical hernia status post repair in February 2019 5 Chronic smoker 6 Coronary artery disease with previous stent placement and currently on aspirin and Plavix, on hold post surgery 7 Hyperlipidemia 8 Hypothyroidism 9 blood loss anemia and the patient got transfused with a total of 2 units of packed RBC during this current admission, and hemoglobin today is at 7 10 leukocytosis secondary to above, improved 11 surgical wound infection Plan Awaiting the final cultures from the surgical wound which is growing gram- negative bacillus. The patient IV Zosyn. Local wound care Incentive spirometer. Cut down the IV fluids to KVO The patient can be transferred to medical surgical floor with remote telemetry. Oncology consultation has been obtained regarding his stage IV metastatic adenocarcinoma of the colon.
--- NOTE | 2019-08-01 12:57 | P.PN ---
Subjective Progress Note Date: 08/01/19 Shahab Chairez is a 59 yo M with PMH of CAD, HLD, incarcerated umbilical hernia with recent repair February 2019 who presented to the ED after noticing rectal bleeding. He states that the day of admission he noted blood on the toilet paper and blood streaked stools 2. He presented to the ED and had 3 more bright red bowel movements. He was initially hypotensive and tachycardic and hemoglobin did drop from 13 to 11 over the course of approx 6 hours. He denies any recent steroid or NSAID use, denies frequent alcohol use and denies previous history of GI bleed. INR 0.9, COVID negative, remainder of bloodwork unremarkable. Today, he is s/p 1 U PRBC and his hemoglobin has continued to drop throughout the day. He went for EGD and colonoscopy with GI today which showed a 3 cm deep ulceration at the ileocecal valve. 07/25/2019 yesterday underwent EGD and colonoscopy reporting mild gastritis, deep 3 cm ulceration on the ileocecal valve with active bleeding and adherent clot, status post epinephrine injection followed by Endo Clip placement with biopsies. 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 Sigmoid colonic neoplasm or cecal colonic neoplasm or primary consideration at this time. Evaluated by surgery and patient is scheduled for right hemicolectomy today. Hemoglobin 8.1. Vital signs stable, maintaining O2 sats in the high 90s on 2 L nasal cannula. 07/26/2019 status post right colectomy, partial omentectomy secondary to right colon CA with metastatic spread, mesenteric and omental involvement, postop day #1. Hemoglobin stable, 8.9. Sitting up in chair, complains of abdominal pain, Dilaudid frequency recently increased. Maintained on IV fluid hydration. Mildly Tachycardic. Tolerating clear liquids with no nausea or vomiting. Incentive spirometer up to 1500. 07/27/19 ileocecal valve ulcer biopsies pathology reporting infiltrating, mo derately differentiated adenocarcinoma consistent with colon CA. colon resection pathology pending .postop day #2, complaining of uncontrolled pain, current pain management not lasting. Tachycardic, maintained on IV fluid hydration. No flatus, no bowel movement. Reports productive cough of mucousy phlegm. Incentive spirometer decreased to 1000. Maintaining O2 sats in the low 90s on 2 L nasal cannula O2 Afebrile, WBC trending down ,13.6, hemoglobin decreased to 7.1, platelets 246,CO2 29. Tolerating clear liquid diet with no nausea or vomiting. Blood sugars controlled. 07/30/2019 maintained on IV fluids, Zosyn. Reporting pain better. Purulent thick brown drainage from abdominal wound, umbilical area. Couple of adryan removed, drainage cultured. T-max 100.2, WBC elevated at 17.2. Preliminary Blood cultures reporting no growth at 48 hours.Transfused yesterday for hemoglobin of 6.5, post transfusion, hemoglobin 8.2. This morning hemoglobin dropped to 7 with recheck at noon of 7.4. No bleeding reported. Potassium 3.4, creatinine stable 0.77. Abdominal pain controlled, 3 small bowel movements yesterday, passing flatus, no nausea or vomiting. Currently nothing by mouth wi th further surgery recommendations pending. 07/31/2019 evaluated by oncology with recommendations noted. Anemia workup initiated. Decreased minimal drainage from abdominal wound. Afebrile, WBC tejas nding down to 11.6. Preliminary Wound cultures growing gram-positive bacilli and gram-negative bacilli. Maintained on IV antibiotics of Zosyn, IV fluids. Loose bowel movements. Telemetry sinus rhythm. Maintaining O2 sats in the 90s on 5 L nasal cannula. Renal function stable. 08/01/2019 CT performed yesterday reported no acute PE, compressive atelectasis at bilateral bases, small right pleural effusion, ascites adjacent to liver and spleen. hemoglobin 7. Maintained on Zosyn. Cultures growing gram-negative bacilli, afebrile with normal WBC. Mild tachycardia today. Continues to have l oose nonbloody bowel movements. Potassium 3.4, receiving supplements as per replacement protocol. Maintaining O2 sats in the 90s on 2 L nasal cannula. Objective - Vital Signs Vital signs: Vital Signs Temp 98.9 F 08/01/19 08:00 Pulse 109 H 08/01/19 08:00 Resp 26 H 08/01/19 08:00 BP 121/74 08/01/19 08:00 Pulse Ox 91 L 08/01/19 08:00 Intake & Output 07/31/19 08/01/19 08/01/19 18:59 06:59 18:59 Intake Total 375 100 Output Total 60 675 Balance 315 -575 Weight 98.2 kg 102 kg Intake: IV 225 100 Piperacillin-Tazobactam 3 100 100 .375 gm In Sodium Chloride 0.9% 100 ml @ 25 mls/hr IVPB Q8HR [facility] Rx# :[id number] Sodium Chloride 0.9% 1, 125 000 ml @ 75 mls/hr IV . [id number] [facility] Rx#:[id number] Oral 150 Output: Urine 60 675 Other: Voiding Method Toilet Toilet # Voids 2 0 # Bowel Movements 2 - Exam General: Sitting up in chair, pale, no acute distress NAD. Vitals as above. Eyes: PERRL, EOMI, conjunctiva normal. HENT: normocephalic, mucus membranes moist Neck: supple, no JVD Lungs: normal respiratory effort, essentially clear. CV: Regular rate and rhythm, no murmur. Peripheral pulses 2+, no edema Abdomen: Status post surgery, soft,distended, periumbilical wound site dressing with shadowing ,otherwise adryan intact, hypoactive bowel sounds. No guarding. Skin: warm and dry. Neuro: A&Ox3, normal mood and affect - Labs CBC & Chem 7: 08/01/19 03:58 08/01/19 03:58 Labs: Abnormal Lab Results - Last 24 Hours (Table) 08/01/19 08/01/19 Range/Units 03:58 03:58 RBC 2.36 L (4.30-5.90) m/uL Hgb 7.0 L (13.0-17.5) gm/dL Hct 22.7 L (39.0-53.0) % Lymphocytes # 0.7 L (1.0-4.8) k/uL Monocytes # 1.3 H (0-1.0) k/uL Sodium 135 L (137-145) mmol/L Potassium 3.4 L (3.5-5.1) mmol/L Carbon Dioxide 32 H (22-30) mmol/L Glucose 107 H (74-99) mg/dL Calcium 7.7 L (8.4-10.2) mg/dL Microbiology - Last 24 Hours (Table) 07/28/19 09:45 Blood Culture - Preliminary Blood No Growth after 72 hours 07/30/19 08:50 Gram Stain - Preliminary Abdomen Wound Culture - Preliminary Gram Neg Bacilli Assessment and Plan Assessment: (1) Acute blood loss anemia, secondary to colonic mass, status post transfusion of packed RBCs Current Visit: Yes Status: Acute Code(s): D62 - ACUTE POSTHEMORRHAGIC ANEMIA SNOMED Code(s): 558946821 (2) Hemorrhage of cecum Current Visit: Yes Status: Acute Code(s): K92.2 - GASTROINTESTINAL HEMORRHAGE, UNSPECIFIED SNOMED Code(s): 094720845 (3) Acute GI bleeding, status post colonoscopy reporting cecal ulceration Current Visit: Yes Status: Acute Code(s): K92.2 - GASTROINTESTINAL HEMORRHAGE, UNSPECIFIED SNOMED Code(s): 55844873 (4) Hypotension Current Visit: Yes Status: Acute Code(s): I95.9 - HYPOTENSION, UNSPECIFIED SNOMED Code(s): 20895992 (5) Carcinomatosis with 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 Aggressive pulmonary toileting with incentive spirometer reinforced. Gentle IV fluid hydration. Dietary consult. Prognosis guarded given multiple complex medical issues. The impression and plan of care has been dictated as directed. : I performed a history and examination of this patient, discussed the same with the dictator. I agree with the dictator's note ,documented as a scribe. Any additional findings or plans will be noted.
--- NOTE | 2019-08-01 14:11 | CDI ---
Documentation Clarification Form Date: 08/01/2019 01:34:37 PM From: Kiki Kemp RN CCDS Admit Date: 07/23/2019 06:15:00 AM Patient Name: Shahab Chairez Visit Number: [id number] Discharge Date: ATTENTION: The Clinical Documentation Specialists (CDI) and [facility] Coding Staff appreciate your assistance in clarifying documentation. Please respond to the clarification below the line at the bottom and electronically sign. The CDI & [facility] Coding staff will review the response and follow-up if needed. Please note: Queries are made part of the Legal Health Record. If you have any questions, please contact the author of this message via ITS. Dr. Brett Clark Possible Postsurgical wound infection, not expected, cultures pending. Patients Admitting Diagnosis: Right colon cancer Post-Operative Diagnosis: Right colon cancer with metastatic spread, mesenteric and omental involvement. Procedure performed: Right colectomy. Partial omentectomy History/Risk Factors: 59-year-old male presents to the ED after noticing rectal bleeding. Medical History Umbilical hernia with repair February 2019. Medical History [place] 04/02/17 with stent. Clinical Indicators: 07/29 Heating Fixture Tender Progress Note on todays evaluation, the abdominal wound is erythematous and there is obvious purulent drainage from the wound edges specially in the area around the umbilicus. 07/30 Heating Fixture Tender Progress Note Awaiting the final cultures from the surgical wound which is growing gram negative bacillus. Treatment: 07/27 Zosyn Ivpb Q 8Hrs, 07/29 Five adryan removed. Pack with 4x4 gauze, keep dressing intact by Dr. Clrak. Found in nursing notes. In order to accurately reflect this patients severity of illness, please clarify if the postsurgical wound infection -has been ruled out -is a complication of surgical procedure -is an expected outcome of the surgical procedure -is related to co-morbid condition(s) of -Other please specify -Unable to determine (Last Revision: March 2019) Is a consultation of the surgical procedure. RENU
--- NOTE | 2019-08-01 14:57 | P.PN ---
Subjective Progress Note Date: 08/01/19 CHIEF COMPLAINT: Cecal mass, GI bleed HISTORY OF PRESENT ILLNESS: Patient is status post right colectomy with Dr. Clark. Patient examined at the bedside. Patients pain is tolerable. Tolerating diet. Denies nausea or vomiting. Passing flatus and having bowel m ovements. Wound culture positive for gram-negative bacilli. PHYSICAL EXAM: VITAL SIGNS: Reviewed. GENERAL: Well-developed in no acute distress. HEENT: No sclera icterus. Extraocular movements grossly intact. Moist buccal mucosa. Head is atraumatic, normocephalic. ABDOMEN: Soft. Nondistended. Appropriate surgical tenderness. Dressing clean dry and intact. NEUROLOGIC: Alert and oriented. Cranial nerves II through XII grossly intact. ASSESSMENT: 1. GI bleed 2. 3cm ulceration on the ileocecal valve 3. Right colon cancer with metastatic spread, mesenteric and omental involvement PLAN: -Advance diet -Pain control -Incentive spirometer -Activity as tolerated -Local wound care to abdominal incision Nurse practitioner note has been reviewed by physician. Signing provider agrees with the documented findings, assessment, and plan of care. Objective - Vital Signs Vital signs: Vital Signs Temp 98.9 F 08/01/19 08:00 Pulse 92 08/01/19 10:57 Resp 26 H 08/01/19 08:00 BP 121/74 08/01/19 08:00 Pulse Ox 91 L 08/01/19 08:00 Intake & Output 07/31/19 08/01/19 08/01/19 18:59 06:59 18:59 Intake Total 375 100 Output Total 60 675 Balance 315 -575 Weight 98.2 kg 102 kg Intake: IV 225 100 Piperacillin-Tazobactam 3 100 100 .375 gm In Sodium Chloride 0.9% 100 ml @ 25 mls/hr IVPB Q8HR [facility] Rx# :[id number] Sodium Chloride 0.9% 1, 125 000 ml @ 75 mls/hr IV . [id number] [facility] Rx#:[id number] Oral 150 Output: Urine 60 675 Other: Voiding Method Toilet Toilet Toilet # Voids 2 0 # Bowel Movements 2 - Labs CBC & Chem 7: 08/01/19 03:58 08/01/19 03:58 Labs: Abnormal Lab Results - Last 24 Hours (Table) 08/01/19 08/01/19 Range/Units 03:58 03:58 RBC 2.36 L (4.30-5.90) m/uL Hgb 7.0 L (13.0-17.5) gm/dL Hct 22.7 L (39.0-53.0) % Lymphocytes # 0.7 L (1.0-4.8) k/uL Monocytes # 1.3 H (0-1.0) k/uL Sodium 135 L (137-145) mmol/L Potassium 3.4 L (3.5-5.1) mmol/L Carbon Dioxide 32 H (22-30) mmol/L Glucose 107 H (74-99) mg/dL Calcium 7.7 L (8.4-10.2) mg/dL Microbiology - Last 24 Hours (Table) 07/28/19 09:45 Blood Culture - Preliminary Blood No Growth after 96 hours 07/30/19 08:50 Gram Stain - Preliminary Abdomen Wound Culture - Preliminary Gram Neg Bacilli
--- NOTE | 2019-08-01 16:17 | P.PN ---
Subjective Progress Note Date: 08/01/19 Principal diagnosis: Colon adenocarcinoma, acute GI bleeding from the same In follow-up today patient continues to improve, he is starting to expectorate, feels decent, shortness of breath is less intense, abdomen bloating and leg swelling is stable, uncomfortable/irritating. Objective - Vital Signs Vital signs: Vital Signs Temp 98.9 F 08/01/19 08:00 Pulse 90 08/01/19 15:59 Resp 26 H 08/01/19 08:00 BP 121/74 08/01/19 08:00 Pulse Ox 91 L 08/01/19 08:00 Intake & Output 07/31/19 08/01/19 08/01/19 18:59 06:59 18:59 Intake Total 375 100 720 Output Total 60 675 300 Balance 315 -575 420 Weight 98.2 kg 102 kg Intake: IV 225 100 Piperacillin-Tazobactam 3 100 100 .375 gm In Sodium Chloride 0.9% 100 ml @ 25 mls/hr IVPB Q8HR [facility] Rx# :[id number] Sodium Chloride 0.9% 1, 125 000 ml @ 75 mls/hr IV . [id number] [facility] Rx#:[id number] Oral 150 720 Output: Urine 60 675 300 Other: Voiding Method Toilet Toilet Toilet # Voids 2 0 1 # Bowel Movements 2 1 - Constitutional General appearance: Present: average body habitus, cooperative, no acute distress - EENT Eyes: Present: anicteric sclerae, EOMI ENT: Present: hearing grossly normal - Respiratory Respiratory: bilateral: CTA, diminished - Cardiovascular Rhythm: regular Heart sounds: normal: S1, S2 - Peripheral edema leg Peripheral Edema: bilateral: 2+ - Gastrointestinal General gastrointestinal: Present: normal bowel sounds, soft - Genitourinary Male genitourinary: scrotal edema - Neurologic Neurologic: Present: CNII-XII intact - Musculoskeletal Musculoskeletal: Present: strength equal bilaterally - Psychiatric Psychiatric: Present: A&O x's 3, appropriate affect, intact judgment & insight - Labs CBC & Chem 7: 08/01/19 03:58 08/01/19 03:58 Labs: Abnormal Lab Results - Last 24 Hours (Table) 07/30/19 08/01/19 08/01/19 Range/Units 12:54 03:58 03:58 RBC 2.36 L (4.30-5.90) m/uL Hgb 7.0 L (13.0-17.5) gm/dL Hct 22.7 L (39.0-53.0) % Lymphocytes # 0.7 L (1.0-4.8) k/uL Monocytes # 1.3 H (0-1.0) k/uL Sodium 135 L (137-145) mmol/L Potassium 3.4 L (3.5-5.1) mmol/L Carbon Dioxide 32 H (22-30) mmol/L Glucose 107 H (74-99) mg/dL Calcium 7.7 L (8.4-10.2) mg/dL RBC Folate 1,470 H (280 - 791) ng/mL Microbiology - Last 24 Hours (Table) 07/30/19 08:50 Gram Stain - Final Abdomen Wound Culture - Final Escherichia coli 07/28/19 09:45 Blood Culture - Preliminary Blood No Growth after 96 hours - Imaging and Cardiology CT scan - chest: report reviewed Assessment and Plan (1) Adenocarcinoma of colon Narrative/Plan: Plan for treatment once infection resolved and healed from surgery-approx 4-5 weeks. PET scan at that time to complete staging. He has verbalized underst anding the plan and is in agreement with the plan. He was encouraged to rehabilitate, concentrate on a protein rich diet-Dietitian consulted. Being transferred out of ICU today Current Visit: Yes Status: Acute Priority: High Code(s): C18.9 - MALIGNANT NEOPLASM OF COLON, UNSPECIFIED SNOMED Code(s): 454348239 (2) Acute blood loss anemia Narrative/Plan: Anemia workup reviewed. Most suggestive of anemia of inflammation. No parenteral iron while acutely ill. Will recheck ferritin after healing/inflammation. No transfusion is needed at this time. Hgb is stable. Current Visit: Yes Status: Acute Priority: High Code(s): D62 - ACUTE POSTHEMORRHAGIC ANEMIA SNOMED Code(s): 606919602
[2019-08-01] MEDS: FAMOTIDINE 20 MG/2 ML VIAL IV SCH (23:29)
[2019-08-02] MEDS: oxyCODONE-APAP 5-325MG 1 EACH TAB PO PRN ×3 (00:32→19:35)
[2019-08-02] MEDS: PIPERACILLIN-TAZOBACTAM 3.375 GM in SODIUM CHLORIDE 0.9% 100 ML IVPB SCH ×4 (00:33→23:46)
[2019-08-02] MEDS: IPRATROPIUM-ALBUTEROL 3 ML NEB INHALATION SCH ×5 (02:58→19:14)
[2019-08-02 07:00] LABS: HCT 23.2 % (39.0-53.0); HGB 7.4 gm/dL (13.0-17.5); Hypochromasia Moderate; MCH 29.7 pg (25.0-35.0); MCV 92.7 fL (80.0-100.0); Mean Platelet Volume 7.7; Platelet Count 603 k/uL (150-450); RBC 2.51 m/uL (4.30-5.90); RDW 14.7 % (11.5-15.5); WBC 12.5 k/uL (3.8-10.6)
[2019-08-02] MEDS: BUDESONIDE 0.5 MG/2 ML NEBU INHALATION SCH ×2 (07:11→19:14)
[2019-08-02 08:12] LABS: Methylmalonic Acid 0.24 umol/L (<0.40)
[2019-08-02] MEDS: HYDROmorphone 1 MG/ML 1 ML SYRINGE IVP PRN ×3 (09:46→16:05)
[2019-08-02] MEDS: NICOTINE 21MG/24HR PATCH TRANSDERM SCH (10:01)
[2019-08-02] MEDS: PANTOPRAZOLE 40 MG/10 ML VIAL IV SCH ×2 (10:01→20:14)
--- NOTE | 2019-08-02 11:04 | P.PN ---
Subjective Progress Note Date: 08/02/19 Principal diagnosis: Colon adenocarcinoma, acute GI bleeding from the same In follow-up today patient is on the Gen. medical unit, his abdomen is still pretty tender, some of the swelling in his extremities and scrotum is slowly starting to improve. He has no other acute complaints at this time. Objective - Vital Signs Vital signs: Vital Signs Temp 98.3 F 08/02/19 05:26 Pulse 88 08/02/19 07:24 Resp 18 08/02/19 05:26 BP 129/75 08/02/19 05:26 Pulse Ox 94 L 08/02/19 05:26 Intake & Output 08/01/19 08/02/19 08/02/19 18:59 06:59 18:59 Intake Total 720 120 Output Total 300 505 Balance 420 -505 120 Weight 101 kg Intake: Oral 720 120 Output: Urine 300 470 Stool 35 Other: Voiding Method Toilet Toilet Urinal Urinal # Voids 1 # Bowel Movements 1 - Constitutional General appearance: Present: average body habitus, cooperative, no acute distress - EENT Eyes: Present: anicteric sclerae, EOMI ENT: Present: hearing grossly normal - Respiratory Details: Respirations even and unlabored - Cardiovascular Details: Skin warm and dry to the touch - Gastrointestinal Gastrointestinal Comment(s): Distended - Genitourinary Male genitourinary: scrotal edema - Integumentary Integumentary: Present: pale - Neurologic Neurologic: Present: CNII-XII intact - Musculoskeletal Musculoskeletal: Present: generalized weakness - Psychiatric Psychiatric: Present: A&O x's 3, appropriate affect, intact judgment & insight - Labs CBC & Chem 7: 08/02/19 06:15 08/01/19 03:58 Labs: Abnormal Lab Results - Last 24 Hours (Table) 07/30/19 08/02/19 Range/Units 12:54 06:15 WBC 12.5 H (3.8-10.6) k/uL RBC 2.51 L (4.30-5.90) m/uL Hgb 7.4 L (13.0-17.5) gm/dL Hct 23.2 L (39.0-53.0) % Plt Count 603 H (150-450) k/uL RBC Folate 1,470 H (280 - 791) ng/mL Microbiology - Last 24 Hours (Table) 07/30/19 08:50 Gram Stain - Final Abdomen Wound Culture - Final Escherichia coli 07/28/19 09:45 Blood Culture - Preliminary Blood No Growth after 96 hours Assessment and Plan (1) Adenocarcinoma of colon Narrative/Plan: Review to diagnosis, prognosis, plan. Pt does not have an absolute prognosis. Needs the PET scan to see if there is disease in any other organs. If disease is limited to the peritoneum and the patient has a good response to treatment, he could potentially be cured with surgical intervention. Plan is for treatment once infection resolved and healed from surgery. PET scan after healing to complete staging. He has verbalized understanding the plan and is in agreement with the plan. Supportive patient to continue smoking cessation on discharge. He was encouraged to rehabilitate, work with PT/OT and to concentrate on a protein rich diet-Dietitian consulted. Doctor attests: I performed a history and physical examination of this patient, developed impression and plan of care. Discussed with dictator. I agree with dictators note, documented as a scribe. Current Visit: Yes Status: Acute Priority: High Code(s): C18.9 - MALIGNANT NEOPLASM OF COLON, UNSPECIFIED SNOMED Code(s): 742099539 (2) Acute blood loss anemia Narrative/Plan: Anemia workup reviewed. Most suggestive of anemia of inflammation. No parenteral iron while acutely ill. Will recheck ferritin after healing/inflammation. No transfusion is needed at this time. Hgb is stable. Current Visit: Yes Status: Acute Priority: High Code(s): D62 - ACUTE POSTHEMORRHAGIC ANEMIA SNOMED Code(s): 959637198
--- NOTE | 2019-08-02 11:10 | P.PN ---
Subjective Progress Note Date: 08/02/19 Principal diagnosis: GI Bleed The patient is seen today 08/02/2019 in follow up on the regular medical floor. He is awake and alert in no acute distress. Maintaining good O2 saturations on room air. He's been afebrile. Wound culture was positive for E. coli. Minimal drainage noted. Abdominal adryan are in place with a few that have been removed and there is packing in place. He's been afebrile. Hemodynamically stable. White count 12.5. Hemoglobin 7.4. He is continued on Zosyn, bronchodilators. NicoDerm patches in place. He is working well with the incentive spirometer. Objective - Vital Signs Vital signs: Vital Signs Temp 98.3 F 08/02/19 05:26 Pulse 88 08/02/19 07:24 Resp 18 08/02/19 05:26 BP 129/75 08/02/19 05:26 Pulse Ox 94 L 08/02/19 05:26 Intake & Output 08/01/19 08/02/19 08/02/19 18:59 06:59 18:59 Intake Total 720 120 Output Total 300 505 Balance 420 -505 120 Weight 101 kg Intake: Oral 720 120 Output: Urine 300 470 Stool 35 Other: Voiding Method Toilet Toilet Urinal Urinal # Voids 1 # Bowel Movements 1 - Exam GENERAL: The patient is pleasant 59-year-old gentleman, alert and oriented x3, not in any acute distress. O2 saturations in the 90s on room air HEENT: Pupils are round and equally reacting to light. EOMI. No scleral icterus. No conjunctival pallor. Normocephalic, atraumatic. No pharyngeal erythema. No thyromegaly. CARDIOVASCULAR: S1 and S2 present. No murmurs, rubs, or gallops. PULMONARY: Crackles in the posterior bases ABDOMEN: Soft,, slightly distended specially the area around the mid abdominal incision/wound. The adryan are in place. There is erythema and purulent drainage from the edges of the wound specially around the umbilicus and more inferiorly below the umbilicus. [place] are still intact. Several adryan were removed above and below the umbilicus. A total of 5 or 6 adryan were removed. The wound was exposed and PACs. Erythema is less at the wound edges on today's evaluation. Abdomen is less distended.. Minimal direct tenderness. No rebound tenderness. No guarding. Hypoactive bowel sounds are present. No ascites. MUSCULOSKELETAL: No joint swelling or deformity. EXTREMITIES: No cyanosis, clubbing, or pedal edema. NEUROLOGICAL: Gross neurological examination did not reveal any focal deficits. SKIN: No rashes. There is erythema around the periumbilical area where the surgical wound is present. - Labs CBC & Chem 7: 08/02/19 06:15 08/01/19 03:58 Labs: Abnormal Lab Results - Last 24 Hours (Table) 07/30/19 08/02/19 Range/Units 12:54 06:15 WBC 12.5 H (3.8-10.6) k/uL RBC 2.51 L (4.30-5.90) m/uL Hgb 7.4 L (13.0-17.5) gm/dL Hct 23.2 L (39.0-53.0) % Plt Count 603 H (150-450) k/uL RBC Folate 1,470 H (280 - 791) ng/mL Microbiology - Last 24 Hours (Table) 07/30/19 08:50 Gram Stain - Final Abdomen Wound Culture - Final Escherichia coli 07/28/19 09:45 Blood Culture - Preliminary Blood No Growth after 96 hours Assessment and Plan Assessment: 1 Acute gastrointestinal bleeding secondary to colonic mass. 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 Wound cultures positive for E. coli. Currently on Zosyn. 2 History of nonspecific enteritis in 2019, last colonoscopy in 2016 for screening, found to have rectal polyp and mild diverticular changes 3 Recent incarcerated umbilical hernia status post repair in February 2019 4 Chronic and ongoing tobacco dependence 5 Coronary artery disease with previous stent placement and currently on aspirin and Plavix 6 Hyperlipidemia 7 Hypothyroidism Plan: The patient was seen and evaluated by Dr. Beasley He is currently stable from the pulmonary and critical care standpoint Continue bronchodilators Continue Zosyn Encourage increased use the incentive spirometer We will continue to follow I, the cosigning physician, performed a history & physical examination of the patient. Lungs sounds with crackles in the posterior bases. Maintaining good O2 saturations in the 90s on room air. I discussed the assessment and plan of care with my nurse practitioner, Leticia Grimes. I attest to the above note as dictated by her.
[2019-08-02 12:14] VITALS: BMI 31.0
--- NOTE | 2019-08-02 12:31 | P.PN ---
Subjective Progress Note Date: 08/02/19 CHIEF COMPLAINT: Cecal mass, GI bleed HISTORY OF PRESENT ILLNESS: Patient is status post right colectomy with Dr. Clark. Patient examined at the bedside. Patients pain is tolerable. Tolerating diet. Denies nausea or vomiting. Passing flatus and having bowel m ovements. Wound culture positive for E. coli. PHYSICAL EXAM: VITAL SIGNS: Reviewed. GENERAL: Well-developed in no acute distress. HEENT: No sclera icterus. Extraocular movements grossly intact. Moist buccal mucosa. Head is atraumatic, normocephalic. ABDOMEN: Soft. Nondistended. Appropriate surgical tenderness. Dressing clean dry and intact. NEUROLOGIC: Alert and oriented. Cranial nerves II through XII grossly intact. ASSESSMENT: 1. GI bleed 2. 3cm ulceration on the ileocecal valve 3. Right colon cancer with metastatic spread, mesenteric and omental involvement PLAN: -Continue diet as tolerated -Pain control -Incentive spirometer -Activity as tolerated -Continue antibiotics -Local wound care to abdominal incision Nurse practitioner note has been reviewed by physician. Signing provider agrees with the documented findings, assessment, and plan of care. Objective - Vital Signs Vital signs: Vital Signs Temp 98.3 F 08/02/19 05:26 Pulse 100 08/02/19 11:17 Resp 18 08/02/19 05:26 BP 129/75 08/02/19 05:26 Pulse Ox 94 L 08/02/19 05:26 Intake & Output 08/01/19 08/02/19 08/02/19 18:59 06:59 18:59 Intake Total 720 120 Output Total 300 505 Balance 420 -505 120 Weight 101 kg 101 kg Intake: Oral 720 120 Output: Urine 300 470 Stool 35 Other: Voiding Method Toilet Toilet Urinal Urinal # Voids 1 # Bowel Movements 1 - Labs CBC & Chem 7: 08/02/19 06:15 08/01/19 03:58 Labs: Abnormal Lab Results - Last 24 Hours (Table) 07/30/19 08/02/19 Range/Units 12:54 06:15 WBC 12.5 H (3.8-10.6) k/uL RBC 2.51 L (4.30-5.90) m/uL Hgb 7.4 L (13.0-17.5) gm/dL Hct 23.2 L (39.0-53.0) % Plt Count 603 H (150-450) k/uL RBC Folate 1,470 H (280 - 791) ng/mL Microbiology - Last 24 Hours (Table) 07/28/19 09:45 Blood Culture - Preliminary Blood No Growth after 120 hours 07/30/19 08:50 Gram Stain - Final Abdomen Wound Culture - Final Escherichia coli
--- NOTE | 2019-08-02 15:22 | P.PN ---
Subjective Progress Note Date: 08/02/19 Shahab Chairez is a 59 yo M with PMH of CAD, HLD, incarcerated umbilical hernia with recent repair February 2019 who presented to the ED after noticing rectal bleeding. He states that the day of admission he noted blood on the toilet paper and blood streaked stools 2. He presented to the ED and had 3 more bright red bowel movements. He was initially hypotensive and tachycardic and hemoglobin did drop from 13 to 11 over the course of approx 6 hours. He denies any recent steroid or NSAID use, denies frequent alcohol use and denies previous history of GI bleed. INR 0.9, COVID negative, remainder of bloodwork unremarkable. Today, he is s/p 1 U PRBC and his hemoglobin has continued to drop throughout the day. He went for EGD and colonoscopy with GI today which showed a 3 cm deep ulceration at the ileocecal valve. 07/25/2019 yesterday underwent EGD and colonoscopy reporting mild gastritis, deep 3 cm ulceration on the ileocecal valve with active bleeding and adherent clot, status post epinephrine injection followed by Endo Clip placement with biopsies. 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 Sigmoid colonic neoplasm or cecal colonic neoplasm or primary consideration at this time. Evaluated by surgery and patient is scheduled for right hemicolectomy today. Hemoglobin 8.1. Vital signs stable, maintaining O2 sats in the high 90s on 2 L nasal cannula. 07/26/2019 status post right colectomy, partial omentectomy secondary to right colon CA with metastatic spread, mesenteric and omental involvement, postop day #1. Hemoglobin stable, 8.9. Sitting up in chair, complains of abdominal pain, Dilaudid frequency recently increased. Maintained on IV fluid hydration. Mildly Tachycardic. Tolerating clear liquids with no nausea or vomiting. Incentive spirometer up to 1500. 07/27/19 ileocecal valve ulcer biopsies pathology reporting infiltrating, mo derately differentiated adenocarcinoma consistent with colon CA. colon resection pathology pending .postop day #2, complaining of uncontrolled pain, current pain management not lasting. Tachycardic, maintained on IV fluid hydration. No flatus, no bowel movement. Reports productive cough of mucousy phlegm. Incentive spirometer decreased to 1000. Maintaining O2 sats in the low 90s on 2 L nasal cannula O2 Afebrile, WBC trending down ,13.6, hemoglobin decreased to 7.1, platelets 246,CO2 29. Tolerating clear liquid diet with no nausea or vomiting. Blood sugars controlled. 07/30/2019 maintained on IV fluids, Zosyn. Reporting pain better. Purulent thick brown drainage from abdominal wound, umbilical area. Couple of adryan removed, drainage cultured. T-max 100.2, WBC elevated at 17.2. Preliminary Blood cultures reporting no growth at 48 hours.Transfused yesterday for hemoglobin of 6.5, post transfusion, hemoglobin 8.2. This morning hemoglobin dropped to 7 with recheck at noon of 7.4. No bleeding reported. Potassium 3.4, creatinine stable 0.77. Abdominal pain controlled, 3 small bowel movements yesterday, passing flatus, no nausea or vomiting. Currently nothing by mouth wi th further surgery recommendations pending. 07/31/2019 evaluated by oncology with recommendations noted. Anemia workup initiated. Decreased minimal drainage from abdominal wound. Afebrile, WBC tejas nding down to 11.6. Preliminary Wound cultures growing gram-positive bacilli and gram-negative bacilli. Maintained on IV antibiotics of Zosyn, IV fluids. Loose bowel movements. Telemetry sinus rhythm. Maintaining O2 sats in the 90s on 5 L nasal cannula. Renal function stable. 08/01/2019 CT performed yesterday reported no acute PE, compressive atelectasis at bilateral bases, small right pleural effusion, ascites adjacent to liver and spleen. hemoglobin 7. Maintained on Zosyn. Cultures growing gram-negative bacilli, afebrile with normal WBC. Mild tachycardia today. Continues to have l oose nonbloody bowel movements. Potassium 3.4, receiving supplements as per replacement protocol. Maintaining O2 sats in the 90s on 2 L nasal cannula. 08/02/2019 maintained on immunized bronchodilators, Zosyn .transferred out of ICU, currently on MedSurg unit. Wound culture reporting E. coli. Afebrile, WBC 12.5. Decreased drainage reported.VSS, maintaining O2 sats in the 90s on room air. Hemoglobin 7.4 Objective - Vital Signs Vital signs: Vital Signs Temp 98.3 F 08/02/19 05:26 Pulse 88 08/02/19 07:24 Resp 18 08/02/19 05:26 BP 129/75 08/02/19 05:26 Pulse Ox 94 L 08/02/19 05:26 Intake & Output 08/01/19 08/02/19 08/02/19 18:59 06:59 18:59 Intake Total 720 120 Output Total 300 505 Balance 420 -505 120 Weight 101 kg Intake: Oral 720 120 Output: Urine 300 470 Stool 35 Other: Voiding Method Toilet Toilet Urinal Urinal # Voids 1 # Bowel Movements 1 - Exam General: Sitting up in chair, no acute distress NAD. Vitals as above. Eyes: PERRL, EOMI, conjunctiva normal. HENT: normocephalic, oral mucosa moist Neck: supple, no JVD Lungs: normal respiratory effort, bilateral bases diminished with fine bibasilar crackles. CV: Regular rate and rhythm, no murmur. Peripheral pulses 2+, no edema Abdomen: Status post surgery, soft,less distended today, periumbilical wound site dressing clean dry and intact-recently changed,otherwise adryan intact, hypoactive bowel sounds. No guarding. Skin: warm and dry. Neuro: A&Ox3, normal mood and affect - Labs CBC & Chem 7: 08/02/19 06:15 08/01/19 03:58 Labs: Abnormal Lab Results - Last 24 Hours (Table) 07/30/19 08/02/19 Range/Units 12:54 06:15 WBC 12.5 H (3.8-10.6) k/uL RBC 2.51 L (4.30-5.90) m/uL Hgb 7.4 L (13.0-17.5) gm/dL Hct 23.2 L (39.0-53.0) % Plt Count 603 H (150-450) k/uL RBC Folate 1,470 H (280 - 791) ng/mL Microbiology - Last 24 Hours (Table) 07/30/19 08:50 Gram Stain - Final Abdomen Wound Culture - Final Escherichia coli 07/28/19 09:45 Blood Culture - Preliminary Blood No Growth after 96 hours Assessment and Plan Assessment: (1) Acute blood loss anemia, secondary to colonic mass, status post transfusion of packed RBCs Current Visit: Yes Status: Acute Code(s): D62 - ACUTE POSTHEMORRHAGIC ANEMIA SNOMED Code(s): 881917954 (2) Hemorrhage of cecum Current Visit: Yes Status: Acute Code(s): K92.2 - GASTROINTESTINAL HEMORRH AGE, UNSPECIFIED SNOMED Code(s): 316192559 (3) Acute GI bleeding, status post colonoscopy reporting cecal ulceration Current Visit: Yes Status: Acute Code(s): K92.2 - GASTROINTESTINAL HEMORRHAGE, UNSPECIFIED SNOMED Code(s): 65615349 (4) Hypotension Current Visit: Yes Status: Acute Code(s): I95.9 - HYPOTENSION, UNSPECIFIED SNOMED Code(s): 84052242 (5) 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 coli (7) leukocytosis secondary to the above (8) hypoalbuminemia Plan: Continue on current medication regime , PPI, monitoring and symptomatic treatment.maintain IV antibiotics of Zosyn.increase ambulation as tolerated. Maintain protein supplements in between meals and bedtime snack .Continue with aggressive pulmonary toileting, incentive spirometer reinforced. Pain management. Prognosis guarded given multiple complex medical issues. The impression and plan of care has been dictated as directed. : I performed a history and examination of this patient, discussed the same with the dictator. I agree with the dictator's note ,documented as a scribe. Any additional findings or plans will be noted.
[2019-08-03] MEDS: IPRATROPIUM-ALBUTEROL 3 ML NEB INHALATION SCH ×3 (00:42→09:05)
[2019-08-03] MEDS: oxyCODONE-APAP 5-325MG 1 EACH TAB PO PRN ×3 (03:25→19:58)
[2019-08-03 06:51] LABS: HCT 23.6 % (39.0-53.0); HGB 7.2 gm/dL (13.0-17.5); Hypochromasia Moderate; MCH 29.2 pg (25.0-35.0); MCHC 30.7 g/dL (31.0-37.0); MCV 94.9 fL (80.0-100.0); Mean Platelet Volume 7.7; Platelet Count 587 k/uL (150-450); RBC 2.48 m/uL (4.30-5.90); RDW 14.9 % (11.5-15.5); WBC 8.3 k/uL (3.8-10.6)
[2019-08-03 07:01] LABS: African American GFR (CKD) >90 (>60 ml/min/1.73 sqM); Anion Gap 6 mmol/L; Blood Urea Nitrogen 10 mg/dL (9-20); Calcium 7.6 mg/dL (8.4-10.2); Carbon Dioxide 31 mmol/L (22-30); Chloride 102 mmol/L (98-107); Glucose 104 mg/dL (74-99); Non-African American GFR(CKD) >90 (>60 ml/min/1.73 sqM); Potassium 3.9 mmol/L (3.5-5.1); Sodium 139 mmol/L (137-145)
[2019-08-03 07:25] LABS: Band Neutrophils % 2 %; Eosinophils # (M) 0.42 k/uL (0-0.7); Lymphocytes # (M) 0.91 k/uL (1.0-4.8); Monocytes # (M) 1.16 k/uL (0-1.0); Neutrophils % (M) 68 %; Nucleated Red Blood Cells 0 /100 WBC (0-0); Total Cells Counted 100
[2019-08-03 07:26] LABS: Polychromasia Present
--- NOTE | 2019-08-03 08:11 | P.PN ---
Subjective Progress Note Date: 08/03/19 CHIEF COMPLAINT: Cecal mass, GI bleed HISTORY OF PRESENT ILLNESS: Patient is status post right colectomy with Dr. Clark. Patient examined at the bedside. Patients pain is tolerable. Tolerating diet. Denies nausea or vomiting. Passing flatus and having bowel m ovements. Wound culture positive for E. coli. WBC 8.3. Hemoglobin 7.2. PHYSICAL EXAM: VITAL SIGNS: Reviewed. GENERAL: Well-developed in no acute distress. HEENT: No sclera icterus. Extraocular movements grossly intact. Moist buccal mucosa. Head is atraumatic, normocephalic. ABDOMEN: Soft. Nondistended. Appropriate surgical tenderness. Dressing clean dry and intact. NEUROLOGIC: Alert and oriented. Cranial nerves II through XII grossly intact. ASSESSMENT: 1. GI bleed 2. 3cm ulceration on the ileocecal valve 3. Right colon cancer with metastatic spread, mesenteric and omental involvement PLAN: -Continue diet as tolerated -Pain control -Incentive spirometer -Activity as tolerated -Continue antibiotics -Local wound care to abdominal incision -Possible discharge home the next 24-48 hours Nurse practitioner note has been reviewed by physician. Signing provider agrees with the documented findings, assessment, and plan of care. Objective - Vital Signs Vital signs: Vital Signs Temp 98.0 F 08/03/19 04:38 Pulse 89 08/03/19 04:38 Resp 20 08/03/19 04:38 BP 139/77 08/03/19 04:38 Pulse Ox 98 08/03/19 04:38 Intake & Output 08/02/19 08/03/19 08/03/19 18:59 06:59 18:59 Intake Total 820 Output Total 300 Balance 820 -300 Weight 101 kg 99 kg Intake: IV 700 Piperacillin-Tazobactam 3 100 .375 gm In Sodium Chloride 0.9% 100 ml @ 25 mls/hr IVPB Q8HR [facility] Rx# :[id number] Sodium Chloride 0.9% 1, 600 000 ml @ 75 mls/hr IV . [id number] [facility] Rx#:[id number] Oral 120 Output: Urine 300 Other: Voiding Method Toilet Toilet Urinal Urinal # Voids 2 1 - Labs CBC & Chem 7: 08/03/19 06:02 08/03/19 06:02 Labs: Abnormal Lab Results - Last 24 Hours (Table) 08/03/19 08/03/19 Range/Units 06:02 06:02 RBC 2.48 L (4.30-5.90) m/uL Hgb 7.2 L (13.0-17.5) gm/dL Hct 23.6 L (39.0-53.0) % MCHC 30.7 L (31.0-37.0) g/dL Plt Count 587 H (150-450) k/uL Lymphocytes # (Manual) 0.91 L (1.0-4.8) k/uL Monocytes # (Manual) 1.16 H (0-1.0) k/uL Carbon Dioxide 31 H (22-30) mmol/L Glucose 104 H (74-99) mg/dL Calcium 7.6 L (8.4-10.2) mg/dL Microbiology - Last 24 Hours (Table) 07/28/19 09:45 Blood Culture - Preliminary Blood No Growth after 120 hours
[2019-08-03] MEDS: MORPHINE SULFATE ER 15 MG TABLET PO SCH ×2 (08:33→21:34)
[2019-08-03] MEDS: PIPERACILLIN-TAZOBACTAM 3.375 GM in SODIUM CHLORIDE 0.9% 100 ML IVPB SCH ×2 (08:35→16:18)
[2019-08-03] MEDS: PANTOPRAZOLE 40 MG/10 ML VIAL IV SCH ×2 (08:35→20:43)
[2019-08-03] MEDS: NICOTINE 21MG/24HR PATCH TRANSDERM SCH (08:35)
[2019-08-03] MEDS ORDERED: POTASSIUM CHLORIDE ER 20 MEQ TAB.ER PO STA (08:48)
[2019-08-03] MEDS ORDERED: FUROSEMIDE 10 MG/ML 4 ML VIAL IV STA (09:03)
[2019-08-03] MEDS: BUDESONIDE 0.5 MG/2 ML NEBU INHALATION SCH (09:05)
[2019-08-03] MEDS: IPRATROPIUM-ALBUTEROL 3 ML NEB INHALATION PRN ×2 (09:07→21:01)
--- NOTE | 2019-08-03 09:53 | P.PN ---
Subjective Progress Note Date: 08/03/19 Shahab Chairez is a 59 yo M with PMH of CAD, HLD, incarcerated umbilical hernia with recent repair February 2019 who presented to the ED after noticing rectal bleeding. He states that the day of admission he noted blood on the toilet paper and blood streaked stools 2. He presented to the ED and had 3 more bright red bowel movements. He was initially hypotensive and tachycardic and hemoglobin did drop from 13 to 11 over the course of approx 6 hours. He denies any recent steroid or NSAID use, denies frequent alcohol use and denies previous history of GI bleed. INR 0.9, COVID negative, remainder of bloodwork unremarkable. Today, he is s/p 1 U PRBC and his hemoglobin has continued to drop throughout the day. He went for EGD and colonoscopy with GI today which showed a 3 cm deep ulceration at the ileocecal valve. 07/25/2019 yesterday underwent EGD and colonoscopy reporting mild gastritis, deep 3 cm ulceration on the ileocecal valve with active bleeding and adherent clot, status post epinephrine injection followed by Endo Clip placement with biopsies. 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 Sigmoid colonic neoplasm or cecal colonic neoplasm or primary consideration at this time. Evaluated by surgery and patient is scheduled for right hemicolectomy today. Hemoglobin 8.1. Vital signs stable, maintaining O2 sats in the high 90s on 2 L nasal cannula. 07/26/2019 status post right colectomy, partial omentectomy secondary to right colon CA with metastatic spread, mesenteric and omental involvement, postop day #1. Hemoglobin stable, 8.9. Sitting up in chair, complains of abdominal pain, Dilaudid frequency recently increased. Maintained on IV fluid hydration. Mildly Tachycardic. Tolerating clear liquids with no nausea or vomiting. Incentive spirometer up to 1500. 07/27/19 ileocecal valve ulcer biopsies pathology reporting infiltrating, mo derately differentiated adenocarcinoma consistent with colon CA. colon resection pathology pending .postop day #2, complaining of uncontrolled pain, current pain management not lasting. Tachycardic, maintained on IV fluid hydration. No flatus, no bowel movement. Reports productive cough of mucousy phlegm. Incentive spirometer decreased to 1000. Maintaining O2 sats in the low 90s on 2 L nasal cannula O2 Afebrile, WBC trending down ,13.6, hemoglobin decreased to 7.1, platelets 246,CO2 29. Tolerating clear liquid diet with no nausea or vomiting. Blood sugars controlled. 07/30/2019 maintained on IV fluids, Zosyn. Reporting pain better. Purulent thick brown drainage from abdominal wound, umbilical area. Couple of adryan removed, drainage cultured. T-max 100.2, WBC elevated at 17.2. Preliminary Blood cultures reporting no growth at 48 hours.Transfused yesterday for hemoglobin of 6.5, post transfusion, hemoglobin 8.2. This morning hemoglobin dropped to 7 with recheck at noon of 7.4. No bleeding reported. Potassium 3.4, creatinine stable 0.77. Abdominal pain controlled, 3 small bowel movements yesterday, passing flatus, no nausea or vomiting. Currently nothing by mouth wi th further surgery recommendations pending. 07/31/2019 evaluated by oncology with recommendations noted. Anemia workup initiated. Decreased minimal drainage from abdominal wound. Afebrile, WBC tejas nding down to 11.6. Preliminary Wound cultures growing gram-positive bacilli and gram-negative bacilli. Maintained on IV antibiotics of Zosyn, IV fluids. Loose bowel movements. Telemetry sinus rhythm. Maintaining O2 sats in the 90s on 5 L nasal cannula. Renal function stable. 08/01/2019 CT performed yesterday reported no acute PE, compressive atelectasis at bilateral bases, small right pleural effusion, ascites adjacent to liver and spleen. hemoglobin 7. Maintained on Zosyn. Cultures growing gram-negative bacilli, afebrile with normal WBC. Mild tachycardia today. Continues to have l oose nonbloody bowel movements. Potassium 3.4, receiving supplements as per replacement protocol. Maintaining O2 sats in the 90s on 2 L nasal cannula. 08/02/2019 maintained on immunized bronchodilators, Zosyn .transferred out of ICU, currently on MedSurg unit. Wound culture reporting E. coli. Afebrile, WBC 12.5. Decreased drainage reported.VSS, maintaining O2 sats in the 90s on room air. Hemoglobin 7.4 08/03/2019 hemoglobin stable at 7.2. Continues on Zosyn, T-max 99.3, WBC within normal limits. Denies nausea or vomiting. Positive bowel movements. Complains pain management not lasting. Maintaining O2 sats in the 90s on 2-1/2 L nasal cannula. Denies chest pain, palpitations or increased shortness of breath. Objective - Vital Signs Vital signs: Vital Signs Temp 98.0 F 08/03/19 04:38 Pulse 89 08/03/19 04:38 Resp 20 08/03/19 04:38 BP 139/77 08/03/19 04:38 Pulse Ox 98 08/03/19 04:38 Intake & Output 08/02/19 08/03/19 08/03/19 18:59 06:59 18:59 Intake Total 820 Output Total 300 35 Balance 820 -300 -35 Weight 101 kg 99 kg Intake: IV 700 Piperacillin-Tazobactam 3 100 .375 gm In Sodium Chloride 0.9% 100 ml @ 25 mls/hr IVPB Q8HR [facility] Rx# :[id number] Sodium Chloride 0.9% 1, 600 000 ml @ 75 mls/hr IV . [id number] [facility] Rx#:[id number] Oral 120 Output: Urine 300 Stool 35 Other: Voiding Method Toilet Toilet Toilet Urinal Urinal Urinal # Voids 2 1 - Exam General: Sitting up in chair, no acute distress. Vitals as above. Eyes: PERRL, EOMI, conjunctiva normal. HENT: normocephalic, oral mucosa moist Neck: supple, no JVD Lungs: normal respiratory effort, bilateral bases diminished with fine bibasilar crackles. CV: Regular rate and rhythm, no murmur. Peripheral pulses 2+, no edema Abdomen: Status post surgery, softer,less distended today, periumbilical wound site dressing clean dry and intact,otherwise adryan intact, hypoactive bowel sounds. Scrotal edema. No guarding. Skin: warm and dry. Neuro: A&Ox3, normal mood and affect - Labs CBC & Chem 7: 08/03/19 06:02 08/03/19 06:02 Labs: Abnormal Lab Results - Last 24 Hours (Table) 08/03/19 08/03/19 Range/Units 06:02 06:02 RBC 2.48 L (4.30-5.90) m/uL Hgb 7.2 L (13.0-17.5) gm/dL Hct 23.6 L (39.0-53.0) % MCHC 30.7 L (31.0-37.0) g/dL Plt Count 587 H (150-450) k/uL Lymphocytes # (Manual) 0.91 L (1.0-4.8) k/uL Monocytes # (Manual) 1.16 H (0-1.0) k/uL Carbon Dioxide 31 H (22-30) mmol/L Glucose 104 H (74-99) mg/dL Calcium 7.6 L (8.4-10.2) mg/dL Microbiology - Last 24 Hours (Table) 07/28/19 09:45 Blood Culture - Preliminary Blood No Growth after 120 hours Assessment and Plan Assessment: (1) Acute blood loss anemia, secondary to colonic mass, status post transfusion of packed RBCs Current Visit: Yes Status: Acute Code(s): D62 - ACUTE POSTHEMORRHAGIC ANEMIA SNOMED Code(s): 039976218 (2) Hemorrhage of cecum Current Visit: Yes Status: Acute Code(s): K92.2 - GASTROINTESTINAL HEMORRHAGE, UNSPECIFIED SNOMED Code(s): 952669368 (3) Acute GI bleeding, status post colonoscopy reporting cecal ulceration Current Visit: Yes Status: Acute Code(s): K92.2 - GASTROINTESTINAL HEMORRHAGE, UNSPECIFIED SNOMED Code(s): 77796411 (4) Hypotension, resolved Current Visit: Yes Status: Acute Code(s): I95.9 - HYPOTENSION, UNSPECIFIED SNOMED Code(s): 47668430 (5) Carcinomatosis with cecal mass per CT of abdomen and pelvis, status post right colectomy, partial omentectomy.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 coli (7) leukocytosis secondary to the above (8) hypoalbuminemia Plan: Continue on current medication regime , PPI, monitoring and symptomatic treatment.Pain management- MS Contin added to med regime, with possible further increase in dose pending patient's results. At discharge discussed discharging patient on both Percocet and MS Contin. Continue IV antibiotics of Zosyn, nebulized bronchodilators, protein supplements.Increase ambulation as tolerated. Aggressive pulmonary toileting, incentive spirometer reinforced. Discharge planning in progress, possibly this weekend pending surgical clearance. Patient will require OP close monitoring of CBC outpt. (Prognosis guarded given multiple complex medical issues. The impression and plan of care has been dictated as directed. : I performed a history and examination of this patient, discussed the same with the dictator. I agree with the dictator's note ,documented as a scribe. Any additional findings or plans will be noted.
--- NOTE | 2019-08-03 10:48 | P.PN ---
Subjective Progress Note Date: 08/03/19 Principal diagnosis: GI Bleed The patient is seen today 08/02/2019 in follow up on the regular medical floor. He is awake and alert in no acute distress. Maintaining good O2 saturations on room air. He's been afebrile. Wound culture was positive for E. coli. Minimal drainage noted. Abdominal adryan are in place with a few that have been removed and there is packing in place. He's been afebrile. Hemodynamically stable. White count 12.5. Hemoglobin 7.4. He is continued on Zosyn, bronchodilators. NicoDerm patches in place. He is working well with the incentive spirometer. Patient is seen today 08/03/2019 in follow-up on the regular medical floor. He remains awake and alert in no acute distress. Maintaining O2 saturation in the high 90s on 2 L/m per nasal cannula. He remains on DuoNeb inhalations. He is afebrile. Hemodynamically stable. Blood culture was positive for E. coli. Blood cultures reveal no growth. White count 8.2. Hemoglobin 7.2. Sodium 139. Potassium 3.9. Creatinine 0.70. He is status post 2 units of packed red blood cells this admission. He remains on Zosyn. The nasal some lower extremity edema and scrotal edema. Objective - Vital Signs Vital signs: Vital Signs Temp 98.0 F 08/03/19 04:38 Pulse 96 08/03/19 09:23 Resp 20 08/03/19 04:38 BP 139/77 08/03/19 04:38 Pulse Ox 98 08/03/19 04:38 Intake & Output 08/02/19 08/03/19 08/03/19 18:59 06:59 18:59 Intake Total 820 Output Total 300 35 Balance 820 -300 -35 Weight 101 kg 99 kg Intake: IV 700 Piperacillin-Tazobactam 3 100 .375 gm In Sodium Chloride 0.9% 100 ml @ 25 mls/hr IVPB Q8HR [facility] Rx# :[id number] Sodium Chloride 0.9% 1, 600 000 ml @ 75 mls/hr IV . [id number] [facility] Rx#:[id number] Oral 120 Output: Urine 300 Stool 35 Other: Voiding Method Toilet Toilet Toilet Urinal Urinal Urinal # Voids 2 1 - Exam GENERAL: The patient is pleasant 59-year-old gentleman, alert and oriented x3, not in any acute distress. O2 saturations in the 90s on 2 L/m per nasal cannula HEENT: Pupils are round and equally reacting to light. EOMI. No scleral icterus. No conjunctival pallor. Normocephalic, atraumatic. No pharyngeal erythema. No thyromegaly. CARDIOVASCULAR: S1 and S2 present. No murmurs, rubs, or gallops. PULMONARY: Crackles in the posterior bases ABDOMEN: Soft,, slightly distended specially the area around the mid abdominal incision/wound. The adryan are in place. There is erythema and purulent drainage from the edges of the wound specially around the umbilicus and more inferiorly below the umbilicus. Adryan are still intact. Several adryan were removed above and below the umbilicus. A total of 5 or 6 adryan were removed. The wound was exposed and PACs. Erythema is less at the wound edges on today's evaluation. Abdomen is less distended.. Minimal direct tenderness. No rebound tenderness. No guarding. Hypoactive bowel sounds are present. No ascites. MUSCULOSKELETAL: No joint swelling or deformity. EXTREMITIES: Scrotal edema. Lower extremity edema. NEUROLOGICAL: Gross neurological examination did not reveal any focal deficits. SKIN: No rashes. There is erythema around the periumbilical area where the surgical wound is present. - Labs CBC & Chem 7: 08/03/19 06:02 08/03/19 06:02 Labs: Abnormal Lab Results - Last 24 Hours (Table) 08/03/19 08/03/19 Range/Units 06:02 06:02 RBC 2.48 L (4.30-5.90) m/uL Hgb 7.2 L (13.0-17.5) gm/dL Hct 23.6 L (39.0-53.0) % MCHC 30.7 L (31.0-37.0) g/dL Plt Count 587 H (150-450) k/uL Lymphocytes # (Manual) 0.91 L (1.0-4.8) k/uL Monocytes # (Manual) 1.16 H (0-1.0) k/uL Carbon Dioxide 31 H (22-30) mmol/L Glucose 104 H (74-99) mg/dL Calcium 7.6 L (8.4-10.2) mg/dL Microbiology - Last 24 Hours (Table) 07/28/19 09:45 Blood Culture - Preliminary Blood No Growth after 120 hours Assessment and Plan Assessment: 1 Acute gastrointestinal bleeding secondary to colonic mass. 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 Plan is for an outpatient PET scan. Wound cultures positive for E. coli. Currently on Zosyn. 2 History of nonspecific enteritis in 2018, last colonoscopy in 2015 for screening, found to have rectal polyp and mild diverticular changes 3 Recent incarcerated umbilical hernia status post repair in February 2019 4 Chronic and ongoing tobacco dependence 5 Coronary artery disease with previous stent placement and currently on aspirin and Plavix 6 Hyperlipidemia 7 Hypothyroidism Plan: The patient was seen and evaluated by Dr. Beasley He is currently stable from the pulmonary standpoint Continue bronchodilators Continue Zosyn Titrate down the FiO2 as tolerated Encourage increased use the incentive spirometer Increase his activity as tolerated Plan is for outpatient PET scan We will continue to follow I, the cosigning physician, performed a history & physical examination of the patient. Lungs sounds clear, diminished. Maintaining good O2 saturations in the 90s on 2 L/m per nasal cannula. I discussed the assessment and plan of care with my nurse practitioner, Leticia Grimes. I attest to the above note as dictated by her.
[2019-08-03] MEDS: HYDROmorphone 1 MG/ML 1 ML SYRINGE IVP PRN ×2 (14:28→17:46)
[2019-08-04] MEDS: HYDROmorphone 1 MG/ML 1 ML SYRINGE IVP PRN ×4 (00:35→23:36)
[2019-08-04] MEDS: PIPERACILLIN-TAZOBACTAM 3.375 GM in SODIUM CHLORIDE 0.9% 100 ML IVPB SCH ×4 (00:38→23:37)
[2019-08-04] MEDS: IPRATROPIUM-ALBUTEROL 3 ML NEB INHALATION PRN ×4 (07:26→18:54)
[2019-08-04 08:11] LABS: Carbon Dioxide 31 mmol/L (22-30); Chloride 103 mmol/L (98-107); Glucose 107 mg/dL (74-99); Potassium 4.1 mmol/L (3.5-5.1); Sodium 140 mmol/L (137-145)
[2019-08-04 08:12] LABS: African American GFR (CKD) >90 (>60 ml/min/1.73 sqM); Anion Gap 6 mmol/L; Blood Urea Nitrogen 10 mg/dL (9-20); Non-African American GFR(CKD) >90 (>60 ml/min/1.73 sqM)
[2019-08-04 08:45] LABS: HCT 24.5 % (39.0-53.0); HGB 7.5 gm/dL (13.0-17.5); Hypochromasia Moderate; MCHC 30.6 g/dL (31.0-37.0); MCV 94.7 fL (80.0-100.0); Platelet Count 565 k/uL (150-450); RBC 2.59 m/uL (4.30-5.90); RDW 15.4 % (11.5-15.5); WBC 10.6 k/uL (3.8-10.6)
[2019-08-04] MEDS: NICOTINE 21MG/24HR PATCH TRANSDERM SCH (08:57)
[2019-08-04] MEDS: MORPHINE SULFATE ER 15 MG TABLET PO SCH ×2 (08:57→20:25)
[2019-08-04] MEDS: PANTOPRAZOLE 40 MG/10 ML VIAL IV SCH ×2 (08:57→20:26)
[2019-08-04] MEDS: oxyCODONE-APAP 5-325MG 1 EACH TAB PO PRN ×2 (11:40→19:22)
[2019-08-04 11:59] LABS: Band Neutrophils % 2 %; Basophils # (M) 0.11 k/uL (0-0.2); Eosinophils # (M) 0.42 k/uL (0-0.7); Lymphocytes # (M) 0.85 k/uL (1.0-4.8); Monocytes # (M) 0.74 k/uL (0-1.0); Myelocytes # (M) 0.11 k/uL (0); Myelocytes % 1 %; Neutrophils % (M) 80 %; Nucleated Red Blood Cells 0 /100 WBC (0-0); Total Cells Counted 200
[2019-08-04] MEDS ORDERED: FUROSEMIDE 10 MG/ML 4 ML VIAL IV STA (12:09)
--- NOTE | 2019-08-04 13:24 | P.PN ---
Subjective Progress Note Date: 08/04/19 Principal diagnosis: Right colon tumor Patient without new complaints. Still having mild surgical site discomfort. Would like to go home. Tolerating regular diet. He is having bowel movement. White blood cell count 10.6. Objective - Vital Signs Vital signs: Vital Signs Temp 99.2 F 08/04/19 05:00 Pulse 88 08/04/19 11:21 Resp 18 08/04/19 05:00 BP 128/74 08/04/19 05:00 Pulse Ox 91 L 08/04/19 05:00 Intake & Output 08/03/19 08/04/19 08/04/19 18:59 06:59 18:59 Intake Total 640 2200 Output Total 35 400 Balance 605 1800 Weight 95 kg Intake: IV 640 700 Piperacillin-Tazobactam 3 100 .375 gm In Sodium Chloride 0.9% 100 ml @ 25 mls/hr IVPB Q8HR [facility] Rx# :[id number] Sodium Chloride 0.9% 1, 640 600 000 ml @ 75 mls/hr IV . [id number] [facility] Rx#:[id number] Oral 1500 Output: Urine 400 Stool 35 Other: Voiding Method Toilet Toilet Urinal Urinal # Voids 3 2 - Exam Abdomen: Soft, nondistended, mild tenderness, 3 wounds a long midline incision appear clean without erythema or significant tenderness, minimal drainage - Labs CBC & Chem 7: 08/04/19 06:36 08/04/19 06:36 Labs: Abnormal Lab Results - Last 24 Hours (Table) 08/04/19 08/04/19 Range/Units 06:36 06:36 RBC 2.59 L (4.30-5.90) m/uL Hgb 7.5 L (13.0-17.5) gm/dL Hct 24.5 L (39.0-53.0) % MCHC 30.6 L (31.0-37.0) g/dL Plt Count 565 H (150-450) k/uL Neutrophils # (Manual) 8.60 H (1.3-7.7) k/uL Lymphocytes # (Manual) 0.85 L (1.0-4.8) k/uL Myelocytes # (Manual) 0.11 H (0) k/uL Carbon Dioxide 31 H (22-30) mmol/L Glucose 107 H (74-99) mg/dL Calcium 8.0 L (8.4-10.2) mg/dL Microbiology - Last 24 Hours (Table) 07/28/19 09:45 Blood Culture - Final Blood No Growth after 144 hours Assessment and Plan (1) Carcinomatosis Narrative/Plan: Continue diet as tolerated. Continue local wound care. Possible discharge per primary service. Current Visit: Yes Status: Acute Code(s): C80.0 - DISSEMINATED MALIGNANT NEOPLASM, UNSPECIFIED SNOMED Code(s): 162708246
--- NOTE | 2019-08-04 14:41 | P.PN ---
Subjective Progress Note Date: 08/04/19 Principal diagnosis: Colon adenocarcinoma, acute GI bleeding from the same In follow-up today patient is is doing well. He is tolerating oral intake, he is ambulating independently, much of his swelling is gone. Pain is controlled. He has had a bowel movement. Objective - Vital Signs Vital signs: Vital Signs Temp 99.2 F 08/04/19 05:00 Pulse 88 08/04/19 11:21 Resp 18 08/04/19 05:00 BP 128/74 08/04/19 05:00 Pulse Ox 91 L 08/04/19 05:00 Intake & Output 08/03/19 08/04/19 08/04/19 18:59 06:59 18:59 Intake Total 640 2200 100 Output Total 35 400 Balance 605 1800 100 Weight 95 kg Intake: IV 640 700 100 Piperacillin-Tazobactam 3 100 100 .375 gm In Sodium Chloride 0.9% 100 ml @ 25 mls/hr IVPB Q8HR [facility] Rx# :[id number] Sodium Chloride 0.9% 1, 640 600 000 ml @ 75 mls/hr IV . [id number] [facility] Rx#:[id number] Oral 1500 Output: Urine 400 Stool 35 Other: Voiding Method Toilet Toilet Urinal Urinal # Voids 3 2 - Constitutional General appearance: Present: average body habitus, cooperative, no acute distress - EENT Eyes: Present: anicteric sclerae, EOMI ENT: Present: hearing grossly normal - Respiratory Respiratory: bilateral: CTA (Anterior expiratory wheeze) - Cardiovascular Rhythm: regular Heart sounds: normal: S1, S2 Abnormal Heart Sounds: Absent: systolic murmur, diastolic murmur, rub, S3 Gallop, S4 Gallop, click, other - Peripheral edema leg Peripheral Edema: bilateral: 1+ - Gastrointestinal General gastrointestinal: Present: normal bowel sounds, soft - Neurologic Neurologic: Present: CNII-XII intact - Musculoskeletal Musculoskeletal: Present: strength equal bilaterally - Psychiatric Psychiatric: Present: A&O x's 3, appropriate affect, intact judgment & insight - Labs CBC & Chem 7: 08/04/19 06:36 08/04/19 06:36 Labs: Abnormal Lab Results - Last 24 Hours (Table) 08/04/19 08/04/19 Range/Units 06:36 06:36 RBC 2.59 L (4.30-5.90) m/uL Hgb 7.5 L (13.0-17.5) gm/dL Hct 24.5 L (39.0-53.0) % MCHC 30.6 L (31.0-37.0) g/dL Plt Count 565 H (150-450) k/uL Neutrophils # (Manual) 8.60 H (1.3-7.7) k/uL Lymphocytes # (Manual) 0.85 L (1.0-4.8) k/uL Myelocytes # (Manual) 0.11 H (0) k/uL Carbon Dioxide 31 H (22-30) mmol/L Glucose 107 H (74-99) mg/dL Calcium 8.0 L (8.4-10.2) mg/dL Microbiology - Last 24 Hours (Table) 07/28/19 09:45 Blood Culture - Final Blood No Growth after 144 hours Assessment and Plan (1) Adenocarcinoma of colon Narrative/Plan: Review to diagnosis, prognosis, plan. Pt does not have an absolute prognosis. Needs the PET scan to see if there is disease in any other organs. If disease is limited to the peritoneum and the patient has a good response to treatment, he could potentially be cured with surgical intervention. Plan is for treatment once infection resolved and healed from surgery. PET scan after healing to complete staging. He has verbalized understanding the plan and is in agreement with the plan. Supportive patient to continue smoking cessation on discharge. He was encouraged to rehabilitate, work with PT/OT and to concentrate on a protein rich diet-Dietitian consulted. Current Visit: Yes Status: Acute Priority: High Code(s): C18.9 - MALIGNANT NEOPLASM OF COLON, UNSPECIFIED SNOMED Code(s): 797079837 (2) Acute blood loss anemia Narrative/Plan: Anemia workup reviewed. Most suggestive of anemia of inflammation. No parenteral iron while acutely ill. Will recheck ferritin after healing/inflammation. No transfusion is needed at this time. Hgb is stable. Current Visit: Yes Status: Acute Priority: High Code(s): D62 - ACUTE POSTHEMORRHAGIC ANEMIA SNOMED Code(s): 284785510 Plan: No changes to the plan from a hematology/oncology standpoint.
--- NOTE | 2019-08-04 18:14 | PN ---
PROGRESS NOTE DATE OF SERVICE: 08/04/2019 I am covering for Dr. Alexander. This 59-year-old gentleman who was admitted with acute gastrointestinal bleed secondary to colonic mass and underwent exploratory laparotomy as well as right hemicolectomy with partial omentectomy. The biopsy was positive for possible mucinous adenocarcinoma. Outpatient PET scan has been arranged. The patient also had wound culture positive for E coli. Patient on broad spectrum IV antibiotics. Patient being closely monitored. PAST MEDICAL HISTORY: Reviewed. REVIEW OF SYSTEMS: Cardiovascular system: No angina or palpitations. RESPIRATORY: As mentioned earlier. GI no nausea or vomiting. no dysuria. Nervous system: No numbness or weakness. CURRENT MEDICATIONS: Reviewed and include: 1. Tylenol p.r.n. 2. DuoNeb q.i.d. and p.r.n. 3. Cepacol. 4. Dilaudid. 5. Reglan. 6. MS Contin. 7. Habitrol 14. 8. Percocet. 9. Protonix. 10.Zosyn IV. PHYSICAL EXAMINATION: Patient is alert, oriented x3, pulse 78, blood pressure 120/74, respiration 18, temperature 99.2, pulse ox 91 percent on room air. HEENT: Conjunctivae normal. NECK: No JVD. CARDIOVASCULAR: S1, S2. RESPIRATORY: Breath sounds diminished in the bases. A few scattered rhonchi and crackles. ABDOMEN: Soft. Status post surgery. LEGS: No edema. No swelling. NERVOUS SYSTEM: No focal deficits. LABS: WBC 10.3, hemoglobin 7.5, platelets are 565. Sodium 140, potassium 4.1. ASSESSMENT: 1. Acute lower gastrointestinal bleed secondary to chronic mucinous adenocarcinoma status post exploratory laparotomy and right hemicolectomy with partial omentectomy. 2. Anemia, acute blood loss anemia. 3. Wound culture positive for E coli on IV Zosyn. 4. Increased platelets. 5. Hyponatremia. 6. Hypokalemia. 7. History of myocardial infarction. 8. History of small bowel obstruction. 9. History of coronary artery disease, stent. 10.History of nicotine dependence. 11.History of hypertension. RECOMMENDATIONS AND DISCUSSION: In this 59-year-old gentleman who presented with multiple complex medical issues, we will monitor the patient closely, continue the current medications, and symptomatic treatment. Otherwise, at this time, I recommend to continue IV antibiotics. We will monitor the hemoglobin closely. The white count is elevated. Otherwise, follow closely with surgery. Symptomatic treatment will continue. The hemoglobin is hovering around 7. The patient already received 2 units. I would also recommend 1 unit transfusion for symptomatic anemia. We will closely follow with multiple consultants. SANGEETA / WARNER: [id number] / MTDJake
--- NOTE | 2019-08-04 19:13 | XR ---
EXAMINATION TYPE: XR chest 1V portable DATE OF EXAM: 08/04/2019 COMPARISON: 07/30/2019 HISTORY: Short of breath TECHNIQUE: FINDINGS: There is some patchy atelectasis and infiltrate at both lung bases. There is no heart failu re. Heart size is fairly normal. Mediastinum appears normal. Bony thorax is intact. IMPRESSION: There are some infiltrates and atelectasis at the lung bases slightly more than last exam . Normal heart.
[2019-08-04] MEDS ORDERED: FUROSEMIDE 10 MG/ML 2 ML VIAL IV ONE (22:15)
[2019-08-05] MEDS: LEVOTHYROXINE 25 MCG TAB PO SCH (06:20)
[2019-08-05 06:50] LABS: African American GFR (CKD) >90 (>60 ml/min/1.73 sqM); Anion Gap 6 mmol/L; Blood Urea Nitrogen 11 mg/dL (9-20); Calcium 8.3 mg/dL (8.4-10.2); Carbon Dioxide 32 mmol/L (22-30); Chloride 101 mmol/L (98-107); Glucose 99 mg/dL (74-99); Non-African American GFR(CKD) >90 (>60 ml/min/1.73 sqM); Potassium 4.2 mmol/L (3.5-5.1); Sodium 139 mmol/L (137-145)
[2019-08-05] MEDS: IPRATROPIUM-ALBUTEROL 3 ML NEB INHALATION PRN ×3 (06:57→15:22)
[2019-08-05 08:53] LABS: Basophils # (A) 0.1 k/uL (0-0.2); Basophils % (A) 0 %; Eosinophils # (A) 0.3 k/uL (0-0.7); Eosinophils % (A) 2 %; HCT 29.7 % (39.0-53.0); HGB 8.9 gm/dL (13.0-17.5); Hypochromasia Marked; Lymphocytes # (A) 1.4 k/uL (1.0-4.8); Lymphocytes % (A) 10 %; MCH 28.1 pg (25.0-35.0); MCV 93.7 fL (80.0-100.0); Monocytes # (A) 0.8 k/uL (0-1.0); Monocytes % (A) 6 %; Neutrophils # (A) 10.3 k/uL (1.3-7.7); Neutrophils % (A) 78 %; Platelet Count 701 k/uL (150-450); RBC 3.16 m/uL (4.30-5.90); RDW 15.1 % (11.5-15.5); WBC 13.2 k/uL (3.8-10.6)
[2019-08-05] MEDS: MORPHINE SULFATE ER 15 MG TABLET PO SCH ×2 (09:33→20:26)
[2019-08-05] MEDS: ATORVASTATIN 10 MG TAB PO SCH (09:33)
[2019-08-05] MEDS: PIPERACILLIN-TAZOBACTAM 3.375 GM in SODIUM CHLORIDE 0.9% 100 ML IVPB SCH ×3 (09:34→23:44)
[2019-08-05] MEDS: PANTOPRAZOLE 40 MG/10 ML VIAL IV SCH (09:34)
[2019-08-05] MEDS: NICOTINE 21MG/24HR PATCH TRANSDERM SCH (10:12)
--- NOTE | 2019-08-05 11:44 | P.PN ---
Subjective Progress Note Date: 08/05/19 Principal diagnosis: Right colon tumor Patient doing well today. No nausea or vomiting. Tolerating diet. Small bowel movement yesterday. Mild cramps at times. White blood cell count 13. T-max 99.6. Objective - Vital Signs Vital signs: Vital Signs Temp 98.5 F 08/05/19 05:00 Pulse 73 08/05/19 10:39 Resp 18 08/05/19 05:00 BP 114/74 08/05/19 05:00 Pulse Ox 94 L 08/04/19 23:34 Intake & Output 08/04/19 08/05/19 08/05/19 18:59 06:59 18:59 Intake Total 100 1890 Output Total 450 Balance -350 1890 Intake: IV 100 380 Piperacillin-Tazobactam 3 100 100 .375 gm In Sodium Chloride 0.9% 100 ml @ 25 mls/hr IVPB Q8HR [facility] Rx# :[id number] Sodium Chloride 0.9% 1, 280 000 ml @ 75 mls/hr IV . [id number] [facility] Rx#:[id number] Oral 1200 Blood Product 310 Rc As-1 Unit 310 [id number] Output: Urine 450 Other: Voiding Method Urinal # Voids 1 2 # Bowel Movements 1 - Exam Abdomen: Soft, mild distention, wounds clean, mild tenderness - Labs CBC & Chem 7: 08/05/19 05:53 08/05/19 05:53 Labs: Abnormal Lab Results - Last 24 Hours (Table) 08/04/19 08/04/19 08/05/19 Range/Units 06:36 17:22 05:53 WBC (3.8-10.6) k/uL RBC (4.30-5.90) m/uL Hgb (13.0-17.5) gm/dL Hct (39.0-53.0) % MCHC (31.0-37.0) g/dL Plt Count (150-450) k/uL Neutrophils # (1.3-7.7) k/uL Neutrophils # (Manual) 8.60 H (1.3-7.7) k/uL Lymphocytes # (Manual) 0.85 L (1.0-4.8) k/uL Myelocytes # (Manual) 0.11 H (0) k/uL Carbon Dioxide 32 H (22-30) mmol/L Calcium 8.3 L (8.4-10.2) mg/dL Crossmatch See Detail 08/05/19 Range/Units 05:53 WBC 13.2 H (3.8-10.6) k/uL RBC 3.16 L (4.30-5.90) m/uL Hgb 8.9 L (13.0-17.5) gm/dL Hct 29.7 L (39.0-53.0) % MCHC 30.0 L (31.0-37.0) g/dL Plt Count 701 H (150-450) k/uL Neutrophils # 10.3 H (1.3-7.7) k/uL Neutrophils # (Manual) (1.3-7.7) k/uL Lymphocytes # (Manual) (1.0-4.8) k/uL Myelocytes # (Manual) (0) k/uL Carbon Dioxide (22-30) mmol/L Calcium (8.4-10.2) mg/dL Crossmatch Assessment and Plan (1) Carcinomatosis Narrative/Plan: Continue diet as tolerated. Ambulate. Continue local wound care. Possible discharge tomorrow. Current Visit: Yes Status: Acute Code(s): C80.0 - DISSEMINATED MALIGNANT NEOPLASM, UNSPECIFIED SNOMED Code(s): 195846247
[2019-08-05] MEDS: HYDROmorphone 1 MG/ML 1 ML SYRINGE IVP PRN ×3 (13:15→23:48)
[2019-08-05] MEDS: DOCUSATE 100 MG CAP PO SCH ×2 (13:16→20:26)
[2019-08-05] MEDS: FUROSEMIDE 10 MG/ML 4 ML VIAL IV SCH (13:16)
[2019-08-05] MEDS: oxyCODONE-APAP 5-325MG 1 EACH TAB PO PRN (16:13)
--- NOTE | 2019-08-05 16:32 | PN ---
PROGRESS NOTE DATE OF SERVICE: 08/05/2019 I am covering for Dr. Alexander. 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 Patient also had wound culture E coli growing and being treated with Zosyn. The patient also had some fluid overload and the patient received some Lasix. Patient also received 1 unit transfusion. The patient being closely monitored. Chest x-ray showed some evidence of CHF. The patient is closely monitored at this time. PAST MEDICAL HISTORY: Reviewed. REVIEW OF SYSTEMS: Cardiovascular system as mentioned earlier. Respiratory as mentioned earlier. GI: As mentioned earlier. Nervous system: No numbness or weakness. CURRENT MEDICATIONS: Reviewed and include: 1. Tylenol 1000 mg q.6 p.r.n. 2. DuoNeb q.i.d. and p.r.n. 3. Lipitor 10 mg p.o. daily. 4. Cepacol. 5. Colace 100 mg p.o. b.i.d. 6. Lasix 40 mg daily. 7. Dilaudid 1 mg q.3 p.r.n. 8. Synthroid. 9. Reglan. 10.MS Contin. 11.Habitrol 21. 12.Zofran. 13.Percocet. 14.Protonix. 15.Zosyn. 16.Doses reviewed. PHYSICAL EXAM: Patient is alert, oriented x 3. Pulse 74. Blood pressure 113/70, respirations 18, temperature 98.9, pulse ox 94% on room air. HEENT: Conjunctivae normal. NECK: No JVD. CARDIOVASCULAR: S1, S2. RESPIRATORY SYSTEM: Breath sounds diminished at the bases. A few scattered rhonchi. ABDOMEN: Soft, status post surgery. EXTREMITIES: Minimal bilateral leg edema. NERVOUS SYSTEM: No focal deficits. LABS: WBC 13.2, hemoglobin is 8.9, sodium 139, potassium 4.2. ASSESSMENT: 1. 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 2. Anemia, acute blood loss anemia. 3. Wound culture possible E coli on IV Zosyn. 4. Congestive heart failure, acute exacerbation with ejection fraction unknown. 5. Increased platelets. 6. Hyponatremia. 7. Hypokalemia. 8. History of myocardial infarction. 9. History of small-bowel obstruction. 10.History of coronary artery disease/stent. 11.History of nicotine dependence. 12.History of hypertension. RECOMMENDATIONS AND DISCUSSION: Recommend to continue current medications, symptomatic treatment. At this time, I recommend a 2D echo with Doppler and I would also recommend a set of troponins and as well as repeat EKG. We will complete cardiac workup. Recommend Lasix 40 mg daily. Continue to monitor. Continue the antibiotics. Otherwise, Dr. Alexander will follow tomorrow. Prognosis guarded. Further recommendations to follow. MMODL / IJN: [id number] /
[2019-08-05] MEDS: PANTOPRAZOLE 40 MG TABLET PO SCH (20:26)
[2019-08-06] MEDS: LEVOTHYROXINE 25 MCG TAB PO SCH (05:57)
[2019-08-06] MEDS: oxyCODONE-APAP 5-325MG 1 EACH TAB PO PRN ×2 (05:59→12:00)
[2019-08-06 06:36] LABS: HCT 22.8 % (39.0-53.0); HGB 8.4 gm/dL (13.0-17.5); Hypochromasia Moderate; MCH 34.2 pg (25.0-35.0); MCHC 36.6 g/dL (31.0-37.0); MCV 93.3 fL (80.0-100.0); Mean Platelet Volume 7.6; Platelet Count 565 k/uL (150-450); RBC 2.45 m/uL (4.30-5.90)
[2019-08-06 07:24] LABS: Band Neutrophils % 1 %; Eosinophils # (M) 0.28 k/uL (0-0.7); Lymphocytes # (M) 1.82 k/uL (1.0-4.8); Metamyelocytes # (M) 0.14 k/uL (0); Metamyelocytes % 1 %; Monocytes # (M) 1.68 k/uL (0-1.0); Neutrophils % (M) 71 %; Nucleated Red Blood Cells 0 /100 WBC (0-0); Total Cells Counted 100
[2019-08-06] MEDS: MORPHINE SULFATE ER 15 MG TABLET PO SCH (07:51)
[2019-08-06] MEDS: DOCUSATE 100 MG CAP PO SCH (07:53)
[2019-08-06] MEDS: PANTOPRAZOLE 40 MG TABLET PO SCH (07:53)
[2019-08-06] MEDS: PIPERACILLIN-TAZOBACTAM 3.375 GM in SODIUM CHLORIDE 0.9% 100 ML IVPB SCH (07:54)
[2019-08-06] MEDS: ATORVASTATIN 10 MG TAB PO SCH (07:54)
[2019-08-06] MEDS: FUROSEMIDE 10 MG/ML 4 ML VIAL IV SCH (07:54)
[2019-08-06] MEDS: IPRATROPIUM-ALBUTEROL 3 ML NEB INHALATION PRN ×2 (07:58→11:35)
[2019-08-06] MEDS: NICOTINE 21MG/24HR PATCH TRANSDERM SCH (08:00)
[2019-08-06] MEDS ORDERED: SODIUM FERRIC GLUCONAT-SUCROSE 125 MG in SODIUM CHLORIDE 0.9% 100 ML IVPB SCH (09:45)
--- NOTE | 2019-08-06 10:03 | CDI ---
Documentation Clarification Form Date: 08/06/2019 09:54:59 AM From: Kiki Kemp Admit Date: 07/23/2019 06:15:00 AM Patient Name: Shahab Chairez Visit Number: [id number] Discharge Date: ATTENTION: The Clinical Documentation Specialists (CDI) and [facility] Coding Staff appreciate your assistance in clarifying documentation. Please respond to the clarification below the line at the bottom and electronically sign. The CDI & [facility] Coding staff will review the response and follow-up if needed. Please note: Queries are made part of the Legal Health Record. If you have any questions, please contact the author of this message via ITS. Dr. Brett Clark Please clarify your previous query response Is a consultation of the surgical procedure. Possible Postsurgical wound infection, not expected, cultures pending. Patients Admitting Diagnosis: Right colon cancer Post-Operative Diagnosis: Right colon cancer with metastatic spread, mesenteric and omental involvement. Procedure performed: Right colectomy. Partial omentectomy History/Risk Factors: 59-year-old male presents to the ED after noticing rectal bleeding. Medical History Umbilical hernia with repair February 2019. Medical History [place] 04/02/17 with stent. Clinical Indicators: 07/29 Retail Services Professional Progress Note on todays evaluation, the abdominal wound is erythematous and there is obvious purulent drainage from the wound edges specially in the area around the umbilicus. 07/30 Retail Services Professional Progress Note Awaiting the final cultures from the surgical wound which is growing gram negative bacillus. Treatment: 07/27 Zosyn Ivpb Q 8Hrs, 07/29 Five adryan removed. Pack with 4x4 gauze, keep dressing intact by Dr. Clark. Found in nursing notes. In order to accurately reflect this patients condition per previous query response, please clarify if the postsurgical wound infection -is a complication of surgical procedure -is related to co-morbid condition(s) of -Other please specify -Unable to determine (Last Revision: March 2019) This is a complication of the surgical procedure MTDD
--- NOTE | 2019-08-06 10:26 | P.PN ---
Subjective Progress Note Date: 08/06/19 Principal diagnosis: Colon cancer The patient is status post right colectomy. He feels well. He has no points of abdominal pain. Objective - Vital Signs Vital signs: Vital Signs Temp 98.6 F 08/06/19 05:00 Pulse 76 08/06/19 08:09 Resp 20 08/06/19 05:00 BP 123/78 08/06/19 05:00 Pulse Ox 92 L 08/06/19 05:00 Intake & Output 08/05/19 08/06/19 08/06/19 18:59 06:59 18:59 Intake Total 100 Output Total 1400 900 Balance -1300 -900 Weight 91 kg Intake: IV 100 Piperacillin-Tazobactam 3 100 .375 gm In Sodium Chloride 0.9% 100 ml @ 25 mls/hr IVPB Q8HR [facility] Rx# :[id number] Output: Urine 1400 900 Other: Voiding Method Urinal Urinal # Voids 1 - Gastrointestinal Gastrointestinal Comment(s): Abdomen soft. Incision site is clean dry intact. Wound is clean. - Labs CBC & Chem 7: 08/06/19 05:38 08/05/19 05:53 Labs: Abnormal Lab Results - Last 24 Hours (Table) 08/06/19 Range/Units 05:38 WBC 14.0 H (3.8-10.6) k/uL RBC 2.45 L (4.30-5.90) m/uL Hgb 8.4 L (13.0-17.5) gm/dL Hct 22.8 L (39.0-53.0) % Plt Count 565 H (150-450) k/uL Neutrophils # (Manual) 10.00 H (1.3-7.7) k/uL Monocytes # (Manual) 1.68 H (0-1.0) k/uL Metamyelocytes # (Man) 0.14 H (0) k/uL Assessment and Plan Assessment: Status post right collecting for metastatic colon cancer. Patient was discharged home today. He'll be placed on Levaquin 500 daily at discharge. He'll be discharged home with homecare for wound care. He'll follow myself in one week.
[2019-08-06] MEDS: HYDROmorphone 1 MG/ML 1 ML SYRINGE IVP PRN ×2 (10:28→14:40)
[2019-08-06 13:24] VITALS: BP 118/68; PULSE 103; RESP 18; TEMP 97.5
--- NOTE | 2019-08-06 14:15 | P.PN ---
Subjective Progress Note Date: 08/06/19 Principal diagnosis: Colon adenocarcinoma, acute GI bleeding from the same patient is doing very well in follow-up, he continues to improve. He is ambulating, eating and drinking, has had bowel movements. No fevers, nausea, uncontrolled pain, bleeding. He has been tolerating the nicotine patch. Objective - Vital Signs Vital signs: Vital Signs Temp 97.5 F L 08/06/19 13:00 Pulse 103 H 08/06/19 13:00 Resp 18 08/06/19 13:00 BP 118/68 08/06/19 13:00 Pulse Ox 95 08/06/19 13:00 Intake & Output 08/05/19 08/06/19 08/06/19 18:59 06:59 18:59 Intake Total 100 Output Total 1400 900 Balance -1300 -900 Weight 91 kg Intake: IV 100 Piperacillin-Tazobactam 3 100 .375 gm In Sodium Chloride 0.9% 100 ml @ 25 mls/hr IVPB Q8HR [facility] Rx# :[id number] Output: Urine 1400 900 Other: Voiding Method Urinal Urinal # Voids 1 - Constitutional General appearance: Present: average body habitus, cooperative, no acute distress - EENT Eyes: Present: anicteric sclerae, EOMI ENT: Present: hearing grossly normal - Respiratory Respiratory: bilateral: CTA - Cardiovascular Heart sounds: normal: S1, S2 Abnormal Heart Sounds: Absent: systolic murmur, diastolic murmur, rub, S3 Gallop, S4 Gallop, click, other - Peripheral edema leg Peripheral Edema: bilateral: Trace - Gastrointestinal General gastrointestinal: Present: normal bowel sounds, soft - Neurologic Neurologic: Present: CNII-XII intact - Musculoskeletal Musculoskeletal: Present: strength equal bilaterally - Psychiatric Psychiatric: Present: A&O x's 3, appropriate affect, intact judgment & insight - Labs CBC & Chem 7: 08/06/19 05:38 08/05/19 05:53 Labs: Abnormal Lab Results - Last 24 Hours (Table) 08/06/19 Range/Units 05:38 WBC 14.0 H (3.8-10.6) k/uL RBC 2.45 L (4.30-5.90) m/uL Hgb 8.4 L (13.0-17.5) gm/dL Hct 22.8 L (39.0-53.0) % Plt Count 565 H (150-450) k/uL Neutrophils # (Manual) 10.00 H (1.3-7.7) k/uL Monocytes # (Manual) 1.68 H (0-1.0) k/uL Metamyelocytes # (Man) 0.14 H (0) k/uL Assessment and Plan (1) Adenocarcinoma of colon Narrative/Plan: Pt does not have an absolute prognosis. Needs the PET scan to see if there is disease in any other organs. If disease is limited to the peritoneum and the patient has a good response to treatment, he could potentially be cured with surgical intervention. Plan is for treatment once infection resolved and healed from surgery. PET scan will be scheduled on discharge. He has verbalized understanding the plan and is in agreement with the plan. Current Visit: Yes Status: Acute Priority: High Code(s): C18.9 - MALIGNANT NEOPLASM OF COLON, UNSPECIFIED SNOMED Code(s): 927170105 (2) Acute blood loss anemia Narrative/Plan: Anemia workup reviewed. Most suggestive of anemia of inflammation, suspect some degree of iron deficiency. Dose of parenteral iron ordered for today. Cont parenteral supplement in the outpatient setting to full dose. Hemoglobin is stable at this time. Current Visit: Yes Status: Acute Priority: High Code(s): D62 - ACUTE POSTHEMORRHAGIC ANEMIA SNOMED Code(s): 653955981 Plan: No changes to the plan from a Hematology/Oncology standpoint. Pt will be contacted with PET scan and follow-up appointment date as these cannot be scheduled until discharge. Reviewed with nursing. Somatic testing for PDL 1 and next generation sequencing has been requested. Supported and reinforced continued smoking cessation on discharge. Will try to Erx nicotine patch. Instructed patient that if he chooses to smoke the nicotine patch is to be discontinued for greater than 24 hours-increased risk of DC. He verbalized understanding. Encouraged to continue to rehabilitate. Encouraged protein rich diet. Time with Patient: Greater than 30 (counseling and coordinating care, smoking cessation)
--- NOTE | 2019-08-06 14:35 | P.DS ---
Providers Date of admission: 07/23/19 06:15 Expected date of discharge: 08/06/19 Attending physician: Rikki Alexander MD Consults: 07/23/19 06:15 Consult Physician Routine Consulting Provider: Yesy Beckford Consult Reason/Comments: gib Do you want consulting provider notified?: Yes 07/23/19 06:36 Consult Physician Routine Consulting Provider: Cyndy Giles Consult Reason/Comments: icu Do you want consulting provider notified?: Yes 07/24/19 11:56 Consult Physician Routine Consulting Provider: Brett Clark Consult Reason/Comments: colon mass, gi bleed Do you want consulting provider notified?: Already Contacted 07/30/19 08:54 Consult Physician Routine Consulting Provider: Osman Egan Consult Reason/Comments: metastatic adenocarcinoma Do you want consulting provider notified?: Yes Primary care physician: Radha White [facility] Course: Final Diagnoses: (1) Acute blood loss anemia, secondary to colonic mass, status post transfusion of packed RBCs Current Visit: Yes Status: Acute Code(s): D62 - ACUTE POSTHEMORRHAGIC ANEMIA SNOMED Code(s): 127062921 (2) Hemorrhage of cecum Current Visit: Yes Status: Acute Code(s): K92.2 - GASTROINTESTINAL HEMORRHAGE, UNSPECIFIED SNOMED Code(s): 654158134 (3) Acute GI bleeding, status post colonoscopy reporting cecal ulceration Current Visit: Yes Status: Acute Code(s): K92.2 - GASTROINTESTINAL HEMORRHAGE, UNSPECIFIED SNOMED Code(s): 28573133 (4) Hypotension, resolved Current Visit: Yes Status: Acute Code(s): I95.9 - HYPOTENSION, UNSPECIFIED SNOMED Code(s): 02077522 (5) Carcinomatosis with cecal mass per CT of abdomen and pelvis, status post right colectomy, partial omentectomy.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 coli (7) leukocytosis secondary to the above (8) hypoalbuminemia (9) CHF, acute exacerbation, EF pending, echo completed with reading pending Hospital course: This is a 59-year-old gentleman admitted with acute blood loss anemia secondary to 70's adenocarcinoma status post exploratory laparotomy with right hemicolectomy. Wound culture with E. coli, maintained on Zosyn. Chest x- ray suggestive of CHF, Lasix initiated. Echo pending. Significant clinical improvement. Cleared by all consults for discharge. Patient has been cleared by surgery to resume dual anticoagulation with both Plavix, aspirin. Patient is being discharged home today with home care in a stable condition with guarded prognosis. The impression and plan of care has been dictated as directed. : I performed a history and examination of this patient, discussed the same with the dictator. I agree with the dictator's note ,documented as a scribe. Any additional findings or plans will be noted. Patient Condition at Discharge: Stable Plan - Discharge Summary Discharge Rx Participant: Yes New Discharge Prescriptions: New Amoxicillin/Potassium Clav [Augmentin 875-125 Tablet] 1 tab PO BID 5 Days #10 tab Nicotine 21Mg/24Hr Patch [Habitrol] 1 patch TRANSDERM DAILY #30 patch Docusate [Colace] 100 mg PO BID #60 cap oxyCODONE-APAP 7.5-325MG [Percocet 7.5-325 mg] 1 tab PO QID 3 Days #12 tab Pantoprazole [Protonix] 40 mg PO BID #60 tablet. Furosemide [Lasix] 40 mg PO DAILY #30 tablet Continue Aspirin 81 mg PO DAILY #100 chew Clopidogrel [Plavix] 75 mg PO DAILY #100 tab Levothyroxine Sodium [Synthroid] 25 mcg PO DAILY Atorvastatin Calcium [Lipitor] 10 mg PO DAILY Discontinued Ascorbic Acid [Vitamin C] 1,000 mg PO DAILY Discharge Medication List Aspirin 81 mg PO DAILY #100 chew 04/19/17 [Rx] Clopidogrel [Plavix] 75 mg PO DAILY #100 tab 04/19/17 [Rx] Atorvastatin Calcium [Lipitor] 10 mg PO DAILY 07/23/19 [History] Levothyroxine Sodium [Synthroid] 25 mcg PO DAILY 07/23/19 [History] Amoxicillin/Potassium Clav [Augmentin 875-125 Tablet] 1 tab PO BID 5 Days #10 tab 08/06/19 [Rx] Docusate [Colace] 100 mg PO BID #60 cap 08/06/19 [Rx] Furosemide [Lasix] 40 mg PO DAILY #30 tablet 06/08/20 [Rx] Nicotine 21Mg/24Hr Patch [Habitrol] 1 patch TRANSDERM DAILY #30 patch 08/06/19 [Rx] Pantoprazole [Protonix] 40 mg PO BID #60 tablet.dr 08/06/19 [Rx] oxyCODONE-APAP 7.5-325MG [Percocet 7.5-325 mg] 1 tab PO QID 3 Days #12 tab 08/06/19 [Rx] Follow up Appointment(s)/Referral(s): Osman Egan MD [STAFF PHYSICIAN] - 1 Week (office to call you with appt. time and date.) [facility], [NON-STAFF] - 1-2 Days Radha White DO [Primary Care Provider] - 08/08/19 4:15 pm (PH office.) Brett Clark MD [STAFF PHYSICIAN] - 08/14/19 2:30 pm Ambulatory/Diagnostic Orders: Complete Blood Count w/diff [LAB.AMB] Time Frame: 3 Days, Location: None Selected Activity/Diet/Wound Care/Special Instructions: No driving while taking Percocet No lifting over 10 pounds You may shower. No soaking or tub baths Very light activity until you are reevaluated at your follow up appointment with your surgeon
--- NOTE | 2019-08-07 08:00 | ECHOF ---
Referral Reason:chf,LV fx MEASUREMENTS -------- HEIGHT: 180.3 cm WEIGHT: 90.7 kg BP: 123/74 RVIDd: 3.3 cm (< 3.3) IVSd: 1.3 cm (0.6 - 1.1) LVIDd: 5.5 cm (3.9 - 5.3) LVPWd: 1.3 cm (0.6 - 1.1) IVSs: 1.9 cm LVIDs: 3.0 cm LVPWs: 2.0 cm LA Diam: 3.6 cm (2.7 - 3.8) LAESV Index (A-L): 25.43 ml/m Ao Diam: 4.0 cm (2.0 - 3.7) AV Cusp: 2.9 cm (1.5 - 2.6) MV EXCURSION: 17.701 mm (> 18.000) MV EF SLOPE: 93 mm/s (70 - 150) EPSS: 0.6 cm MV E Chadwick: 1.14 m/s MV DecT: 97 ms MV A Chadwick: 0.90 m/s MV E/A Ratio: 1.28 RAP: 5.00 mmHg RVSP: 32.01 mmHg FINDINGS -------- Sinus rhythm. This was a technically good study. The left ventricular size is normal. There is mild concentric left ventricular hypertrophy. Overa ll left ventricular systolic function is normal with, an EF between 60 - 65 %. The right ventricle is mildly enlarged. Normal LA size by volume 22+/-6 ml/m2. The right atrium is normal in size. Interatrial and interventricular septum intact. The aortic valve is trileaflet and appears structurally normal. The mitral valve is normal. Mild tricuspid regurgitation present. Right ventricular systolic pressure is normal at < 35 mmHg. There is no pulmonic regurgitation present. The aortic root is dilated measuring 4.0cm. Normal inferior vena cava with normal inspiratory collapse consistent with estimated right atrial pre ssure of 5 mmHg. There is no pericardial effusion. CONCLUSIONS -------- 1. Sinus rhythm. 2. This was a technically good study. 3. The left ventricular size is normal. 4. There is mild concentric left ventricular hypertrophy. 5. Overall left ventricular systolic function is normal with, an EF between 60 - 65 %. 6. The right ventricle is mildly enlarged. 7. Normal LA size by volume 22+/-6 ml/m2. 8. The right atrium is normal in size. 9. Interatrial and interventricular septum intact. 10. The aortic valve is trileaflet and appears structurally normal. 11. The mitral valve is normal. 12. Mild tricuspid regurgitation present. 13. Right ventricular systolic pressure is normal at < 35 mmHg. 14. There is no pulmonic regurgitation present. 15. The aortic root is dilated measuring 4.0cm. 16. Normal inferior vena cava with normal inspiratory collapse consistent with estimated right atrial pressure of 5 mmHg. 17. There is no pericardial effusion. CALL CENTER RECEPTIONIST: Xenia Ny RDCS
--- NOTE | 2019-08-08 02:26 | CDI ---
Documentation Clarification Form Date: 08/08/2019 From: Carson Dowling Phone: If you have a question about this query, please contact Lissett Winters, Major Assembly Lineman at [phone] between 8am and 5pm. Admit Date: 07/23/2019 Discharge Date: 08/06/2019 Patient Name: Shahab Chairez Visit Number: [id number] ATTENTION: The Clinical Documentation Specialists (CDI) and [facility] Coding Staff appreciate your assistance in clarifying documentation. Please respond to the clarification below the line at the bottom and electronically sign. The CDI & [facility] Coding staff will review the response and follow-up if needed. Please note: Queries are made part of the Legal Health Record. If you have any questions, please contact the author of this message via ITS. Dear Rikki Fajardo., CHF is documented in DS as " CHF, acute exacerbation, EF pending, echo completed with reading pending" History/Risk Factors: old [place], CAD, Hypertension. VS/Pulse OX: Pulse 74.Blood pressure 113/70, respirations 18, temperature 98.9, pulse ox 94% on room air. BNP: 138 Echocardiogram Results: Overall left ventricular systolic function is normal with, an EF between 60 - 65 %. Chest X Ray: 07/30 "Small right pleural effusion". Chest x- ray suggestive of CHF, Lasix initiated.Echo pending.The patient also had some fluid overload and the patient received some Lasix. Treatment: Lasix. In your professional opinion, can you please clarify the acuity and type of CHF if known? Systolic Heart Failure: Acute Chronic Acute on Chronic Diastolic Heart Failure: Acute Chronic Acute on Chronic Systolic & Diastolic Heart Failure: Acute Chronic Acute on Chronic Heart Failure Unable to Determine Other, please specify Acute diastolic CHF MTDD
== END 2019-08-06 15:30 | disposition home health service (06) | DRG 329 ==
LOC: EC 05:17 → 2SICU 06:15 → 5NMEDONC 08-01 18:51
PROVIDERS: ADMIT Family Medicine; ATTEND Family Medicine
PROC: 0DBC8ZX Excision of Ileocecal Valve, Via Natural or Artificial Opening Endoscopic, Diagnostic (ICD-10-PCS; 2019-07-24 08:20)
PROC: 0DB68ZX Excision of Stomach, Via Natural or Artificial Opening Endoscopic, Diagnostic (ICD-10-PCS; 2019-07-24 08:20)
PROC: 3E0H8GC Introduction of Other Therapeutic Substance into Lower GI, Via Natural or Artificial Opening Endoscopic (ICD-10-PCS; 2019-07-24 08:20)
PROC: 0W3P8ZZ Control Bleeding in Gastrointestinal Tract, Via Natural or Artificial Opening Endoscopic (ICD-10-PCS; 2019-07-24 08:20)
PROC: 0DBU0ZZ Excision of Omentum, Open Approach (ICD-10-PCS; principal; 2019-07-25 15:40)
PROC: 0DTF0ZZ Resection of Right Large Intestine, Open Approach (ICD-10-PCS; principal; 2019-07-25 15:40)
PROC: 30233N1 Transfusion of Nonautologous Red Blood Cells into Peripheral Vein, Percutaneous Approach (ICD-10-PCS; 2019-07-27)
DX: C18.2 Malignant neoplasm of ascending colon (principal); J18.9 Pneumonia, unspecified organism; A41.9 Sepsis, unspecified organism; I50.31 Acute diastolic (congestive) heart failure; D62 Acute posthemorrhagic anemia; K92.1 Melena; K63.3 Ulcer of intestine; C78.6 Secondary malignant neoplasm of retroperitoneum and peritoneum; J44.1 Chronic obstructive pulmonary disease with (acute) exacerbation; J44.0 Chronic obstructive pulmonary disease with (acute) lower respiratory infection; T81.49XA Infection following a procedure, other surgical site, initial encounter; E87.1 Hypo-osmolality and hyponatremia; B96.20 Unspecified Escherichia coli [E. coli] as the cause of diseases classified elsewhere; E87.6 Hypokalemia; E78.5 Hyperlipidemia, unspecified; F17.200 Nicotine dependence, unspecified, uncomplicated; I25.10 Atherosclerotic heart disease of native coronary artery without angina pectoris; I11.0 Hypertensive heart disease with heart failure; E03.9 Hypothyroidism, unspecified; I95.9 Hypotension, unspecified; K59.00 Constipation, unspecified; E88.09 Other disorders of plasma-protein metabolism, not elsewhere classified; K29.60 Other gastritis without bleeding; Z11.59 Encounter for screening for other viral diseases; Z79.899 Other long term (current) drug therapy; Z79.82 Long term (current) use of aspirin; Z79.890 Hormone replacement therapy; Z79.02 Long term (current) use of antithrombotics/antiplatelets; I25.2 Old myocardial infarction; Z95.5 Presence of coronary angioplasty implant and graft; Z98.890 Other specified postprocedural states; Z80.9 Family history of malignant neoplasm, unspecified
CPT/HCPCS: 36415; 36430; 43239; 45381; 45382; 71045; 71046; 71275; 74177; 80048; 80053; 82040; 82378; 82607; 82728; 82747; 83540; 83550; 83605; 83735; 83880; 83921; 84100; 84132; 84484; 85025; 85027; 85045; 85610; 85730; 86850; 86900; 86901; 86920; 87040; 87070; 87077; 87186; 87205; 87635; 88305; 88309; 93005; 93306; 93970; 94640; 94760; 96361; 96365; 96374; 96375; 99291

== ENCOUNTER → 2019-08-24 | Outpatient (CLI) | payer BC ==
--- NOTE | 2019-08-28 20:26 | PE ---
EXAMINATION TYPE: PET CT fusion skull to thigh DATE OF EXAM: 08/24/2019 CLINICAL HISTORY: 59-year-old male with C17.2, initial staging colon cancer. Diagnosed via biopsy on 07/25/2019. TECHNIQUE: Following the intravenous administration of 12.37 mCi of F-18 FDG, whole body images are performed from the skull base to the midthigh. Images are reviewed on the computer in the coronal, axial, and sagittal planes. Reconstructed rotating images are created on independent workstation and reviewed on the computer. A localization and attenuation correction CT is performed in conjunction with the PET scan. Glucose level: 92 mg/dL COMPARISON: Chest 07/31/2019 and abdomen pelvis 07/24/2019 FINDINGS: PET: Physiologic FDG uptake within the neck. Numerous scattered nonenlarged mediastinal lymph nodes measuring up to 7 mm. No thoracic lymphadenopa thy by CT size criteria. Assessment of hilar structures is limited due to lack of contrast. There is some focal mild FDG uptake at the right hilum, max SUV 2.4 that is nonspecific. Otherwise, physiologic FDG uptake within the chest. Average liver SUV: 1.7. There is intense uptake along the patient's vertically oriented periumbilical laparotomy with associa jason soft tissue thickening. This area measures 6.5 cm craniocaudal and 3.4 cm wide. Max SUV 8.7. Interval partial right hemicolectomy with ileocolonic anastomosis at the level of the upper ascending colon. There is some adjacent thickening of the right lateral peritoneal reflection, max SUV 4.4. There is some adjacent mesenteric nodularity in this area measuring up to 1 cm, max SUV 2.4. Additional scattered omental nodularity such as in the left upper quadrant redemonstrated. Largest ar ea is comprised of a conglomerate of nodules measuring up to 2.7 x 1.4 cm. Variable mild FDG uptake r elating to these scattered small nodules, max SUV 2.0. There is some irregular soft tissue thickening extending down from either side of the pelvis towards the midline measuring up to 3.7 cm wide by 2.4 cm AP, refer to axial image 227. Some soft tissue thic kening extends up on either side probably along peritoneal reflections and then on the right becomes hard to delineate from bowel. Max SUV 8.6. Interval resolution of the previous abdominal ascites seen on 07/31/2019. No abnormal FDG uptake within the liver. Mild increased uptake at the bilateral gluteal insertion suggesting insertional tendinosis. ATTENUATION CORRECTION CT: Visualized orbits and globes, paranasal sinuses, and right mastoid air cells appear clear. Small amou nt of fluid in the inferior left mastoid air cells. No cervical lymphadenopathy. Orotracheal columns clear. Heart normal size without pericardial effusion. 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 Conventional ar ch vessel branching anatomy. Interval resolution of previous right pleural effusion. No consolidation . No suspicious pulmonary nodule. Sigmoid diverticulosis. No dilated small bowel or free fluid. No free air. [id number] atheroscl erotic calcifications abdominal aorta. Moderate circumferential bladder wall thickening. Prostate gland measures 4.7 cm wide. No abnormal fl uid collection in the pelvis or pelvic lymphadenopathy. Bones: Mild degenerative change at the hips. Facet arthropathy and degenerative disc disease mid to l ower lumbar spine. Mild endplate spondylosis lower thoracic spine. Degenerative change of the bilater al AC joints. IMPRESSION: 1. Interval laparotomy change with partial right hemicolectomy and ileocolonic anastomosis at the upp er ascending colon. 2. There is intense hypermetabolism measuring 6.5 x 3.4 cm along the periumbilical abdominal wall reg ion of the laparotomy. This FDG uptake may be postsurgical inflammation. Abdominal wall seeding after laparotomy difficult to exclude at this time. 3. Scattered peritoneal and omental nodularity shows mild hypermetabolism and again, suggests perito adela carcinomatosis. 4. Some hypermetabolic thickening of the right lateral peritoneal reflection adjacent to the surgical site as well as thickening of the peritoneal reflection at the midline pelvis (2.7 x 2.4 cm) with Y- shaped hypermetabolic thickening extending to either side. Findings suggest additional peritoneal inv olvement and possible some bowel serosal involvement on the right. 5. Mild uptake at the right hilum is nonspecific and could represent a reactive lymph node. 6. INCIDENTAL: Mild aneurysm ascending aorta at 4.2 cm, sigmoid diverticulosis, moderate circumferent ial bladder wall thickening that could represent chronic bladder wall hypertrophy or cystitis, and mi ld prostatomegaly of 4.7 cm.
== END | disposition home or self-care (01) ==
LOC: RADPETMAIN 10:26
PROVIDERS: ATTEND Internal Medicine Hematology & Oncology
DX: C17.2 Malignant neoplasm of ileum (principal)
CPT/HCPCS: 78815; A9552

== ENCOUNTER → 2019-09-10 | Day surgery (SDC) | payer BC ==
[2019-09-07 10:18] VITALS: BMI 26.2
[~2019-09-10] MED LIST changes: +ACETAMINOPHEN TAB 500 MG TAB ONE; +ACETAMINOPHEN TAB 500 MG TAB PO ONE; +BUPIVACAIN-EPI 0.25%-1:200,000 30 ML VIAL SQ ONE; +HEPARIN SODIUM,PORCINE 100 UNIT/ML 5 ML VIAL IV ONE; +HEPARIN SODIUM,PORCINE 5,000 UNIT/ML 1 ML VIAL ONE; +HYDROmorphone 0.5 MG/0.5 ML SYRINGE IVP PRN; +IOPAMIDOL-370 50ML BTL MISCELLANE ONE; +KETAMINE 10 MG/ML 20 ML VIAL ONE; +LACTATED RINGERS 1,000 ML IV ONE; +LIDOCAINE 1% (10MG/ML) FOR IV START INTRADERMA PRN; -LIDOCAINE 1% 20 ML VIAL (10MG/ML) FOR IV START INTRADERMA PRN; +MIDAZOLAM 2 MG/2 ML VIAL ONE; -ONDANSETRON 4 MG/2 ML VIAL IVP ONE; +PROPOFOL 10 MG/ML 20 ML VIAL IV ONE; +Pre Op ABX Message 1 EACH MISC MISCELLANE ONE; -SCOPOLAMINE 1.5MG/72HR PATCH TRANSDERM ONE; +fentaNYL (PF) 50 MCG/ML 2 ML AMP ONE
[2019-09-10 08:00] VITALS: TEMP 97.8
--- NOTE | 2019-09-10 09:42 | P.GSHP ---
History of Present Illness H&P Date: 09/10/19 Chief Complaint: Colon cancer This a 59-year-old male with history: Cancer. Patient rents today for Mediport placement Past Medical History Past Medical History: Cancer, Hyperlipidemia, Myocardial Infarction ([place]), Thyroid Disorder Additional Past Medical History / Comment(s): colon cancer. abdominal incision with 2 holes that are open the size of a straw 1/2 inch deep using silver rope and saline has visiting nurse Last Myocardial Infarction Date:: 04/02/2017 History of Any Multi-Drug Resistant Organisms: None Reported Past Surgical History: Bowel Resection, Heart Catheterization With Stent, Hernia Repair, Orthopedic Surgery Additional Past Surgical History / Comment(s): RIGHT LEG ORIF,. COLONOSCOPY. umbilical hernia repair with mesh Past Anesthesia/Blood Transfusion Reactions: No Reported Reaction Date of Last Stent Placement:: 04/02/2017 Smoking Status: Current some day smoker - Past Family History Mother Family Medical History: Cancer Additional Family Medical History / Comment(s): breast cancer Father Family Medical History: Cancer Additional Family Medical History / Comment(s): colon cancer Medications and Allergies Home Medications Medication Instructions Recorded Confirmed Type Aspirin 81 mg PO DAILY #100 chew 04/19/17 09/10/19 Rx Clopidogrel [Plavix] 75 mg PO DAILY #100 tab 04/19/17 09/10/19 Rx Atorvastatin Calcium [Lipitor] 10 mg PO DAILY 07/23/19 09/10/19 History Levothyroxine Sodium [Synthroid] 25 mcg PO DAILY 07/23/19 09/10/19 History Nicotine 21Mg/24Hr Patch [Habitrol] 1 patch TRANSDERM DAILY #30 patch 08/06/19 09/10/19 Rx Pantoprazole [Protonix] 40 mg PO BID #60 tablet. 08/06/19 09/10/19 Rx Allergies Allergy/AdvReac Type Severity Reaction Status Date / Time No Known Allergies Allergy Verified 09/06/19 15:43 Surgical - Exam Vital Signs Temp Pulse Resp BP Pulse Ox 97.8 F 94 16 140/79 98 09/10/19 07:57 09/10/19 07:57 09/10/19 07:57 09/10/19 07:57 09/10/19 07:57 - General well developed, well nourished, no distress - Eyes PERRL - ENT normal pinna - Neck no masses - Respiratory normal expansion - Cardiovascular Rhythm: regular - Abdomen Abdomen: soft, non tender Assessment and Plan Assessment: History of metastatic colon cancer. We'll perform Port-A-Cath placement
[2019-09-10 10:40] VITALS: RESP 17
--- NOTE | 2019-09-10 10:46 | P.OP ---
Date of Procedure: 09/10/19 Preoperative Diagnosis: Colon cancer Postoperative Diagnosis: Colon cancer Procedure(s) Performed: Insertion of right subclavian Mediport Anesthesia: MAC Surgeon: Brett Clark Estimated Blood Loss (ml): 5 Pathology: none sent Condition: stable Disposition: PACU Description of Procedure: MPROCEDURE: The patient was placed on the operating table in the supine position. She received MAC anesthetic. The [right] chest was prepped and draped in the usual sterile fashion. The skin underneath the right clavicle was anesthetized with 1% Xylocaine and using Seldinger technique, the right subclavian vein was cannulized. The wire was placed through the needle and positioned under fluoroscopy. Next, the needle was removed and the port site was anesthetized with 1% Xylocaine. Skin was incised with #15 blade and port pocket was made using blunt and sharp dissection. Following this the catheter was attached to the sport and the port was flushed. The port was positioned into the pocket site and was secured with 3-0 Vicryl suture. The catheter was then brought out through the wire site and then the dilator sheath was placed over the wire and the dilator and the wire were removed. The catheter was placed through the sheath and the sheath was removed. The port was flushed with hep-lock solution. Skin was closed with interrupted 3-0 Vicryl sutures. Steri-Strips were applied. The patient tolerated the procedure well. The patient was sent to recovery room for chest x-ray after the procedure.
[2019-09-10 11:02] VITALS: BP 118/73; PULSE 93
--- NOTE | 2019-09-10 11:32 | XR ---
EXAMINATION TYPE: XR chest 1V DATE OF EXAM: 09/10/2019 HISTORY: Shortness of breath. COMPARISON: 08/04/2019 TECHNIQUE: Single view of the chest is submitted. FINDINGS: Demonstrated are scattered senescent parenchymal change. MediPort catheter is noted with its distal tip overlying the SVC. No evidence for pneumothorax. There is no evidence for focal infiltrate. The heart is stable. Hilar and mediastinal structures are within normal limits. Degenerative changes are seen of the dorsal spine. IMPRESSION: 1. Chronic changes without evidence for acute pulmonary disease.
--- NOTE | 2019-09-10 14:29 | FL ---
Fluoroscopy History: Port-a-cath insertion rt side 8 sec fl time used port-a-cath insertion 1 image scanned into pacs
== END ==
LOC: OR 06:52
PROVIDERS: ATTEND Surgery
DX: C18.9 Malignant neoplasm of colon, unspecified (principal); E78.5 Hyperlipidemia, unspecified; L76.82 Other postprocedural complications of skin and subcutaneous tissue; I25.2 Old myocardial infarction; E07.9 Disorder of thyroid, unspecified; I25.10 Atherosclerotic heart disease of native coronary artery without angina pectoris; F17.210 Nicotine dependence, cigarettes, uncomplicated; Z90.49 Acquired absence of other specified parts of digestive tract; Z95.5 Presence of coronary angioplasty implant and graft; Z98.890 Other specified postprocedural states; Z87.81 Personal history of (healed) traumatic fracture; Z87.19 Personal history of other diseases of the digestive system; Z79.82 Long term (current) use of aspirin; Z79.02 Long term (current) use of antithrombotics/antiplatelets; Z79.899 Other long term (current) drug therapy; Z79.890 Hormone replacement therapy; Z80.3 Family history of malignant neoplasm of breast; Z80.0 Family history of malignant neoplasm of digestive organs
CPT/HCPCS: 77001; 71045; 36561; C1788; J2250; J1644; J1642; J1100; J3010; J2704; Q9967

== ENCOUNTER 2019-10-05 13:28 | Emergency (ER) | payer BC ==
[2019-10-05 13:37] VITALS: TEMP 98
--- NOTE | 2019-10-05 13:39 | ED ---
Recheck HPI - General Chief Complaint: Recheck/Abnormal Lab/Rx Stated Complaint: ABN scan Time Seen by Provider: 10/05/19 13:39 Source: patient, RN notes reviewed, old records reviewed Mode of arrival: ambulatory Limitations: no limitations - History of Present Illness Initial Comments: This is a 59-year-old male DF for evaluation patient does have known Alley pain abdominal pain. Patient is seen today for evaluation regards to belly pain and abnormal computed tomography scan. Patient unsure of findings denying any new complaints symptoms of been ongoing. MD Complaint: other (Recheck at normal computed tomography scan) -: hour(s) Returns Today for: Called Because of Abnormal Lab/Test Symptoms Since Prior Visit: no new symptoms Context: planned re-check Associated Symptoms: none - Related Data Home Medications Medication Instructions Recorded Confirmed Atorvastatin Calcium [Lipitor] 10 mg PO HS 07/23/19 10/14/19 Levothyroxine Sodium [Synthroid] 50 mcg PO DAILY 10/05/19 10/14/19 Nicotine 21Mg/24Hr Patch [Habitrol] 1 patch TRANSDERM DAILY PRN 10/14/19 10/14/19 Ondansetron Odt [Zofran Odt] 4 mg PO QID PRN 10/14/19 10/14/19 traMADol HCL 50 mg PO QID PRN 10/14/19 10/14/19 Previous Rx's Medication Instructions Recorded Aspirin 81 mg PO DAILY #100 chew 04/19/17 Clopidogrel [Plavix] 75 mg PO DAILY #100 tab 04/19/17 Pantoprazole [Protonix] 40 mg PO BID #60 tablet. 08/06/19 Allergies Allergy/AdvReac Type Severity Reaction Status Date / Time No Known Allergies Allergy Verified 10/14/19 16:07 Review of Systems ROS Statement: Those systems with pertinent positive or pertinent negative responses have been documented in the HPI. ROS Other: All systems not noted in ROS Statement are negative. Past Medical History Past Medical History: Cancer, Hyperlipidemia, Myocardial Infarction ([place]), Thyroid Disorder Additional Past Medical History / Comment(s): colon cancer. abdominal incision with 2 holes that are open the size of a straw 1/2 inch deep using silver rope and saline has visiting nurse Last Myocardial Infarction Date:: 04/02/2017 History of Any Multi-Drug Resistant Organisms: None Reported Past Surgical History: Bowel Resection, Heart Catheterization With Stent, Hernia Repair, Orthopedic Surgery Additional Past Surgical History / Comment(s): RIGHT LEG ORIF,. COLONOSCOPY. umbilical hernia repair with mesh Past Anesthesia/Blood Transfusion Reactions: No Reported Reaction Date of Last Stent Placement:: 04/02/2017 Past Psychological History: No Psychological Hx Reported Past Alcohol Use History: Occasional Past Drug Use History: None Reported - Past Family History Mother Family Medical History: Cancer Additional Family Medical History / Comment(s): breast cancer Father Family Medical History: Cancer Additional Family Medical History / Comment(s): colon cancer General Exam Limitations: no limitations General appearance: alert, in no apparent distress, anxious Head exam: Present: atraumatic, normocephalic, normal inspection Eye exam: Present: normal appearance, PERRL, EOMI. Absent: scleral icterus, conjunctival injection, periorbital swelling ENT exam: Present: normal exam, mucous membranes moist Neck exam: Present: normal inspection. Absent: tenderness, meningismus, lymphadenopathy Respiratory exam: Present: normal lung sounds bilaterally. Absent: respiratory distress, wheezes, rales, rhonchi, stridor Cardiovascular Exam: Present: regular rate, normal rhythm, normal heart sounds. Absent: systolic murmur, diastolic murmur, rubs, gallop, clicks GI/Abdominal exam: Present: soft, normal bowel sounds. Absent: distended, tenderness, guarding, rebound, rigid Extremities exam: Present: normal inspection, full ROM, normal capillary refill. Absent: tenderness, pedal edema, joint swelling, calf tenderness Back exam: Present: normal inspection Neurological exam: Present: alert, oriented X3, CN II-XII intact Psychiatric exam: Present: normal affect, normal mood Skin exam: Present: warm, dry, intact, normal color. Absent: rash Course Vital Signs 10/05/19 10/05/19 13:34 16:16 Temperature 98.0 F Pulse Rate 85 74 Respiratory 16 18 Rate Blood Pressure 128/75 143/87 O2 Sat by Pulse 96 94 L Oximetry - Reevaluation(s) Reevaluation #1: Medical record is reviewed Symptoms are significantly improving, resolved Spoke with patient regarding symptoms and findings, questions answered Patient feels good for discharge home Reevaluation #2: Patient does state he was chewing on something for dinner and may have lost a filling of his tooth Medical Decision Making - Medical Decision Making 59 male to the ER with GI foreign body likely feeling, it appears he passing appropriately patient can be discharged - Lab Data Result diagrams: 10/05/19 14:50 10/05/19 14:50 Lab Results 10/05/19 10/05/19 10/05/19 Range/Units 14:50 14:50 14:50 WBC 7.8 (3.8-10.6) k/uL RBC 4.88 (4.30-5.90) m/uL Hgb 13.0 (13.0-17.5) gm/dL Hct 42.0 (39.0-53.0) % MCV 86.1 (80.0-100.0) fL MCH 26.6 (25.0-35.0) pg MCHC 30.9 L (31.0-37.0) g/dL RDW 16.5 H (11.5-15.5) % Plt Count 243 (150-450) k/uL Neutrophils % 80 % Lymphocytes % 14 % Monocytes % 4 % Eosinophils % 1 % Basophils % 0 % Neutrophils # 6.2 (1.3-7.7) k/uL Lymphocytes # 1.1 (1.0-4.8) k/uL Monocytes # 0.3 (0-1.0) k/uL Eosinophils # 0.1 (0-0.7) k/uL Basophils # 0.0 (0-0.2) k/uL Hypochromasia Moderate Anisocytosis Slight Sodium 138 (137-145) mmol/L Potassium 4.1 (3.5-5.1) mmol/L Chloride 105 (98-107) mmol/L Carbon Dioxide 27 (22-30) mmol/L Anion Gap 6 mmol/L BUN 12 (9-20) mg/dL Creatinine 0.68 (0.66-1.25) mg/dL Est GFR (CKD-EPI)AfAm >90 (>60 ml/min/1.73 sqM) Est GFR (CKD-EPI)NonAf >90 (>60 ml/min/1.73 sqM) Glucose 114 H (74-99) mg/dL Plasma Lactic Acid Andrea 1.1 (0.7-2.0) mmol/L Calcium 9.2 (8.4-10.2) mg/dL Total Bilirubin 0.6 (0.2-1.3) mg/dL AST 22 (17-59) U/L ALT 13 (4-49) U/L Alkaline Phosphatase 56 (38-126) U/L Total Protein 6.3 (6.3-8.2) g/dL Albumin 3.8 (3.5-5.0) g/dL Amylase 34 (30-110) U/L Lipase 94 (23-300) U/L - Radiology Data Radiology results: report reviewed (X-ray KUB shows transitional foreign body), image reviewed Disposition Clinical Impression: Chest pain, Carcinomatosis, Adenocarcinoma of colon, Abdominal pain Disposition: HOME SELF-CARE Condition: Good Instructions (If sedation given, give patient instructions): Abdominal Pain (ED) Is patient prescribed a controlled substance at d/c from ED?: No Referrals: Radha White DO [Primary Care Provider] - 1-2 days
[2019-10-05] MEDS ORDERED: SODIUM CHLORIDE 0.9% 1,000 ML IV STA (14:33)
[2019-10-05 15:08] LABS: Anisocytosis Slight; Basophils % (A) 0 %; Eosinophils # (A) 0.1 k/uL (0-0.7); Eosinophils % (A) 1 %; Hypochromasia Moderate; Lymphocytes # (A) 1.1 k/uL (1.0-4.8); Lymphocytes % (A) 14 %; MCH 26.6 pg (25.0-35.0); MCHC 30.9 g/dL (31.0-37.0); MCV 86.1 fL (80.0-100.0); Mean Platelet Volume 8.1; Monocytes # (A) 0.3 k/uL (0-1.0); Monocytes % (A) 4 %; Neutrophils # (A) 6.2 k/uL (1.3-7.7); Neutrophils % (A) 80 %; Platelet Count 243 k/uL (150-450); RBC 4.88 m/uL (4.30-5.90); RDW 16.5 % (11.5-15.5); WBC 7.8 k/uL (3.8-10.6)
[2019-10-05 15:11] LABS: ALT 13 U/L (4-49); AST 22 U/L (17-59); African American GFR (CKD) >90 (>60 ml/min/1.73 sqM); Albumin 3.8 g/dL (3.5-5.0); Alkaline Phosphatase 56 U/L (38-126); Amylase 34 U/L (30-110); Anion Gap 6 mmol/L; Blood Urea Nitrogen 12 mg/dL (9-20); Calcium 9.2 mg/dL (8.4-10.2); Carbon Dioxide 27 mmol/L (22-30); Chloride 105 mmol/L (98-107); Glucose 114 mg/dL (74-99); Non-African American GFR(CKD) >90 (>60 ml/min/1.73 sqM); Potassium 4.1 mmol/L (3.5-5.1); Sodium 138 mmol/L (137-145); Total Bilirubin 0.6 mg/dL (0.2-1.3); Total Protein 6.3 g/dL (6.3-8.2)
[2019-10-05] MEDS ORDERED: MORPHINE SULFATE 4 MG/ML SYRINGE IVP STA (15:51)
[2019-10-05] MEDS ORDERED: ONDANSETRON 4 MG/2 ML VIAL IVP PRN (15:51)
[2019-10-05] MEDS ORDERED: ONDANSETRON 4 MG/2 ML VIAL IVP STA (15:51)
[2019-10-05] MEDS ORDERED: MORPHINE SULFATE 4 MG/ML SYRINGE IVP PRN (15:51)
--- NOTE | 2019-10-05 16:04 | XR ---
EXAMINATION TYPE: XR KUB DATE OF EXAM: 10/05/2019 3:52 PM CLINICAL HISTORY: Right upper quadrant pain. TECHNIQUE: Two Upright KUB images of the abdomen are obtained. COMPARISON: CT abdomen earlier today. FINDINGS: Scattered gas is seen in non-distended stomach and small bowel loops. Gas long with contras t and fecal material is seen in non-distended colon. Interval advancement of contrast to rectum noted . Persistent 3 mm metallic density intraluminal in the right colon now at level of cecum. Metallic salguero tures on CT at base of cecum less well seen on plain film. Contrast from recent CT filling the bladde r. Lung bases are clear. Multilevel spurring of the spine. IMPRESSION: As above.
[2019-10-05 16:20] VITALS: BP 143/87; PULSE 74; RESP 18
== END 2019-10-05 16:50 | disposition home or self-care (01) ==
LOC: EC 13:28 → 1SOBS 15:51 → UNDOADMOB 15:51 → EC 16:50
DX: C78.6 Secondary malignant neoplasm of retroperitoneum and peritoneum (principal); R07.9 Chest pain, unspecified; E78.5 Hyperlipidemia, unspecified; E07.9 Disorder of thyroid, unspecified; I25.2 Old myocardial infarction; Z79.890 Hormone replacement therapy; Z79.899 Other long term (current) drug therapy; Z95.5 Presence of coronary angioplasty implant and graft; Z85.038 Personal history of other malignant neoplasm of large intestine; Z80.3 Family history of malignant neoplasm of breast; Z80.0 Family history of malignant neoplasm of digestive organs
CPT/HCPCS: 99284; 96374; 96375; 96361 ×2; 36415; 80053; 82150; 83605; 83690; 85025; 74018; J2270; J2405

== ENCOUNTER → 2019-10-05 | Outpatient (CLI) | payer BC ==
--- NOTE | 2019-10-05 12:29 | CT ---
EXAMINATION TYPE: CT abdomen w con DATE OF EXAM: 10/05/2019 COMPARISON: CT abdomen and pelvis July 24, [address] February 20, 2019. PET/CT August 24, 2019. HISTORY: RUQ pain CT DLP: 955 mGycm, Automated Exposure Control for Dose Reduction was Utilized. CONTRAST: CT scan of the abdomen is performed without oral but with IV Contrast, patient injected with 100 mL o f Isovue 300. FINDINGS: LUNG BASES: No significant abnormality is appreciated. LIVER/GB: No significant abnormality is appreciated. PANCREAS: No significant abnormality is seen. SPLEEN: No significant abnormality is seen. ADRENALS: No significant abnormality is seen. KIDNEYS: Symmetric cortical medullary uptake and excretion without hydronephrosis seen bilaterally. T hin-walled 1.5 cm cyst posteriorly upper pole of the left kidney on axial series 7 image 18. BOWEL: Poor contrast opacification of bowel loops. No suspicious small or large bowel dilatation. Pedro gical sutures from partial colectomy and bowel anastomosis in the right mid to lower abdomen noted. R oughly 6 to 7 mm intraluminal metallic foreign body in the colon at level of the hepatic flexure axia l image 31. LYMPH NODES: Worsening anterior nodularity and soft tissue nodules for reference left mid abdomen mis ge 37 consistent with peritoneal carcinomatosis progression. OSSEOUS STRUCTURES: Moderate multilevel spurring and disc space narrowing in the mid to lower cervica l spine. OTHER: Moderate mixed plaque in the ectatic abdominal aorta. No new greater than 3.0 cm aneurysmal ch can. Overlying scar in the midline of the mid abdomen redemonstrated to the umbilicus. IMPRESSION: Suspected continued interval progression of peritoneal carcinomatosis. No bowel obstructi on. There is 6 to 7 mm metallic foreign body in the colon at level of hepatic flexure. Correlate clin ically. No definitive additional new or acute process otherwise identified.
== END | disposition home or self-care (01) ==
LOC: RADPROMAIN 09:59
PROVIDERS: ATTEND Internal Medicine Hematology & Oncology
DX: T18.4XXA Foreign body in colon, initial encounter (principal); C18.2 Malignant neoplasm of ascending colon
CPT/HCPCS: 74160; J1642; Q9967

== ENCOUNTER → 2019-10-11 | Outpatient (CLI) | payer BC ==
--- NOTE | 2019-10-11 13:50 | XR ---
EXAMINATION TYPE: XR KUB DATE OF EXAM: 10/11/2019 11:26 AM CLINICAL HISTORY: Follow-up foreign body. TECHNIQUE: Supine images of the abdomen and pelvis were obtained COMPARISON: None. FINDINGS: Nonspecific bowel gas pattern. Suture material of the right mid abdomen. Small metallic den sity seen at the level of the proximal residual ascending colon on 10/05/2019 comparison is not definit ively seen on current exam. No evidence of large free air collection within limits of supine techniqu e. IMPRESSION: 1. Tiny metallic density is not seen on current exam. 2. Nonspecific bowel gas pattern.
== END | disposition home or self-care (01) ==
LOC: RADXRMAIN 10:52
PROVIDERS: ATTEND Internal Medicine Hematology & Oncology
DX: C18.2 Malignant neoplasm of ascending colon (principal)
CPT/HCPCS: 74018

== ENCOUNTER 2019-10-14 02:27 | Inpatient (IN) | payer BC ==
[2019-10-14] MEDS ORDERED: MORPHINE SULFATE 4 MG/ML SYRINGE IV STA (03:02)
[2019-10-14] MEDS ORDERED: ONDANSETRON 4 MG/2 ML VIAL IVP STA (03:02)
[2019-10-14] MEDS ORDERED: SODIUM CHLORIDE 0.9% 1,000 ML IV STA (03:02)
--- NOTE | 2019-10-14 03:11 | XR ---
EXAMINATION TYPE: XR abdomen 2V DATE OF EXAM: 10/14/2019 COMPARISON: 10/11/2019 HISTORY: Colon cancer. Constipation. TECHNIQUE: Supine and upright views FINDINGS: There are some small bowel fluid levels in the mid abdomen. There is gas down to the rectum . There are surgical clips in the right mid abdomen. I see no sign of free air. Lung bases are clear. There are no pathologic calcifications. IMPRESSION: Small bowel fluid levels consistent with ileus or partial mechanical obstruction appear n ew compared to recent exam. No significant retained fecal material. No evidence of constipation.
[2019-10-14] MEDS ORDERED: ONDANSETRON 4 MG/2 ML VIAL IVP PRN (03:13)
[2019-10-14] MEDS ORDERED: NALOXONE 0.4 MG/ML 1 ML VIAL IV PRN (03:13)
[2019-10-14 03:15] LABS: Anisocytosis Slight; Basophils % (A) 0 %; Eosinophils # (A) 0.1 k/uL (0-0.7); Eosinophils % (A) 1 %; HGB 15.6 gm/dL (13.0-17.5); Hypochromasia Slight; Lymphocytes % (A) 9 %; MCH 26.6 pg (25.0-35.0); MCHC 31.3 g/dL (31.0-37.0); Mean Platelet Volume 7.8; Monocytes # (A) 0.8 k/uL (0-1.0); Monocytes % (A) 8 %; Neutrophils # (A) 8.8 k/uL (1.3-7.7); Neutrophils % (A) 81 %; Platelet Count 307 k/uL (150-450); RBC 5.88 m/uL (4.30-5.90); RDW 17.1 % (11.5-15.5)
[2019-10-14] MEDS ORDERED: LIDOCAINE VISCOUS 2% 15 ML CUP MUCOUS MEM ONE (03:15)
[2019-10-14 03:25] LABS: ALT 14 U/L (4-49); AST 22 U/L (17-59); African American GFR (CKD) >90 (>60 ml/min/1.73 sqM); Albumin 4.4 g/dL (3.5-5.0); Alkaline Phosphatase 88 U/L (38-126); Amylase 32 U/L (30-110); Anion Gap 11 mmol/L; Blood Urea Nitrogen 12 mg/dL (9-20); Calcium 10.4 mg/dL (8.4-10.2); Carbon Dioxide 27 mmol/L (22-30); Chloride 101 mmol/L (98-107); Glucose 157 mg/dL (74-99); Non-African American GFR(CKD) >90 (>60 ml/min/1.73 sqM); Potassium 4.2 mmol/L (3.5-5.1); Sodium 139 mmol/L (137-145); Total Bilirubin 0.5 mg/dL (0.2-1.3); Total Protein 7.3 g/dL (6.3-8.2)
--- NOTE | 2019-10-14 03:54 | CT ---
EXAMINATION TYPE: CT abdomen pelvis w con DATE OF EXAM: 10/14/2019 COMPARISON: 10/05/2019 HISTORY: Abd Pain, R/O Obstruction CT DLP: 999.60 mGycm Automated exposure control for dose reduction was used. CONTRAST: Performed with IV Contrast, patient injected with 100 mL of Isovue 300. Lung bases are clear of infiltrate. Heart size is normal. There is no pericardial effusion. There is no pleural effusion. Liver spleen stomach gallbladder appear intact. Bile ducts are not dilated. Pancreas appears normal. There is no adrenal mass. Kidneys show satisfactory contrast opacification. There is no hydronephrosi s. There are renal cortical cysts that measure up to 1.5 cm. Delayed images show normal renal excreti on. There is no retroperitoneal adenopathy. Abdominal aorta is atheromatous. Bladder distends smoothl y. There is no inguinal hernia. There are multiple sigmoid diverticula. There are multiple dilated air and fluid-filled loops of smal l bowel in the mid abdomen. There are surgical clips at the ascending colon. There is air and fluid i n the transverse colon. Small bowel is dilated up to 4.2 cm. The terminal ileum is not dilated. There is some nodular density involving the omental fat on the anterior abdomen with multiple densities th at measure up to 1.5 cm. This could be omental caking. Lumbar vertebra have normal alignment. There is no compression fracture. Bony pelvis is intact. IMPRESSION: Moderately dilated small bowel suggestive of distal mechanical small bowel obstruction. I think that small bowel ileus is less likely. This appears new compared to old exam. Omental nodularity that coul d relate to carcinomatosis. Unchanged. There is some linear soft tissue density posterior to the sigm oid colon also suspicious for carcinomatosis. There is sigmoid diverticulosis without diverticulitis. Metallic density in the hepatic flexure of the colon on previous exam is not evident on today's exam.
--- NOTE | 2019-10-14 04:12 | ED ---
Abdominal Pain HPI - General Chief Complaint: Abdominal Pain Stated Complaint: Abd Pain Time Seen by Provider: 10/14/19 02:47 Source: patient Mode of arrival: ambulatory Limitations: no limitations - History of Present Illness Initial Comments: Shortness of pleasant 59-year-old gentleman with relatively recently diagnosed stage IV colon cancer which was discovered and operated on July 24. Patient had some healing complications from surgery but otherwise is doing well. The wound is well-healed now. He began chemotherapy recently and is scheduled to have his second dose of chemotherapy on Tuesday of this week. Patient reports he's felt constipated recently, cannot recall last time he had a normal bowel movement. This morning he had some MiraLAX but has not had any bowel movement has developed abdominal distention and discomfort. Patient reports he feels somewhat nauseated but he never really vomits, however today he is having reflux of the things that he drink came back up his esophagus. - Related Data Home Medications Medication Instructions Recorded Confirmed Atorvastatin Calcium [Lipitor] 10 mg PO HS 07/23/19 10/05/19 Levothyroxine Sodium [Synthroid] 50 mcg PO DAILY 10/05/19 10/05/19 Previous Rx's Medication Instructions Recorded Aspirin 81 mg PO DAILY #100 chew 04/19/17 Clopidogrel [Plavix] 75 mg PO DAILY #100 tab 04/19/17 Pantoprazole [Protonix] 40 mg PO BID #60 tablet. 08/06/19 Allergies Allergy/AdvReac Type Severity Reaction Status Date / Time No Known Allergies Allergy Verified 10/14/19 02:37 Review of Systems ROS Statement: Those systems with pertinent positive or pertinent negative responses have been documented in the HPI. ROS Other: All systems not noted in ROS Statement are negative. Past Medical History Past Medical History: Cancer, Hyperlipidemia, Myocardial Infarction ([place]), Thy roid Disorder Additional Past Medical History / Comment(s): colon cancer. abdominal incision with 2 holes that are open the size of a straw 1/2 inch deep using silver rope and saline has visiting nurse Last Myocardial Infarction Date:: 04/02/2017 History of Any Multi-Drug Resistant Organisms: None Reported Past Surgical History: Bowel Resection, Heart Catheterization With Stent, Hernia Repair, Orthopedic Surgery Additional Past Surgical History / Comment(s): RIGHT LEG ORIF,. COLONOSCOPY. umbilical hernia repair with mesh Past Anesthesia/Blood Transfusion Reactions: No Reported Reaction Date of Last Stent Placement:: 04/02/2017 Past Psychological History: No Psychological Hx Reported Smoking Status: Current every day smoker Past Alcohol Use History: Occasional Past Drug Use History: None Reported - Past Family History Mother Family Medical History: Cancer Additional Family Medical History / Comment(s): breast cancer Father Family Medical History: Cancer Additional Family Medical History / Comment(s): colon cancer General Exam - General Exam Comments Initial Comments: Physical Exam GENERAL: Patient is well-developed and well-nourished. Patient is nontoxic and well-hydrated and is in no distress. HENT: Normocephalic, Atraumatic. EYES: PERRL, EOMI PULMONARY: Unlabored respirations. CARDIOVASCULAR: RRR Warm and well perfused extremities ABDOMEN: Mildly distended,tympanic, mild discomfort to palpation Well-healing surgical incision in the midline SKIN: No rashes or bruising : Deferred NEUROLOGIC: Alert and oriented Normal speech Normal gait MUSCULOSKELETAL: Moving all extremities with no apparent injury PSYCHIATRIC: No SI/HI Limitations: no limitations Course Vital Signs 10/14/19 10/14/19 02:31 03:52 Temperature 98.3 F 98.4 F Pulse Rate 131 H 88 Respiratory 18 18 Rate Blood Pressure 132/70 139/89 O2 Sat by Pulse 98 98 Oximetry Medical Decision Making - Medical Decision Making The patient was seen and evaluated history is obtained from the patient An x-ray was obtained and reviewed by me which is concerning for small bowel obstruction, labs, analgesia, antiemetics, NG tube and a computed tomography scan were ordered Patient will be admitted to the hospital for small bowel obstruction with NG tube in place, partially 400 mL of gastric contents drained from the NG tube prior to patient being transferred to the floor Patient's surgeon Dr Mcgarry will be consulted on admission - Lab Data Result diagrams: 10/14/19 03:05 10/14/19 03:05 Lab Results 10/14/19 10/14/19 10/14/19 Range/Units 03:05 03:05 03:05 WBC 11.0 H (3.8-10.6) k/uL RBC 5.88 (4.30-5.90) m/uL Hgb 15.6 (13.0-17.5) gm/dL Hct 50.0 (39.0-53.0) % MCV 85.0 (80.0-100.0) fL MCH 26.6 (25.0-35.0) pg MCHC 31.3 (31.0-37.0) g/dL RDW 17.1 H (11.5-15.5) % Plt Count 307 (150-450) k/uL Neutrophils % 81 % Lymphocytes % 9 % Monocytes % 8 % Eosinophils % 1 % Basophils % 0 % Neutrophils # 8.8 H (1.3-7.7) k/uL Lymphocytes # 1.0 (1.0-4.8) k/uL Monocytes # 0.8 (0-1.0) k/uL Eosinophils # 0.1 (0-0.7) k/uL Basophils # 0.0 (0-0.2) k/uL Hypochromasia Slight Anisocytosis Slight Sodium 139 (137-145) mmol/L Potassium 4.2 (3.5-5.1) mmol/L Chloride 101 (98-107) mmol/L Carbon Dioxide 27 (22-30) mmol/L Anion Gap 11 mmol/L BUN 12 (9-20) mg/dL Creatinine 0.85 (0.66-1.25) mg/dL Est GFR (CKD-EPI)AfAm >90 (>60 ml/min/1.73 sqM) Est GFR (CKD-EPI)NonAf >90 (>60 ml/min/1.73 sqM) Glucose 157 H (74-99) mg/dL Plasma Lactic Acid Andrea 1.7 (0.7-2.0) mmol/L Calcium 10.4 H (8.4-10.2) mg/dL Total Bilirubin 0.5 (0.2-1.3) mg/dL AST 22 (17-59) U/L ALT 14 (4-49) U/L Alkaline Phosphatase 88 (38-126) U/L Total Protein 7.3 (6.3-8.2) g/dL Albumin 4.4 (3.5-5.0) g/dL Amylase 32 (30-110) U/L Lipase 22 L (23-300) U/L Disposition Clinical Impression: SBO (small bowel obstruction), Adenocarcinoma of colon Disposition: ADMITTED IP TO THIS [facility] Condition: Serious Referrals: Radha White DO [Primary Care Provider] - 1 Week
[2019-10-14] MEDS: HYDROmorphone 0.5 MG/0.5 ML SYRINGE IVP PRN (05:58)
[2019-10-14] MEDS: MORPHINE SULFATE 4 MG/ML SYRINGE IV PRN ×5 (07:53→21:37)
[2019-10-14] MEDS: PANTOPRAZOLE 40 MG/10 ML VIAL IV SCH (07:53)
--- NOTE | 2019-10-14 12:01 | P.GSCN ---
History of Present Illness Consult date: 10/14/19 Reason for Consult: Metastatic colon cancer History of present illness: This a 59-year-old male with a known history of metastatic colon cancer. Patient complaints of nausea vomiting abdominal pain. Patient was admitted through emergency room. Patient to CAT scan performed which is suggestive of a distal small bowel obstruction. He dilated loops of small bowel. Past Medical History Past Medical History: Cancer, Hyperlipidemia, Myocardial Infarction ([place]), Thyroid Disorder Additional Past Medical History / Comment(s): colon cancer. abdominal incision with 2 holes that are open the size of a straw 1/2 inch deep using silver rope and saline has visiting nurse Last Myocardial Infarction Date:: 04/02/2017 History of Any Multi-Drug Resistant Organisms: None Reported Past Surgical History: Bowel Resection, Heart Catheterization With Stent, Hernia Repair, Orthopedic Surgery Additional Past Surgical History / Comment(s): RIGHT LEG ORIF,. COLONOSCOPY. umbilical hernia repair with mesh Past Anesthesia/Blood Transfusion Reactions: No Reported Reaction Date of Last Stent Placement:: 04/02/2017 Past Psychological History: No Psychological Hx Reported Smoking Status: Current every day smoker Past Alcohol Use History: Occasional Past Drug Use History: None Reported - Past Family History Mother Family Medical History: Cancer Additional Family Medical History / Comment(s): breast cancer Father Family Medical History: Cancer Additional Family Medical History / Comment(s): colon cancer Medications and Allergies Home Medications Medication Instructions Recorded Confirmed Type Aspirin 81 mg PO DAILY #100 chew 04/19/17 10/05/19 Rx Clopidogrel [Plavix] 75 mg PO DAILY #100 tab 04/19/17 10/05/19 Rx Atorvastatin Calcium [Lipitor] 10 mg PO HS 07/23/19 10/05/19 History Pantoprazole [Protonix] 40 mg PO BID #60 tablet. 08/06/19 10/05/19 Rx Levothyroxine Sodium [Synthroid] 50 mcg PO DAILY 10/05/19 10/05/19 History Allergies Allergy/AdvReac Type Severity Reaction Status Date / Time No Known Allergies Allergy Verified 10/14/19 02:37 Surgical - Exam Vital Signs Temp Pulse Resp BP Pulse Ox 98.3 F 131 H 18 132/70 98 10/14/19 02:31 10/14/19 02:31 10/14/19 02:31 10/14/19 02:31 10/14/19 02:31 - General well developed, well nourished, no distress - Eyes PERRL - ENT normal pinna - Neck no masses - Abdomen Abdomen: soft, non tender Results - Labs 10/14/19 03:05 10/14/19 03:05 Abnormal Lab Results - Last 24 Hours (Table) 10/14/19 10/14/19 Range/Units 03:05 03:05 WBC 11.0 H (3.8-10.6) k/uL RDW 17.1 H (11.5-15.5) % Neutrophils # 8.8 H (1.3-7.7) k/uL Glucose 157 H (74-99) mg/dL Calcium 10.4 H (8.4-10.2) mg/dL Lipase 22 L (23-300) U/L Diabetes panel 10/14/19 Range/Units 03:05 Sodium 139 (137-145) mmol/L Potassium 4.2 (3.5-5.1) mmol/L Chloride 101 (98-107) mmol/L Carbon Dioxide 27 (22-30) mmol/L BUN 12 (9-20) mg/dL Creatinine 0.85 (0.66-1.25) mg/dL Glucose 157 H (74-99) mg/dL Calcium 10.4 H (8.4-10.2) mg/dL AST 22 (17-59) U/L ALT 14 (4-49) U/L Alkaline Phosphatase 88 (38-126) U/L Total Protein 7.3 (6.3-8.2) g/dL Albumin 4.4 (3.5-5.0) g/dL Calcium panel 10/14/19 Range/Units 03:05 Calcium 10.4 H (8.4-10.2) mg/dL Albumin 4.4 (3.5-5.0) g/dL Pituitary panel 10/14/19 Range/Units 03:05 Sodium 139 (137-145) mmol/L Potassium 4.2 (3.5-5.1) mmol/L Chloride 101 (98-107) mmol/L Carbon Dioxide 27 (22-30) mmol/L BUN 12 (9-20) mg/dL Creatinine 0.85 (0.66-1.25) mg/dL Glucose 157 H (74-99) mg/dL Calcium 10.4 H (8.4-10.2) mg/dL Adrenal panel 10/14/19 Range/Units 03:05 Sodium 139 (137-145) mmol/L Potassium 4.2 (3.5-5.1) mmol/L Chloride 101 (98-107) mmol/L Carbon Dioxide 27 (22-30) mmol/L BUN 12 (9-20) mg/dL Creatinine 0.85 (0.66-1.25) mg/dL Glucose 157 H (74-99) mg/dL Calcium 10.4 H (8.4-10.2) mg/dL Total Bilirubin 0.5 (0.2-1.3) mg/dL AST 22 (17-59) U/L ALT 14 (4-49) U/L Alkaline Phosphatase 88 (38-126) U/L Total Protein 7.3 (6.3-8.2) g/dL Albumin 4.4 (3.5-5.0) g/dL Assessment and Plan Assessment: Small obstruction most likely due to metastatic disease or adhesions. Patient will remain nothing by mouth with NG tube. We'll provide supportive care.
--- NOTE | 2019-10-14 17:25 | HP ---
HISTORY AND PHYSICAL DATE OF SERVICE: 10/14/2019 CHIEF COMPLAINT: Abdominal pain and constipation. HISTORY OF PRESENT ILLNESS: This 59-year-old gentleman with a past medical history of multiple medical problems including colon cancer stage II, hyperlipidemia, myocardial infarction, hypothyroidism, history of abdominal surgery with subsequently infection, CAD, stent being followed by Dr. Radha White in the outpatient setting, complaining of abdominal pain. The patient is constipated for the last several days. The abdominal pain is diffusely situated. The wound is well healed at this time. Chemotherapy is slated to be started soon, but the patient has significant abdominal pain. Patient came to [facility] and was admitted to the hospital for further evaluation. Plain abdominal x-ray which was reviewed personally by me showed small-bowel fluids consistent with mechanical obstruction. A CT scan of the abdomen and pelvis was done which showed moderate dilated mechanical small bowel obstruction and the patient is started on NG tube and the patient being closely monitored. Dr. Clark is following the patient for surgical point of view. There is no history of fever, rigors. No headache, loss of consciousness, seizures. PAST MEDICAL HISTORY: History of colon cancer surgery, hyperlipidemia, myocardial infarction, hypothyroidism, history of CAD/stent. MEDICATIONS: Home medications are: 1. Protonix 40 mg daily. 2. Synthroid 50 mcg. 3. Plavix 75 mg. 4. Lipitor 20 mg. 5. Aspirin 81 mg. ALLERGIES: None. FAMILY HISTORY: History of breast cancer in the family. SOCIAL HISTORY: History of smoking. No history of alcohol intake. REVIEW OF SYSTEMS: ENT: No diminished vision. No diminished hearing. CARDIOVASCULAR: As mentioned earlier. GI as mentioned earlier. no dysuria. NERVOUS SYSTEM: No numbness or weakness. ALLERGY/IMMUNOLOGY: No asthma or hayfever. MUSCULOSKELETAL as mentioned earlier. HEMATOLOGY/ONCOLOGY: Mentioned earlier. ENDOCRINE: Hypothyroidism. CONSTITUTIONAL: As mentioned earlier. DERMATOLOGY: Negative. RHEUMATOLOGY negative. PSYCHIATRY as mentioned earlier. PHYSICAL EXAMINATION: Alert and oriented times. Pulse 122, blood pressure 123/86, respiration 18, temperature 97.8, pulse ox 94% on room air. HEENT: Conjunctivae normal. Oral mucosa moist. NECK is no jugular venous distention. No carotid bruit. No lymph node enlargement. CARDIOVASCULAR: S1, S2 muffled. RESPIRATORY: Breath sounds diminished in the bases. No rhonchi. No crackles. ABDOMEN: Soft. Status post recent surgery. Otherwise mild diffuse discomfort. Mild diffuse distention also. Bowel sounds diminished. NG tube in situ. No mass palpable. No ascites. LEGS: No edema. NERVOUS SYSTEM: Higher functions as mentioned earlier. Moves all 4 limbs. No focal motor or sensory deficit. LYMPHATICS: No lymph nodes palpable in the neck, axillae or groin. SKIN no ulcer, no rashes and no bleeding. JOINTS no active deforming arthropathy. LABS: WBC 11 and glucose 157, calcium is 10.4, lipase is 22. ASSESSMENT: 1. Abdominal pain with possible small bowel obstruction and possible mechanical obstruction. 2. History of recent right colectomy and partial omentectomy for right colon cancer with metastatic spread with omental involvement. 3. History of hyperlipidemia. 4. History of myocardial infarction. 5. Hypothyroidism. 6. History of coronary artery disease/stent. 7. History of hernia repair. 8. History of nicotine dependence. 9. FULL CODE. 10.Mild hypercalcemia. 11.Increased WBC. RECOMMENDATIONS AND DISCUSSION: This 59-year-old gentleman who presented with multiple complex medical issues, we will monitor the patient closely, continue the current medications and symptomatic treatment. NG tube, proton pump inhibitors. Conservative line of treatment. Symptomatic treatment. DVT prophylaxis. Incentive spirometry. Follow closely with surgery. Guarded prognosis because of multiple complex medical issues. Further recommendations to follow. A copy of dictation being forwarded to Dr. White who is the primary physician. Dr. Alexander will follow. MMODL / IJN: [id number] /
[2019-10-14] MEDS: SODIUM CHLORIDE 0.9% 1,000 ML IV SCH (17:44)
[2019-10-15] MEDS: HYDROmorphone 0.5 MG/0.5 ML SYRINGE IVP PRN ×4 (01:42→22:19)
[2019-10-15] MEDS: SODIUM CHLORIDE 0.9% 1,000 ML IV SCH ×2 (05:03→19:19)
[2019-10-15] MEDS: MORPHINE SULFATE 4 MG/ML SYRINGE IV PRN ×2 (05:04→15:16)
[2019-10-15] MEDS: PANTOPRAZOLE 40 MG/10 ML VIAL IV SCH (05:04)
[2019-10-15 10:13] LABS: Anisocytosis Slight; HCT 42.5 % (39.0-53.0); HGB 13.2 gm/dL (13.0-17.5); Hypochromasia Moderate; MCH 26.7 pg (25.0-35.0); MCHC 30.9 g/dL (31.0-37.0); MCV 86.3 fL (80.0-100.0); Mean Platelet Volume 8.7; Platelet Count 207 k/uL (150-450); RBC 4.93 m/uL (4.30-5.90); RDW 17.2 % (11.5-15.5); WBC 7.4 k/uL (3.8-10.6)
--- NOTE | 2019-10-15 13:25 | P.PN ---
Subjective Progress Note Date: 10/15/19 This is a 59-year-old gentleman, history of recently diagnosed metastatic adenocarcinoma of the colon status post right colectomy and partial laminectomy, admitted with acute abdominal pain post cycle chemotherapy, constipation. CT of abdomen and pelvis reported moderately dilated small bowel suggestive of distal mechanical small bowel obstruction, omentum nodularity, some linear soft tissue density posterior to the sigmoid colon, suspicious for carcinomatosis. Currently denies abdominal pain, reports previous pain surrounded prior abdominal midline incision area.NPO with NG tube with reddish brownish significant drainage. Maintained on IV fluid hydration. Afebrile. Denies nausea or vomiting. Reports passing flatus. Expresses hunger, asking for coffee. Denies chest pain palpitations or shortness of breath. Maintaining O2 sats in the 90s on room air. Objective - Vital Signs Vital signs: Vital Signs Temp 97.8 F 10/15/19 12:19 Pulse 89 10/15/19 12:19 Resp 18 10/15/19 12:19 BP 134/84 10/15/19 12:19 Pulse Ox 93 L 10/15/19 12:19 Intake & Output 10/14/19 10/15/19 10/15/19 18:59 06:59 18:59 Intake Total 975 Output Total 325 325 800 Balance -325 650 -800 Intake: Intake, IV Titration 975 Amount Sodium Chloride 0.9% 1, 975 000 ml @ 75 mls/hr IV . [id number] [facility] Rx#:[id number] Oral 0 Output: Gastric Drainage 325 325 800 Other: Voiding Method Toilet # Voids 1 1 - Exam - Exam General: Sitting up in bed, no acute distress. Vitals as above, reviewed. Eyes: PERRL, EOMI, conjunctiva normal. HENT: normocephalic, oral mucosa moist Neck: supple, no JVD Lungs: normal respiratory effort, bilateral bases diminished CV: Regular rate and rhythm, no murmur. Peripheral pulses 2+, no edema Abdomen: Healed Midline abdominal scar, soft, nondistended, nontender, positive bowel sounds. No guarding. Skin: warm and dry. Neuro: A&Ox3, normal mood and affect - Labs CBC & Chem 7: 10/15/19 09:59 10/14/19 03:05 Labs: Abnormal Lab Results - Last 24 Hours (Table) 10/15/19 Range/Units 09:59 MCHC 30.9 L (31.0-37.0) g/dL RDW 17.2 H (11.5-15.5) % Assessment and Plan Assessment: Abdominal pain ,Possible ileus, possible mechanical small bowel obstruction secondary to tumor exacerbated by edema related to chemotherapy. Recently diagnosed with adenocarcinoma of colon with metastasis, status post right colectomy, partial omentectomy CAD, history of [place], cardiac stent Ongoing nicotine dependence Hyperlipidemia Hypothyroidism Chronic diastolic CHF, EF 60-65% Plan: Continue current medication regime ,monitoring and symptomatic treatment. Pain management. IV fluid hydration, NPO, NG tube. CBC ordered/pending. Follow closely with both oncology and surgery. Prognosis guarded given multiple complex medical issues. The impression and plan of care has been dictated as directed. : I performed a history and examination of this patient, discussed the same with the dictator. I agree with the dictator's note ,documented as a scribe. Any additional findings or plans will be noted.
--- NOTE | 2019-10-15 15:14 | P.PN ---
Subjective Progress Note Date: 10/15/19 CHIEF COMPLAINT: Metastatic colon cancer with abdominal pain HISTORY OF PRESENT ILLNESS: Patient is nausea and vomiting has improved. He is complaining of pain with swallowing and pain in his mouth. He does report having gas. Patient does report some improvement in his abdominal pain since yesterday with the NG tube in place. NG tube had 800 mL dark liquid material out since 3 AM. Hemoglobin is 13.2. WBC 7.4 afebrile PHYSICAL EXAM: VITAL SIGNS: Reviewed. GENERAL: Well-developed in no acute distress. HEENT: No sclera icterus. Extraocular movements grossly intact. Moist buccal mucosa. Head is atraumatic, normocephalic. ABDOMEN: Soft. Distended. Diffuse tenderness. Has NG tube in place NEUROLOGIC: Alert and oriented. Cranial nerves II through XII grossly intact. ASSESSMENT: 1. Small bowel obstruction most likely due to metastatic disease or adhesions. PLAN: -continue NG tube to suction -Nothing by mouth -Continue his oral swabs -Oncology consulted -And nystatin swish and swallow for oral thrush -Consult dietitian -Start ensure clear Physician Stained Glass Window Designer note has been reviewed by physician. Signing provider agrees with the documented findings, assessment, and plan of care. Objective - Vital Signs Vital signs: Vital Signs Temp 97.8 F 10/15/19 12:19 Pulse 89 10/15/19 12:19 Resp 18 10/15/19 12:19 BP 134/84 10/15/19 12:19 Pulse Ox 93 L 10/15/19 12:19 Intake & Output 10/14/19 10/15/19 10/15/19 18:59 06:59 18:59 Intake Total 975 600 Output Total 325 325 800 Balance -325 650 -200 Intake: Intake, IV Titration 975 600 Amount Sodium Chloride 0.9% 1, 975 600 000 ml @ 75 mls/hr IV . [id number] [facility] Rx#:[id number] Oral 0 Output: Gastric Drainage 325 325 800 Other: Voiding Method Toilet # Voids 1 1 - Labs CBC & Chem 7: 10/15/19 09:59 10/14/19 03:05 Labs: Abnormal Lab Results - Last 24 Hours (Table) 10/15/19 Range/Units 09:59 MCHC 30.9 L (31.0-37.0) g/dL RDW 17.2 H (11.5-15.5) %
--- NOTE | 2019-10-15 15:33 | P.PN ---
Subjective Progress Note Date: 10/15/19 CHIEF COMPLAINT: Metastatic colon cancer with abdominal pain HISTORY OF PRESENT ILLNESS: Patient does report some improvement in his abdominal pain with the NG tube in place. He is passing gas. He feels that his mouth is very dry. NG tube had 800 mL dark liquid material out since 3 AM. Hemoglobin is 13.2. WBC 7.4 afebrile PHYSICAL EXAM: VITAL SIGNS: Reviewed. GENERAL: Well-developed in no acute distress. HEENT: No sclera icterus. Extraocular movements grossly intact. Moist buccal mucosa. Head is atraumatic, normocephalic. ABDOMEN: Soft. Distended. Diffuse tenderness. Has NG tube in place NEUROLOGIC: Alert and oriented. Cranial nerves II through XII grossly intact. ASSESSMENT: 1. Small bowel obstruction most likely due to metastatic disease or adhesions. PLAN: -continue NG tube to suction -Nothing by mouth -Continue his oral swabs -Oncology consulted -And nystatin swish and swallow for oral thrush Physician Bag Tester note has been reviewed by physician. Signing provider agrees with the documented findings, assessment, and plan of care. Objective - Vital Signs Vital signs: Vital Signs Temp 97.8 F 10/15/19 12:19 Pulse 89 10/15/19 12:19 Resp 18 10/15/19 12:19 BP 134/84 10/15/19 12:19 Pulse Ox 93 L 10/15/19 12:19 Intake & Output 10/14/19 10/15/19 10/15/19 18:59 06:59 18:59 Intake Total 975 600 Output Total 325 325 800 Balance -325 650 -200 Intake: Intake, IV Titration 975 600 Amount Sodium Chloride 0.9% 1, 975 600 000 ml @ 75 mls/hr IV . [id number] [facility] Rx#:[id number] Oral 0 Output: Gastric Drainage 325 325 800 Other: Voiding Method Toilet # Voids 1 1 - Labs CBC & Chem 7: 10/15/19 09:59 10/14/19 03:05 Labs: Abnormal Lab Results - Last 24 Hours (Table) 10/15/19 Range/Units 09:59 MCHC 30.9 L (31.0-37.0) g/dL RDW 17.2 H (11.5-15.5) %
--- NOTE | 2019-10-15 22:12 | P.CONS ---
History of Present Illness - Reason for Consult Consult date: 10/15/19 [facility] Cancer on chemo Requesting physician: Brett Clark - Chief Complaint nausea - History of Present Illness Mr Chairez is a pleasant white male, initially seen in consult at [facility] on 07/30/19. The patient had presented to the ER on 07/23/19 with new complaints of diffuse abdominal pain, as well as passage of large clots in the stool. He was also feeling dizzy and lightheaded. CT of the abdomen and pelvis on 07/24/19 showed prominent lymph nodes around the cecum and terminal ileum, evidence of omental caking and ulceration of the ileocecal valve. He had a colonoscopy on 07/24/19 as well as upper endoscopy. Positive findings include a 3 cm ulcer and they do cecal valve with biopsy positive for moderately differentiated adenocarcinoma. So biopsy showed chronic gastritis. The patient had a right hemicolectomy with Dr Clark on 07/25/19. He was found to have multiple omental deposits which were also biopsied. Final pathology showed tu mor of 2.2 x 2.4 cm with macroscopic perforation at the area of the ileocecal valve, grade 2 with extension into the visceral peritoneum. There were at least 2 tumor deposits in the mesentery, with 8-10 lymph nodes involved. Omentum showed multiple metastatic deposits off grade 2 adenocarcinoma. Tumor was found to be MSI stable. The patient had a somewhat slow recovery after surgery, complicated by bacteremia. He was able to be discharged and then had a PET scan on 08/24/19. There was intense uptake along the laparotomy incision with associated soft tissue thickening with SUV of 8.7. There was adjacent thickening of the right lateral peritoneal reflection at the area of the hemicolectomy with SUV of 4.4. There was adjacent mesenteric nodularity measuring up to 1 cm SUV 2.4. There w as additional scattered omental nodularity including left upper quadrant measuring 2.7 x 1.4 cm with SUV of 2. There was also irregular soft tissue thickening extending down your side of the pelvis measuring 3.7 x 2.4 cm with SUV of 8.6. He was seen for his first office visit on 08/30/19. His prior colonoscopy was about 4 years ago. He states that 2 benign polyps were removed. He has a family history of colon cancer in his father but that occurred in his early 80s. Patient's performance status is baseline is fairly normal. He now presents to hospital with concern of small bowel obstruction, CT evidence of dilated loops of small bowels. He presented with complaints nausea and and vomiting and abdominal tenderness. NG in place. Currently on bowel rest. He is status post cycle on e of FOLFOX. Review of Systems All systems: negative (HPI) Past Medical History Past Medical History: Cancer, Hyperlipidemia, Myocardial Infarction (PR), Thyroid Disorder Additional Past Medical History / Comment(s): colon cancer. abdominal incision with 2 holes that are open the size of a straw 1/2 inch deep using silver rope and saline has visiting nurse Last Myocardial Infarction Date:: 04/02/2017 History of Any Multi-Drug Resistant Organisms: None Reported Past Surgical History: Bowel Resection, Heart Catheterization With Stent, Hernia Repair, Orthopedic Surgery Additional Past Surgical History / Comment(s): RIGHT LEG ORIF,. COLONOSCOPY. umbilical hernia repair with mesh Past Anesthesia/Blood Transfusion Reactions: No Reported Reaction Date of Last Stent Placement:: 04/02/2017 Past Psychological History: No Psychological Hx Reported Smoking Status: Current every day smoker Past Alcohol Use History: Occasional Past Drug Use History: None Reported - Past Family History Mother Family Medical History: Cancer Additional Family Medical History / Comment(s): breast cancer Father Family Medical History: Cancer Additional Family Medical History / Comment(s): colon cancer Medications and Allergies Home Medications Medication Instructions Recorded Confirmed Type Aspirin 81 mg PO DAILY #100 chew 04/19/17 10/14/19 Rx Clopidogrel [Plavix] 75 mg PO DAILY #100 tab 04/19/17 10/14/19 Rx Atorvastatin Calcium [Lipitor] 10 mg PO HS 07/23/19 10/14/19 History Pantoprazole [Protonix] 40 mg PO BID #60 tablet. 08/06/19 10/14/19 Rx Levothyroxine Sodium [Synthroid] 50 mcg PO DAILY 10/05/19 10/14/19 History Nicotine 21Mg/24Hr Patch [Habitrol] 1 patch TRANSDERM DAILY PRN 10/14/19 10/14/19 History Ondansetron Odt [Zofran Odt] 4 mg PO QID PRN 10/14/19 10/14/19 History traMADol HCL 50 mg PO QID PRN 10/14/19 10/14/19 History Allergies Allergy/AdvReac Type Severity Reaction Status Date / Time No Known Allergies Allergy Verified 10/14/19 16:07 Physical Exam Vitals: Vital Signs Temp Pulse Resp BP Pulse Ox 10/15/19 12:19 97.8 F 89 18 134/84 93 L 10/15/19 07:19 17 10/15/19 05:00 98.2 F 85 18 138/75 92 L 10/14/19 22:27 92 L Intake and Output 10/15/19 10/15/19 10/15/19 06:59 14:59 22:59 Intake Total 975 600 Output Total 200 800 550 Balance 775 -200 -550 Intake: Intake, IV Titration 975 600 Amount Sodium Chloride 0.9% 1, 975 600 000 ml @ 75 mls/hr IV . [id number] [facility] Rx#:[id number] Output: Gastric Drainage 200 800 550 Other: Voiding Method Toilet # Voids 1 1 - Constitutional General appearance: cooperative, no acute distress - EENT Eyes: EOMI, dentition normal ENT: NA/AT, normal oropharynx - Respiratory Respiratory: bilateral: CTA - Cardiovascular Rhythm: regular Heart sounds: normal: S1, S2 - Gastrointestinal General gastrointestinal: decreased bowel sounds, distended, soft, tenderness - Integumentary Integumentary: pale - Neurologic Neurologic: CNII-XII intact - Musculoskeletal Musculoskeletal: generalized weakness - Psychiatric Psychiatric: A&O x's 3, appropriate affect, intact judgment & insight Results CBC & Chem 7: 10/16/19 06:42 10/16/19 14:35 Labs: Abnormal Lab Results - Last 24 Hours (Table) 10/15/19 Range/Units 09:59 MCHC 30.9 L (31.0-37.0) g/dL RDW 17.2 H (11.5-15.5) % CT scan - abdomen: report reviewed CT scan - pelvis: report reviewed Assessment and Plan Plan: Assessment and Recommendations: Recent diagnosis of colon cancer: - Chemotherapy FOLFOX and status post cycle one, was to begin cycle two on Tuesday this week although will need to delay till Tuesday given the 24 hour rule of discharge prior to treatment and his regimen length being three days Nausea and Vomiting and increased abdominal pain: - CT reveals dilated loops of small bowel distally - COncern for SBO - NG tube in place - Patient is admitted to surgery and currently on bowel rest PLan: COntinue to monitor for bowel rest and improvement - PLan to initiate next cycle if issue resolves gregory - Supportive and symptom management Physician attest: I have completed the full history and physical and agree with above dictation, dictated as a scribe.
[2019-10-16] MEDS: HYDROmorphone 0.5 MG/0.5 ML SYRINGE IVP PRN ×7 (01:37→21:34)
[2019-10-16 07:31] LABS: Anisocytosis Slight; HGB 12.8 gm/dL (13.0-17.5); Hypochromasia Moderate; MCH 26.6 pg (25.0-35.0); MCHC 31.2 g/dL (31.0-37.0); MCV 85.2 fL (80.0-100.0); Mean Platelet Volume 7.6; Platelet Count 214 k/uL (150-450); RBC 4.82 m/uL (4.30-5.90); RDW 17.7 % (11.5-15.5); WBC 6.9 k/uL (3.8-10.6)
[2019-10-16] MEDS: PANTOPRAZOLE 40 MG/10 ML VIAL IV SCH (08:16)
[2019-10-16] MEDS: SODIUM CHLORIDE 0.9% 1,000 ML IV SCH ×2 (08:17→18:31)
--- NOTE | 2019-10-16 13:57 | P.PN ---
Subjective Progress Note Date: 10/16/19 This is a 59-year-old gentleman, history of recently diagnosed metastatic adenocarcinoma of the colon status post right colectomy and partial laminectomy, admitted with acute abdominal pain post cycle chemotherapy, constipation. CT of abdomen and pelvis reported moderately dilated small bowel suggestive of distal mechanical small bowel obstruction, omentum nodularity, some linear soft tissue density posterior to the sigmoid colon, suspicious for carcinomatosis. Currently denies abdominal pain, reports previous pain surrounded prior abdominal midline incision area.NPO with NG tube with reddish brownish significant drainage. Maintained on IV fluid hydration. Afebrile. Denies nausea or vomiting. Reports passing flatus. Expresses hunger, asking for coffee. Denies chest pain palpitations or shortness of breath. Maintaining O2 sats in the 90s on room air. 10/16/2019 Appears to have significantly less output today. Maintained on IV fluids. Complains of occasional abdominal cramping, tenderness around prior surgical site. Afebrile, normal WBC. Denies chest pain, palpitations or shor tness of breath. Objective - Vital Signs Vital signs: Vital Signs Temp 98.1 F 10/16/19 06:21 Pulse 81 10/16/19 06:21 Resp 18 10/16/19 06:21 BP 131/75 10/16/19 06:21 Pulse Ox 92 L 10/16/19 06:21 Intake & Output 10/15/19 10/16/19 10/16/19 18:59 06:59 18:59 Intake Total 600 725 Output Total 800 1235 Balance -200 -510 Intake: Intake, IV Titration 600 725 Amount Sodium Chloride 0.9% 1, 600 725 000 ml @ 75 mls/hr IV . [id number] [facility] Rx#:[id number] Output: Gastric Drainage 800 1235 Other: Voiding Method Toilet Toilet # Voids 1 1 - Exam - Exam General: Sitting up in bed, no acute distress. Vitals as above, reviewed. Eyes: PERRL, EOMI, conjunctiva normal. HENT: normocephalic, oral mucosa moist Neck: supple, no JVD Lungs: normal respiratory effort, bilateral bases diminished CV: Regular rate and rhythm, no murmur. Peripheral pulses 2+, no edema Abdomen: Healed Midline abdominal scar, soft, nondistended, tenderness around prior surgery site, positive bowel sounds. No guarding. Skin: warm and dry. Neuro: A&Ox3, normal mood and affect - Labs CBC & Chem 7: 10/16/19 06:42 10/14/19 03:05 Labs: Abnormal Lab Results - Last 24 Hours (Table) 10/16/19 Range/Units 06:42 Hgb 12.8 L (13.0-17.5) gm/dL RDW 17.7 H (11.5-15.5) % Assessment and Plan Assessment: Abdominal pain , mechanical small bowel obstruction secondary to tumor exacerbated by edema related to chemotherapy. Recently diagnosed with adenocarcinoma of colon with metastasis, status post right colectomy, partial omentectomy CAD, history of [place], cardiac stent Ongoing nicotine dependence Hyperlipidemia Hypothyroidism Chronic diastolic CHF, EF 60-65% Plan: Continue current medication regime ,monitoring and symptomatic treatment. IV fluid hydration, minimal drainage, potential DC of NG tube as per surgery . CBC in am.aggressive pulmonary toileting, incentive spirometer ordered. Prognosis guarded given multiple complex medical issues. The impression and plan of care has been dictated as directed. : I performed a history and examination of this patient, discussed the same with the dictator. I agree with the dictator's note ,documented as a scribe. Any additional findings or plans will be noted.
--- NOTE | 2019-10-16 14:04 | P.PN ---
Subjective Progress Note Date: 10/16/19 CHIEF COMPLAINT: Metastatic colon cancer with abdominal pain HISTORY OF PRESENT ILLNESS: Patient seen and examined with Dr. Clark. Patient does report some improvement in his abdominal pain with the NG tube in place. He is passing gas. NG tube in removed this morning. Patient started on a clear liquid diet. Afebrile. WBC 6.9. Hemoglobin 12.8. PHYSICAL EXAM: VITAL SIGNS: Reviewed. GENERAL: Well-developed in no acute distress. HEENT: No sclera icterus. Extraocular movements grossly intact. Moist buccal mucosa. Head is atraumatic, normocephalic. ABDOMEN: Soft. Distended. Diffuse tenderness. NEUROLOGIC: Alert and oriented. Cranial nerves II through XII grossly intact. ASSESSMENT: 1. Small bowel obstruction most likely due to metastatic disease or adhesions. 2. Abdominal pain PLAN: -NG tube discontinued -Start clear liquid diet -Await oncology evaluation -Patient can be started on his chemotherapy from surgical standpoint. Per patient he was scheduled for chemotherapy tomorrow. Physician Laser Set Up Operator note has been reviewed by physician. Signing provider agrees with the documented findings, assessment, and plan of care. Objective - Vital Signs Vital signs: Vital Signs Temp 97.9 F 10/16/19 11:48 Pulse 78 10/16/19 11:48 Resp 16 10/16/19 11:48 BP 135/75 10/16/19 11:48 Pulse Ox 94 L 10/16/19 11:48 Intake & Output 10/15/19 10/16/19 10/16/19 18:59 06:59 18:59 Intake Total 600 725 Output Total 800 1235 Balance -200 -510 Intake: Intake, IV Titration 600 725 Amount Sodium Chloride 0.9% 1, 600 725 000 ml @ 75 mls/hr IV . [id number] [facility] Rx#:[id number] Output: Gastric Drainage 800 1235 Other: Voiding Method Toilet Toilet # Voids 1 1 - Labs CBC & Chem 7: 10/16/19 06:42 10/14/19 03:05 Labs: Abnormal Lab Results - Last 24 Hours (Table) 10/16/19 Range/Units 06:42 Hgb 12.8 L (13.0-17.5) gm/dL RDW 17.7 H (11.5-15.5) %
[2019-10-16 15:14] LABS: ALT 13 U/L (4-49); AST 20 U/L (17-59); African American GFR (CKD) >90 (>60 ml/min/1.73 sqM); Albumin 3.8 g/dL (3.5-5.0); Alkaline Phosphatase 65 U/L (38-126); Anion Gap 9 mmol/L; Blood Urea Nitrogen 14 mg/dL (9-20); Carbon Dioxide 29 mmol/L (22-30); Chloride 99 mmol/L (98-107); Glucose 172 mg/dL (74-99); Non-African American GFR(CKD) >90 (>60 ml/min/1.73 sqM); Potassium 3.7 mmol/L (3.5-5.1); Sodium 137 mmol/L (137-145); Total Bilirubin 0.4 mg/dL (0.2-1.3); Total Protein 6.3 g/dL (6.3-8.2)
[2019-10-16] MEDS ORDERED: NICOTINE 21MG/24HR PATCH TRANSDERM PRN (18:27)
[2019-10-16] MEDS: ASPIRIN 81 MG PO SCH (20:35)
[2019-10-16] MEDS: ATORVASTATIN 10 MG TAB PO SCH (20:35)
--- NOTE | 2019-10-16 22:09 | P.PN ---
Subjective Progress Note Date: 10/16/19 Principal diagnosis: Small Bowel Obstruction Patient is doing better today, NG tube has been discontinued, he states he is passing gas. He is eager for discharge and chemotherapy but unfortunetly with his length of treatment this will be delayed till tuesday. He has not full adva nced and tolerated a diet, will continue on this per surgical recs tonight and tomorrow. No BM yet. Objective - Vital Signs Vital signs: Vital Signs Temp 97.9 F 10/16/19 11:48 Pulse 78 10/16/19 11:48 Resp 16 10/16/19 11:48 BP 135/75 10/16/19 11:48 Pulse Ox 94 L 10/16/19 11:48 Intake & Output 10/15/19 10/16/19 10/16/19 18:59 06:59 18:59 Intake Total 600 725 Output Total 800 1235 Balance -200 -510 Intake: Intake, IV Titration 600 725 Amount Sodium Chloride 0.9% 1, 600 725 000 ml @ 75 mls/hr IV . [id number] [facility] Rx#:[id number] Output: Gastric Drainage 800 1235 Other: Voiding Method Toilet Toilet # Voids 1 1 - Exam - Constitutional General appearance: cooperative, no acute distress - EENT Eyes: EOMI, dentition normal ENT: NA/AT, normal oropharynx - Respiratory Respiratory: bilateral: CTA - Cardiovascular Rhythm: regular Heart sounds: normal: S1, S2 - Gastrointestinal General gastrointestinal: decreased bowel sounds, distended, soft, tenderness NG tube to LIS - Integumentary Integumentary: pale - Neurologic Neurologic: CNII-XII intact - Musculoskeletal Musculoskeletal: generalized weakness - Psychiatric Psychiatric: A&O x's 3, appropriate affect, intact judgment & insight - Labs CBC & Chem 7: 10/16/19 06:42 10/16/19 14:35 Labs: Abnormal Lab Results - Last 24 Hours (Table) 10/16/19 Range/Units 06:42 Hgb 12.8 L (13.0-17.5) gm/dL RDW 17.7 H (11.5-15.5) % Assessment and Plan Plan: Assessment and Recommendations: Recent diagnosis of colon cancer: - Chemotherapy FOLFOX and status post cycle one, was to begin cycle two on Tuesday this week although will need to delay till Tuesday given the 24 hour rule of discharge prior to treatment and his regimen length being three days Nausea and Vomiting and increased abdominal pain: - CT reveals dilated loops of small bowel distally - NG tube discontinued and passing flatus - No nausea or vomiting today - Patient is admitted to surgery and currently on clear liquids Plan: - Continue to monitor for bowel rest and improvement - Plan to initiate next cycle if issue resolves gregory - Tuesday - Supportive and symptom management - Plan to advance diet per surgical recs - Discussed gentle but effective bowel regimen, prefer daily warm prune juice, milk of mag and softners to aggressive laxatives given current bowel appearance
[2019-10-17] MEDS: LEVOTHYROXINE 50 MCG TAB PO SCH (05:59)
[2019-10-17 08:02] LABS: Anisocytosis Slight; HCT 40.3 % (39.0-53.0); HGB 12.5 gm/dL (13.0-17.5); Hypochromasia Moderate; MCH 26.5 pg (25.0-35.0); MCHC 31.1 g/dL (31.0-37.0); MCV 85.1 fL (80.0-100.0); Mean Platelet Volume 7.5; Platelet Count 203 k/uL (150-450); RBC 4.74 m/uL (4.30-5.90); RDW 17.6 % (11.5-15.5); WBC 6.2 k/uL (3.8-10.6)
[2019-10-17] MEDS: ASPIRIN 81 MG PO SCH (08:04)
[2019-10-17] MEDS: CLOPIDOGREL 75 MG TAB PO SCH (08:04)
[2019-10-17] MEDS: PANTOPRAZOLE 40 MG/10 ML VIAL IV SCH (08:04)
[2019-10-17 08:10] LABS: ALT 12 U/L (4-49); AST 21 U/L (17-59); African American GFR (CKD) >90 (>60 ml/min/1.73 sqM); Albumin 3.6 g/dL (3.5-5.0); Alkaline Phosphatase 66 U/L (38-126); Anion Gap 8 mmol/L; Blood Urea Nitrogen 6 mg/dL (9-20); Carbon Dioxide 27 mmol/L (22-30); Chloride 104 mmol/L (98-107); Glucose 99 mg/dL (74-99); Magnesium 1.8 mg/dL (1.6-2.3); Non-African American GFR(CKD) >90 (>60 ml/min/1.73 sqM); Sodium 139 mmol/L (137-145); Total Bilirubin 0.6 mg/dL (0.2-1.3); Total Protein 6.2 g/dL (6.3-8.2)
--- NOTE | 2019-10-17 11:25 | P.PN ---
Subjective Progress Note Date: 10/17/19 This is a 59-year-old gentleman, history of recently diagnosed metastatic adenocarcinoma of the colon status post right colectomy and partial laminectomy, admitted with acute abdominal pain post cycle chemotherapy, constipation. CT of abdomen and pelvis reported moderately dilated small bowel suggestive of distal mechanical small bowel obstruction, omentum nodularity, some linear soft tissue density posterior to the sigmoid colon, suspicious for carcinomatosis. Currently denies abdominal pain, reports previous pain surrounded prior abdominal midline incision area.NPO with NG tube with reddish brownish significant drainage. Maintained on IV fluid hydration. Afebrile. Denies nausea or vomiting. Reports passing flatus. Expresses hunger, asking for coffee. Denies chest pain palpitations or shortness of breath. Maintaining O2 sats in the 90s on room air. 10/16/2019 Appears to have significantly less output today. Maintained on IV fluids. Complains of occasional abdominal cramping, tenderness around prior surgical site. Afebrile, normal WBC. Denies chest pain, palpitations or shor tness of breath. 10/17/2019 continues on IV fluid hydration. NG tube discontinued yesterday, tolerating clear liquids well with no nausea, no vomiting. Passing flatus, no bowel movement .Generalized surgical tenderness reported. Oncology discussing chemotherapy to resume potentially on Tuesday. Afebrile, normal WBC. Hemoglobin 12.5, platelets 203. Denies chest pain, denies shortness of breath. Objective - Vital Signs Vital signs: Vital Signs Temp 97.8 F 10/17/19 05:00 Pulse 82 10/17/19 05:00 Resp 18 10/17/19 05:00 BP 155/90 10/17/19 05:00 Pulse Ox 95 10/17/19 05:00 Intake & Output 10/16/19 10/17/19 10/17/19 18:59 06:59 18:59 Intake Total 600 750 Balance 600 750 Intake: Intake, IV Titration 600 Amount Sodium Chloride 0.9% 1, 600 000 ml @ 75 mls/hr IV . [id number] [facility] Rx#:[id number] Oral 750 Other: Voiding Method Toilet Toilet # Voids 2 - Exam - Exam General: Sitting up in bed, no acute distress. Vital sisns reviewed. Eyes: PERRL, EOMI, conjunctiva normal. HENT: normocephalic, oral mucosa moist Neck: supple, no JVD Lungs: normal respiratory effort, bilateral bases diminished CV: Regular rate and rhythm, no murmur. Peripheral pulses 2+, no edema Abdomen: Healed Midline abdominal scar, softer, nondistended, tenderness around prior surgery site, positive bowel sounds. No guarding. Skin: warm and dry. Neuro: A&Ox3, normal mood and affect - Labs CBC & Chem 7: 10/17/19 07:23 10/17/19 07:23 Labs: Abnormal Lab Results - Last 24 Hours (Table) 10/16/19 10/17/19 10/17/19 Range/Units 14:35 07:23 07:23 Hgb 12.5 L (13.0-17.5) gm/dL RDW 17.6 H (11.5-15.5) % BUN 6 L (9-20) mg/dL Glucose 172 H (74-99) mg/dL Total Protein 6.2 L (6.3-8.2) g/dL Assessment and Plan Assessment: Abdominal pain , mechanical small bowel obstruction secondary to tumor exacerbated by edema related to chemotherapy. Recently diagnosed with adenocarcinoma of colon with metastasis, status post right colectomy, partial omentectomy CAD, history of [place], cardiac stent Ongoing nicotine dependence Hyperlipidemia Hypothyroidism Chronic diastolic CHF, EF 60-65% Plan: Continue current medication regime ,monitoring and symptomatic treatment. Diet advanced to full liquids for lunch. Continue IV fluid hydration. Increase ambulation as tolerated. Gentle bowel regimen. CBC in am.aggressive pulmonary toileting, incentive spirometer reinforced. Prognosis guarded given multiple complex medical issues. The impression and plan of care has been dictated as directed. : I performed a history and examination of this patient, discussed the same with the dictator. I agree with the dictator's note ,documented as a scribe. Any additional findings or plans will be noted.
--- NOTE | 2019-10-17 13:46 | P.PN ---
Subjective Progress Note Date: 10/17/19 CHIEF COMPLAINT: Metastatic colon cancer with abdominal pain HISTORY OF PRESENT ILLNESS: Patient seen and examined with Dr. Clark. Patient is complaining of some mild burning in his abdomen along near the incision site. He's had no nausea or vomiting. He is passing gas no bowel movement. He is afebrile. Currently on clears and advancing to a full liquid diet today. WBC is 6.2 hemoglobin is 12.5. PHYSICAL EXAM: VITAL SIGNS: Reviewed. GENERAL: Well-developed in no acute distress. HEENT: No sclera icterus. Extraocular movements grossly intact. Moist buccal mucosa. Head is atraumatic, normocephalic. ABDOMEN: Soft. Nondistended nontender. NEUROLOGIC: Alert and oriented. Cranial nerves II through XII grossly intact. ASSESSMENT: 1. Small bowel obstruction most likely due to metastatic disease or adhesions. 2. Abdominal pain PLAN: -Treated conservatively. -Advanced to full liquid diet -Add Colace 100 mg twice a day -Discussed case with oncology nurse practitioner. We will restart chemotherapy on Tuesday outpatient -Patient can be started on his chemotherapy from surgical standpoint. -And subcu heparin for DVT prophylaxis -Encourage patient to ambulate Physician Director Of Channel Marketing note has been reviewed by physician. Signing provider agrees with the documented findings, assessment, and plan of care. Objective - Vital Signs Vital signs: Vital Signs Temp 99.1 F 10/17/19 12:02 Pulse 74 10/17/19 12:02 Resp 17 10/17/19 12:02 BP 118/78 10/17/19 12:02 Pulse Ox 95 10/17/19 12:02 Intake & Output 10/16/19 10/17/19 10/17/19 18:59 06:59 18:59 Intake Total 600 750 Balance 600 750 Intake: Intake, IV Titration 600 Amount Sodium Chloride 0.9% 1, 600 000 ml @ 75 mls/hr IV . [id number] [facility] Rx#:[id number] Oral 750 Other: Voiding Method Toilet Toilet # Voids 2 - Labs CBC & Chem 7: 10/17/19 07:23 10/17/19 07:23 Labs: Abnormal Lab Results - Last 24 Hours (Table) 10/16/19 10/17/19 10/17/19 Range/Units 14:35 07:23 07:23 Hgb 12.5 L (13.0-17.5) gm/dL RDW 17.6 H (11.5-15.5) % BUN 6 L (9-20) mg/dL Glucose 172 H (74-99) mg/dL Total Protein 6.2 L (6.3-8.2) g/dL
[2019-10-17] MEDS: SODIUM CHLORIDE 0.9% 1,000 ML IV SCH (14:16)
--- NOTE | 2019-10-17 15:04 | P.PN ---
Subjective Progress Note Date: 10/17/19 Principal diagnosis: Small Bowel Obstruction Patient is still with abdominal discomfort this am, therefore when discussed with surgery will not plan discharge as of yet. We have changed chemotherapy to Saturday 10/21. Objective - Vital Signs Vital signs: Vital Signs Temp 99.1 F 10/17/19 12:02 Pulse 74 10/17/19 12:02 Resp 17 10/17/19 12:02 BP 118/78 10/17/19 12:02 Pulse Ox 95 10/17/19 12:02 Intake & Output 10/16/19 10/17/19 10/17/19 18:59 06:59 18:59 Intake Total 600 750 300 Balance 600 750 300 Intake: Intake, IV Titration 600 300 Amount Sodium Chloride 0.9% 1, 600 300 000 ml @ 75 mls/hr IV . [id number] [facility] Rx#:[id number] Oral 750 Other: Voiding Method Toilet Toilet # Voids 2 - Exam - Constitutional General appearance: cooperative, no acute distress - EENT Eyes: EOMI, dentition normal ENT: NA/AT, normal oropharynx - Respiratory Respiratory: bilateral: CTA - Cardiovascular Rhythm: regular Heart sounds: normal: S1, S2 - Gastrointestinal General gastrointestinal: decreased bowel sounds, distended, soft, tenderness NG tube to LIS - Integumentary Integumentary: pale - Neurologic Neurologic: CNII-XII intact - Musculoskeletal Musculoskeletal: generalized weakness - Psychiatric Psychiatric: A&O x's 3, appropriate affect, intact judgment & insight - Labs CBC & Chem 7: 10/17/19 07:23 10/17/19 07:23 Labs: Abnormal Lab Results - Last 24 Hours (Table) 10/16/19 10/17/19 10/17/19 Range/Units 14:35 07:23 07:23 Hgb 12.5 L (13.0-17.5) gm/dL RDW 17.6 H (11.5-15.5) % BUN 6 L (9-20) mg/dL Glucose 172 H (74-99) mg/dL Total Protein 6.2 L (6.3-8.2) g/dL Assessment and Plan Plan: Assessment and Recommendations: Recent diagnosis of colon cancer: - Chemotherapy FOLFOX and status post cycle one, was to begin cycle two on this week although will need to delay till Tuesday given the 24 hour rule of discharge prior to treatment and his regimen length being three days Nausea and Vomiting and increased abdominal pain: - CT reveals dilated loops of small bowel distally - NG tube discontinued - No nausea or vomiting today - Patient is admitted to surgery and attempting to increase PO intake although pain in abdomen still persists. - No BM yet today. Plan: - Continue to monitor for bowel rest and improvement - Plan to initiate next cycle if issue resolves gregory - Tuesday - Supportive and symptom management - Plan to advance diet per surgical recs - Discussed plan with surgery team - CHemo postponed till Saturday 10/21 - Discussed gentle but effective bowel regimen, prefer daily warm prune juice, milk of mag and softners to aggressive laxatives given current bowel appearance
[2019-10-17] MEDS: HEPARIN SODIUM,PORCINE 5,000 UNIT/ML 1 ML VIAL SQ SCH ×2 (17:16→23:44)
[2019-10-17] MEDS: DOCUSATE 100 MG CAP PO SCH (19:49)
[2019-10-17] MEDS: ATORVASTATIN 10 MG TAB PO SCH (19:49)
[2019-10-17] MEDS: HYDROmorphone 0.5 MG/0.5 ML SYRINGE IVP PRN ×2 (20:48→23:46)
[2019-10-18] MEDS: SODIUM CHLORIDE 0.9% 1,000 ML IV SCH ×2 (02:30→02:35)
[2019-10-18] MEDS: HYDROmorphone 0.5 MG/0.5 ML SYRINGE IVP PRN ×2 (03:05→06:05)
[2019-10-18 05:02] VITALS: BP 130/84; PULSE 68; RESP 16; TEMP 98.1
[2019-10-18] MEDS: LEVOTHYROXINE 50 MCG TAB PO SCH (05:58)
[2019-10-18 07:33] LABS: Anisocytosis Slight; HCT 40.7 % (39.0-53.0); HGB 12.9 gm/dL (13.0-17.5); Hypochromasia Slight; MCH 26.9 pg (25.0-35.0); MCHC 31.6 g/dL (31.0-37.0); MCV 85.2 fL (80.0-100.0); Platelet Count 207 k/uL (150-450); RBC 4.77 m/uL (4.30-5.90); RDW 18.3 % (11.5-15.5); WBC 4.9 k/uL (3.8-10.6)
[2019-10-18] MEDS: CLOPIDOGREL 75 MG TAB PO SCH (08:50)
[2019-10-18] MEDS: PANTOPRAZOLE 40 MG/10 ML VIAL IV SCH (08:50)
[2019-10-18] MEDS: DOCUSATE 100 MG CAP PO SCH (08:50)
[2019-10-18] MEDS: ASPIRIN 81 MG PO SCH (08:50)
[2019-10-18] MEDS: HEPARIN SODIUM,PORCINE 5,000 UNIT/ML 1 ML VIAL SQ SCH (08:51)
--- NOTE | 2019-10-18 11:30 | P.PN ---
Subjective Progress Note Date: 10/18/19 CHIEF COMPLAINT: Metastatic colon cancer with abdominal pain HISTORY OF PRESENT ILLNESS: Patient is feeling better today. His abdominal pain has shown improvement. He did have one bowel movement. Is tolerating full liquid diet. Will be discharged today. He is afebrile. WBC is 4.9 PHYSICAL EXAM: VITAL SIGNS: Reviewed. GENERAL: Well-developed in no acute distress. HEENT: No sclera icterus. Extraocular movements grossly intact. Moist buccal mucosa. Head is atraumatic, normocephalic. ABDOMEN: Soft. Nondistended nontender. NEUROLOGIC: Alert and oriented. Cranial nerves II through XII grossly intact. ASSESSMENT: 1. Small bowel obstruction most likely due to metastatic disease or adhesions. 2. Abdominal pain PLAN: -Treated conservatively. -Add Colace 100 mg twice a day -Discussed case with oncology nurse practitioner. We will restart chemotherapy on Tuesday outpatient -Patient can be started on his chemotherapy from surgical standpoint. -And subcu heparin for DVT prophylaxis -Patient is surgically stable for discharge. We'll have him follow-up with Dr. Clark in 1 week Physician [employer] Program[employer] note has been reviewed by physician. Signing provider agrees with the documented findings, assessment, and plan of care. Objective - Vital Signs Vital signs: Vital Signs Temp 98.1 F 10/18/19 05:00 Pulse 68 10/18/19 05:00 Resp 16 10/18/19 05:00 BP 130/84 10/18/19 05:00 Pulse Ox 93 L 10/18/19 05:00 Intake & Output 10/17/19 10/18/19 10/18/19 18:59 06:59 18:59 Intake Total 300 850 Balance 300 850 Intake: Intake, IV Titration 300 450 Amount Sodium Chloride 0.9% 1, 300 450 000 ml @ 75 mls/hr IV . [id number] [facility] Rx#:[id number] Oral 400 Other: Voiding Method Toilet Toilet Toilet # Voids 3 # Bowel Movements 1 - Labs CBC & Chem 7: 10/18/19 06:15 10/17/19 07:23 Labs: Abnormal Lab Results - Last 24 Hours (Table) 10/18/19 Range/Units 06:15 Hgb 12.9 L (13.0-17.5) gm/dL RDW 18.3 H (11.5-15.5) %
--- NOTE | 2019-10-18 13:53 | P.DS ---
Providers Date of admission: 10/14/19 03:13 Expected date of discharge: 10/18/19 Attending physician: Rikki Alexander MD Consults: 10/14/19 03:13 Consult Physician Urgent Consulting Provider: Brett Clark Consult Reason/Comments: established patient hx colon ca resection 07/24, SBO today Do you want consulting provider notified?: Yes, Notify in am 10/14/19 10:56 Consult Physician Routine Consulting Provider: Osman Egan Consult Reason/Comments: Metastatic colon cancer Do you want consulting provider notified?: Yes Primary care physician: Radha White Hospital Course: Final Diagnoses: Abdominal pain , mechanical small bowel obstruction secondary to tumor exacerbated by edema related to chemotherapy, improved. Recently diagnosed with adenocarcinoma of colon with metastasis, status post right colectomy, partial omentectomy CAD, history of VA, cardiac stent Ongoing nicotine dependence Hyperlipidemia Hypothyroidism Chronic diastolic CHF, EF 60-65% Hospital course: This is a 59-year-old gentleman, history of recently diagnosed metastatic adenocarcinoma of the colon status post right colectomy and partial laminectomy, admitted with acute abdominal pain post cycle chemotherapy, constipation. CT of abdomen and pelvis reported moderately dilated small bowel suggestive of distal mechanical small bowel obstruction, omentum nodularity, some linear soft tissue density posterior to the sigmoid colon, suspicious for carcinomatosis. Currently denies abdominal pain, reports previous pain surrounded prior abdominal midline incision area.NPO with NG tube with reddish brownish significant drainage. Maintained on IV fluid hydration. Afebrile. Denies nausea or vomiting. Reports passing flatus. Expresses hunger, asking for coffee. Denies chest pain palpitations or shortness of breath. Maintaining O2 sats in the 90s on room air. 10/16/2019 Appears to have significantly less output today. Maintained on IV fluids. Complains of occasional abdominal cramping, tenderness around prior surgical site. Afebrile, normal WBC. Denies chest pain, palpitations or shortness of breath. 10/17/2019 continues on IV fluid hydration. NG tube discontinued yesterday, tolerating clear liquids well with no nausea, no vomiting. Passing flatus, no bowel movement .Generalized surgical tenderness reported. Oncology discussing chemotherapy to resume potentially on Tuesday. Afebrile, normal WBC. Hemoglobin 12.5, platelets 203. Denies chest pain, denies shortness of breath. Significant clinical improvement, tolerating low fiber diet, positive bowel movement. Denies nausea vomiting. Denies chest pain, palpitations or shortness of breath. Cleared by surgery for discharge. Patient will be discharged home in a stable condition with guarded prognosis pending final DC recommendations from oncology. The impression and plan of care has been dictated as directed. : I performed a history and examination of this patient, discussed the same with the dictator. I agree with the dictator's note ,documented as a scribe. Any additional findings or plans will be noted. Patient Condition at Discharge: Stable Plan - Discharge Summary Discharge Rx Participant: No New Discharge Prescriptions: New Docusate [Colace] 100 mg PO BID #60 cap Sennosides [Senna] 8.6 mg PO HS #30 tablet Continue Aspirin 81 mg PO DAILY #100 chew Clopidogrel [Plavix] 75 mg PO DAILY #100 tab Atorvastatin Calcium [Lipitor] 10 mg PO HS Pantoprazole [Protonix] 40 mg PO BID #60 tablet. Levothyroxine Sodium [Synthroid] 50 mcg PO DAILY Ondansetron Odt [Zofran ODT] 4 mg PO QID PRN PRN Reason: Nausea traMADol HCL 50 mg PO QID PRN PRN Reason: Pain Nicotine 21Mg/24Hr Patch [Habitrol] 1 patch TRANSDERM DAILY PRN PRN Reason: smoking cessation Discharge Medication List Aspirin 81 mg PO DAILY #100 chew 04/19/17 [Rx] Clopidogrel [Plavix] 75 mg PO DAILY #100 tab 04/19/17 [Rx] Atorvastatin Calcium [Lipitor] 10 mg PO HS 07/23/19 [History] Pantoprazole [Protonix] 40 mg PO BID #60 tablet. 08/06/19 [Rx] Levothyroxine Sodium [Synthroid] 50 mcg PO DAILY 10/05/19 [History] Nicotine 21Mg/24Hr Patch [Habitrol] 1 patch TRANSDERM DAILY PRN 10/14/19 [History] Ondansetron Odt [Zofran ODT] 4 mg PO QID PRN 10/14/19 [History] traMADol HCL 50 mg PO QID PRN 10/14/19 [History] Docusate [Colace] 100 mg PO BID #60 cap 10/18/19 [Rx] Sennosides [Senna] 8.6 mg PO HS #30 tablet 10/18/19 [Rx] Follow up Appointment(s)/Referral(s): Osman Egan MD [STAFF PHYSICIAN] - 10/22/19 Rikki Alexander MD [STAFF PHYSICIAN] - 10/23/19 11:45 am (This appointment is at the [facility], [NON-STAFF] - 1 Week Brett Clark MD [STAFF PHYSICIAN] - 10/25/19 3:00 pm Patient Instructions/Handouts: Bowel Obstruction (DC) Activity/Diet/Wound Care/Special Instructions: Follow low fiber diet Discharge Disposition: HOME SELF-CARE
== END 2019-10-18 12:16 | disposition home or self-care (01) | DRG 389 ==
LOC: EC 02:27 → 5NMEDONC 03:13
PROVIDERS: ADMIT Family Medicine; ATTEND Family Medicine
PROC: 0D9670Z Drainage of Stomach with Drainage Device, Via Natural or Artificial Opening (ICD-10-PCS; principal; 2019-10-14)
DX: K56.609 Unspecified intestinal obstruction, unspecified as to partial versus complete obstruction (principal); C18.9 Malignant neoplasm of colon, unspecified; I50.32 Chronic diastolic (congestive) heart failure; C79.9 Secondary malignant neoplasm of unspecified site; K21.9 Gastro-esophageal reflux disease without esophagitis; K59.00 Constipation, unspecified; E03.9 Hypothyroidism, unspecified; I25.10 Atherosclerotic heart disease of native coronary artery without angina pectoris; F17.200 Nicotine dependence, unspecified, uncomplicated; E83.52 Hypercalcemia; T45.1X5A Adverse effect of antineoplastic and immunosuppressive drugs, initial encounter; K56.50 Intestinal adhesions [bands], unspecified as to partial versus complete obstruction; E78.5 Hyperlipidemia, unspecified; Z79.890 Hormone replacement therapy; Z79.899 Other long term (current) drug therapy; Z79.02 Long term (current) use of antithrombotics/antiplatelets; Z79.82 Long term (current) use of aspirin; I25.2 Old myocardial infarction; Z95.5 Presence of coronary angioplasty implant and graft; Z98.890 Other specified postprocedural states; Z80.3 Family history of malignant neoplasm of breast; Z80.0 Family history of malignant neoplasm of digestive organs; Z90.49 Acquired absence of other specified parts of digestive tract
CPT/HCPCS: 36415; 74019; 74177; 80053; 82150; 83605; 83690; 83735; 85025; 85027; 96361; 96374; 96375; 99285

== ENCOUNTER 2019-10-20 05:08 | Observation (INO) | payer BC ==
[2019-10-20] MEDS ORDERED: ONDANSETRON 4 MG/2 ML VIAL IVP STA (05:32)
[2019-10-20] MEDS ORDERED: HYDROmorphone 0.5 MG/0.5 ML SYRINGE IVP STA ×2 (05:32→07:39)
[2019-10-20] MEDS ORDERED: SODIUM CHLORIDE 0.9% 500 ML 500 ML IV STA (05:32)
--- NOTE | 2019-10-20 05:37 | ED ---
Abdominal Pain HPI - General Chief Complaint: Abdominal Pain Stated Complaint: ABD PAIN Time Seen by Provider: 10/20/19 05:23 Source: patient, family Mode of arrival: ambulatory Limitations: no limitations - History of Present Illness Initial Comments: This patient is 59-year-old man with history of stage IV colon cancer. He had recently been admitted in the hospital from October 13- similar pains. The patient states that since he has been home eyes pain had recurred tonight. Patient describes a diffuse cramping aching abdominal pain area he also has had nausea and vomiting, but is not seeing any blood or coffee-ground emesis. No change in urination or bowel movements. MD Complaint: abdominal pain -: hour(s) Location: diffuse Radiation: none Migration to: no migration Severity: severe Quality: cramping, aching Consistency: colicky Improves With: nothing Worsens With: nothing Associated Symptoms: nausea, vomiting - Related Data Home Medications Medication Instructions Recorded Confirmed Atorvastatin Calcium [Lipitor] 10 mg PO HS 07/23/19 10/14/19 Levothyroxine Sodium [Synthroid] 50 mcg PO DAILY 10/05/19 10/14/19 Nicotine 21Mg/24Hr Patch [Habitrol] 1 patch TRANSDERM DAILY PRN 10/14/19 10/14/19 Ondansetron Odt [Zofran ODT] 4 mg PO QID PRN 10/14/19 10/14/19 traMADol HCL 50 mg PO QID PRN 10/14/19 10/14/19 Previous Rx's Medication Instructions Recorded Aspirin 81 mg PO DAILY #100 chew 04/19/17 Clopidogrel [Plavix] 75 mg PO DAILY #100 tab 04/19/17 Pantoprazole [Protonix] 40 mg PO BID #60 tablet. 08/06/19 Docusate [Colace] 100 mg PO BID #60 cap 10/18/19 Sennosides [Senna] 8.6 mg PO HS #30 tablet 10/18/19 Allergies Allergy/AdvReac Type Severity Reaction Status Date / Time No Known Allergies Allergy Verified 10/20/19 05:16 Review of Systems ROS Statement: Those systems with pertinent positive or pertinent negative responses have been documented in the HPI. ROS Other: All systems not noted in ROS Statement are negative. Constitutional: Denies: fever, chills Respiratory: Denies: cough, dyspnea Cardiovascular: Denies: chest pain, palpitations, edema Gastrointestinal: Reports: as per HPI, abdominal pain, nausea, vomiting. Denies: diarrhea, constipation, melena, hematochezia Genitourinary: Denies: dysuria, hematuria, testicular pain, testicular mass Musculoskeletal: Denies: back pain Skin: Denies: rash Neurological: Denies: headache, weakness, numbness Past Medical History Past Medical History: Cancer, Hyperlipidemia, Myocardial Infarction ([place]), Thyroid Disorder Additional Past Medical History / Comment(s): colon cancer. abdominal incision with 2 holes that are open the size of a straw 1/2 inch deep using silver rope and saline has visiting nurse Last Myocardial Infarction Date:: 04/02/2017 History of Any Multi-Drug Resistant Organisms: None Reported Past Surgical History: Bowel Resection, Heart Catheterization With Stent, Hernia Repair, Orthopedic Surgery Additional Past Surgical History / Comment(s): RIGHT LEG ORIF,. COLONOSCOPY. umbilical hernia repair with mesh Past Anesthesia/Blood Transfusion Reactions: No Reported Reaction Date of Last Stent Placement:: 04/02/2017 Past Psychological History: No Psychological Hx Reported Smoking Status: Current every day smoker Past Alcohol Use History: Occasional Past Drug Use History: None Reported - Past Family History Mother Family Medical History: Cancer Additional Family Medical History / Comment(s): breast cancer Father Family Medical History: Cancer Additional Family Medical History / Comment(s): colon cancer General Exam Limitations: no limitations General appearance: alert, in no apparent distress Head exam: Present: atraumatic, normocephalic Eye exam: Present: normal appearance. Absent: scleral icterus, conjunctival injection ENT exam: Present: normal oropharynx Respiratory exam: Present: normal lung sounds bilaterally. Absent: respiratory distress, wheezes, rales, rhonchi, stridor Cardiovascular Exam: Present: regular rate, normal rhythm, normal heart sounds. Absent: systolic murmur, diastolic murmur, rubs, gallop GI/Abdominal exam: Present: soft, tenderness. Absent: distended, guarding, rebo und, rigid, mass, pulsatile mass, hernia Extremities exam: Present: normal inspection, normal capillary refill. Absent: pedal edema, calf tenderness Back exam: Present: normal inspection. Absent: CVA tenderness (R), CVA tenderness (L) Neurological exam: Present: alert Skin exam: Present: warm, dry, intact, normal color. Absent: rash Course Vital Signs 10/20/19 10/20/19 10/20/19 05:13 06:27 07:32 Temperature 98 F 98.2 F Pulse Rate 109 H 104 H 92 Respiratory 18 16 18 Rate Blood Pressure 167/111 124/87 122/85 O2 Sat by Pulse 97 95 94 L Oximetry Medical Decision Making - Lab Data Result diagrams: 10/20/19 05:42 10/20/19 05:42 Lab Results 10/20/19 10/20/19 10/20/19 Range/Units 05:42 05:42 05:42 WBC 6.6 (3.8-10.6) k/uL RBC 5.40 (4.30-5.90) m/uL Hgb 14.5 (13.0-17.5) gm/dL Hct 45.6 (39.0-53.0) % MCV 84.5 (80.0-100.0) fL MCH 26.9 (25.0-35.0) pg MCHC 31.8 (31.0-37.0) g/dL RDW 18.2 H (11.5-15.5) % Plt Count 313 (150-450) k/uL Neutrophils % (Manual) 72 % Lymphocytes % (Manual) 14 % Monocytes % (Manual) 14 % Neutrophils # (Manual) 4.75 (1.3-7.7) k/uL Lymphocytes # (Manual) 0.92 L (1.0-4.8) k/uL Monocytes # (Manual) 0.92 (0-1.0) k/uL Nucleated RBCs 0 (0-0) /100 WBC Manual Slide Review Performed Hypochromasia Slight Anisocytosis Slight Sodium 137 (137-145) mmol/L Potassium 4.3 (3.5-5.1) mmol/L Chloride 101 (98-107) mmol/L Carbon Dioxide 26 (22-30) mmol/L Anion Gap 10 mmol/L BUN 11 (9-20) mg/dL Creatinine 0.75 (0.66-1.25) mg/dL Est GFR (CKD-EPI)AfAm >90 (>60 ml/min/1.73 sqM) Est GFR (CKD-EPI)NonAf >90 (>60 ml/min/1.73 sqM) Glucose 124 H (74-99) mg/dL Calcium 9.8 (8.4-10.2) mg/dL Total Bilirubin 0.4 (0.2-1.3) mg/dL AST 20 (17-59) U/L ALT 17 (4-49) U/L Alkaline Phosphatase 87 (38-126) U/L Total Protein 7.1 (6.3-8.2) g/dL Albumin 4.2 (3.5-5.0) g/dL Amylase 34 (30-110) U/L Lipase 23 (23-300) U/L Urine Color Yellow Urine Appearance Clear (Clear) Urine pH 6.5 (5.0-8.0) Ur Specific [place] 1.018 (1.001-1.035) Urine Protein Negative (Negative) Urine Glucose (UA) Negative (Negative) Urine Ketones Negative (Negative) Urine Blood Negative (Negative) Urine Nitrite Negative (Negative) Urine Bilirubin Negative (Negative) Urine Urobilinogen <2.0 (<2.0) mg/dL Ur Leukocyte Esterase Negative (Negative) Disposition Clinical Impression: SBO (small bowel obstruction), Abdominal pain Disposition: ADMITTED IP TO THIS [facility] Condition: Fair Is patient prescribed a controlled substance at d/c from ED?: No
[2019-10-20 06:33] LABS: Anisocytosis Slight; HCT 45.6 % (39.0-53.0); HGB 14.5 gm/dL (13.0-17.5); Hypochromasia Slight; MCH 26.9 pg (25.0-35.0); MCHC 31.8 g/dL (31.0-37.0); MCV 84.5 fL (80.0-100.0); Mean Platelet Volume 7.9; Platelet Count 313 k/uL (150-450); RDW 18.2 % (11.5-15.5); WBC 6.6 k/uL (3.8-10.6)
[2019-10-20 06:43] LABS: Appearance,Urine Clear (Clear); Bilirubin,Urine Negative (Negative); Blood,Urine Negative (Negative); Color,Urine Yellow; Glucose,Urine (UA) Negative (Negative); Ketones,Urine Negative (Negative); Leukocyte Esterase,Urine Negative (Negative); Nitrite,Urine Negative (Negative); PH, Urine 6.5 (5.0-8.0); Protein,Urine Negative (Negative); Specific Gravity,Urine 1.018 (1.001-1.035); Urobilinogen,Urine <2.0 mg/dL (<2.0)
[2019-10-20 06:58] LABS: Lymphocytes # (M) 0.92 k/uL (1.0-4.8); Monocytes # (M) 0.92 k/uL (0-1.0); Neutrophils # (M) 4.75 k/uL (1.3-7.7); Neutrophils % (M) 72 %; Nucleated Red Blood Cells 0 /100 WBC (0-0); Total Cells Counted 100
[2019-10-20 06:59] LABS: ALT 17 U/L (4-49); AST 20 U/L (17-59); African American GFR (CKD) >90 (>60 ml/min/1.73 sqM); Albumin 4.2 g/dL (3.5-5.0); Alkaline Phosphatase 87 U/L (38-126); Amylase 34 U/L (30-110); Anion Gap 10 mmol/L; Blood Urea Nitrogen 11 mg/dL (9-20); Calcium 9.8 mg/dL (8.4-10.2); Carbon Dioxide 26 mmol/L (22-30); Chloride 101 mmol/L (98-107); Glucose 124 mg/dL (74-99); Non-African American GFR(CKD) >90 (>60 ml/min/1.73 sqM); Potassium 4.3 mmol/L (3.5-5.1); Sodium 137 mmol/L (137-145); Total Bilirubin 0.4 mg/dL (0.2-1.3); Total Protein 7.1 g/dL (6.3-8.2)
--- NOTE | 2019-10-20 07:36 | XR ---
EXAM: XR Abdomen, 1 View CLINICAL HISTORY: Abdominal pain TECHNIQUE: Frontal upright view of the abdomen/pelvis. COMPARISON: No relevant prior studies available. FINDINGS: Gastrointestinal tract: Prominent small bowel loops in the left upper quadrant with air-fluid levels. Numerous air-fluid levels scattered throughout the colon as well. No evidence of free intraperitoneal air. Bones/joints: No acute findings. IMPRESSION: Prominent small bowel loops with air-fluid levels. This could represent small bowel obstruction. Consider further evaluation with CT.
[2019-10-20] MEDS ORDERED: ONDANSETRON 4 MG/2 ML VIAL IVP PRN (07:40)
[2019-10-20] MEDS ORDERED: HYDROmorphone 1 MG/ML 1 ML SYRINGE IVP PRN (07:40)
[2019-10-20] MEDS ORDERED: NALOXONE 0.4 MG/ML 1 ML VIAL IV PRN (07:40)
[2019-10-20] MEDS: SODIUM CHLORIDE 0.9% 1,000 ML IV SCH ×3 (08:27→22:52)
[2019-10-20 09:17] VITALS: RESP 16
[2019-10-20] MEDS ORDERED: KETOROLAC 15 MG/ML 1 ML VIAL IVP PRN (12:18)
--- NOTE | 2019-10-20 12:44 | P.GSCN ---
History of Present Illness Consult date: 10/20/19 Reason for Consult: Abdominal pain History of present illness: 59-year-old male with history of metastatic colon cancer. Was recently hospital ized. 1 home only to come back to the hospital with complaints of burning pain in the midabdomen. Initially thought it may be related to the foods he was eating at home. He did have a good bowel movement yesterday. Does not feel bloated. Says he does not feel like there is a blockage. Was concerned about possible ulcer. Labs are normal. ABDOMINAL x-rays show some air-fluid levels. He is hungry. Review of Systems The patient denies any acute changes in vision or hearing, no dysphagia or odynophagia, no chest pain or shortness of breath, no dysuria or hematuria, no headache, no runny nose, no rectal bleeding or melena, no unexplained weight loss Past Medical History Past Medical History: Cancer, Hyperlipidemia, Myocardial Infarction ([place]), Thyroid Disorder Additional Past Medical History / Comment(s): colon cancer. abdominal incision with 2 holes that are open the size of a straw 1/2 inch deep using silver rope and saline has visiting nurse Last Myocardial Infarction Date:: 04/02/2017 History of Any Multi-Drug Resistant Organisms: None Reported Past Surgical History: Bowel Resection, Heart Catheterization With Stent, Hernia Repair, Orthopedic Surgery Additional Past Surgical History / Comment(s): RIGHT LEG ORIF,. COLONOSCOPY. umbilical hernia repair with mesh Past Anesthesia/Blood Transfusion Reactions: No Reported Reaction Date of Last Stent Placement:: 04/02/2017 Past Psychological History: No Psychological Hx Reported Smoking Status: Current every day smoker Past Alcohol Use History: Occasional Past Drug Use History: None Reported - Past Family History Mother Family Medical History: Cancer Additional Family Medical History / Comment(s): breast cancer Father Family Medical History: Cancer Additional Family Medical History / Comment(s): colon cancer Medications and Allergies Home Medications Medication Instructions Recorded Confirmed Type Aspirin 81 mg PO DAILY #100 chew 04/19/17 10/20/19 Rx Clopidogrel [Plavix] 75 mg PO DAILY #100 tab 04/19/17 10/20/19 Rx Atorvastatin Calcium [Lipitor] 10 mg PO HS 07/23/19 10/20/19 History Levothyroxine Sodium [Synthroid] 50 mcg PO DAILY 10/05/19 10/20/19 History Docusate [Colace] 100 mg PO BID #60 cap 10/18/19 10/20/19 Rx Bisacodyl 5 mg PO Q4H PRN 10/20/19 10/20/19 History Allergies Allergy/AdvReac Type Severity Reaction Status Date / Time No Known Allergies Allergy Verified 10/20/19 10:12 Surgical - Exam Vital Signs Temp Pulse Resp BP Pulse Ox 98 F 109 H 18 167/111 97 10/20/19 05:13 10/20/19 05:13 10/20/19 05:13 10/20/19 05:13 10/20/19 05:13 Physical exam: General: Well-developed, well-nourished HEENT: Normocephalic, sclerae nonicteric Abdomen: Mild distention, mild midline tenderness Extremities: No edema Neuro: Alert and oriented Results - Labs 10/20/19 05:42 10/20/19 05:42 Abnormal Lab Results - Last 24 Hours (Table) 10/20/19 10/20/19 Range/Units 05:42 05:42 RDW 18.2 H (11.5-15.5) % Lymphocytes # (Manual) 0.92 L (1.0-4.8) k/uL Glucose 124 H (74-99) mg/dL Diabetes panel 10/20/19 Range/Units 05:42 Sodium 137 (137-145) mmol/L Potassium 4.3 (3.5-5.1) mmol/L Chloride 101 (98-107) mmol/L Carbon Dioxide 26 (22-30) mmol/L BUN 11 (9-20) mg/dL Creatinine 0.75 (0.66-1.25) mg/dL Glucose 124 H (74-99) mg/dL Calcium 9.8 (8.4-10.2) mg/dL AST 20 (17-59) U/L ALT 17 (4-49) U/L Alkaline Phosphatase 87 (38-126) U/L Total Protein 7.1 (6.3-8.2) g/dL Albumin 4.2 (3.5-5.0) g/dL Calcium panel 10/20/19 Range/Units 05:42 Calcium 9.8 (8.4-10.2) mg/dL Albumin 4.2 (3.5-5.0) g/dL Pituitary panel 10/20/19 Range/Units 05:42 Sodium 137 (137-145) mmol/L Potassium 4.3 (3.5-5.1) mmol/L Chloride 101 (98-107) mmol/L Carbon Dioxide 26 (22-30) mmol/L BUN 11 (9-20) mg/dL Creatinine 0.75 (0.66-1.25) mg/dL Glucose 124 H (74-99) mg/dL Calcium 9.8 (8.4-10.2) mg/dL Adrenal panel 10/20/19 Range/Units 05:42 Sodium 137 (137-145) mmol/L Potassium 4.3 (3.5-5.1) mmol/L Chloride 101 (98-107) mmol/L Carbon Dioxide 26 (22-30) mmol/L BUN 11 (9-20) mg/dL Creatinine 0.75 (0.66-1.25) mg/dL Glucose 124 H (74-99) mg/dL Calcium 9.8 (8.4-10.2) mg/dL Total Bilirubin 0.4 (0.2-1.3) mg/dL AST 20 (17-59) U/L ALT 17 (4-49) U/L Alkaline Phosphatase 87 (38-126) U/L Total Protein 7.1 (6.3-8.2) g/dL Albumin 4.2 (3.5-5.0) g/dL Assessment and Plan (1) Abdominal pain Narrative/Plan: 59-year-old male with readmission for abdominal pain. Pain is mid abdomen. Could be on the basis of partial small bowel obstruction. Begin clear liquids. If symptoms persist we'll consider repeat CAT scan. Also recommend considering oncology consult since he is due for chemotherapy on Tuesday. Current Visit: Yes Status: Acute Code(s): R10.9 - UNSPECIFIED ABDOMINAL PAIN SNOMED Code(s): 82635504
[2019-10-20] MEDS ORDERED: polyethylene glycoL 3350 17 GM POWD.PACK PO PRN (13:08)
[2019-10-20] MEDS: PANTOPRAZOLE 40 MG/10 ML VIAL IVP SCH (14:14)
[2019-10-20] MEDS: DOCUSATE 100 MG CAP PO SCH ×2 (14:15→19:15)
[2019-10-20] MEDS: CLOPIDOGREL 75 MG TAB PO SCH (14:15)
[2019-10-20] MEDS: ASPIRIN 81 MG PO SCH (14:15)
--- NOTE | 2019-10-20 15:18 | P.HPIM ---
History of Present Illness This is a 59-year-old male with history of metastatic colon cancer had bowel resection in the past was recently admitted and discharged couple days ago after he was treated for partial small of her bowel obstruction came in with severe mid abdominal pain sharp and burning in nature. Patient did have a bowel movement yesterday. Patient's abdominal x-rays were showing a fluid levels and patient is admitted for possible partial small bowel obstruction again. General surgery evaluate the patient patient doesn't have an NG tube does have bowel sounds patient will be started on clear liquid diet today patient doesn't have any fever chills was nauseous yesterday which resolved at this time. He believes pain is making him nauseous Review of Systems REVIEW OF SYSTEMS: CONSTITUTIONAL: No fever, no malaise, no fatigue. HEENT: No recent visual problems or hearing problems. Denied any sore throat. CARDIOVASCULAR: No chest pain, orthopnea, PND, no palpitations, no syncope. PULMONARY: No shortness of breath, no cough, no hemoptysis. GASTROINTESTINAL: As mentioned in HPI NEUROLOGICAL: No headaches, no weakness, no numbness. HEMATOLOGICAL: Denies any bleeding or petechiae. GENITOURINARY: Denies any burning micturition, frequency, or urgency. MUSCULOSKELETAL/RHEUMATOLOGICAL: Denies any joint pain, swelling, or any muscle pain. ENDOCRINE: Denies any polyuria or polydipsia. The rest of the 14-point review of systems is negative. Past Medical History Past Medical History: Cancer, Hyperlipidemia, Myocardial Infarction ([place]), Thyroid Disorder Additional Past Medical History / Comment(s): colon cancer. abdominal incision with 2 holes that are open the size of a straw 1/2 inch deep using silver rope and saline has visiting nurse Last Myocardial Infarction Date:: 04/02/2017 History of Any Multi-Drug Resistant Organisms: None Reported Past Surgical History: Bowel Resection, Heart Catheterization With Stent, Hernia Repair, Orthopedic Surgery Additional Past Surgical History / Comment(s): RIGHT LEG ORIF,. COLONOSCOPY. umbilical hernia repair with mesh Past Anesthesia/Blood Transfusion Reactions: No Reported Reaction Date of Last Stent Placement:: 04/02/2017 Past Psychological History: No Psychological Hx Reported Smoking Status: Current every day smoker Past Alcohol Use History: Occasional Past Drug Use History: None Reported - Past Family History Mother Family Medical History: Cancer Additional Family Medical History / Comment(s): breast cancer Father Family Medical History: Cancer Additional Family Medical History / Comment(s): colon cancer Medications and Allergies Home Medications Medication Instructions Recorded Confirmed Type Aspirin 81 mg PO DAILY #100 chew 04/19/17 10/20/19 Rx Clopidogrel [Plavix] 75 mg PO DAILY #100 tab 04/19/17 10/20/19 Rx Atorvastatin Calcium [Lipitor] 10 mg PO HS 07/23/19 10/20/19 History Levothyroxine Sodium [Synthroid] 50 mcg PO DAILY 10/05/19 10/20/19 History Docusate [Colace] 100 mg PO BID #60 cap 10/18/19 10/20/19 Rx Bisacodyl 5 mg PO Q4H PRN 10/20/19 10/20/19 History Allergies Allergy/AdvReac Type Severity Reaction Status Date / Time No Known Allergies Allergy Verified 10/20/19 10:12 Physical Exam Vitals: Vital Signs Temp Pulse Pulse Resp BP BP BP 10/20/19 09:24 83 16 10/20/19 08:50 98.1 F 77 16 106/73 10/20/19 08:46 97.9 F 83 16 123/73 10/20/19 07:32 98.2 F 92 18 122/85 10/20/19 06:27 104 H 16 124/87 10/20/19 05:13 98 F 109 H 18 167/111 Pulse Ox 10/20/19 09:24 10/20/19 08:50 95 10/20/19 08:46 96 10/20/19 07:32 94 L 10/20/19 06:27 95 10/20/19 05:13 97 Intake and Output 10/19/19 10/20/19 10/20/19 22:59 06:59 14:59 Other: Voiding Method Toilet Weight 79.832 kg 79.832 kg PHYSICAL EXAMINATION: GENERAL: The patient is alert and oriented x3, not in any acute distress. Well developed, well nourished. HEENT: Pupils are round and equally reacting to light. EOMI. No scleral icterus. No conjunctival pallor. Normocephalic, atraumatic. No pharyngeal erythema. No thyromegaly. CARDIOVASCULAR: S1 and S2 present. No murmurs, rubs, or gallops. PULMONARY: Chest is clear to auscultation, no wheezing or crackles. ABDOMEN: Soft, nontender, nondistended, normoactive bowel sounds. No palpable organomegaly. Patient has a midabdominal scar MUSCULOSKELETAL: No joint swelling or deformity. EXTREMITIES: No cyanosis, clubbing, or pedal edema. NEUROLOGICAL: Gross neurological examination did not reveal any focal deficits. SKIN: No rashes. Results CBC & Chem 7: 10/20/19 05:42 10/20/19 05:42 Labs: Abnormal Lab Results - Last 24 Hours (Table) 10/20/19 10/20/19 Range/Units 05:42 05:42 RDW 18.2 H (11.5-15.5) % Lymphocytes # (Manual) 0.92 L (1.0-4.8) k/uL Glucose 124 H (74-99) mg/dL Thrombosis Risk Factor Assmnt - Choose All That Apply Any of the Below Risk Factors Present?: No Other Risk Factors: No Other congenital or acquired thrombophilia - If yes, enter type in comment: No Thrombosis Risk Factor Assessment Level: Very Low Risk Assessment and Plan Plan: -Abdominal pain: Possibly of small bowel obstruction patient does have good bowel sounds patient will be started on clear liquid diet and will be monitored and if symptoms persist general surgeries including a CAT scan. Patient does have history of colon cancer will undergo chemotherapy on Tuesday patient will follow up with the [facility] oncology on Tuesday for this -Hyperlipidemia -Hyperthyroidism next and-coronary artery disease -Continue nicotine use: Counseling was provided -Colon cancer for which patient has follow-up with oncology as an outpatient on Tuesday DVT prophylaxis with Lovenox
[2019-10-20] MEDS: HYDROmorphone 0.5 MG/0.5 ML SYRINGE IVP PRN ×3 (15:39→22:51)
[2019-10-20 20:44] VITALS: TEMP 98.1
[2019-10-20] MEDS ORDERED: DOCUSATE 100 MG CAP PO SCH (21:00)
[2019-10-20] MEDS ORDERED: ATORVASTATIN 10 MG TAB PO SCH (21:00)
[2019-10-21 04:25] VITALS: BP 137/81
[2019-10-21] MEDS: HYDROmorphone 0.5 MG/0.5 ML SYRINGE IVP PRN (05:53)
[2019-10-21] MEDS ORDERED: LEVOTHYROXINE 50 MCG TAB PO SCH (06:30)
[2019-10-21] MEDS: SODIUM CHLORIDE 0.9% 1,000 ML IV SCH (07:23)
[2019-10-21] MEDS: ASPIRIN 81 MG PO SCH (07:24)
[2019-10-21] MEDS: CLOPIDOGREL 75 MG TAB PO SCH (07:24)
[2019-10-21] MEDS: DOCUSATE 100 MG CAP PO SCH (07:24)
[2019-10-21] MEDS: PANTOPRAZOLE 40 MG/10 ML VIAL IVP SCH (07:24)
[2019-10-21] MEDS ORDERED: ENOXAPARIN 40 MG/0.4 ML SYRINGE SQ SCH (09:00)
[2019-10-21] MEDS ORDERED: ASPIRIN 81 MG PO SCH ×2 (09:00)
[2019-10-21] MEDS ORDERED: CLOPIDOGREL 75 MG TAB PO SCH ×2 (09:00)
--- NOTE | 2019-10-21 10:55 | P.PN ---
Subjective Progress Note Date: 10/21/19 Principal diagnosis: Abdominal pain Patient says he feels much better today. He says after having a bowel movement yesterday his pain resolved. Tolerating clears. He would like to go home. Objective - Vital Signs Vital signs: Vital Signs Temp 98.1 F 10/21/19 04:24 Pulse 70 10/21/19 04:24 Resp 16 10/21/19 04:24 BP 137/81 10/21/19 04:24 Pulse Ox 96 10/21/19 04:24 Intake & Output 10/20/19 10/21/19 10/21/19 18:59 06:59 18:59 Intake Total 2940 1500 360 Balance 2940 1500 360 Weight 79.832 kg Intake: Intake, IV Titration 1500 1500 Amount Sodium Chloride 0.9% 1, 1500 1500 000 ml @ 125 mls/hr IV . Q8H [facility] Rx#:[id number] Oral 1440 360 Other: Voiding Method Toilet Toilet # Voids 3 1 - Exam Abdomen: Soft, nondistended, no appreciable tenderness - Labs CBC & Chem 7: 10/20/19 05:42 10/20/19 05:42 Assessment and Plan (1) Abdominal pain Narrative/Plan: Will increase diet. May discharge from my standpoint. Current Visit: Yes Status: Acute Code(s): R10.9 - UNSPECIFIED ABDOMINAL PAIN SNOMED Code(s): 37229117
[2019-10-21 12:19] VITALS: PULSE 74
--- NOTE | 2019-10-21 13:35 | P.DS ---
Providers Date of admission: 10/20/19 07:40 Attending physician: Bernabe Perales Consults: 10/20/19 07:41 Consult Physician Routine Consulting Provider: Brett Clark Consult Reason/Comments: Abdominal pain. Partial small bowel obstruction. Do you want consulting provider notified?: Yes Primary care physician: Radha [facility] Course: 59-year-old male with history of metastatic colon cancer had bowel resection in the past was recently admitted and discharged couple days ago after he was treated for partial small of her bowel obstruction came in with severe mid abdominal pain sharp and burning in nature. Patient did have a bowel movement yesterday. Patient's abdominal x-rays were showing a fluid levels and patient is admitted for possible partial small bowel obstruction again. General surgery evaluate the patient patient doesn't have an NG tube does have bowel sounds patient will be started on clear liquid diet today patient doesn't have any fever chills was nauseous yesterday which resolved at this time. He believes pain is making him nauseous 10/21/2019 abdominal pain completely resolved. Patient will be discharged on proton pump inhibitor,may have gastritis or peptic ulcer disease. Patient has an appointment for chemotherapy tomorrow.patient had a bowel movement today PHYSICAL EXAMINATION: GENERAL: The patient is alert and oriented x3, not in any acute distress. Well developed, well nourished. HEENT: Pupils are round and equally reacting to light. EOMI. No scleral icterus. No conjunctival pallor. Normocephalic, atraumatic. No pharyngeal erythema. No thyromegaly. CARDIOVASCULAR: S1 and S2 present. No murmurs, rubs, or gallops. PULMONARY: Chest is clear to auscultation, no wheezing or crackles. ABDOMEN: Soft, nontender, nondistended, normoactive bowel sounds. No palpable organomegaly. Patient has a midabdominal scar MUSCULOSKELETAL: No joint swelling or deformity. EXTREMITIES: No cyanosis, clubbing, or pedal edema. NEUROLOGICAL: Gross neurological examination did not reveal any focal deficits. SKIN: No rashes. Assessment and Plan Plan: -Abdominal pain: Possibly of small bowel obstruction GASTRITIS symptoms resolved. -Hyperlipidemia -Hyperthyroidism -coronary artery disease -Continued nicotine use: Counseling was provided -Colon cancer for which patient has follow-up with oncology as an outpatient on Tuesday Patient Condition at Discharge: Fair Plan - Discharge Summary Discharge Rx Participant: No New Discharge Prescriptions: New Omeprazole [PriLOSEC] 40 mg PO DAILY #30 cap Continue Aspirin 81 mg PO DAILY #100 chew Clopidogrel [Plavix] 75 mg PO DAILY #100 tab Atorvastatin Calcium [Lipitor] 10 mg PO HS Levothyroxine Sodium [Synthroid] 50 mcg PO DAILY Docusate [Colace] 100 mg PO BID #60 cap Bisacodyl 5 mg PO Q4H PRN PRN Reason: Constipation Discharge Medication List Aspirin 81 mg PO DAILY #100 chew 04/19/17 [Rx] Clopidogrel [Plavix] 75 mg PO DAILY #100 tab 04/19/17 [Rx] Atorvastatin Calcium [Lipitor] 10 mg PO HS 07/23/19 [History] Levothyroxine Sodium [Synthroid] 50 mcg PO DAILY 10/05/19 [History] Docusate [Colace] 100 mg PO BID #60 cap 10/18/19 [Rx] Bisacodyl 5 mg PO Q4H PRN 10/20/19 [History] Omeprazole [PriLOSEC] 40 mg PO DAILY #30 cap 10/21/19 [Rx] Follow up Appointment(s)/Referral(s): Radha White DO [Primary Care Provider] - 3 Days (Please call the office on Tuesday10/22/19 to schedule your appointment. The office was closed at time of discharge.) Discharge Disposition: HOME SELF-CARE
== END 2019-10-21 12:25 | disposition home or self-care (01) ==
LOC: EC 05:08 → 5NMEDONC 07:40 → INTOOBSV 07:40
PROVIDERS: ADMIT Hospitalist; ATTEND Hospitalist
DX: R10.9 Unspecified abdominal pain (principal); E78.5 Hyperlipidemia, unspecified; E05.90 Thyrotoxicosis, unspecified without thyrotoxic crisis or storm; I25.10 Atherosclerotic heart disease of native coronary artery without angina pectoris; Z85.038 Personal history of other malignant neoplasm of large intestine; F17.200 Nicotine dependence, unspecified, uncomplicated; R11.2 Nausea with vomiting, unspecified; I25.2 Old myocardial infarction; Z79.899 Other long term (current) drug therapy; Z79.890 Hormone replacement therapy; Z79.891 Long term (current) use of opiate analgesic; Z79.82 Long term (current) use of aspirin; Z79.02 Long term (current) use of antithrombotics/antiplatelets; Z90.49 Acquired absence of other specified parts of digestive tract; Z95.5 Presence of coronary angioplasty implant and graft; Z80.3 Family history of malignant neoplasm of breast; Z80.0 Family history of malignant neoplasm of digestive organs
CPT/HCPCS: 96376 ×3; 96361 ×3; 96375 ×2; 96374; 99285; 36415; 80053; 82150; 83690; 85025; 81003; 74018; G0378 ×2; J2405; J1170 ×3; C9113 ×2

== ENCOUNTER → 2020-01-03 | Outpatient (CLI) | payer BC ==
[2020-01-03 11:07] LABS: African American GFR (CKD) >90 (>60 ml/min/1.73 sqM); Blood Urea Nitrogen 13 mg/dL (9-20); Non-African American GFR(CKD) >90 (>60 ml/min/1.73 sqM)
--- NOTE | 2020-01-03 15:15 | CT ---
EXAMINATION TYPE: CT ChestAbdPelvis w con DATE OF EXAM: 01/03/2020 COMPARISON: 10/14/2019, 10/05/2019, PET/CT 08/24/2019 HISTORY: 59-year-old male C18.2, colon CA TECHNIQUE: Contiguous axial scanning of the chest, abdomen, and pelvis performed with IV Contrast, pa tient injected with 100 mL of Isovue 300. Delayed images through the kidneys were obtained. Coronal/s agittal reconstructions performed. CT DLP: 860.7 mGycm Automated exposure control for dose reduction was used. FINDINGS: CHEST: The heart is normal size without pericardial effusion. LAD coronary artery calcifications are present . Mildly aneurysmal aortic root and ascending aorta at 4.0 cm. Conventional vessel branching anatomy. Right anterior chest wall injection port with catheter tip at the mid SVC. Numerous nonenlarged mediastinal lymph nodes are redemonstrated. No thoracic lymphadenopathy by CT si ze criteria. Mild bilateral gynecomastia. Mild centrilobular emphysema. No consolidation or pleural effusion. ABDOMEN: No focal liver lesion or biliary ductal dilatation. Portal venous system is patent. Gallbladder, adrenal glands, spleen, right kidney, and pancreas appear within normal limits. Stable 1.3 cm cortical cyst posterior upper pole left kidney. Moderate atherosclerotic plaque and calcification infrarenal abdominal aorta with mild aneurysm of 3. 1 cm, unchanged. Postsurgical change of prior partial right hemicolectomy with ileocolonic anastomosis at the ascendin g colon. Omental nodularity especially along the left upper to mid abdomen show some improvement, for example, axial images 77 and 80. Additional anterior right mid abdominal peritoneal nodularity shows some imp rovement, axial image 78. Interval resolution of the previously seen small bowel obstruction. No free fluid or free air. Sigmoid diverticulosis. Some generalized fat stranding in the pelvis probably posttreatment change an d should be correlated clinically. PELVIS: Bladder partially distended but with new thickening along the left posterior fundus, axial image 105. This region appears to be contiguous with the thickening seen extending off procedure either side al osmin the pelvic peritoneal reflections, axial image 104. Peritoneal thickening here in the pelvis is r elatively unchanged. BONES: Mild degenerative change at the hips. Moderate degenerative disc disease L4-L5. Hypertrophic facet ar thropathy mid to lower lumbar spine. No osseous destructive process. IMPRESSION: 1. Some new focal bladder wall thickening involving the left posterior fundus appears contiguous with the known thickening along the pelvic peritoneal reflections. Subtle progression with new serosal in volvement difficult to exclude. The pelvic peritoneal thickening is unchanged in appearance. 2. Persistent but improving appearance to the omental and peritoneal nodularity higher up. 3. Interval resolution of the previous small bowel obstruction seen on 10/14/2019. 4. COPD with mild emphysema, ascending aortic aneurysm at 4.0 cm, mild AAA at 3.1 cm, previous partia l right hemicolectomy, and sigmoid diverticulosis.
== END | disposition home or self-care (01) ==
LOC: RADCTMAIN 09:59
PROVIDERS: ATTEND Internal Medicine Hematology & Oncology
DX: N32.89 Other specified disorders of bladder (principal); K66.8 Other specified disorders of peritoneum; J43.9 Emphysema, unspecified; I71.2 Thoracic aortic aneurysm, without rupture; I71.4 Abdominal aortic aneurysm, without rupture; K56.609 Unspecified intestinal obstruction, unspecified as to partial versus complete obstruction; C18.2 Malignant neoplasm of ascending colon; K57.30 Diverticulosis of large intestine without perforation or abscess without bleeding; Z90.49 Acquired absence of other specified parts of digestive tract
CPT/HCPCS: 82565; 84520; 71260; 74177; 36415; Q9967

== ENCOUNTER → 2020-03-13 | Day surgery (SDC) | payer BC ==
[2020-03-10 14:12] VITALS: BMI 23.0
[~2020-03-13] MED LIST changes: -ACETAMINOPHEN TAB 500 MG TAB ONE; -ACETAMINOPHEN TAB 500 MG TAB PO ONE; -BUPIVACAIN-EPI 0.25%-1:200,000 30 ML VIAL SQ ONE; -DEXAMETHASONE SOD PHOSPHATE 10 MG/ML 1 ML VIAL IV ONE; -HEPARIN SODIUM,PORCINE 100 UNIT/ML 5 ML VIAL IV ONE; -HEPARIN SODIUM,PORCINE 5,000 UNIT/ML 1 ML VIAL ONE; -HEPARIN SODIUM,PORCINE 5,000 UNIT/ML 1 ML VIAL SQ ONE; -HYDROmorphone 0.5 MG/0.5 ML SYRINGE IVP PRN; -IOPAMIDOL-370 50ML BTL MISCELLANE ONE; -KETAMINE 10 MG/ML 20 ML VIAL ONE; -MIDAZOLAM 2 MG/2 ML VIAL IV PRN; -MIDAZOLAM 2 MG/2 ML VIAL ONE; -Pre Op ABX Message 1 EACH MISC MISCELLANE ONE; -fentaNYL (PF) 50 MCG/ML 2 ML AMP ONE
[2020-03-13 11:23] VITALS: RESP 18; TEMP 97.8
--- NOTE | 2020-03-13 12:26 | P.GSHP ---
History of Present Illness H&P Date: 03/13/20 Chief Complaint: History of right colon cancer This a 59-year-old male with previous history of right colectomy for colon cancer. Patient presents today for colonoscopy. Patient has known metastatic disease. Past Medical History Past Medical History: Cancer, Hyperlipidemia, Myocardial Infarction ([place]), Thyroid Disorder Additional Past Medical History / Comment(s): abdominal hernia,colon cancer- planned surgery for 03-21-20 to remove Cancer-last dose chemo 02-12-20.,had abdominal incision with 2 holes that are open the size of a straw 1/2 inch deep using silver rope and saline has visiting nurse-healed Last Myocardial Infarction Date:: 04/02/2017 History of Any Multi-Drug Resistant Organisms: None Reported Past Surgical History: Bowel Resection, Heart Catheterization With Stent, Hernia Repair, Orthopedic Surgery Additional Past Surgical History / Comment(s): RIGHT LEG ORIF,. COLONOSCOPY. umbilical hernia repair with mesh Past Anesthesia/Blood Transfusion Reactions: No Reported Reaction Additional Past Anesthesia/Blood Transfusion Reaction / Comment(s): no problems with prior blood transfusion Date of Last Stent Placement:: 04/02/2017 Smoking Status: Current every day smoker - Past Family History Mother Family Medical History: Cancer Additional Family Medical History / Comment(s): breast cancer Father Family Medical History: Cancer Additional Family Medical History / Comment(s): colon cancer Medications and Allergies Home Medications Medication Instructions Recorded Confirmed Type Aspirin 81 mg PO DAILY #100 chew 04/19/17 03/10/20 Rx Clopidogrel [Plavix] 75 mg PO DAILY #100 tab 04/19/17 03/10/20 Rx Atorvastatin Calcium [Lipitor] 10 mg PO HS 07/23/19 03/10/20 History Levothyroxine Sodium [Synthroid] 50 mcg PO QAM 10/05/19 03/10/20 History Omeprazole [PriLOSEC] 40 mg PO DAILY #30 cap 10/21/19 03/10/20 Rx Allergies Allergy/AdvReac Type Severity Reaction Status Date / Time No Known Allergies Allergy Verified 03/10/20 14:03 Surgical - Exam Vital Signs Temp Pulse Resp BP Pulse Ox 97.8 F 78 18 115/70 98 03/13/20 11:22 03/13/20 11:22 03/13/20 11:22 03/13/20 11:22 03/13/20 11:22 - General well developed, well nourished, no distress - Eyes PERRL - ENT normal pinna - Neck no masses - Respiratory normal expansion - Cardiovascular Rhythm: regular - Abdomen Abdomen: soft, non tender Assessment and Plan Assessment: History of right colon cancer. Patient will undergo colonoscopy today.
--- NOTE | 2020-03-13 12:36 | P.OP ---
Date of Procedure: 03/13/20 Preoperative Diagnosis: History of right colon cancer Postoperative Diagnosis: Colonoscopy status post right colectomy Procedure(s) Performed: Colonoscopy Anesthesia: MAC Surgeon: Brett Clark Pathology: other (Right colon) Condition: stable Disposition: PACU Description of Procedure: PROCEDURE: The patient was placed on the endoscopy table in the lateral position. Digital rectal examination was performed which revealed no abnormalities. The prostate was symmetrical without nodules. Flexible c olonoscope was then placed in the patient's anus and passed throughout the entire colon. The patient appears right clip he. The ileocolonic anastomosis visualized. The, transverse, descending and sigmoid colon were normal. The rectum was normal as well. There were no masses, polyps or diverticula noted in the entire colon.
[2020-03-13 12:41] VITALS: PULSE 93
[2020-03-13 13:00] VITALS: BP 115/75
== END ==
LOC: ORWHC2ENDO 10:36
PROVIDERS: ATTEND Surgery
DX: Z12.11 Encounter for screening for malignant neoplasm of colon (principal); E78.5 Hyperlipidemia, unspecified; I25.2 Old myocardial infarction; E07.9 Disorder of thyroid, unspecified; I10 Essential (primary) hypertension; K21.9 Gastro-esophageal reflux disease without esophagitis; F17.200 Nicotine dependence, unspecified, uncomplicated; Z85.038 Personal history of other malignant neoplasm of large intestine; Z90.49 Acquired absence of other specified parts of digestive tract; Z87.19 Personal history of other diseases of the digestive system; Z95.5 Presence of coronary angioplasty implant and graft; Z98.890 Other specified postprocedural states; Z87.81 Personal history of (healed) traumatic fracture; Z79.82 Long term (current) use of aspirin; Z79.02 Long term (current) use of antithrombotics/antiplatelets; Z79.899 Other long term (current) drug therapy; Z79.890 Hormone replacement therapy; Z80.3 Family history of malignant neoplasm of breast; Z80.0 Family history of malignant neoplasm of digestive organs
CPT/HCPCS: G0105; J2704; 45378

== ENCOUNTER → 2020-06-10 | Outpatient (CLI) | payer BC ==
[2020-06-10 14:49] LABS: African American GFR (CKD) >90 (>60 ml/min/1.73 sqM); Blood Urea Nitrogen 7 mg/dL (9-20); Non-African American GFR(CKD) >90 (>60 ml/min/1.73 sqM)
--- NOTE | 2020-06-11 08:18 | CT ---
EXAMINATION TYPE: CT ChestAbdPelvis w con DATE OF EXAM: 06/10/2020 COMPARISON: CT 01/03/2020 HISTORY: f/u colon ca CT DLP: 1500 mGycm Automated exposure control for dose reduction was used. CONTRAST: CT scan of the chest, abdomen and pelvis is performed with Oral Contrast and with IV Contrast, patien t injected with 100 mL of Isovue 300. FINDINGS: There is omental nodularity present left hemiabdomen, axial image 81,.to be less confluent, somewhat more dissipated in density as compared to prior. Port-A-Cath present on the right coursing via a subclavian approach with the distal tip the superior vena cava. LUNGS: The lungs are grossly clear, there is no concerning parenchymal mass or nodule identified. T here is no pleural effusion or pneumothorax seen. The tracheobronchial tree is patent. There are rhonda trilobular emphysematous changes present. Minimal pleural thickening present at the right lung base s hows a similar appearance. MEDIASTINUM: There are no greater than 1 cm hilar or mediastinal lymph nodes. No pericardial effusi on is seen. AORTA: Mild ectasia of the abdominal aorta, atheromatous changes are present. OTHER: The thickening described on prior report along the posterior aspect of the urinary bladder ma y be somewhat less confluent as compared to prior. LIVER/GB: No significant interval change is appreciated. PANCREAS: No significant abnormality is seen. SPLEEN: No significant abnormality is seen. ADRENALS: No significant abnormality is seen. KIDNEYS: No significant interval change is seen. REPRODUCTIVE ORGANS: No gross interval change seen. BOWEL: Postop changes are present. Areas of small bowel wall thickening noted, transverse colon, sma ll bowel is in close proximity to the skin in the umbilical region, suspect small hernia, no evident bowel obstruction. Some thickening of the bowel wall the sigmoid colon, diverticular change is noted, difficult to exclude a mucosal lesion. FREE AIR: No Free Air visible. ASCITES: None seen. RETROPERITONEAL ADENOPATHY: No retroperitoneal adenopathy is seen. LYMPH NODES: No greater than 1 cm abdominal or pelvic lymph nodes are appreciated. URINARY BLADDER: No significant abnormality is seen. PELVIC ADENOPATHY: None visualized. OSSEOUS STRUCTURES: No significant abnormality is seen. IMPRESSION: Omental soft tissue thought to be stable to somewhat improved as compared to prior exam.
== END | disposition home or self-care (01) ==
LOC: RADPROMAIN 13:51
PROVIDERS: ATTEND Internal Medicine Hematology & Oncology
DX: C18.2 Malignant neoplasm of ascending colon (principal)
CPT/HCPCS: 82565; 84520; 71260; 74177; 36415; Q9967

== ENCOUNTER → 2020-11-06 | Outpatient (CLI) | payer BC ==
[2020-11-06 13:43] LABS: African American GFR (CKD) >90 (>60 ml/min/1.73 sqM); Blood Urea Nitrogen 22 mg/dL (9-20); Non-African American GFR(CKD) >90 (>60 ml/min/1.73 sqM)
--- NOTE | 2020-11-07 08:16 | CT ---
EXAMINATION TYPE: CT ChestAbdPelvis w con DATE OF EXAM: 11/06/2020 COMPARISON: Most recent CT June 10, 2020 and older studies. 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 CT DLP: 578.9 mGycm. Automated Exposure Control for Dose Reduction was Utilized. CONTRAST: CT scan of the thorax, abdomen and pelvis is performed with oral and with IV Contrast, patient inject ed with 100ml mL of Isovue 300. FINDINGS: LUNGS: Mild underlying emphysematous changes are redemonstrated. No suspicious new greater than 5 mm nodules or masses. No pleural effusion or pneumothorax seen bilaterally. MEDIASTINUM: There are persistent prominent but subcentimeter mediastinal lymph nodes. Focal small to tiny pericardial effusion anterior inferior aspect axial image 53 slightly more prominent from prior . Coronary stent proximal LAD is suspected. There is moderate concentric wall thickening long course of the mid to distal esophagus on current study, nonspecific finding. Correlate clinically. Stable a scending aortic aneurysm up to 4.3 cm axial image 37. OTHER: Stable right subclavian Mediport catheter. Subareolar bilateral gynecomastia redemonstrated. LIVER/GB: Gallbladder has distended margins without surrounding inflammatory change. PANCREAS: No significant abnormality is seen. SPLEEN: No significant abnormality is seen. ADRENALS: No significant abnormality is seen. KIDNEYS: Symmetric cortical medullary uptake and excretion without hydronephrosis seen bilaterally. A 1.2 cm partially exophytic cyst posteriorly upper pole of the left kidney axial series 3 image 59 is redemonstrated. BOWEL: Mildly distended stomach. No suspicious dilatation of duodenal sweep. There are abnormal dilat ed small bowel loops throughout the abdomen and pelvis with multiple air-fluid levels. Surgical roe es from partial proximal colectomy and small bowel anastomosis is redemonstrated. There is nondilated colon along the periphery. There is some fluid-filled prominence in the right colon suggesting mild underlying colitis and/or diarrhea. There are some nondistended distal small bowel loops in the right lower quadrant and pelvis. Distinct transition point difficult to definitively visualize but likely within the lower abdomen or pelvis, I suspect it just right of midline in the pelvis axial image 103. Small bowel loops dilated up to 4.8 cm axial image 76. Diverticula in the sigmoid colon redemonstrat ed. GENITAL ORGANS: Upper limits of normal in size prostate with adjacent left-sided pelvic phlebolith. LYMPH NODES: Slight nodularity and studding of the anterior peritoneum midline abdomen axial image 76 and greater inferior to this in the mid abdomen on the left axial image 77 and on the right axial im age 83 is more prominent versus most recent CT. There is likely a peritoneal component near site of s uspected small bowel obstruction in the right pelvis axial image 103. OSSEOUS STRUCTURES: Mild multilevel spurring in the spine. The spine is straightened on sagittal imag es. Slight scoliotic curvature on the coronal images OTHER: Moderate mixed plaque in the infrarenal abdominal aorta extends into branch vessels. IMPRESSION: New distal small bowel obstruction. Worsening peritoneal carcinomatosis is felt present. A Yellow level critical message alert has been initiated for Osman Egan MD~[id number] via the [email or web address] Critical Results System on 11/07/2020 8:14 AM. This message alert has been sent to Osman Egan MD~M [id number] via the preferences provided by the clinician for the receipt of Radiology Critical Findings. [facility] [id number].
== END | disposition home or self-care (01) ==
LOC: RADCTMAIN 12:50
PROVIDERS: ATTEND Surgery
DX: C78.6 Secondary malignant neoplasm of retroperitoneum and peritoneum (principal); K56.609 Unspecified intestinal obstruction, unspecified as to partial versus complete obstruction; Z85.038 Personal history of other malignant neoplasm of large intestine
CPT/HCPCS: 82565; 84520; 71260; 74177; Q9967

== ENCOUNTER 2020-11-08 18:12 | Inpatient (IN) | payer BC ==
[2020-11-08] MEDS ORDERED: SODIUM CHLORIDE 0.9% 500 ML 500 ML IV STA (18:40)
[2020-11-08] MEDS ORDERED: HYDROmorphone 1 MG/ML 1 ML SYRINGE IVP STA (18:40)
--- NOTE | 2020-11-08 18:48 | ED ---
Abdominal Pain HPI - General Chief Complaint: Abdominal Pain Stated Complaint: abd pain Time Seen by Provider: 11/08/20 18:21 Source: patient, family, RN notes reviewed, old records reviewed Mode of arrival: wheelchair Limitations: no limitations - History of Present Illness Initial Comments: This is a 60-year-old white male, ill appearing, presenting to the emergency room with complaints of diffuse abdominal pain for the past 2 days. He is currently under treatment with chemotherapy for colon cancer. His last dose was October 28. He did have a CT scan on November 06. He states that he did have a small bowel movement today and denies any bleeding. He states he also feels nauseated with two episodes of vomiting clear phlegm. He feels that this is a cramping pain that gets very tight and then resolves. MD Complaint: abdominal pain -: days(s) (2) Location: diffuse Radiation: none Severity scale (1-10): 8 Quality: cramping, stabbing Consistency: constant Worsens With: vomiting Context: other (Colon cancer on chemotherapy) Associated Symptoms: nausea - Related Data Home Medications Medication Instructions Recorded Confirmed Gabapentin [Neurontin] 200 mg PO BID 05/13/20 11/08/20 Metoprolol Tartrate [Lopressor] 50 mg PO DAILY 06/10/20 11/08/20 Omeprazole 20 mg PO DAILY PRN 11/08/20 11/08/20 Ondansetron [Zofran ODT] 4 mg PO Q8HR PRN 11/08/20 11/08/20 Previous Rx's Medication Instructions Recorded Aspirin 81 mg PO DAILY #100 chew 04/19/17 Allergies Allergy/AdvReac Type Severity Reaction Status Date / Time No Known Allergies Allergy Verified 11/08/20 19:56 Review of Systems ROS Statement: Those systems with pertinent positive or pertinent negative responses have been documented in the HPI. ROS Other: All systems not noted in ROS Statement are negative. Past Medical History Past Medical History: Cancer, Hyperlipidemia, Myocardial Infarction ([place]), Thyroid Disorder Additional Past Medical History / Comment(s): abdominal hernia,colon cancer- planned surgery for 03-21-20 to remove Cancer-last dose chemo 02-12-20.,had abdominal incision with 2 holes that are open the size of a straw 1/2 inch deep using silver rope and saline has visiting nurse-healed Last Myocardial Infarction Date:: 04/02/2017 History of Any Multi-Drug Resistant Organisms: None Reported Past Surgical History: Bowel Resection, Heart Catheterization With Stent, Hernia Repair, Orthopedic Surgery Additional Past Surgical History / Comment(s): RIGHT LEG ORIF,. COLONOSCOPY. umbilical hernia repair with mesh Past Anesthesia/Blood Transfusion Reactions: No Reported Reaction Additional Past Anesthesia/Blood Transfusion Reaction / Comment(s): no problems with prior blood transfusion Date of Last Stent Placement:: 04/02/2017 Past Psychological History: No Psychological Hx Reported Smoking Status: Current some day smoker Past Alcohol Use History: None Reported Past Drug Use History: Marijuana - Past Family History Mother Family Medical History: Cancer Additional Family Medical History / Comment(s): breast cancer Father Family Medical History: Cancer Additional Family Medical History / Comment(s): colon cancer General Exam Limitations: no limitations General appearance: alert, in distress (pain) Head exam: Present: atraumatic, normocephalic, normal inspection Eye exam: Present: normal appearance, PERRL, EOMI. Absent: scleral icterus, conjunctival injection, periorbital swelling ENT exam: Present: mucous membranes dry Neck exam: Present: normal inspection, full ROM. Absent: tenderness, meningismus, lymphadenopathy Respiratory exam: Present: normal lung sounds bilaterally. Absent: respiratory distress, wheezes, rales, rhonchi, stridor, chest wall tenderness, accessory muscle use Cardiovascular Exam: Present: tachycardia GI/Abdominal exam: Present: tenderness, normal bowel sounds Extremities exam: Present: normal inspection, full ROM, normal capillary refill. Absent: tenderness, pedal edema, joint swelling, calf tenderness Back exam: Present: normal inspection, full ROM. Absent: tenderness, CVA tenderness (R), CVA tenderness (L), rash noted Neurological exam: Present: alert, oriented X3, CN II-XII intact Psychiatric exam: Present: normal affect, normal mood Skin exam: Present: warm, dry. Absent: cyanosis, diaphoretic, erythema, urticaria, mottled Course Vital Signs 11/08/20 11/08/20 11/08/20 18:15 19:35 20:23 Temperature 98.0 F Pulse Rate 114 H 104 H 94 Respiratory 18 18 18 Rate Blood Pressure 116/81 101/80 104/77 O2 Sat by Pulse 96 97 98 Oximetry 11/08/20 21:19 Temperature Pulse Rate 96 Respiratory 18 Rate Blood Pressure 141/88 O2 Sat by Pulse 97 Oximetry Medical Decision Making - Medical Decision Making KUB x-ray shows multiple dilated loops of small bowel with air-fluid levels, most consistent with a partial small bowel obstruction. He was given Zofran and Dilaudid which resolved his nausea and abdominal pain. He will be admitted to the hospital for small bowel obstruction. I did discuss this case with Dr. Mendez agrees with the admission, no NG tube recommended at this time. Case discussed with Dr. Feliciano. - Lab Data Result diagrams: 11/08/20 18:52 11/08/20 18:54 Lab Results 11/08/20 11/08/20 11/08/20 Range/Units 18:52 18:54 18:54 WBC 2.8 L (3.8-10.6) k/uL RBC 4.93 (4.30-5.90) m/uL Hgb 15.7 (13.0-17.5) gm/dL Hct 44.0 (39.0-53.0) % MCV 89.2 D (80.0-100.0) fL MCH 31.9 (25.0-35.0) pg MCHC 35.8 (31.0-37.0) g/dL RDW 14.7 (11.5-15.5) % Plt Count 241 (150-450) k/uL MPV 7.2 Neutrophils % (Manual) 54 % Band Neuts % (Manual) 2 % Lymphocytes % (Manual) 11 % Monocytes % (Manual) 33 % Neutrophils # (Manual) 1.50 (1.3-7.7) k/uL Lymphocytes # (Manual) 0.31 L (1.0-4.8) k/uL Monocytes # (Manual) 0.92 (0-1.0) k/uL Nucleated RBCs 0 (0-0) /100 WBC Manual Slide Review Performed RBC Morphology Normal PT 11.3 (9.0-12.0) sec INR 1.1 (<1.2) APTT 25.6 (22.0-30.0) sec Sodium 131 L (137-145) mmol/L Potassium 3.7 (3.5-5.1) mmol/L Chloride 94 L (98-107) mmol/L Carbon Dioxide 24 (22-30) mmol/L Anion Gap 13 mmol/L BUN 24 H (9-20) mg/dL Creatinine 0.69 (0.66-1.25) mg/dL Est GFR (CKD-EPI)AfAm >90 (>60 ml/min/1.73 sqM) Est GFR (CKD-EPI)NonAf >90 (>60 ml/min/1.73 sqM) Glucose 102 H (74-99) mg/dL Plasma Lactic Acid Andrea (0.7-2.0) mmol/L Calcium 9.0 (8.4-10.2) mg/dL Total Bilirubin 1.4 H (0.2-1.3) mg/dL AST 23 (17-59) U/L ALT 13 (4-49) U/L Alkaline Phosphatase 79 (38-126) U/L Total Protein 6.5 (6.3-8.2) g/dL Albumin 3.7 (3.5-5.0) g/dL Amylase <30 L (30-110) U/L Lipase 27 (23-300) U/L 11/08/20 Range/Units 18:54 WBC (3.8-10.6) k/uL RBC (4.30-5.90) m/uL Hgb (13.0-17.5) gm/dL Hct (39.0-53.0) % MCV (80.0-100.0) fL MCH (25.0-35.0) pg MCHC (31.0-37.0) g/dL RDW (11.5-15.5) % Plt Count (150-450) k/uL MPV Neutrophils % (Manual) % Band Neuts % (Manual) % Lymphocytes % (Manual) % Monocytes % (Manual) % Neutrophils # (Manual) (1.3-7.7) k/uL Lymphocytes # (Manual) (1.0-4.8) k/uL Monocytes # (Manual) (0-1.0) k/uL Nucleated RBCs (0-0) /100 WBC Manual Slide Review RBC Morphology PT (9.0-12.0) sec INR (<1.2) APTT (22.0-30.0) sec Sodium (137-145) mmol/L Potassium (3.5-5.1) mmol/L Chloride (98-107) mmol/L Carbon Dioxide (22-30) mmol/L Anion Gap mmol/L BUN (9-20) mg/dL Creatinine (0.66-1.25) mg/dL Est GFR (CKD-EPI)AfAm (>60 ml/min/1.73 sqM) Est GFR (CKD-EPI)NonAf (>60 ml/min/1.73 sqM) Glucose (74-99) mg/dL Plasma Lactic Acid Andrea 1.1 (0.7-2.0) mmol/L Calcium (8.4-10.2) mg/dL Total Bilirubin (0.2-1.3) mg/dL AST (17-59) U/L ALT (4-49) U/L Alkaline Phosphatase (38-126) U/L Total Protein (6.3-8.2) g/dL Albumin (3.5-5.0) g/dL Amylase (30-110) U/L Lipase (23-300) U/L Disposition Clinical Impression: Small bowel obstruction Disposition: ADMITTED IP TO THIS [facility] Decision Date: 11/08/20 Decision Time: 20:30
[2020-11-08] MEDS ORDERED: ONDANSETRON 4 MG/2 ML VIAL IVP STA (18:56)
[2020-11-08 19:16] LABS: INR 1.1 (<1.2); Partial Thromboplastin Time 25.6 sec (22.0-30.0); Prothrombin Time 11.3 sec (9.0-12.0)
[2020-11-08 19:28] LABS: ALT 13 U/L (4-49); AST 23 U/L (17-59); African American GFR (CKD) >90 (>60 ml/min/1.73 sqM); Albumin 3.7 g/dL (3.5-5.0); Alkaline Phosphatase 79 U/L (38-126); Amylase <30 U/L (30-110); Anion Gap 13 mmol/L; Blood Urea Nitrogen 24 mg/dL (9-20); Carbon Dioxide 24 mmol/L (22-30); Chloride 94 mmol/L (98-107); Glucose 102 mg/dL (74-99); Lipase 27 U/L (23-300); Non-African American GFR(CKD) >90 (>60 ml/min/1.73 sqM); Potassium 3.7 mmol/L (3.5-5.1); Sodium 131 mmol/L (137-145); Total Bilirubin 1.4 mg/dL (0.2-1.3); Total Protein 6.5 g/dL (6.3-8.2)
[2020-11-08] MEDS ORDERED: HYDROmorphone 0.5 MG/0.5 ML SYRINGE IVP STA (19:29)
--- NOTE | 2020-11-08 19:31 | XR ---
EXAMINATION TYPE: XR KUB DATE OF EXAM: 11/08/2020 7:16 PM CLINICAL HISTORY: Abdominal pain TECHNIQUE: Single upright KUB image of the abdomen is obtained. COMPARISON: CT abdomen/pelvis 11/06/2020 FINDINGS: No pneumoperitoneum. Multiple dilated loops of small bowel with air-fluid levels. Contrast material i s seen within the left colon and rectum. Surgical sutures are seen overlying the right lower abdomen. No definite abnormal intra-abdominal calcifications. No acute osseous abnormality. Lung bases appear clear. IMPRESSION: Multiple dilated loops of small bowel with air-fluid levels. Contrast material present within the lef t colon and rectum. Findings most consistent with at least partial small bowel obstruction.
[2020-11-08 19:32] LABS: HGB 15.7 gm/dL (13.0-17.5); MCH 31.9 pg (25.0-35.0); MCHC 35.8 g/dL (31.0-37.0); Mean Platelet Volume 7.2; Platelet Count 241 k/uL (150-450); RBC 4.93 m/uL (4.30-5.90); RDW 14.7 % (11.5-15.5); WBC 2.8 k/uL (3.8-10.6)
[2020-11-08 19:34] LABS: MCV 89.2 fL (80.0-100.0)
[2020-11-08 20:02] LABS: Band Neutrophils % 2 %; Lymphocytes # (M) 0.31 k/uL (1.0-4.8); Monocytes # (M) 0.92 k/uL (0-1.0); Neutrophils % (M) 54 %; Nucleated Red Blood Cells 0 /100 WBC (0-0); Total Cells Counted 100
[2020-11-08] MEDS ORDERED: NALOXONE 0.4 MG/ML 1 ML VIAL IV PRN (20:42)
[2020-11-08] MEDS: SODIUM CHLORIDE 0.9% 1,000 ML IV SCH (21:13)
[2020-11-08] MEDS: ONDANSETRON 4 MG/2 ML VIAL IVP PRN (21:14)
[2020-11-09] MEDS: HYDROmorphone 1 MG/ML 1 ML SYRINGE IVP PRN ×6 (00:38→22:05)
[2020-11-09 04:07] LABS: Appearance,Urine Clear (Clear); Bilirubin,Urine 1+ (Negative); Blood,Urine Negative (Negative); Color,Urine Yellow; Glucose,Urine (UA) Negative (Negative); Ketones,Urine 3+ (Negative); Leukocyte Esterase,Urine Negative (Negative); Nitrite,Urine Negative (Negative); PH, Urine 5.5 (5.0-8.0); Protein,Urine Trace (Negative); Specific Gravity,Urine 1.035 (1.001-1.035)
[2020-11-09] MEDS: ONDANSETRON 4 MG/2 ML VIAL IVP PRN ×2 (05:14→22:04)
[2020-11-09] MEDS: SODIUM CHLORIDE 0.9% 1,000 ML IV SCH (05:14)
--- NOTE | 2020-11-09 09:48 | P.GSCN ---
History of Present Illness Consult date: 11/09/20 Reason for Consult: Small bowel obstruction History of present illness: 60-year-old male with known history of metastatic colon cancer. Patient has been following up with Dr. Shahab Harris at [facility]. Apparently he had a laparoscopy a month or so ago. He states they are considering laparotomy later this month for resection of metastatic disease. He has had intermittent nausea and vomiting during the course of his chemotherapy. Over the last 4 days has had more crampy abdominal pain. Still with intermittent vomiting. Last bowel movement about 6 days ago. Had an outpatient CAT scan 2-3 days ago which showed evidence of partial small bowel obstruction. Metastatic deposits again seen. Came to the hospital for further evaluation. No vomiting since yesterday. No nasogastric tube. Review of Systems The patient denies any acute changes in vision or hearing, no dysphagia or odynophagia, no chest pain or shortness of breath, no dysuria or hematuria, no headache, no runny nose, no rectal bleeding or melena, no unexplained weight loss Past Medical History Past Medical History: Cancer, Hyperlipidemia, Myocardial Infarction ([place]), Thyroid Disorder Additional Past Medical History / Comment(s): abdominal hernia,colon cancer- planned surgery for 03-21-20 to remove Cancer-last dose chemo 02-12-20.,had abdominal incision with 2 holes that are open the size of a straw 1/2 inch deep using silver rope and saline has visiting nurse-healed Last Myocardial Infarction Date:: 04/02/2017 History of Any Multi-Drug Resistant Organisms: None Reported Past Surgical History: Bowel Resection, Heart Catheterization With Stent, Hernia Repair, Orthopedic Surgery Additional Past Surgical History / Comment(s): RIGHT LEG ORIF,. COLONOSCOPY. umbilical hernia repair with mesh Past Anesthesia/Blood Transfusion Reactions: No Reported Reaction Additional Past Anesthesia/Blood Transfusion Reaction / Comm: no problems with prior blood transfusion Date of Last Stent Placement:: 04/02/2017 Past Psychological History: No Psychological Hx Reported Smoking Status: Former smoker Past Alcohol Use History: None Reported Additional Past Alcohol Use History / Comment(s): STARTED SMOKING AT AGE 21 QUIT 2010 then started smoking again <1ppd Past Drug Use History: Marijuana Additional Drug Use History / Comment(s): uses marijuana nightly - Past Family History Mother Family Medical History: Cancer Additional Family Medical History / Comment(s): breast cancer Father Family Medical History: Cancer Additional Family Medical History / Comment(s): colon cancer Medications and Allergies Home Medications Medication Instructions Recorded Confirmed Type Aspirin 81 mg PO DAILY #100 chew 04/19/17 11/08/20 Rx Gabapentin [Neurontin] 200 mg PO BID 05/13/20 11/08/20 History Metoprolol Tartrate [Lopressor] 50 mg PO DAILY 06/10/20 11/08/20 History Omeprazole 20 mg PO DAILY PRN 11/08/20 11/08/20 History Ondansetron [Zofran ODT] 4 mg PO Q8HR PRN 11/08/20 11/08/20 History Allergies Allergy/AdvReac Type Severity Reaction Status Date / Time No Known Allergies Allergy Verified 11/08/20 19:56 Surgical - Exam Vital Signs Temp Pulse Resp BP Pulse Ox 98.0 F 114 H 18 116/81 96 11/08/20 18:15 11/08/20 18:15 11/08/20 18:15 11/08/20 18:15 11/08/20 18:15 Physical exam: General: Well-developed, somewhat malnourished appearing HEENT: Normocephalic, sclerae nonicteric Abdomen: Mild diffuse tenderness, mild distention, 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 Extremities: No edema Neuro: Alert and oriented Results - Labs 11/08/20 18:52 11/08/20 18:54 Abnormal Lab Results - Last 24 Hours (Table) 11/08/20 11/08/20 11/09/20 Range/Units 18:52 18:54 03:55 WBC 2.8 L (3.8-10.6) k/uL Lymphocytes # (Manual) 0.31 L (1.0-4.8) k/uL Sodium 131 L (137-145) mmol/L Chloride 94 L (98-107) mmol/L BUN 24 H (9-20) mg/dL Glucose 102 H (74-99) mg/dL Total Bilirubin 1.4 H (0.2-1.3) mg/dL Amylase <30 L (30-110) U/L Urine Protein Trace H (Negative) Urine Ketones 3+ H (Negative) Urine Bilirubin 1+ H (Negative) Diabetes panel 11/08/20 Range/Units 18:54 Sodium 131 L (137-145) mmol/L Potassium 3.7 (3.5-5.1) mmol/L Chloride 94 L (98-107) mmol/L Carbon Dioxide 24 (22-30) mmol/L BUN 24 H (9-20) mg/dL Creatinine 0.69 (0.66-1.25) mg/dL Glucose 102 H (74-99) mg/dL Calcium 9.0 (8.4-10.2) mg/dL AST 23 (17-59) U/L ALT 13 (4-49) U/L Alkaline Phosphatase 79 (38-126) U/L Total Protein 6.5 (6.3-8.2) g/dL Albumin 3.7 (3.5-5.0) g/dL Calcium panel 11/08/20 Range/Units 18:54 Calcium 9.0 (8.4-10.2) mg/dL Albumin 3.7 (3.5-5.0) g/dL Pituitary panel 11/08/20 Range/Units 18:54 Sodium 131 L (137-145) mmol/L Potassium 3.7 (3.5-5.1) mmol/L Chloride 94 L (98-107) mmol/L Carbon Dioxide 24 (22-30) mmol/L BUN 24 H (9-20) mg/dL Creatinine 0.69 (0.66-1.25) mg/dL Glucose 102 H (74-99) mg/dL Calcium 9.0 (8.4-10.2) mg/dL Adrenal panel 11/08/20 Range/Units 18:54 Sodium 131 L (137-145) mmol/L Potassium 3.7 (3.5-5.1) mmol/L Chloride 94 L (98-107) mmol/L Carbon Dioxide 24 (22-30) mmol/L BUN 24 H (9-20) mg/dL Creatinine 0.69 (0.66-1.25) mg/dL Glucose 102 H (74-99) mg/dL Calcium 9.0 (8.4-10.2) mg/dL Total Bilirubin 1.4 H (0.2-1.3) mg/dL AST 23 (17-59) U/L ALT 13 (4-49) U/L Alkaline Phosphatase 79 (38-126) U/L Total Protein 6.5 (6.3-8.2) g/dL Albumin 3.7 (3.5-5.0) g/dL Assessment and Plan (1) SBO (small bowel obstruction) Narrative/Plan: 60-year-old male with small bowel obstruction. Likely on the basis of peritoneal metastasis. Keep nothing by mouth for now. Recheck x-rays tomorrow. We'll notify Dr. Clark. Consult oncology. Current Visit: Yes Status: Acute Code(s): K56.609 - UNSP INTESTNL OBST, UNSP TO PARTIAL VERSUS COMPLETE OBST SNOMED Code(s): 429102913
--- NOTE | 2020-11-09 12:28 | P.HPIM ---
History of Present Illness This is a pleasant 60 years old male with past medical history of hyperlipidemia, hypertension, colon cancer, status post previous chemotherapy on 01/2020, coronary artery disease status post a stent Patient presents because of abdominal pain for about a week associated with nausea and vomiting yesterday, last bowel movement was one week ago however he passes with the amount of stool each time he vomits. He states that his abdominal pain is periumbilical, 9/10 in severity, currently improved to 2-3/10. It's nonradiating pain, nonspecific and colicky that comes and goes. He had a similar pain about 2 weeks ago when he had the first chemo therapy but it resolved spontaneously before it returns about a week ago he quit smoking one week and a half ago. Call or illicit drug Vitals are stable and patient is afebrile. Showing mild leukopenia at 2.8, rest of CBC, INR, is unremarkable. Sodium is 131. Rest of BMP, liver enzymes are unremarkable. Lipase normal at 27 and bilirubin is a slightly high at 1.4. KUB showing multiple dilated loops of small bowel with air-fluid levels. Contrast material present within the left colon and rectum. Findings most consistent with at least partial small bowel obstruction In the emergency room patient started on pain medication with Dilaudid, received IV fluids, made nothing by mouth and surgery team were consulted Review of Systems CONSTITUTIONAL: No fever, no malaise, no fatigue. HEENT: No recent visual problems or hearing problems. Denied any sore throat. CARDIOVASCULAR: No orthopnea, PND, no palpitations, no syncope. PULMONARY: No shortness of breath, no cough, no hemoptysis. GASTROINTESTINAL: No diarrhea, . Normoactive bowel sounds. NEUROLOGICAL: No headaches, no weakness, no numbness. HEMATOLOGICAL: Denies any bleeding or petechiae. GENITOURINARY: Denies any burning micturition, frequency, or urgency. MUSCULOSKELETAL/RHEUMATOLOGICAL: Denies any joint pain, swelling, or any muscle pain. ENDOCRINE: Denies any polyuria or polydipsia. Past Medical History Past Medical History: Cancer, Hyperlipidemia, Myocardial Infarction ([place]), Thyroid Disorder Additional Past Medical History / Comment(s): abdominal hernia,colon cancer- planned surgery for 03-21-20 to remove Cancer-last dose chemo 02-12-20.,had abdominal incision with 2 holes that are open the size of a straw 1/2 inch deep using silver rope and saline has visiting nurse-healed Last Myocardial Infarction Date:: 04/02/2017 History of Any Multi-Drug Resistant Organisms: None Reported Past Surgical History: Bowel Resection, Heart Catheterization With Stent, Hernia Repair, Orthopedic Surgery Additional Past Surgical History / Comment(s): RIGHT LEG ORIF,. COLONOSCOPY. umbilical hernia repair with mesh Past Anesthesia/Blood Transfusion Reactions: No Reported Reaction Additional Past Anesthesia/Blood Transfusion Reaction / Comment(s): no problems with prior blood transfusion Date of Last Stent Placement:: 04/02/2017 Past Psychological History: No Psychological Hx Reported Smoking Status: Current some day smoker Past Alcohol Use History: None Reported Past Drug Use History: Marijuana - Past Family History Mother Family Medical History: Cancer Additional Family Medical History / Comment(s): breast cancer Father Family Medical History: Cancer Additional Family Medical History / Comment(s): colon cancer Medications and Allergies Home Medications Medication Instructions Recorded Confirmed Type Aspirin 81 mg PO DAILY #100 chew 04/19/17 11/08/20 Rx Gabapentin [Neurontin] 200 mg PO BID 05/13/20 11/08/20 History Metoprolol Tartrate [Lopressor] 50 mg PO DAILY 06/10/20 11/08/20 History Omeprazole 20 mg PO DAILY PRN 11/08/20 11/08/20 History Ondansetron [Zofran ODT] 4 mg PO Q8HR PRN 11/08/20 11/08/20 History Allergies Allergy/AdvReac Type Severity Reaction Status Date / Time No Known Allergies Allergy Verified 11/08/20 19:56 Physical Exam Vitals: Vital Signs Temp Pulse Resp BP Pulse Ox 11/08/20 22:39 18 11/08/20 21:19 96 18 141/88 97 11/08/20 20:23 94 18 104/77 98 11/08/20 19:35 104 H 18 101/80 97 11/08/20 18:15 98.0 F 114 H 18 116/81 96 Intake and Output 11/08/20 11/08/20 11/08/20 06:59 14:59 22:59 Output Total 50 Balance -50 Output: Emesis 50 Other: Weight 63.503 kg GENERAL: The patient is alert and oriented x3, not in any acute distress. Well developed, well nourished. HEENT: Pupils are round and equally reacting to light. EOMI. No scleral icterus. No conjunctival pallor. Normocephalic, atraumatic. No pharyngeal erythema. No thyromegaly. CARDIOVASCULAR: S1 and S2 present. No murmurs, rubs, or gallops. PULMONARY: Chest is clear to auscultation, no wheezing or crackles. -ABDOMEN: Soft, mild periumbilical tenderness, no rebound tenderness, nondistended, normoactive bowel sounds. No palpable organomegaly. MUSCULOSKELETAL: No joint swelling or deformity. EXTREMITIES: No cyanosis, clubbing, or pedal edema. NEUROLOGICAL: Gross neurological examination did not reveal any focal deficits. SKIN: No rashes. No petechiae Results CBC & Chem 7: 11/08/20 18:52 11/08/20 18:54 Labs: Abnormal Lab Results - Last 24 Hours (Table) 11/08/20 11/08/20 Range/Units 18:52 18:54 WBC 2.8 L (3.8-10.6) k/uL Lymphocytes # (Manual) 0.31 L (1.0-4.8) k/uL Sodium 131 L (137-145) mmol/L Chloride 94 L (98-107) mmol/L BUN 24 H (9-20) mg/dL Glucose 102 H (74-99) mg/dL Total Bilirubin 1.4 H (0.2-1.3) mg/dL Amylase <30 L (30-110) U/L Assessment and Plan Assessment: Small bowel obstruction Hyperlipidemia Hypertension Colon cancer status post chemotherapy patient says that he is scheduled to have surgery end of this month on the or with Dr. Cortes Coronary artery disease status post a stent placement Plan: This is a pleasant 60 years old male who presents with small bowel obstruction. IV fluid, bowel rest and pain management. Surgery team consult Labs and medication were reviewed.. Continue same treatment. Continue with symptomatic treatment. Resume home medication. Monitor lytes and vitals. DVT and GI prophylaxis. Further recommendationsas per clinical course of the patient DVT prophylaxis: Subcutaneous heparin GI Prophylaxis: Pepcid PT/OT: Pending Prognosis is guarded
[2020-11-09] MEDS ORDERED: hydrALAZINE HCL 20 MG/ML 1 ML VIAL IVP PRN (14:26)
[2020-11-09] MEDS: FAMOTIDINE 20 MG/2 ML VIAL IV SCH (22:13)
[2020-11-09] MEDS: HEPARIN SODIUM,PORCINE/PF 5,000 UNIT/0.5 ML SYRINGE SQ SCH (22:13)
[2020-11-10] MEDS: SODIUM CHLORIDE 0.9% 1,000 ML IV SCH ×2 (00:18→10:04)
--- NOTE | 2020-11-10 01:12 | P.CONS ---
History of Present Illness - Reason for Consult Consult date: 11/09/20 Metastatic colon cancer, currently on chemo. Small bowel obstruction - History of Present Illness Mr Chairez is a 60-year-old white male, well known to myself. His oncology history is as follows: He was initially seen in consult at [facility] on 07/30/19. The patient had presented to the ER on 07/23/19 with new complaints of diffuse abdominal pain, as well as passage of large clots in the stool. He was also feeling dizzy and lightheaded. CT of the abdomen and pelvis on 07/24/19 showed prominent lymph nodes around the cecum and terminal ileum, evidence of omental caking and ulceration of the ileocecal valve. He had a colonoscopy on 07/24/19 as well as upper endoscopy. Positive findings include a 3 cm ulcer and they do cecal valve with biopsy positive for moderately differentiated adenocarcinoma. So biopsy showed chronic gastritis. The patient had a right hemicolectomy with Dr Clark on 07/25/19. He was found to have multiple omental deposits which were also biopsied. Final pathology showed tumor of 2.2 x 2.4 cm with macroscopic perforation at the area of the ileocecal valve, grade 2 with extension into the visceral peritoneum. There were at least 2 tumor deposits in the mesentery, with 8-10 lymph nodes involved. Omentum showed multiple metastatic deposits off grade 2 adenocarcinoma. Tumor was found to be MSI stable. completed biomarker testing showed BRAF positivity, and PDL 1 CPS 2. K-violet was negative The patient had a somewhat slow recovery after surgery, complicated by bacteremia. He was able to be discharged and then had a PET scan on 08/24/19. There was intense uptake along the laparotomy incision with associated soft tissue thickening with SUV of 8.7. There was adjacent thickening of the right lateral peritoneal reflection at the area of the hemicolectomy with SUV of 4.4. There was adjacent mesenteric nodularity measuring up to 1 cm SUV 2.4. There w as additional scattered omental nodularity including left upper quadrant measuring 2.7 x 1.4 cm with SUV of 2. There was also irregular soft tissue thickening extending down your side of the pelvis measuring 3.7 x 2.4 cm with SUV of 8.6. He was seen for his first office visit on 7/2/20. His prior colonoscopy was about 4 years ago. He states that 2 benign polyps were removed. He has a family history of colon cancer in his father but that occurred in his early 80s. Patient's performance status is baseline is fairly normal. the patient was started on FOLFOX on 10/03/19 and is status post 10 cycles. 10 cycle was completed on 02/09/21. CT scans after cycle 7 showed improvement in omental and peritoneal nodularity. Some subtle increase was seen in thickening posterior to the bladder, more likely to be posttreatment scarring, as his CEA had also shown a progressive decline. patient was evaluated for HiPEC after cycle 10. Unfortunately at the time of surgery, on initial laparoscopic exam, he was not found to be resectable. He was therefore started back on chemotherapy with FOLFOXIRI + bevacizumab on 04/15/20. and is status post 5 cycles oxaliplatin dose was decreased, after cycle 3 due to progressive neuropathy. Oxali was d/c'ed after C 5 due to progressive neuropathy. he has had 2 additional cycles, with 5-FU, irinotecan, and bevacizumab, completing those by 07/10/20 The patient then had laparoscopic evaluation in early 08/[address] Serrano. He states that he was found to have a significant response and felt to be operable. the patient was subsequently evaluated, but surgery was held as he had subdiaphragmatic involvement. It was felt that surgery in this area would place him at higher risk as he was still smoking. It was therefore recommended that he resume chemotherapy for at least a couple of cycles and be reevaluated for surgery once he quit smoking completely. the patient therefore resumed chemotherapy with FOLFIRI/Mary on 10/14/20 and is status post 2 additional cycles. He denied any fever/chills. he had nausea and vomiting lasting about 1-2 days after each of the above to treatments. He has had more significant abnormal lasting fatigue after his last treatment, and has also been experiencing intermittent abdominal Associated with constipation for the past 2-3 days. Gabapentin dose is currently at 300 twice a day, morning and night, with 200 mg in the afternoon, increased after cycle 3. he feels his neuropathy is sslo wly improving since his last visit. Cold sensitivity has mostly resolved. As above. The patient was seen for his most recent office visit last week. Reported some increased nausea and vomiting with his chemotherapy, with his last cycle. Physical exam was fairly benign, with abdomen being soft and positive bowel sounds. The patient was supposed to have repeat CT scans, ordered by Dr. Serrano on 11/06/20 and was then supposed to follow-up with him to be evaluated for surgery, about 4 weeks after his last cycle. The patient presented after his office visit, he developed progressive nausea and vomiting including multiple episodes on the night before treatment. He was unable to keep anything down as a result. He states that after multiple episodes of vomiting he did have a bowel movement whereas he had been constipated for at least a couple of days before. He therefore came into the emergency room. His CT scans had shown evidence of small bowel obstruction. He was admitted for further management. He has not had a bowel movement since admission . With bowel rest, he has n ot had recurrent nausea and vomiting. He does report a few episodes of passing small amounts of gas. Review of Systems Constitutional: Reports poor appetite, Reports weakness Eyes: denies blurred vision, denies pain Ears: deny: decreased hearing, ear discharge, earache, tinnitus Ears, nose, mouth and throat: Denies headache, Denies sore throat Cardiovascular: Denies chest pain, Denies shortness of breath Respiratory: Denies cough Gastrointestinal: Reports constipation, Reports nausea, Reports vomiting Genitourinary: Reports as per HPI Integumentary: Denies pruritus, Denies rash Neurological: Reports weakness, Denies numbness Psychiatric: Denies anxiety, Denies depression Endocrine: Reports fatigue Hematologic/Lymphatic: Reports as per HPI Past Medical History Past Medical History: Cancer, Hyperlipidemia, Myocardial Infarction ([place]), Thyroid Disorder Additional Past Medical History / Comment(s): abdominal hernia,colon cancer- planned surgery for 03-21-20 to remove Cancer-last dose chemo 02-12-20.,had abdominal incision with 2 holes that are open the size of a straw 1/2 inch deep using silver rope and saline has visiting nurse-healed Last Myocardial Infarction Date:: 04/02/2017 History of Any Multi-Drug Resistant Organisms: None Reported Past Surgical History: Bowel Resection, Heart Catheterization With Stent, Hernia Repair, Orthopedic Surgery Additional Past Surgical History / Comment(s): RIGHT LEG ORIF,. COLONOSCOPY. umbilical hernia repair with mesh Past Anesthesia/Blood Transfusion Reactions: No Reported Reaction Additional Past Anesthesia/Blood Transfusion Reaction / Comm: no problems with prior blood transfusion Date of Last Stent Placement:: 04/02/2017 Past Psychological History: No Psychological Hx Reported Smoking Status: Former smoker Past Alcohol Use History: None Reported Additional Past Alcohol Use History / Comment(s): STARTED SMOKING AT AGE 21 QUIT 2010 then started smoking again <1ppd Past Drug Use History: Marijuana Additional Drug Use History / Comment(s): uses marijuana nightly - Past Family History Mother Family Medical History: Cancer Additional Family Medical History / Comment(s): breast cancer Father Family Medical History: Cancer Additional Family Medical History / Comment(s): colon cancer Medications and Allergies Home Medications Medication Instructions Recorded Confirmed Type Aspirin 81 mg PO DAILY #100 chew 04/19/17 11/08/20 Rx Gabapentin [Neurontin] 200 mg PO BID 05/13/20 11/08/20 History Metoprolol Tartrate [Lopressor] 50 mg PO DAILY 06/10/20 11/08/20 History Omeprazole 20 mg PO DAILY PRN 11/08/20 11/08/20 History Ondansetron [Zofran ODT] 4 mg PO Q8HR PRN 11/08/20 11/08/20 History Allergies Allergy/AdvReac Type Severity Reaction Status Date / Time No Known Allergies Allergy Verified 11/08/20 19:56 Physical Exam Vitals: Vital Signs Temp Pulse Pulse Pulse Resp BP BP 11/09/20 11:36 97.5 F L 79 18 102/64 11/09/20 04:46 97.4 F L 87 18 104/69 11/09/20 01:07 16 11/09/20 00:56 97.9 F 86 16 118/74 11/09/20 00:14 97.8 F 11/09/20 00:06 94 18 95/60 11/08/20 22:39 18 11/08/20 21:19 96 18 141/88 11/08/20 20:23 94 18 104/77 11/08/20 19:35 104 H 18 101/80 11/08/20 18:15 98.0 F 114 H 18 116/81 Pulse Ox 11/09/20 11:36 99 11/09/20 04:46 98 11/09/20 01:07 11/09/20 00:56 97 11/09/20 00:14 11/09/20 00:06 97 11/08/20 22:39 11/08/20 21:19 97 11/08/20 20:23 98 11/08/20 19:35 97 11/08/20 18:15 96 Intake and Output 11/08/20 11/09/20 11/09/20 22:59 06:59 14:59 Output Total 50 600 Balance -50 -600 Output: Urine 600 Emesis 50 Other: Voiding Method Urinal Urinal Weight 63.503 kg 63.503 kg - Constitutional General appearance: no acute distress - EENT Eyes: EOMI, PERRLA ENT: hearing grossly normal, normal oropharynx - Neck Neck: no lymphadenopathy Thyroid: bilateral: normal size - Respiratory Respiratory: bilateral: CTA - Cardiovascular Rhythm: regular Heart sounds: normal: S1, S2 - Gastrointestinal Midline scar with associated induration General gastrointestinal: hyperactive bowel sounds, soft - Integumentary Integumentary: normal - Neurologic Neurologic: CNII-XII intact - Musculoskeletal Musculoskeletal: generalized weakness, strength equal bilaterally - Psychiatric Psychiatric: A&O x's 3, appropriate affect Results CBC & Chem 7: 11/08/20 18:52 11/08/20 18:54 Labs: Abnormal Lab Results - Last 24 Hours (Table) 11/08/20 11/08/20 11/09/20 Range/Units 18:52 18:54 03:55 WBC 2.8 L (3.8-10.6) k/uL Lymphocytes # (Manual) 0.31 L (1.0-4.8) k/uL Sodium 131 L (137-145) mmol/L Chloride 94 L (98-107) mmol/L BUN 24 H (9-20) mg/dL Glucose 102 H (74-99) mg/dL Total Bilirubin 1.4 H (0.2-1.3) mg/dL Amylase <30 L (30-110) U/L Urine Protein Trace H (Negative) Urine Ketones 3+ H (Negative) Urine Bilirubin 1+ H (Negative) Abdominal x-ray: report reviewed CT scan - abdomen: report reviewed CT scan - pelvis: report reviewed Assessment and Plan (1) SBO (small bowel obstruction) Narrative/Plan: The patient's appears to have partial small bowel obstruction. He did have a small bowel movement yesterday and has been passing gas, albeit small amounts since admission.X-ray and CT scan confirm the same - The patient has been evaluated by surgery and is currently on bowel rest. His current clinical presentation, and CT scan results were discussed in detail with him. Based on the scan results, it is possible that the patient may be having some progression causing obstruction. However progressive scarring and adhesion s as an etiology are also possible. - The patient has had chemotherapy as well as bevacizumab less than 2 weeks ago. Therefore he is not an optimal candidate for any surgical intervention, unless there is an emergent issue. Therefore it would be likely more reasonable to treat him conservatively, as much as possible. As you obstruction at this time appears to be partial, hopefully will improve with the same. - If patient's recovery is slow, will also consider TPN Current Visit: Yes Status: Acute Code(s): K56.609 - UNSP INTESTNL OBST, UNSP TO PARTIAL VERSUS COMPLETE OBST SNOMED Code(s): 530843532 (2) Adenocarcinoma of colon Narrative/Plan: Diagnostic and therapeutic circumstances as described. As noted, CT scan raises the possibility of progression, which would likely render the patient nonsurgical. However it would be difficult to make that diagnosis definitely, this based on imaging, as increase in scarring and adhesions remain a possibility. History discussed with surgery locally, and Dr. Serrano will also be contacted if necessary. However recommendations are likely to treat him conservatively as much as possible, given his recent chemotherapy and bevacizumab Current Visit: No Status: Acute Priority: High Code(s): C18.9 - MALIGNANT NEOPLASM OF COLON, UNSPECIFIED SNOMED Code(s): 810084331 (3) Leukopenia due to antineoplastic chemotherapy Narrative/Plan: This is fairly mild with the previously in a safe range, with ANC greater than 1000. Continue to monitor. At this time GCSF is not required Current Visit: Yes Status: Acute Code(s): D70.1 - AGRANULOCYTOSIS SECONDARY TO CANCER CHEMOTHERAPY; T45.1X5A - ADVERSE EFFECT OF ANTINEOPLASTIC AND IMMUNOSUP DRUGS, INIT SNOMED Code(s): 242794751
[2020-11-10] MEDS: HYDROmorphone 1 MG/ML 1 ML SYRINGE IVP PRN ×6 (02:08→21:38)
[2020-11-10] MEDS: FAMOTIDINE 20 MG/2 ML VIAL IV SCH ×2 (07:34→21:37)
--- NOTE | 2020-11-10 07:47 | XR ---
EXAMINATION TYPE: XR abdomen 2V DATE OF EXAM: 11/10/2020 COMPARISON: 11/08/2020 HISTORY: Abdominal pain TECHNIQUE: One view abdominal series FINDINGS: The osseous structures are intact. Multiple air-fluid levels with dilated bowel loops are seen. There is contrast within colon. Lung bases clear. Hypertrophic and degenerative changes of the spine. IMPRESSION: 1. Stable persistent dilated small bowel loops with air-fluid levels in a pattern suggestive of obstr uction.
[2020-11-10 11:14] LABS: HCT 37.1 % (39.0-53.0); HGB 12.8 gm/dL (13.0-17.5); MCH 31.7 pg (25.0-35.0); MCHC 34.5 g/dL (31.0-37.0); MCV 91.8 fL (80.0-100.0); Mean Platelet Volume 7.7; Platelet Count 177 k/uL (150-450); RBC 4.04 m/uL (4.30-5.90); RDW 14.8 % (11.5-15.5)
[2020-11-10 11:28] LABS: African American GFR (CKD) >90 (>60 ml/min/1.73 sqM); Anion Gap 12 mmol/L; Blood Urea Nitrogen 18 mg/dL (9-20); Calcium 8.4 mg/dL (8.4-10.2); Carbon Dioxide 21 mmol/L (22-30); Chloride 100 mmol/L (98-107); Glucose 55 mg/dL (74-99); Non-African American GFR(CKD) >90 (>60 ml/min/1.73 sqM); Potassium 3.7 mmol/L (3.5-5.1); Sodium 133 mmol/L (137-145)
[2020-11-10 11:58] LABS: Glucose,Whole Blood 55 mg/dL (75-99)
[2020-11-10] MEDS ORDERED: SODIUM CHLORIDE 0.9% 1,000 ML IV SCH (12:00)
[2020-11-10 12:08] LABS: Band Neutrophils % 1 %; Eosinophils # (M) 0.04 k/uL (0-0.7); Lymphocytes # (M) 0.42 k/uL (1.0-4.8); Neutrophils % (M) 51 %; Nucleated Red Blood Cells 0 /100 WBC (0-0); Total Cells Counted 100
[2020-11-10 12:27] LABS: Glucose,Whole Blood 55 mg/dL (75-99)
[2020-11-10] MEDS: HEPARIN SODIUM,PORCINE/PF 5,000 UNIT/0.5 ML SYRINGE SQ SCH ×2 (12:39→21:34)
[2020-11-10 12:44] LABS: Glucose,Whole Blood 74 mg/dL (75-99)
[2020-11-10] MEDS: D5-0.9% NACL WITH KCL 20 MEQ/L 1,000 ML IV SCH ×2 (12:57→21:40)
--- NOTE | 2020-11-10 13:07 | P.PN ---
Subjective Progress Note Date: 11/10/20 CHIEF COMPLAINT: Abdominal pain HISTORY OF PRESENT ILLNESS: Patient was seen and examined states he is overall feeling much better. He denies any nausea or vomiting. States abdominal pain has improved. He is passing flatus, no bowel movement for one week. Patient does state that he does have irregular bowel movements where he will have loose bowels then he will become constipated. He does not use any regular bowel regimen at home. He should has been nothing by mouth with his TIPS. Had an abdominal x-ray this morning that showed stable persistent dilated small bowel loops with air-fluid levels in a pattern suggestive of obstruction. He has been afebrile. WBC 2 hemoglobin 12.8 platelet count 177,000 sodium 133 potassium 3.7 BUN 18 creatinine 0.68 PHYSICAL EXAM: VITAL SIGNS: Reviewed. GENERAL: Well-developed in no acute distress. HEENT: No sclera icterus. Extraocular movements grossly intact. Moist buccal mucosa. Head is atraumatic, normocephalic. ABDOMEN: Soft. Nondistended. Nontender. Positive bowel sounds. NEUROLOGIC: Alert and oriented. Cranial nerves II through XII grossly intact. ASSESSMENT: 1. Small bowel obstruction PLAN: -Increased to full liquid diet -Appreciate recommendations from oncology -Pain medication as needed -Antiemetics as needed -Encourage ambulation -Further recommendations forthcoming per surgeon The impression and plan of care has been dictated as directed. I performed a history and examination of this patient, discussed the same with the dictator. I agree with the dictator's note ,documented as a scribe. Any additional findings or plans will be noted. Objective - Vital Signs Vital signs: Vital Signs Temp 97.9 F 11/10/20 04:45 Pulse 71 11/10/20 04:45 Resp 20 11/10/20 04:45 BP 104/60 11/10/20 04:45 Pulse Ox 98 11/10/20 04:45 Intake & Output 11/09/20 11/10/20 11/10/20 18:59 06:59 18:59 Intake Total 0 Output Total 800 Balance -800 0 Intake: Oral 0 Output: Urine 800 Other: Voiding Method Urinal Toilet Toilet Urinal # Voids 3 - Labs CBC & Chem 7: 11/10/20 09:31 11/10/20 09:31
[2020-11-10 14:25] VITALS: BMI 19.5
--- NOTE | 2020-11-10 15:49 | P.PN ---
Subjective Progress Note Date: 11/10/20 This is a 60-year-old gentleman with history of adenocarcinoma of colon, chemotherapy nearly 2 weeks ago ,admitted with small bowel obstruction. Denies nausea/vomiting .Passing flatus. NPO,Hypoglycemic. Maintained on IV fluid hydration.Afebrile, WBC 2, hemoglobin 12.8, platelets 177, sodium 133, potassium 3.7, BUN/creatinine 18/0.68. Abdominal x-ray pending. Denies chest pain, palpitations or shortness of breath. Objective - Vital Signs Vital signs: Vital Signs Temp 97.5 F L 11/10/20 12:44 Pulse 68 11/10/20 12:44 Resp 18 11/10/20 12:44 BP 124/80 11/10/20 12:44 Pulse Ox 99 11/10/20 12:44 Intake & Output 11/09/20 11/10/20 11/10/20 18:59 06:59 18:59 Intake Total 0 Output Total 800 Balance -800 0 Weight 63.503 kg Intake: Oral 0 Output: Urine 800 Other: Voiding Method Urinal Toilet Toilet Urinal # Voids 3 - Exam GENERAL: Sitting up in bed, alert and oriented x3, no acute distress. HEENT: Pupils are round and equal,EOMI. No scleral icterus. No conjunctival pallor. CARDIOVASCULAR: S1 and S2 present. No murmurs, rubs, or gallops. PULMONARY: Chest is clear to auscultation, no wheezing or crackles. ABDOMEN: Soft, nontender, nondistended, normoactive bowel sounds. No palpable organomegaly. Patient has a midabdominal scar EXTREMITIES: No cyanosis, clubbing, or pedal edema. NEUROLOGICAL: Gross neurological examination did not reveal any focal deficits. SKIN: Warm and dry, No rashes. - Labs CBC & Chem 7: 11/10/20 09:31 11/10/20 09:31 Labs: Abnormal Lab Results - Last 24 Hours (Table) 11/10/20 11/10/20 11/10/20 Range/Units : 09: 11:57 WBC 2.0 L (3.8-10.6) k/uL RBC 4.04 L (4.30-5.90) m/uL Hgb 12.8 L (13.0-17.5) gm/dL Hct 37.1 L (39.0-53.0) % Neutrophils # (Manual) 1.00 L (1.3-7.7) k/uL Lymphocytes # (Manual) 0.42 L (1.0-4.8) k/uL Sodium 133 L (137-145) mmol/L Carbon Dioxide 21 L (22-30) mmol/L Glucose 55 L (74-99) mg/dL POC Glucose (mg/dL) 55 L (75-99) mg/dL 11/10/20 11/10/20 Range/Units 12:16 12:41 WBC (3.8-10.6) k/uL RBC (4.30-5.90) m/uL Hgb (13.0-17.5) gm/dL Hct (39.0-53.0) % Neutrophils # (Manual) (1.3-7.7) k/uL Lymphocytes # (Manual) (1.0-4.8) k/uL Sodium (137-145) mmol/L Carbon Dioxide (22-30) mmol/L Glucose (74-99) mg/dL POC Glucose (mg/dL) 55 L 74 L (75-99) mg/dL Assessment and Plan Assessment: Small bowel obstruction, possibly secondary to Ca progression, possibly scarring and adhesions. Adenocarcinoma of colon with metastasis, history of right colectomy, partial omentectomy CAD, history of [place], cardiac stent Ongoing nicotine dependence, counseling provided Hyperlipidemia Hypothyroidism Chronic diastolic CHF Plan: Continue on current medication regime ,monitoring and symptomatic treatment. Currently nothing by mouth, hypoglycemic, fluids increased and adjusted to D5 0.9 with every 6 hours Accu-Cheks. Abdominal x-ray pending. Increase activity as tolerated. Follow closely with surgery. Potential discharge tomorrow pending surgery recommendations, diet advancement ,DC recommendations. The impression and plan of care has been dictated as directed. : I performed a history and examination of this patient, discussed the same with the dictator. I agree with the dictator's note ,documented as a scribe. Any additional findings or plans will be noted.
[2020-11-10 17:18] LABS: Glucose,Whole Blood 104 mg/dL (75-99)
[2020-11-10] MEDS: ONDANSETRON 4 MG/2 ML VIAL IVP PRN (17:48)
[2020-11-10] MEDS: HYDROcodone/APAP 5-325MG 1 EACH TAB PO PRN (19:36)
[2020-11-10 20:18] LABS: Glucose,Whole Blood 128 mg/dL (75-99)
[2020-11-11] MEDS: ONDANSETRON 4 MG/2 ML VIAL IVP PRN ×2 (03:30→15:45)
[2020-11-11] MEDS: HYDROmorphone 1 MG/ML 1 ML SYRINGE IVP PRN ×4 (03:30→19:52)
[2020-11-11 05:14] LABS: Glucose,Whole Blood 135 mg/dL (75-99)
[2020-11-11 06:58] LABS: Basophils % (A) 0 %; Eosinophils % (A) 1 %; HCT 37.8 % (39.0-53.0); HGB 12.9 gm/dL (13.0-17.5); Lymphocytes # (A) 0.4 k/uL (1.0-4.8); Lymphocytes % (A) 11 %; MCH 31.1 pg (25.0-35.0); MCHC 34.2 g/dL (31.0-37.0); MCV 91.2 fL (80.0-100.0); Mean Platelet Volume 7.2; Monocytes # (A) 0.3 k/uL (0-1.0); Monocytes % (A) 10 %; Neutrophils # (A) 2.7 k/uL (1.3-7.7); Neutrophils % (A) 76 %; Platelet Count 179 k/uL (150-450); RBC 4.15 m/uL (4.30-5.90); RDW 14.1 % (11.5-15.5); WBC 3.6 k/uL (3.8-10.6)
[2020-11-11 07:20] LABS: African American GFR (CKD) >90 (>60 ml/min/1.73 sqM); Anion Gap 5 mmol/L; Blood Urea Nitrogen 11 mg/dL (9-20); Calcium 8.4 mg/dL (8.4-10.2); Carbon Dioxide 30 mmol/L (22-30); Chloride 100 mmol/L (98-107); Glucose 124 mg/dL (74-99); Non-African American GFR(CKD) >90 (>60 ml/min/1.73 sqM); Potassium 4.4 mmol/L (3.5-5.1); Sodium 135 mmol/L (137-145)
[2020-11-11] MEDS: FAMOTIDINE 20 MG/2 ML VIAL IV SCH ×2 (08:03→19:52)
[2020-11-11] MEDS: HYDROcodone/APAP 5-325MG 1 EACH TAB PO PRN ×2 (08:04→15:14)
[2020-11-11] MEDS: HEPARIN SODIUM,PORCINE/PF 5,000 UNIT/0.5 ML SYRINGE SQ SCH ×3 (08:04→20:00)
[2020-11-11] MEDS: D5-0.9% NACL WITH KCL 20 MEQ/L 1,000 ML IV SCH ×2 (10:22→18:03)
--- NOTE | 2020-11-11 12:01 | P.PN ---
Subjective Progress Note Date: 11/11/20 This is a 60-year-old gentleman with history of adenocarcinoma of colon, chemotherapy nearly 2 weeks ago ,admitted with small bowel obstruction. Denies nausea/vomiting .Passing flatus. NPO,Hypoglycemic. Maintained on IV fluid hydration.Afebrile, WBC 2, hemoglobin 12.8, platelets 177, sodium 133, potassium 3.7, BUN/creatinine 18/0.68. Abdominal x-ray pending. Denies chest pain, palpitations or shortness of breath. 11/11/2020 diet advanced to full liquid, this morning unable to eat oatmeal, complaining of bilateral lower quadrant abdominal pain. Diet decreased to clears. No bowel movement since Tuesday reported. Minimal flatus. Patient reported surgeon yesterday suggested progression of cancer versus scar tissue. Emotionally this morning he reports feeling better and declining any antidepr essant or anoxiclytic. Patient waiting to discuss further with oncology. Patient reports if cancer is progressing he wishes not to proceed with any further chemo. or surgeries. CT performed on 11/06/2020, reported possible worsening peritoneal carcinomatosis. Abdominal x-ray yesterday reported stable persistent dilated small bowel loops with air-filled levels suggestive of obstruction. Maintained on IV fluid hydration, blood sugars controlled. Sodium up to 135, potassium 4.4. Renal function stable. WBC trending up, 3.6, neutrophils 76, hemoglobin 12.9, platelets 179. Afebrile. Objective - Vital Signs Vital signs: Vital Signs Temp 98.5 F 11/11/20 06:38 Pulse 74 11/11/20 06:38 Resp 16 11/11/20 06:38 BP 107/61 11/11/20 06:38 Pulse Ox 94 L 11/11/20 06:38 Intake & Output 11/10/20 11/11/20 11/11/20 18:59 06:59 18:59 Intake Total 2430 1300 Balance 2430 1300 Weight 63.503 kg Intake: Intake, IV Titration 850 1200 Amount D5-0.9% NaCl with KCl 20 400 1200 Meq/l 1,000 ml @ 100 mls/ hr IV .Q10H JACINTA Rx#: [id number] Sodium Chloride 0.9% 1, 450 000 ml @ 100 mls/hr IV . Q10H JACINTA Rx#:[id number] Oral 1580 100 Other: Voiding Method Toilet Toilet # Voids 4 2 - Exam GENERAL: Sitting up in bed, alert and oriented x3, no acute distress. HEENT: Pupils are round and equal,EOMI. No scleral icterus. No conjunctival pallor. CARDIOVASCULAR: S1 and S2 present. No murmurs, rubs, or gallops. PULMONARY: Chest is clear to auscultation, bilateral bases diminished ABDOMEN: Soft, nontender, nondistended, positive bowel sounds. No palpable organomegaly. Patient has a midabdominal scar EXTREMITIES: No cyanosis, clubbing, or pedal edema. NEUROLOGICAL: Gross neurological examination did not reveal any focal deficits. SKIN: Warm and dry, No rashes. - Labs CBC & Chem 7: 11/11/20 06:15 11/11/20 06:15 Labs: Abnormal Lab Results - Last 24 Hours (Table) 11/10/20 11/10/20 11/10/20 Range/Units 09:31 09:31 11:57 WBC 2.0 L (3.8-10.6) k/uL RBC 4.04 L (4.30-5.90) m/uL Hgb 12.8 L (13.0-17.5) gm/dL Hct 37.1 L (39.0-53.0) % Neutrophils # (Manual) 1.00 L (1.3-7.7) k/uL Lymphocytes # (1.0-4.8) k/uL Lymphocytes # (Manual) 0.42 L (1.0-4.8) k/uL Sodium 133 L (137-145) mmol/L Carbon Dioxide 21 L (22-30) mmol/L Glucose 55 L (74-99) mg/dL POC Glucose (mg/dL) 55 L (75-99) mg/dL 11/10/20 11/10/20 11/10/20 Range/Units 12:16 12:41 17:11 WBC (3.8-10.6) k/uL RBC (4.30-5.90) m/uL Hgb (13.0-17.5) gm/dL Hct (39.0-53.0) % Neutrophils # (Manual) (1.3-7.7) k/uL Lymphocytes # (1.0-4.8) k/uL Lymphocytes # (Manual) (1.0-4.8) k/uL Sodium (137-145) mmol/L Carbon Dioxide (22-30) mmol/L Glucose (74-99) mg/dL POC Glucose (mg/dL) 55 L 74 L 104 H (75-99) mg/dL 11/10/20 11/11/20 11/11/20 Range/Units 20:05 05:01 06:15 WBC 3.6 L (3.8-10.6) k/uL RBC 4.15 L (4.30-5.90) m/uL Hgb 12.9 L (13.0-17.5) gm/dL Hct 37.8 L (39.0-53.0) % Neutrophils # (Manual) (1.3-7.7) k/uL Lymphocytes # 0.4 L (1.0-4.8) k/uL Lymphocytes # (Manual) (1.0-4.8) k/uL Sodium (137-145) mmol/L Carbon Dioxide (22-30) mmol/L Glucose (74-99) mg/dL POC Glucose (mg/dL) 128 H 135 H (75-99) mg/dL 11/11/20 Range/Units 06:15 WBC (3.8-10.6) k/uL RBC (4.30-5.90) m/uL Hgb (13.0-17.5) gm/dL Hct (39.0-53.0) % Neutrophils # (Manual) (1.3-7.7) k/uL Lymphocytes # (1.0-4.8) k/uL Lymphocytes # (Manual) (1.0-4.8) k/uL Sodium 135 L (137-145) mmol/L Carbon Dioxide (22-30) mmol/L Glucose 124 H (74-99) mg/dL POC Glucose (mg/dL) (75-99) mg/dL Assessment and Plan Assessment: Small bowel obstruction, possibly secondary to Ca progression, possibly scarring and adhesions. Adenocarcinoma of colon with metastasis, history of right colectomy, partial omentectomy CAD, history of [place], cardiac stent Ongoing nicotine dependence, counseling provided Hyperlipidemia Hypothyroidism Chronic diastolic CHF Plan: Continue on current medication regime ,monitoring and symptomatic treatment. Patient has been cleared by oncology for discharge, diet decrease to clears, continue with IV fluid hydration. Follow closely with surgery. DELMY in a.m. if able to tolerate diet intake. The impression and plan of care has been dictated as directed. : I performed a history and examination of this patient, discussed the same with the dictator. I agree with the dictator's note ,documented as a scribe. Any additional findings or plans will be noted.
[2020-11-11] MEDS: SIMETHICONE 80 MG CHEWABLE PO SCH ×3 (12:14→21:33)
[2020-11-11 12:30] LABS: Glucose,Whole Blood 129 mg/dL (75-99)
--- NOTE | 2020-11-11 12:49 | P.PN ---
Subjective Progress Note Date: 11/11/20 CHIEF COMPLAINT: Abdominal pain HISTORY OF PRESENT ILLNESS: Patient is being followed in regards to his small bowel obstruction. He was started on a full liquid diet yesterday. He reports more abdominal pain after eating the oatmeal. The pain is located in the lower abdomen. He still has not had a bowel movement. He did have some flatus yesterday evening. Admits to having some nausea. Afebrile. WBC is 3.6 hemoglobin 12.9 platelets 179 sodium is 135 potassium is 4.4 creatinine is 0.74 PHYSICAL EXAM: VITAL SIGNS: Reviewed. GENERAL: Well-developed in no acute distress. HEENT: No sclera icterus. Extraocular movements grossly intact. Moist buccal mucosa. Head is atraumatic, normocephalic. ABDOMEN: Soft. Mildly distended. Tenderness with palpation of the lower abdomen. NEUROLOGIC: Alert and oriented. Cranial nerves II through XII grossly intact. ASSESSMENT: 1. Small bowel obstruction likely secondary to peritoneal metastasis 2. History of colon cancer PLAN: -Downgrade diet to clear liquids -Encourage patient to ambulate -Encourage patient to follow-up with Dr. Harris out of [facility]. Patient does have appointment with Dr. Harris in 2 days -No surgical intervention planned -Continue conservative management Physician Supervisor Cloth Winding note has been reviewed by physician. Signing provider agrees with the documented findings, assessment, and plan of care. Objective - Vital Signs Vital signs: Vital Signs Temp 98.1 F 11/11/20 11:30 Pulse 77 11/11/20 11:30 Resp 18 11/11/20 11:30 BP 118/77 11/11/20 11:30 Pulse Ox 97 11/11/20 11:30 Intake & Output 11/10/20 11/11/20 11/11/20 18:59 06:59 18:59 Intake Total 2430 1300 Balance 2430 1300 Weight 63.503 kg Intake: Intake, IV Titration 850 1200 Amount D5-0.9% NaCl with KCl 20 400 1200 Meq/l 1,000 ml @ 100 mls/ hr IV .Q10H JACINTA Rx#: [id number] Sodium Chloride 0.9% 1, 450 000 ml @ 100 mls/hr IV . Q10H JACINTA Rx#:[id number] Oral 1580 100 Other: Voiding Method Toilet Toilet Toilet # Voids 4 2 - Labs CBC & Chem 7: 11/11/20 06:15 11/11/20 06:15 Labs: Abnormal Lab Results - Last 24 Hours (Table) 11/10/20 11/10/20 11/10/20 Range/Units 12:41 17:11 20:05 WBC (3.8-10.6) k/uL RBC (4.30-5.90) m/uL Hgb (13.0-17.5) gm/dL Hct (39.0-53.0) % Lymphocytes # (1.0-4.8) k/uL Sodium (137-145) mmol/L Glucose (74-99) mg/dL POC Glucose (mg/dL) 74 L 104 H 128 H (75-99) mg/dL 11/11/20 11/11/20 11/11/20 Range/Units 05:01 06:15 06:15 WBC 3.6 L (3.8-10.6) k/uL RBC 4.15 L (4.30-5.90) m/uL Hgb 12.9 L (13.0-17.5) gm/dL Hct 37.8 L (39.0-53.0) % Lymphocytes # 0.4 L (1.0-4.8) k/uL Sodium 135 L (137-145) mmol/L Glucose 124 H (74-99) mg/dL POC Glucose (mg/dL) 135 H (75-99) mg/dL 11/11/20 Range/Units 12:28 WBC (3.8-10.6) k/uL RBC (4.30-5.90) m/uL Hgb (13.0-17.5) gm/dL Hct (39.0-53.0) % Lymphocytes # (1.0-4.8) k/uL Sodium (137-145) mmol/L Glucose (74-99) mg/dL POC Glucose (mg/dL) 129 H (75-99) mg/dL
--- NOTE | 2020-11-11 16:37 | P.PN ---
Subjective Progress Note Date: 11/11/20 Principal diagnosis: SBO, met colon adenocarcinoma In f/u today pt cont to have a "rolling" stomach associated with with pain at times, he has small ant of stool, infrequent flatus. Appetite is down, no c/o N,V. Objective - Vital Signs Vital signs: Vital Signs Temp 98.1 F 11/11/20 11:30 Pulse 77 11/11/20 11:30 Resp 18 11/11/20 11:30 BP 118/77 11/11/20 11:30 Pulse Ox 97 11/11/20 11:30 Intake & Output 11/10/20 11/11/20 11/11/20 18:59 06:59 18:59 Intake Total 2430 1300 Balance 2430 1300 Weight 63.503 kg Intake: Intake, IV Titration 850 1200 Amount D5-0.9% NaCl with KCl 20 400 1200 Meq/l 1,000 ml @ 100 mls/ hr IV .Q10H JACINTA Rx#: [id number] Sodium Chloride 0.9% 1, 450 000 ml @ 100 mls/hr IV . Q10H JACINTA Rx#:[id number] Oral 1580 100 Other: Voiding Method Toilet Toilet Toilet # Voids 4 2 - Constitutional General appearance: Present: cooperative, no acute distress, thin - EENT Eyes: Present: anicteric sclerae, EOMI ENT: Present: hearing grossly normal - Respiratory Details: resp are even and unlabored at rest - Gastrointestinal Gastrointestinal Comment(s): distant BS General gastrointestinal: Present: soft, tenderness - Neurologic Neurologic: Present: CNII-XII intact - Musculoskeletal Musculoskeletal: Present: strength equal bilaterally - Psychiatric Psychiatric: Present: A&O x's 3, appropriate affect, intact judgment & insight - Labs CBC & Chem 7: 11/11/20 06:15 11/11/20 06:15 Labs: Abnormal Lab Results - Last 24 Hours (Table) 11/10/20 11/10/20 11/11/20 Range/Units 17:11 20:05 05:01 WBC (3.8-10.6) k/uL RBC (4.30-5.90) m/uL Hgb (13.0-17.5) gm/dL Hct (39.0-53.0) % Lymphocytes # (1.0-4.8) k/uL Sodium (137-145) mmol/L Glucose (74-99) mg/dL POC Glucose (mg/dL) 104 H 128 H 135 H (75-99) mg/dL 11/11/20 11/11/20 11/11/20 Range/Units 06:15 06:15 12:28 WBC 3.6 L (3.8-10.6) k/uL RBC 4.15 L (4.30-5.90) m/uL Hgb 12.9 L (13.0-17.5) gm/dL Hct 37.8 L (39.0-53.0) % Lymphocytes # 0.4 L (1.0-4.8) k/uL Sodium 135 L (137-145) mmol/L Glucose 124 H (74-99) mg/dL POC Glucose (mg/dL) 129 H (75-99) mg/dL Assessment and Plan (1) Adenocarcinoma of colon Narrative/Plan: SBO suspected to be r/t progressive malignancy vs scar tissue. Requested CD of images this visit and recent CT CAP to be taken to Surgeon for review. Told pt that if progressive cancer or scar tissue it seems that he may need diverting ostomy for comfort. He had appt for yesterday with Surgeon but, he was inpt. We were able to get him in at noon this . Documented in DC summary, told pt, RN. Discussed case with Attending and Surgeon, all in agreement with plan Current Visit: Yes Status: Chronic Priority: High Code(s): C18.9 - MALIGNANT NEOPLASM OF COLON, UNSPECIFIED SNOMED Code(s): 513657063
[2020-11-11 17:04] LABS: Glucose,Whole Blood 124 mg/dL (75-99)
[2020-11-11 19:51] VITALS: RESP 16
[2020-11-12 01:28] LABS: Glucose,Whole Blood 120 mg/dL (75-99)
[2020-11-12] MEDS: D5-0.9% NACL WITH KCL 20 MEQ/L 1,000 ML IV SCH (03:32)
[2020-11-12] MEDS: HYDROmorphone 1 MG/ML 1 ML SYRINGE IVP PRN ×2 (03:32→07:58)
[2020-11-12] MEDS: ONDANSETRON 4 MG/2 ML VIAL IVP PRN (03:41)
[2020-11-12 05:48] LABS: Glucose,Whole Blood 114 mg/dL (75-99)
[2020-11-12 07:13] VITALS: BP 126/77; PULSE 72; TEMP 98
[2020-11-12] MEDS: FAMOTIDINE 20 MG/2 ML VIAL IV SCH (08:08)
[2020-11-12] MEDS: SIMETHICONE 80 MG CHEWABLE PO SCH (08:11)
[2020-11-12] MEDS: HEPARIN SODIUM,PORCINE/PF 5,000 UNIT/0.5 ML SYRINGE SQ SCH (08:11)
--- NOTE | 2020-11-12 13:18 | P.PN ---
Subjective Progress Note Date: 11/12/20 CHIEF COMPLAINT: Abdominal pain HISTORY OF PRESENT ILLNESS: Patient is being followed in regards to his small bowel obstruction. Patient is unable to tolerate diet. He is currently on clear liquids. He reports that he continues to vomit if he tries to drink anything. He reports that his pain is same. He is having flatus. Denies any bowel movement. Afebrile WBC 3.6 hemoglobin 12.9 platelets 179 sodium 135 potassium 4.4 creatinine 0.74 PHYSICAL EXAM: VITAL SIGNS: Reviewed. GENERAL: Well-developed in no acute distress. HEENT: No sclera icterus. Extraocular movements grossly intact. Moist buccal mucosa. Head is atraumatic, normocephalic. ABDOMEN: Soft. Mildly distended. Tenderness with palpation of the lower abdomen. NEUROLOGIC: Alert and oriented. Cranial nerves II through XII grossly intact. ASSESSMENT: 1. Small bowel obstruction likely secondary to peritoneal metastasis 2. History of colon cancer PLAN: -Continue clear liquids -Encourage patient to ambulate -Encourage patient to follow-up with Dr. Harris out of [facility]. Patient does have appointment with Dr. Harris tomorrow for evaluation for diverting ostomy for comfort. -No surgical intervention planned -Continue conservative management Physician Usability Engineer note has been reviewed by physician. Signing provider agrees with the documented findings, assessment, and plan of care. Objective - Vital Signs Vital signs: Vital Signs Temp 98.0 F 11/12/20 07:12 Pulse 72 11/12/20 09:34 Resp 16 11/12/20 09:34 BP 126/77 11/12/20 07:12 Pulse Ox 97 11/12/20 07:12 Intake & Output 11/11/20 11/12/20 11/12/20 18:59 06:59 18:59 Intake Total 1200 Output Total 2 Balance 1198 Intake: Intake, IV Titration 1200 Amount D5-0.9% NaCl with KCl 20 1200 Meq/l 1,000 ml @ 100 mls/ hr IV .Q10H JACINTA Rx#: [id number] Output: Emesis 2 Other: Voiding Method Toilet Toilet Toilet # Voids 3 # Emeses 2 - Labs CBC & Chem 7: 11/11/20 06:15 11/11/20 06:15 Labs: Abnormal Lab Results - Last 24 Hours (Table) 09/11/11/20 11/12/20 Range/Units 12:28 17:03 00:02 POC Glucose (mg/dL) 129 H 124 H 120 H (75-99) mg/dL 11/12/20 Range/Units 05:45 POC Glucose (mg/dL) 114 H (75-99) mg/dL
--- NOTE | 2020-11-12 23:48 | P.DS ---
Providers Date of admission: 11/08/20 20:28 Attending physician: Rikki Alexander MD Consults: 11/08/20 20:45 Consult Physician Urgent Consulting Provider: Brett Clark Consult Reason/Comments: Small bowel obstruction hx colon cancer Do you want consulting provider notified?: Yes 11/09/20 09:48 Consult Physician Routine Consulting Provider: Osman Egan Consult Reason/Comments: Metastatic colon cancer Do you want consulting provider notified?: Yes, Notify in am Primary care physician: Radha [facility] Course: This is a 60-year-old gentleman with history of adenocarcinoma of colon, chemo therapy nearly 2 weeks ago ,admitted with small bowel obstruction. Denies nausea/vomiting .Passing flatus. NPO,Hypoglycemic. Maintained on IV fluid hydration.Afebrile, WBC 2, hemoglobin 12.8, platelets 177, sodium 133, potassium 3.7, BUN/creatinine 18/0.68. Abdominal x-ray pending. Denies chest pain, palpitations or shortness of breath. 11/11/2020 diet advanced to full liquid, this morning unable to eat oatmeal, complaining of bilateral lower quadrant abdominal pain. Diet decreased to clears. No bowel movement since Tuesday reported. Minimal flatus. Patient reported surgeon yesterday suggested progression of cancer versus scar tissue. Emotionally this morning he reports feeling better and declining any antidepressant or anoxiclytic. Patient waiting to discuss further with oncology. Patient reports if cancer is progressing he wishes not to proceed with any further chemo. or surgeries. CT performed on 11/06/2020, reported possible worsening peritoneal carcinomatosis. Abdominal x-ray yesterday reported stable persistent dilated small bowel loops with air-filled levels suggestive of obstruction. Maintained on IV fluid hydration, blood sugars controlled. Sodium up to 135, potassium 4.4. Renal function stable. WBC trending up, 3.6, neutrophils 76, hemoglobin 12.9, platelets 179. Afebrile. Pt was seen and evaluated by Surgery and Oncology. His bowel obstruction was t reated conservatively and his pain did improve and is tolerating clear liquid diet although remains nauseated. No surgical intervention was planned. His bowel obstruction was felt to be secondary to peritoneal mets. Pt plans to see his previous surgeon as an outpatient tomorrow for evaluation of diverting ostomy. He is discharged in stable condition with a poor prognosis and recommended to closely follow with his PCP and oncologist. Patient Condition at Discharge: Stable Plan - Discharge Summary Discharge Rx Participant: Yes New Discharge Prescriptions: New Simethicone Chew [Mylicon Chew] 80 mg PO QID tab Ondansetron Odt [Zofran Odt] 8 mg PO Q8HR #30 tab Continue Aspirin 81 mg PO DAILY #100 chew Gabapentin [Neurontin] 200 mg PO BID Ondansetron [Zofran ODT] 4 mg PO Q8HR PRN PRN Reason: Nausea And Vomiting Docusate Sodium [Dok] 1 PRN PRN Reason: Constipation Simvastatin [Zocor] 10 mg PO HS Metoprolol Tartrate [Lopressor] 50 mg PO DAILY Omeprazole 20 mg PO DAILY PRN PRN Reason: Gi Upset Gabapentin [Neurontin] 200 mg PO BID Levothyroxine Sodium [Synthroid] 50 mcg PO DAILY Discharge Medication List Aspirin 81 mg PO DAILY #100 chew 04/19/17 [Rx] Gabapentin [Neurontin] 200 mg PO BID 05/13/20 [History] Metoprolol Tartrate [Lopressor] 50 mg PO DAILY 06/10/20 [History] Omeprazole 20 mg PO DAILY PRN 11/08/20 [History] Ondansetron [Zofran ODT] 4 mg PO Q8HR PRN 11/08/20 [History] Docusate Sodium [Dok] 1 PRN 11/10/20 [History] Gabapentin [Neurontin] 200 mg PO BID 11/10/20 [History] Levothyroxine Sodium [Synthroid] 50 mcg PO DAILY 11/10/20 [History] Simvastatin [Zocor] 10 mg PO HS 11/10/20 [History] Simethicone Chew [Mylicon Chew] 80 mg PO QID tab 11/11/20 [Rx] Ondansetron Odt [Zofran Odt] 8 mg PO Q8HR #30 tab 11/12/20 [Rx] Follow up Appointment(s)/Referral(s): Osman Egan MD [STAFF PHYSICIAN] - 11/24/20 9:30 am ([address] right behind [facility].) Radha White DO [Primary Care Provider] - 11/14/20 3:00 pm Brett Clark MD [STAFF PHYSICIAN] - As Needed Activity/Diet/Wound Care/Special Instructions: APPT WITH SURGEON DR. OLEA IS 11/13/20 AT NOON (1200). TAKE DISK WITH YOU!!! Discharge Disposition: HOME SELF-CARE
== END 2020-11-12 12:15 | disposition home or self-care (01) | DRG 389 ==
LOC: EC 18:12 → 5NMEDONC 20:28
PROVIDERS: ADMIT Family Medicine; ATTEND Family Medicine
DX: K56.600 Partial intestinal obstruction, unspecified as to cause (principal); I50.32 Chronic diastolic (congestive) heart failure; C18.9 Malignant neoplasm of colon, unspecified; C78.6 Secondary malignant neoplasm of retroperitoneum and peritoneum; I25.10 Atherosclerotic heart disease of native coronary artery without angina pectoris; I25.2 Old myocardial infarction; I11.0 Hypertensive heart disease with heart failure; Z79.82 Long term (current) use of aspirin; Z79.899 Other long term (current) drug therapy; Z80.0 Family history of malignant neoplasm of digestive organs; Z80.3 Family history of malignant neoplasm of breast; Z85.038 Personal history of other malignant neoplasm of large intestine; Z90.49 Acquired absence of other specified parts of digestive tract; Z95.5 Presence of coronary angioplasty implant and graft; T45.1X5A Adverse effect of antineoplastic and immunosuppressive drugs, initial encounter; D70.1 Agranulocytosis secondary to cancer chemotherapy; E03.9 Hypothyroidism, unspecified; E78.5 Hyperlipidemia, unspecified; F17.200 Nicotine dependence, unspecified, uncomplicated; G62.9 Polyneuropathy, unspecified; F12.90 Cannabis use, unspecified, uncomplicated; Z20.828 Contact with and (suspected) exposure to other viral communicable diseases
CPT/HCPCS: 36415; 74018; 74019; 80048; 80053; 81003; 82150; 83605; 83690; 85025; 85610; 85730; 87635; 96374; 96375; 96376; 99285